=== PATIENT | female | born 1955 | race Caucasian/White ===

== ENCOUNTER 2020-05-03 11:54 | Outpatient (CLI) | payer MEDICARE, SELFPAY ==
[2020-05-03 12:09] LABS: Basophils Absolute Auto 0.03 K/mm3 (0.00-0.10); Basophils Percent Auto 0.3 % (0.0-1.0); Eosinophils Absolute Auto 0.22 K/mm3 (0.02-0.50); Eosinophils Percent Auto 2.4 % (1.0-6.0); Hematocrit 32.9 % (35.0-42.0); Immature Granulocyte Absolute 0.03 K/mm3 (0.00-0.00); Immature Granulocyte Percent A 0.3 % (0.0-0.0); Lymphocytes Absolute Auto 2.52 K/mm3 (1.10-4.50); Lymphocytes Percent Auto 27.8 % (18.0-42.0); Mean Corpuscular HGB Conc 33.4 g/dL (32.0-36.0); Mean Corpuscular Hemoglobin 30.4 pg (27.0-31.0); Mean Corpuscular Volume 90.9 fL (78.0-102.0); Mean Platelet Volume 10.2 fl (9.2-11.8); Monocytes Absolute Auto 0.59 K/mm3 (0.10-0.90); Monocytes Percent Auto 6.5 % (2.0-11.0); Neutrophils Absolute Auto 5.7 K/mm3 (1.7-7.2); Neutrophils Percent Auto 62.7 % (50.0-70.0); Platelet Count Result 152 K/mm3 (150-420); Red Blood Count 3.62 M/mm3 (4.20-5.40); Red Cell Distribution Width 12.9 % (11.6-14.4); White Blood Count 9.1 K/mm3 (4.8-10.8)
[2020-05-03 13:11] LABS: Blood Urea Nitrogen 27 mg/dL (7-18); Calcium 9.2 mg/dL (8.5-10.1); Carbon Dioxide 33 mmol/L (21-32); Chloride 105 mmol/L (98-108); Estimated Glomerular Filt Rate 43; Glucose 145 mg/dL (70-99); Osmolality Calculated 306 mOsm/kg (285-295); Phosphorus 3.5 mg/dL (2.6-4.7); Sodium 144 mmol/L (136-145)
== END 2020-05-03 11:55 | disposition home or self-care (01) ==
PROVIDERS: PCP Family Medicine
DX: N18.2 Chronic kidney disease, stage 2 (mild) (principal)
CPT/HCPCS: 36415; 80069; 85025

== ENCOUNTER 2020-08-13 11:44 | Outpatient (CLI) | payer MEDICARE, SELFPAY ==
[2020-08-13 12:05] LABS: Basophils Absolute Auto 0.04 K/mm3 (0.00-0.10); Basophils Percent Auto 0.5 % (0.0-1.0); Eosinophils Absolute Auto 0.13 K/mm3 (0.02-0.50); Eosinophils Percent Auto 1.7 % (1.0-6.0); Hematocrit 37.4 % (35.0-42.0); Hemoglobin 12.3 g/dL (11.7-13.8); Immature Granulocyte Absolute 0.03 K/mm3 (0.00-0.00); Immature Granulocyte Percent A 0.4 % (0.0-0.0); Lymphocytes Absolute Auto 2.19 K/mm3 (1.10-4.50); Lymphocytes Percent Auto 29.4 % (18.0-42.0); Mean Corpuscular HGB Conc 32.9 g/dL (32.0-36.0); Mean Corpuscular Hemoglobin 28.7 pg (27.0-31.0); Mean Corpuscular Volume 87.4 fL (78.0-102.0); Mean Platelet Volume 11.1 fl (9.2-11.8); Monocytes Absolute Auto 0.38 K/mm3 (0.10-0.90); Monocytes Percent Auto 5.1 % (2.0-11.0); Neutrophils Absolute Auto 4.7 K/mm3 (1.7-7.2); Neutrophils Percent Auto 62.9 % (50.0-70.0); Platelet Count Result 151 K/mm3 (150-420); Red Blood Count 4.28 M/mm3 (4.20-5.40); White Blood Count 7.5 K/mm3 (4.8-10.8)
[2020-08-13 12:06] LABS: Add Urine Microscopic? YES; Appearance Urine Clear (Clear); Bilirubin Urine Negative (Negative); Blood Urine Negative (Negative); Color Urine Yellow (Yellow); Glucose Urine UA 3+ (Negative); Ketones Urine Negative (Negative); Leukocyte Esterase Ur Negative LEU/UL (Negative); Nitrate Urine Negative (Negative); Protein Urine Negative (Negative); Urobilinogen Urine 0.2 mg/dL (0.2-1.0); pH Urine 5.5 (5.0-8.0)
[2020-08-13 12:11] LABS: Bacteria Urine 3+ /hpf; RBC Urine 0-2 /hpf (0-2); Squamous Epithelial Cell Urine Many /hpf (Few); WBC Urine 0-3 /hpf (0-3)
[2020-08-13 12:19] LABS: Creatinine Urine 50.53 mg/dL (40-278)
[2020-08-13 12:27] LABS: Total Protein Urine Random 7.6 mg/dL (0.0-11.9)
[2020-08-13 12:42] LABS: Rheumatoid Factor Screen Negative (Negative)
[2020-08-13 12:45] LABS: Alanine Aminotransferase 28 U/L (14-59); Alkaline Phosphatase 71 U/L (46-116); Anion Gap 10 mmol/L (8-16); Aspartate Amino Transferase 29 U/L (15-37); Bilirubin,Total 0.4 mg/dL (0.00-1.00); Blood Urea Nitrogen 21 mg/dL (7-18); Calcium 9.2 mg/dL (8.5-10.1); Carbon Dioxide 25 mmol/L (21-32); Chloride 103 mmol/L (98-108); Estimated Glomerular Filt Rate 46; Ferritin 118 ng/mL (8-252); Glucose 383 mg/dL (70-99); Iron 76 ug/dL (50-170); Osmolality Calculated 305 mOsm/kg (285-295); Percent Iron Saturation 18 % (12-57); Potassium 4.9 mmol/L (3.5-5.1); Sodium 138 mmol/L (136-145); Total Protein 6.6 g/dL (6.4-8.2); Uric Acid 3.6 mg/dL (2.6-6.0)
[2020-08-17 12:36] LABS: Complement C3 170 mg/dL (83-193)
[2020-08-17 19:53] LABS: Vitamin D 25 Hydroxy 28 ng/mL (30-100)
[2020-08-18 10:31] LABS: ANCA Screen Negative (Negative)
[2020-08-18 15:20] LABS: Parathyroid Intact 15 pg/mL (14-64)
== END 2020-08-13 11:45 | disposition home or self-care (01) ==
LOC: CHSLAB 11:48
PROVIDERS: PCP Family Medicine; Visit Provider Internal Medicine Nephrology
DX: R60.9 Edema, unspecified (principal); I12.9 Hypertensive chronic kidney disease with stage 1 through stage 4 chronic kidney disease, or unspecified chronic kidney disease; D63.1 Anemia in chronic kidney disease; M19.90 Unspecified osteoarthritis, unspecified site; E55.9 Vitamin D deficiency, unspecified; N18.30 Chronic kidney disease, stage 3 unspecified
CPT/HCPCS: 36415; 80053; 81001; 82306; 82570; 82728; 83540; 83550; 83970; 84100; 84156; 84550; 85025; 86021; 86038; 86160; 86430

== ENCOUNTER 2021-07-29 17:22 | Observation (INO) | payer MEDICARE, SELFPAY ==
--- NOTE | ~2021-07-29 | CT_ITS ---
EXAMINATION: CT abdomen pelvis wo con DATE: 07/29/2021 18:03 INDICATION: Left flank and low back pain. Loss of bladder control. TECHNIQUE: Computed tomography (CT) of the abdomen and pelvis was performed without intravenous contr ast. Automated exposure control and iterative reconstruction technique were employed. Exam dose: 141 4.05 mGy-cm total exam DLP. COMPARISON: None. FINDINGS: There is minimal atelectasis and/or infiltrate at the lung bases. Heart size is normal. No pericardial or pleural effusion. Status post sternotomy. There are multiple small filling defects in the dependent aspect of the gallbladder consistent with c holelithiasis. No gallbladder wall thickening or pericholecystic fluid or fat stranding. No bile duct or pancreatic duct dilatation. The liver, spleen, pancreas, adrenal glands and kidneys are unremarkable on this limited noncontrast examination. No urinary tract calculus or hydroureteronephrosis. There is atherosclerotic calcification of the abdominal aorta and at the origins of the celiac and weiss perior mesenteric and renal arteries, especially the left renal artery. No abdominal aortic aneurysm. There is calcification of the iliac and femoral arteries. No intraperitoneal or retroperitoneal or pelvic mass lesion or adenopathy or ascites. The urinary faustina dder is unremarkable. Status post hysterectomy. No bowel obstruction, bowel wall thickening, pneumatosis or intraperitoneal free air is detected. No appendix is noted. Degenerative changes of the thoracic and particularly lumbar spine including severe degenerative disc disease throughout the lumbar and lumbosacral area with associated and mild retrolisthesis at severa l levels. IMPRESSION: No urinary tract calculus or hydroureteronephrosis Cholelithiasis Degenerative changes of the thoracic and lumbar spine Reviewed, dictated and finalized at [facility]. Reviewed, dictated and finalized at location [facility].
--- NOTE | ~2021-07-29 | CT_ITS ---
EXAMINATION: CT lumbar spine wo con DATE: 07/30/2021 10:36 INDICATION: Low back pain TECHNIQUE: Computed tomography (CT) of the lumbar spine was performed without intravenous contrast. T he dose-length product (DLP) was 2043.61 mGy-cm. Iterative reconstruction was used. COMPARISON: None FINDINGS: There are 2 mm of retrolisthesis of L2 on L3 and L3 on L4. The vertebral body heights are m aintained. There is severe loss of intervertebral disc space height throughout the lumbar spine. No f racture is identified. Lumbar levoscoliosis is noted. IMPRESSION: 1. Severe lumbar spondylosis without acute abnormality. Reviewed, dictated and finalized at location [facility].
--- NOTE | 2021-07-29 17:29 | ED.GENADULT ---
HPI - General Adult General Chief complaint: Back Pain/Injury Stated complaint: ambualnce Source: patient Mode of arrival: ambulatory Limitations: no limitations History of Present Illness HPI narrative: Justyna is a 66F with a PMH of DMII, HTN, HLD, neuropathy, anxiety, CAD and aortic valve disease that was brought in by EMS for left low back pain. She also has some dysuria. She has chronic low back pain but it has been much worse today. It is worse with movement and better with rest. She lost her urine 3 times but not stool. She denies any paralysis or paresthesias. She denies trauma. Related Data Home Medications Medication Instructions Recorded Confirmed Lantus U-100 Insulin 54 unit SUBCUT HS 06/08/21 07/29/21 ProAir RespiClick 1 inh INHALATION QID PRN 06/08/21 07/29/21 Repatha Syringe 140 mg SUBCUT [id number] 06/08/21 07/29/21 Trulicity 3 mg SUBCUT WEEKLY 06/08/21 07/29/21 aspirin 81 mg PO DAILY 06/08/21 07/29/21 cholecalciferol (vitamin D3) 50 mcg PO DAILY 06/08/21 07/29/21 [Vitamin D3] fenofibrate micronized 134 mg PO DAILY 06/08/21 07/29/21 furosemide 40 mg PO DAILY 06/08/21 07/29/21 insulin lispro [Humalog U-100 14 unit SUBCUT TID 06/08/21 07/29/21 Insulin] lisinopril 5 mg PO DAILY 06/08/21 07/29/21 metoprolol succinate 25 mg PO DAILY 06/08/21 07/29/21 multivitamin with minerals 1 tablet PO DAILY 06/08/21 07/29/21 nitroglycerin [Nitrostat] 0.4 mg SUBLINGUAL Q5-15M PRN 06/08/21 07/29/21 rosuvastatin [Crestor] 40 mg PO DAILY 06/08/21 07/29/21 sertraline 50 mg PO DAILY 06/08/21 07/29/21 levetiracetam 1,000 mg PO BID 07/29/21 07/29/21 Allergies Allergy/AdvReac Type Severity Reaction Status Date / Time morphine Allergy Intermediate Difficulty Verified 06/08/21 12:05 Breathing Review of Systems Constitutional: Constitutional: Reports no additional constitutional complaints Eyes: Eyes: Reports no additional eye complaints ENT: Reports system reviewed and no additional complaints, except as documented Cardiovascular: Cardiovascular: Reports no additional cardiovascular complaints Respiratory: Respiratory: Reports no additional respiratory complaints Gastrointestinal: Gastrointestinal: Reports no additional gastrointestinal complaints Genitourinary: Genitourinary: Reports as per HPI Musculoskeletal: Musculoskeletal: Reports as per HPI Integumentary/Breasts: Skin/Breast: Reports system reviewed and no additional complaints, except as docu Neurologic: Reports as per HPI Psychiatric: Psychiatric: Reports no additional psychiatric complaints Endocrine: Endocrine: Reports no additional endocrine complaints Hematologic/Lymphatic: Hematologic/Lymphatic: Reports no additional hematologic/lymphatic complaints Allergic/Immunologic: Allergic/Immunologic: Reports no additional allergic/immunologic complaints [facility] Past Medical History Medical History Anxiety Aortic valve disease Carotid artery disease Cataracts, bilateral Coronary artery disease Diabetes Diabetic neuropathy Hyperlipidemia Hypertension Shortness of breath on exertion Surgical History Surgical History H/O carotid endarterectomy Hx of heart artery stent Family History Family History Sibling Acute myocardial infarction Mother Cancer Social History Social History Social History: The patient lives with her sister in [facility] with 5 steps to enter iwth B handrails at front entrance and 6 steps iwth Left handrail at back entrance. patient uses a cane for short distances. Smoking status: Current every day smoker Tobacco type: cigarettes Smoking end date: 06/08/21 Exam Const: General: no acute distress and alert Orientation/consciousness: patient oriented x3 Limitations: No altered mental status HENMT: H
[2021-07-29 17:51] VITALS: BP 160/91; PULSE 78; RESP 16; TEMP 36.9; O2SAT 97
[2021-07-29] MEDS: fentaNYL CITRATE INJ (*CRX) 100 MCG/2 ML VIAL 50 MCG IV PUSH (18:02)
[2021-07-29 18:05] LABS: Basophils Absolute Auto 0.03 K/mm3 (0.00-0.10); Basophils Percent Auto 0.4 % (0.0-1.0); Eosinophils Absolute Auto 0.17 K/mm3 (0.02-0.50); Eosinophils Percent Auto 2.1 % (1.0-6.0); Hematocrit 37.3 % (35.0-42.0); Hemoglobin 12.1 g/dL (11.7-13.8); Immature Granulocyte Absolute 0.02 K/mm3 (0.00-0.00); Immature Granulocyte Percent A 0.3 % (0.0-0.0); Immature Platelet Fraction Pct 2.4 % (1.0-7.0); Lymphocytes Absolute Auto 2.57 K/mm3 (1.10-4.50); Lymphocytes Percent Auto 32.5 % (18.0-42.0); Mean Corpuscular HGB Conc 32.4 g/dL (32.0-36.0); Mean Corpuscular Hemoglobin 29.8 pg (27.0-31.0); Mean Corpuscular Volume 91.9 fL (78.0-102.0); Mean Platelet Volume 10.9 fl (9.2-11.8); Monocytes Absolute Auto 0.58 K/mm3 (0.10-0.90); Monocytes Percent Auto 7.3 % (2.0-11.0); Neutrophils Absolute Auto 4.5 K/mm3 (1.7-7.2); Neutrophils Percent Auto 57.4 % (50.0-70.0); Platelet Count Result 131 K/mm3 (150-420); Red Blood Count 4.06 M/mm3 (4.20-5.40); Red Cell Distribution Width 12.6 % (11.6-14.4); White Blood Count 7.9 K/mm3 (4.8-10.8)
[2021-07-29 18:19] LABS: Alanine Aminotransferase 28 U/L (14-59); Albumin Level 3.8 g/dL (3.4-5.0); Alkaline Phosphatase 52 U/L (46-116); Anion Gap 8 mmol/L (8-16); Aspartate Amino Transferase 28 U/L (15-37); Bilirubin,Total 0.4 mg/dL (0.00-1.00); Blood Urea Nitrogen 23 mg/dL (7-18); Carbon Dioxide 30 mmol/L (21-32); Chloride 109 mmol/L (98-108); Estimated CRCL calculation 37 ml/min; Estimated Glomerular Filt Rate 52; Glucose 122 mg/dL (70-99); Osmolality Calculated 308 mOsm/kg (285-295); Potassium 4.8 mmol/L (3.5-5.1); Sodium 147 mmol/L (136-145); Total Protein 6.8 g/dL (6.4-8.2)
[2021-07-29 18:35] LABS: Add Urine Microscopic? YES; Appearance Urine Clear (Clear); Bilirubin Urine Negative (Negative); Blood Urine Trace-Intact (Negative); Color Urine Light Yellow (Yellow); Glucose Urine UA Negative (Negative); Ketones Urine Negative (Negative); Leukocyte Esterase Ur 1+ (Negative); Nitrate Urine Negative (Negative); Protein Urine Negative (Negative); Specific Grav Ur >= 1.030 (1.010-1.020); Urobilinogen Urine 0.2 mg/dL (0.2-1.0)
[2021-07-29 18:36] LABS: Bacteria Urine Trace /hpf; Squamous Epithelial Cell Urine Moderate /hpf (Few)
[2021-07-29 18:37] LABS: Mucus Urine Moderate /lpf
--- NOTE | 2021-07-29 19:17 | PC.NURSE ---
Attempted to get pt up to commode, pt unable to stand due to pain.
--- NOTE | 2021-07-29 19:19 | PC.NURSE ---
report to precious lee
[2021-07-29 20:30] VITALS: BP 150/59; PULSE 73; RESP 18; TEMP 36.4; O2SAT 95
[2021-07-29 20:38] VITALS: BP 130/70; PULSE 78; RESP 20; TEMP 36.6; O2SAT 98
[2021-07-29 21:14] VITALS: BMI 40.5
[2021-07-29 22:34] LABS: Glucose Point of Care 134 mg/dl (65-105)
[2021-07-29] MEDS: levETIRAcetam 500 MG TABLET 1000 MG PO (22:35)
[2021-07-29] MEDS: INSULIN GLARGINE (*BKC) 100 UNITS/ML 54 UNITS SUB-Q (22:36)
[2021-07-30] VITALS: BP 128/54; PULSE 71; RESP 18; TEMP 35.6; O2SAT 95
[2021-07-30] MEDS: HYDROcodone/acetaminophen (*CRX) 5-325 MG TABLET 1 TAB PO (00:39)
[2021-07-30 04:00] VITALS: BP 129/54; PULSE 97; RESP 20; TEMP 35.7; O2SAT 96
[2021-07-30] MEDS: oxyCODONE HCL (*CRX) 5 MG TAB IR PO (04:29)
[2021-07-30 07:55] VITALS: BP 134/73; PULSE 65; RESP 18; TEMP 36.1; O2SAT 100
[2021-07-30] MEDS: FENOFIBRATE NANOCRYSTALLIZED 145 MG TABLET PO (09:44)
[2021-07-30 09:45] VITALS: PULSE 65
[2021-07-30] MEDS: ROSUVASTATIN 10 MG TABLET 40 MG PO (09:45)
[2021-07-30] MEDS: METOPROLOL SUCCINATE EXT REL 25 MG TABCR PO (09:45)
[2021-07-30] MEDS: ASPIRIN 81 MG CHEWABLE TABLET PO (09:45)
[2021-07-30] MEDS: ENOXAPARIN 40 MG/0.4 ML SYRINGE SUB-Q (09:46)
[2021-07-30] MEDS: SERTRALINE HCL 50 MG TABLET PO (09:46)
[2021-07-30] MEDS: levETIRAcetam 500 MG TABLET 1000 MG PO (09:46)
[2021-07-30] MEDS: lisinopriL 5 MG TABLET PO (09:46)
[2021-07-30] MEDS: FUROSEMIDE 40 MG TABLET PO (09:46)
[2021-07-30] MEDS: THERAPEUTIC MULTIVITAMINS/MINERALS TAB (*BKC) 1 TABLET PO (09:46)
[2021-07-30 09:53] LABS: Glucose Point of Care 131 mg/dl (65-105)
--- NOTE | 2021-07-30 10:00 | PM.SD2 ---
Same Day Admit/Disch: HPI History of Present Illness Chief complaint: ambualnce Narrative: Justyna Wise is a 66 year old female who comes to the hospital for acute on chronic back pain and dysuria. Patient was admitted under Observation. Patient states that her lower left back pain had gotten worse over the last day. Patient says that when her back pain gets bad she has difficulty walking because it makes her left leg hurt as well. She also complains of dysuria. She states that after she has finished urinating is when she has the most pain. This pain is the same she has had in the past with a urinary tract infection. Patient states that when she was at home with this pain having hard time getting around she was also having stress incontinence of urine but no bowel incontinence. Patient states this morning she is able to get around with less difficulty. [facility] Past Medical History Medical History (Updated 07/30/21 @ 11:28 by KERON Aguila) Acute sinusitis, unspecified (12/24/14) Acute upper respiratory infection (12/24/14) Anxiety Aortic valve disease Breast lump (05/27/15) CAD (coronary artery disease) (02/28/12) Carotid artery disease Cataracts, bilateral Coronary artery disease Depression (02/28/12) Diabetes Diabetic neuropathy Hip pain (04/20/15) Hyperlipidemia Hypertension Knee pain (04/11/13) Lower back pain (01/30/13) Psoriasis (02/28/12) Shortness of breath on exertion Skin tag (05/28/14) Unspecified viral infection characterized by skin and mucous membrane lesions (04/20/15) Surgical History Surgical History H/O carotid endarterectomy Hx of heart artery stent Family History Family History Sibling Acute myocardial infarction Mother Cancer Social History Social History Social History: The patient lives with her sister in [facility] with 5 steps to enter [facility] B handrails at front entrance and 6 steps iwth Left handrail at back entrance. patient uses a cane for short distances. Smoking packs per day: 2 Smoking cigarettes per day: 40.0 Years smoked: 7 Smoking pack-years: 14.00 Smoking status: Former smoker Tobacco type: cigarettes Second hand tobacco smoke exposure: Yes Smoking end date: 06/08/21 Alcohol intake: never Substance use: never Substance use type: does not use Spiritual care concerns: No Same Day Admit/Disch: Med Pre-admit Medications Home Medications Medication Instructions Recorded Confirmed Type Lantus U-100 Insulin 54 unit SUBCUT HS 06/08/21 07/29/21 History ProAir RespiClick 1 inh INHALATION QID PRN 06/08/21 07/29/21 History Repatha Syringe 140 mg SUBCUT [id number] 06/08/21 07/29/21 History Trulicity 3 mg SUBCUT WEEKLY 06/08/21 07/29/21 History aspirin 81 mg PO DAILY 06/08/21 07/29/21 History cholecalciferol (vitamin D3) 50 mcg PO DAILY 06/08/21 07/29/21 History [Vitamin D3] fenofibrate micronized 134 mg PO DAILY 06/08/21 07/29/21 History furosemide 40 mg PO DAILY 06/08/21 07/29/21 History insulin lispro [Humalog U-100 14 unit SUBCUT TID 06/08/21 07/29/21 History Insulin] lisinopril 5 mg PO DAILY 06/08/21 07/29/21 History metoprolol succinate 25 mg PO DAILY 06/08/21 07/29/21 History multivitamin with minerals 1 tablet PO DAILY 06/08/21 07/29/21 History nitroglycerin [Nitrostat] 0.4 mg SUBLINGUAL Q5-15M PRN 06/08/21 07/29/21 History rosuvastatin [Crestor] 40 mg PO DAILY 06/08/21 07/29/21 History sertraline 50 mg PO DAILY 06/08/21 07/29/21 History levetiracetam 1,000 mg PO BID 07/29/21 07/29/21 History orphenadrine citrate 100 mg PO Q12H #14 tablet 07/30/21 Rx sulfamethoxazole-trimethoprim 1 tablet PO Q12H #10 tablet 07/30/21 Rx [Bactrim DS] Exam Neck: Neck: other (surgical scare from endo carotidectomy) Resp: Effort & Inspection: normal respiratory effort Auscultation: clear
[2021-07-30] MEDS: ORPHENADRINE CITRATE 30 MG/ML 2 ML VIAL 60 MG IM (10:53)
[2021-07-30 12:00] VITALS: PULSE 64; RESP 18; TEMP 36; O2SAT 100
[2021-07-30 12:22] LABS: Glucose Point of Care 133 mg/dl (65-105)
--- NOTE | 2021-07-30 14:40 | PC.NURSE ---
All discharge instructions and education reviewed with patient. Patient states understanding. IV site removed, tip intact. Dressing applied to site. All belongings gathered together and sent home with patient. Patient changed into clothing her daughter brought in with no assist. This nurse accompanied patient to front door via wheelchair. Patient left via private vehicle with daughter.
--- NOTE | 2021-08-01 12:50 | PC.NURSE ---
Pt states she received and understood her discharge instructions. When asked if she had any comments about her care she stated It was excellent .
== END 2021-07-30 14:40 | disposition home or self-care (01) ==
LOC: CHSED 19:59 → CHS2ND 20:00
PROVIDERS: Admitting Provider Family Medicine; Emergency Provider Family Medicine; PCP Family Medicine; Visit Provider Family Medicine
DX: M54.5 Low back pain (principal); N39.0 Urinary tract infection, site not specified; I10 Essential (primary) hypertension; I25.10 Atherosclerotic heart disease of native coronary artery without angina pectoris; I35.8 Other nonrheumatic aortic valve disorders; E11.40 Type 2 diabetes mellitus with diabetic neuropathy, unspecified; E78.5 Hyperlipidemia, unspecified; K80.20 Calculus of gallbladder without cholecystitis without obstruction; M47.816 Spondylosis without myelopathy or radiculopathy, lumbar region; G89.29 Other chronic pain; H26.9 Unspecified cataract; F32.9 Major depressive disorder, single episode, unspecified; F41.9 Anxiety disorder, unspecified; Z87.891 Personal history of nicotine dependence; Z95.5 Presence of coronary angioplasty implant and graft
CPT/HCPCS: 36415; 72131; 74176; 80053; 81001; 82948; 85025; 85055; 96372; 96374; 99285; A9270; G0378; J1650; J1815; J2360; J3010

== ENCOUNTER 2022-02-08 19:22 | Emergency (ER) | payer MEDICARE, SELFPAY ==
--- NOTE | ~2022-02-08 | CT_ITS ---
EXAMINATION: CT abdomen pelvis wo con DATE: 02/08/2022 22:27 INDICATION: Left flank pain. TECHNIQUE: Computed tomography (CT) of the abdomen and pelvis was performed without intravenous contr ast. Automated exposure control and iterative reconstruction technique were employed. The dose-length product was 669.46 mGy-cm. COMPARISON: CT abdomen and pelvis 07/29/2021 FINDINGS: The visualized portions of the lung bases demonstrate chronic interstitial lung disease. No pleural effusion. The heart size is normal. There are coronary artery calcifications. No pericardial effusion. There are changes of coronary artery bypass grafting. The liver is normal. There are galls tones in the gallbladder, which is normal in size. The spleen, pancreas, adrenal glands, and kidneys are normal. There is no urolithiasis. There are no dilated loops of bowel. The appendix is not visual ized. There are no pathologically enlarged lymph nodes. There is no free intraperitoneal fluid. There is severe lumbar spondylosis. IMPRESSION: 1. No urolithiasis. Reviewed, dictated and finalized at location A. IMPRESSION: 1. No urolithiasis.
[2022-02-08 19:38] VITALS: BP 157/64; PULSE 82; RESP 16; TEMP 36.8; O2SAT 99
--- NOTE | 2022-02-08 19:55 | PC.NURSE ---
Urine sent to lab
[2022-02-08 20:06] LABS: Appearance Urine Clear (Clear); Bilirubin Urine Negative (Negative); Blood Urine Negative (Negative); Color Urine Yellow (Yellow); Glucose Urine UA 2+ mg/dL (Negative); Ketones Urine Negative (Negative); Leukocyte Esterase Ur Negative LEU/UL (Negative); Nitrate Urine Negative (Negative); Protein Urine Negative (Negative); Specific Grav Ur >= 1.030 (1.001-1.035); Urobilinogen Urine 0.2 mg/dL (<2.0)
[2022-02-08 20:17] LABS: Mucus Urine Rare /lpf; RBC Urine 0-2 /hpf (0-2); Squamous Epithelial Cell Urine Many /hpf (Few); WBC Urine 0-3 /hpf
[2022-02-08 20:18] LABS: Add Urine Microscopic? YES
--- NOTE | 2022-02-08 20:34 | ED.FEMALEGU ---
HPI - Female Genitourinary General Chief complaint: Urogenital-Female Stated complaint: flank pain Time Seen by Provider: 02/08/22 20:23 Source: patient Mode of arrival: ambulatory Limitations: no limitations History of Present Illness HPI Narrative: Patient is a 67-year-old female who presents to the ED with report of left lower back/flank pain x2 days. Patient reports she has had pain like this before approximately 7 months ago at which point she had a urinary tract infection. She denies any recent urinary symptoms including dysuria, hematuria, urinary frequency. She notes her pain is worse with movement and sitting upright. She denies any recent falls or injury, unusual activity, strenuous activity. She has tried taking Tylenol at home for the pain without relief. Patient denies any weakness in her BLE, numbness, tingling, incontinence of her bowel or bladder. No chest pain, shortness of breath, abdominal pain, nausea, vomiting, fever, chills, pain with inspiration. Related Data Home Medications Medication Instructions Recorded Confirmed Lantus U-100 Insulin 54 unit SUBCUT HS 06/08/21 07/29/21 ProAir RespiClick 1 inh INHALATION QID PRN 06/08/21 07/29/21 Repatha Syringe 140 mg SUBCUT [id number] 06/08/21 07/29/21 Trulicity 3 mg SUBCUT WEEKLY 06/08/21 07/29/21 aspirin 81 mg PO DAILY 06/08/21 07/29/21 cholecalciferol (vitamin D3) 50 mcg PO DAILY 06/08/21 07/29/21 [Vitamin D3] fenofibrate micronized 134 mg PO DAILY 06/08/21 07/29/21 furosemide 40 mg PO DAILY 06/08/21 07/29/21 insulin lispro [Humalog U-100 14 unit SUBCUT TID 06/08/21 07/29/21 Insulin] lisinopril 5 mg PO DAILY 06/08/21 07/29/21 metoprolol succinate 25 mg PO DAILY 06/08/21 07/29/21 multivitamin with minerals 1 tablet PO DAILY 06/08/21 07/29/21 nitroglycerin [Nitrostat] 0.4 mg SUBLINGUAL Q5-15M PRN 06/08/21 07/29/21 rosuvastatin [Crestor] 40 mg PO DAILY 06/08/21 07/29/21 sertraline 50 mg PO DAILY 06/08/21 07/29/21 levetiracetam 1,000 mg PO BID 07/29/21 07/29/21 Allergies Allergy/AdvReac Type Severity Reaction Status Date / Time morphine Allergy Intermediate Difficulty Verified 02/08/22 19:42 Breathing Review of Systems Review of Systems: CONSTITUTIONAL: Denies fever, chills. CARDIOVASCULAR: Denies chest pain. RESPIRATORY: Denies dyspnea, pain w/ inspiration. GASTROINTESTINAL: Denies abdominal pain, nausea, vomiting, incontinence, or diarrhea. GENITOURINARY: Denies dysuria, urinary frequency, incontinence, or hematuria. SKIN: Denies rash or itching. MUSCULOSKELETAL: Reports L lower back/flank pain. Denies joint pain. NEUROLOGIC: Denies headache, numbness, or weakness. All systems reviewed & are unremarkable except as noted in HPI and below PMFSH Past Medical History Medical History Acute sinusitis, unspecified (12/24/14) Acute upper respiratory infection (12/24/14) Anxiety Aortic valve disease Breast lump (05/27/15) CAD (coronary artery disease) (02/28/12) Carotid artery disease Cataracts, bilateral Coronary artery disease Depression (02/28/12) Diabetes Diabetic neuropathy Hip pain (04/20/15) Hyperlipidemia Hypertension Knee pain (04/11/13) Lower back pain (01/30/13) Psoriasis (02/28/12) Shortness of breath on exertion Skin tag (05/28/14) Unspecified viral infection characterized by skin and mucous membrane lesions (04/20/15) Surgical History Surgical History H/O carotid endarterectomy Hx of heart artery stent Family History Family History Sibling Acute myocardial infarction Mother Cancer Social History Social History Social History: The patient lives with her sister in [facility] with 5 steps to enter [facility] B handrails at front entrance and 6 steps iw Left handrail at back entrance. patient uses a cane for short distances.
[2022-02-08 21:17] VITALS: BP 152/68; PULSE 86; RESP 16; O2SAT 99
[2022-02-08] MEDS: KETOROLAC 30 MG/ML VIAL (*BKC) IV PUSH (21:19)
[2022-02-08 21:27] LABS: Basophils Percent Auto 0.4 % (0.2-1.2); Eosinophils Absolute Auto 0.1 K/mm3 (0-0.3); Eosinophils Percent Auto 1.7 % (0-4.4); Hematocrit 36.2 % (37.0-47.0); Hemoglobin 11.5 g/dL (12.0-15.0); Immature Granulocyte Absolute 0.02 K/mm3 (0.00-0.031); Immature Granulocyte Percent A 0.3 % (0-0.5); Lymphocytes Absolute Auto 2.71 K/mm3 (0.9-3.2); Lymphocytes Percent Auto 34.7 % (18.3-44.2); Mean Corpuscular HGB Conc 31.8 g/dl (32-36); Mean Corpuscular Hemoglobin 29.3 pg (26-34); Mean Corpuscular Volume 92.3 fl (80-100); Monocytes Absolute Auto 0.7 K/mm3 (0.1-0.6); Monocytes Percent Auto 8.4 % (2.6-8.5); Neutrophils Absolute Auto 4.3 K/mm3 (1.3-6.7); Neutrophils Percent Auto 54.5 % (45.5-73.1); Platelet Count Result 125 k/mm3 (150-375); Red Blood Count 3.92 M/mm3 (4.2-5.4); Red Cell Distribution Width 13.4 % (11.5-14.5); White Blood Count 7.8 K/mm3 (4.5-10.0)
[2022-02-08 21:37] LABS: Alanine Aminotransferase 24 U/L (4-35); Albumin Level 4.1 g/dL (3.5-5.1); Alkaline Phosphatase 92 U/L (38-126); Anion Gap 7 mmol/L (8-16); Aspartate Amino Transferase 35 U/L (14-36); Bilirubin,Total 0.3 mg/dL (0.2-1.3); Blood Urea Nitrogen 31 mg/dL (7-17); Calcium 8.9 mg/dL (8.4-10.2); Carbon Dioxide 27 mmol/L (22-30); Chloride 106 mmol/L (98-107); Estimated CRCL calculation 54 ml/min; Estimated Glomerular Filt Rate 55; Glucose 230 mg/dL (65-110); Lipase 63 U/L (23-300); Potassium 4.9 mmol/L (3.4-5.0); Sodium 140 mmol/L (137-145)
[2022-02-08] MEDS: CYCLOBENZAPRINE HCL 5 MG TABLET PO (22:43)
[2022-02-08 23:22] VITALS: BP 154/52; PULSE 75; RESP 18; O2SAT 98
== END 2022-02-08 23:22 | disposition home or self-care (01) ==
PROVIDERS: Physician Assistant; Emergency Provider Emergency Medicine; PCP Family Medicine
DX: S39.012A Strain of muscle, fascia and tendon of lower back, initial encounter (principal); F41.9 Anxiety disorder, unspecified; I25.10 Atherosclerotic heart disease of native coronary artery without angina pectoris; E11.9 Type 2 diabetes mellitus without complications; Z79.4 Long term (current) use of insulin; X58.XXXA Exposure to other specified factors, initial encounter
CPT/HCPCS: 36415; 74176; 80053; 81001; 83690; 85025; 96374; 99284; A9270; J1885

== ENCOUNTER 2022-09-18 11:00 | Outpatient (RCR) | payer MEDICARE, SELFPAY ==
[2022-06-09 11:09] LABS: Glucose Point of Care 363 mg/dl (65-105)
== END 2022-09-18 13:11 | disposition home or self-care (01) ==
PROVIDERS: PCP Family Medicine
DX: Z95.2 Presence of prosthetic heart valve (principal)
CPT/HCPCS: 93798

== ENCOUNTER 2023-01-13 09:44 | Outpatient (CLI) | payer MEDICARE, SELFPAY ==
--- NOTE | ~2023-01-13 | XR_ITS ---
EXAMINATION: XR chest 2V DATE: 01/13/2023 10:07 INDICATION: Abnormal lung sounds, COVID 19 positive TECHNIQUE: PA and lateral views of the chest are obtained. COMPARISON: 09/11/2016 FINDINGS: The lungs are free of acute opacities. No pleural effusion or pneumothorax. The heart size is normal. There are changes of interval coronary artery bypass grafting and endoluminal aortic valve repair. There is mild thoracic spondylosis. Suture anchors are noted in the left humeral head. IMPRESSION: 1. No acute cardiopulmonary abnormality. Reviewed, dictated and finalized at location F. [facility]INGER
[2023-01-13 10:03] LABS: Appearance Urine Clear (Clear); Basophils Absolute Auto 0.05 K/mm3 (0.00-0.10); Basophils Percent Auto 0.6 % (0.0-1.0); Bilirubin Urine Negative (Negative); Blood Urine Negative (Negative); Color Urine Light Yellow (Yellow); Eosinophils Absolute Auto 0.16 K/mm3 (0.02-0.50); Eosinophils Percent Auto 1.8 % (1.0-6.0); Glucose Urine UA Negative (Negative); Hematocrit 40.4 % (35.0-42.0); Hemoglobin 13.2 g/dL (11.7-13.8); Immature Granulocyte Absolute 0.03 K/mm3 (0.00-0.00); Immature Granulocyte Percent A 0.3 % (0.0-0.0); Ketones Urine Negative (Negative); Leukocyte Esterase Ur Trace LEU/UL (Negative); Lymphocytes Percent Auto 35.1 % (18.0-42.0); Mean Corpuscular HGB Conc 32.7 g/dL (32.0-36.0); Mean Corpuscular Hemoglobin 29.6 pg (27.0-31.0); Mean Corpuscular Volume 90.6 fL (78.0-102.0); Mean Platelet Volume 10.3 fl (9.2-11.8); Monocytes Absolute Auto 0.59 K/mm3 (0.10-0.90); Monocytes Percent Auto 6.7 % (2.0-11.0); Neutrophils Absolute Auto 4.9 K/mm3 (1.7-7.2); Neutrophils Percent Auto 55.5 % (50.0-70.0); Nitrate Urine Negative (Negative); Platelet Count Result 157 K/mm3 (150-420); Protein Urine Negative (Negative); Red Blood Count 4.46 M/mm3 (4.20-5.40); Red Cell Distribution Width 13.2 % (11.6-14.4); Urobilinogen Urine 0.2 mg/dL (0.2-1.0); White Blood Count 8.8 K/mm3 (4.8-10.8)
[2023-01-13 10:06] LABS: Add Urine Microscopic? YES; Bacteria Urine Rare /hpf; RBC Urine None seen /hpf (0-2); WBC Urine 0-3 /hpf (0-3)
[2023-01-13 10:07] LABS: Squamous Epithelial Cell Urine Occasional /hpf (Few)
[2023-01-13 10:44] LABS: Creatinine Urine 33.37 mg/dL (40-278); Ur Ttl Prot Creatinine Ratio 0.18 mg/mg (0-0.20)
[2023-01-13 10:54] LABS: Total Protein Urine Random < 6.0 mg/dL (0.0-11.9)
[2023-01-13 11:02] LABS: Albumin Level 3.9 g/dL (3.4-5.0); Anion Gap 9 mmol/L (8-16); Blood Urea Nitrogen 20 mg/dL (7-18); Calcium 9.6 mg/dL (8.5-10.1); Carbon Dioxide 30 mmol/L (21-32); Chloride 105 mmol/L (98-108); Estimated Glomerular Filt Rate 46; Glucose 139 mg/dL (70-99); NT Pro B Type Natriuretic Pept 86 pg/mL (0-125); Osmolality Calculated 302 mOsm/kg (285-295); Phosphorus 4.1 mg/dL (2.6-4.7); Sodium 144 mmol/L (136-145)
== END 2023-01-13 09:45 | disposition home or self-care (01) ==
LOC: CHSIMG 09:49
PROVIDERS: PCP Family Medicine; Visit Provider Internal Medicine Nephrology
DX: R60.9 Edema, unspecified (principal); N18.2 Chronic kidney disease, stage 2 (mild); Z12.2 Encounter for screening for malignant neoplasm of respiratory organs; R05.9 Cough, unspecified; R06.89 Other abnormalities of breathing
CPT/HCPCS: 36415; 71046; 80069; 81001; 82570; 83880; 84156; 85025

== ENCOUNTER 2023-04-21 08:37 | Outpatient (CLI) | payer MEDICARE, SELFPAY ==
[2023-04-21 08:53] LABS: Basophils Absolute Auto 0.05 K/mm3 (0.00-0.10); Basophils Percent Auto 0.5 % (0.0-1.0); Eosinophils Percent Auto 2.1 % (1.0-6.0); Hematocrit 42.7 % (35.0-42.0); Hemoglobin 13.6 g/dL (11.7-13.8); Immature Granulocyte Absolute 0.02 K/mm3 (0.00-0.00); Immature Granulocyte Percent A 0.2 % (0.0-0.0); Lymphocytes Absolute Auto 3.61 K/mm3 (1.10-4.50); Lymphocytes Percent Auto 37.8 % (18.0-42.0); Mean Corpuscular HGB Conc 31.9 g/dL (32.0-36.0); Mean Corpuscular Hemoglobin 29.4 pg (27.0-31.0); Mean Corpuscular Volume 92.4 fL (78.0-102.0); Mean Platelet Volume 10.6 fl (9.2-11.8); Monocytes Absolute Auto 0.62 K/mm3 (0.10-0.90); Monocytes Percent Auto 6.5 % (2.0-11.0); Neutrophils Absolute Auto 5.1 K/mm3 (1.7-7.2); Neutrophils Percent Auto 52.9 % (50.0-70.0); Platelet Count Result 173 K/mm3 (150-420); Red Blood Count 4.62 M/mm3 (4.20-5.40); Red Cell Distribution Width 13.2 % (11.6-14.4); White Blood Count 9.6 K/mm3 (4.8-10.8)
[2023-04-21 08:57] LABS: Total Protein Urine Random 28.2 mg/dL (0.0-11.9)
[2023-04-21 09:04] LABS: Appearance Urine Clear (Clear); Bilirubin Urine Negative (Negative); Blood Urine Negative (Negative); Color Urine Yellow (Yellow); Glucose Urine UA Negative (Negative); Ketones Urine Negative (Negative); Leukocyte Esterase Ur Negative LEU/UL (Negative); Nitrate Urine Negative (Negative); Protein Urine Trace (Negative); Specific Grav Ur >= 1.030 (1.010-1.020); pH Urine 5.5 (5.0-8.0)
[2023-04-21 09:32] LABS: Add Urine Microscopic? YES; Bacteria Urine 2+ /hpf; RBC Urine None seen /hpf (0-2); Squamous Epithelial Cell Urine Moderate /hpf (Few); WBC Urine None seen /hpf (0-3)
[2023-04-21 09:46] LABS: Albumin Level 3.9 g/dL (3.4-5.0); Anion Gap 10 mmol/L (8-16); Blood Urea Nitrogen 19 mg/dL (7-18); Calcium 9.7 mg/dL (8.5-10.1); Carbon Dioxide 30 mmol/L (21-32); Chloride 106 mmol/L (98-108); Estimated Glomerular Filt Rate 51; Glucose 120 mg/dL (70-99); Osmolality Calculated 305 mOsm/kg (285-295); Potassium 4.9 mmol/L (3.5-5.1); Sodium 146 mmol/L (136-145)
[2023-04-25 18:31] LABS: Parathyroid Intact 23 pg/mL (14-64)
[2023-04-26 20:25] LABS: Vitamin D 25 Hydroxy 26 ng/mL (30-100)
== END 2023-04-21 08:38 | disposition home or self-care (01) ==
LOC: CHSLAB 08:40
PROVIDERS: PCP Family Medicine; Visit Provider Internal Medicine Nephrology
DX: N18.30 Chronic kidney disease, stage 3 unspecified (principal); R60.9 Edema, unspecified; I10 Essential (primary) hypertension; E55.9 Vitamin D deficiency, unspecified
CPT/HCPCS: 36415; 80069; 81001; 82306; 82570; 83970; 84156; 85025

== ENCOUNTER 2023-07-14 08:25 | Outpatient (CLI) | payer MEDICARE, SELFPAY ==
[2023-07-14 09:32] LABS: Alanine Aminotransferase 20 U/L (14-59); Albumin Level 3.8 g/dL (3.4-5.0); Alkaline Phosphatase 59 U/L (46-116); Anion Gap 7 mmol/L (8-16); Aspartate Amino Transferase 21 U/L (15-37); Bilirubin,Total 0.4 mg/dL (0.00-1.00); Blood Urea Nitrogen 22 mg/dL (7-18); Calcium 9.1 mg/dL (8.5-10.1); Carbon Dioxide 30 mmol/L (21-32); Chloride 107 mmol/L (98-108); Estimated Glomerular Filt Rate 52; Glucose 122 mg/dL (70-99); NT Pro B Type Natriuretic Pept 92 pg/mL (0-125); Osmolality Calculated 302 mOsm/kg (285-295); Potassium 4.8 mmol/L (3.5-5.1); Sodium 144 mmol/L (136-145); Total Protein 6.5 g/dL (6.4-8.2)
== END 2023-07-14 08:26 | disposition home or self-care (01) ==
LOC: CHSLAB 08:29
PROVIDERS: PCP Family Medicine
DX: I50.22 Chronic systolic (congestive) heart failure (principal)
CPT/HCPCS: 36415; 80053; 83880

== ENCOUNTER 2023-08-10 07:46 | Outpatient (CLI) | payer MEDICARE, SELFPAY ==
[2023-08-10 08:07] LABS: Basophils Absolute Auto 0.04 K/mm3 (0.00-0.10); Basophils Percent Auto 0.4 % (0.0-1.0); Eosinophils Absolute Auto 0.19 K/mm3 (0.02-0.50); Hematocrit 38.4 % (35.0-42.0); Hemoglobin 12.3 g/dL (11.7-13.8); Immature Granulocyte Absolute 0.03 K/mm3 (0.00-0.00); Immature Granulocyte Percent A 0.3 % (0.0-0.0); Immature Platelet Fraction Pct 3.3 % (1.0-7.0); Lymphocytes Absolute Auto 2.92 K/mm3 (1.10-4.50); Lymphocytes Percent Auto 30.8 % (18.0-42.0); Mean Corpuscular Hemoglobin 29.9 pg (27.0-31.0); Mean Corpuscular Volume 93.4 fL (78.0-102.0); Mean Platelet Volume 11.1 fl (9.2-11.8); Monocytes Absolute Auto 0.67 K/mm3 (0.10-0.90); Monocytes Percent Auto 7.1 % (2.0-11.0); Neutrophils Absolute Auto 5.6 K/mm3 (1.7-7.2); Neutrophils Percent Auto 59.4 % (50.0-70.0); Platelet Count Result 136 K/mm3 (150-420); Red Blood Count 4.11 M/mm3 (4.20-5.40); Red Cell Distribution Width 13.1 % (11.6-14.4); White Blood Count 9.5 K/mm3 (4.8-10.8)
[2023-08-10 08:16] LABS: Appearance Urine Clear (Clear); Bilirubin Urine Negative (Negative); Blood Urine Negative (Negative); Color Urine Yellow (Yellow); Glucose Urine UA Negative (Negative); Ketones Urine Negative (Negative); Leukocyte Esterase Ur Negative LEU/UL (Negative); Nitrate Urine Negative (Negative); Protein Urine Negative (Negative); Specific Grav Ur 1.025 (1.010-1.020); Urobilinogen Urine 0.2 mg/dL (0.2-1.0)
[2023-08-10 08:18] LABS: Creatinine Urine 192.78 mg/dL (40-278); Total Protein Urine Random 17.2 mg/dL (0.0-11.9); Ur Ttl Prot Creatinine Ratio 0.09 mg/mg (0-0.20)
[2023-08-10 08:21] LABS: Add Urine Microscopic? NO; Albumin Level 3.6 g/dL (3.4-5.0); Anion Gap 9 mmol/L (8-16); Blood Urea Nitrogen 22 mg/dL (7-18); Calcium 9.5 mg/dL (8.5-10.1); Carbon Dioxide 28 mmol/L (21-32); Chloride 108 mmol/L (98-108); Estimated Glomerular Filt Rate 54; Glucose 117 mg/dL (70-99); Osmolality Calculated 304 mOsm/kg (285-295); Phosphorus 3.2 mg/dL (2.6-4.7); Potassium 4.4 mmol/L (3.5-5.1); Sodium 145 mmol/L (136-145)
[2023-08-14 03:48] LABS: Parathyroid Intact 19 pg/mL (14-64)
[2023-08-14 12:52] LABS: Vitamin D 25 Hydroxy 25 ng/mL (30-100)
== END 2023-08-10 07:47 | disposition home or self-care (01) ==
LOC: CHSLAB 07:48
PROVIDERS: PCP Family Medicine; Visit Provider Internal Medicine Nephrology
DX: R60.9 Edema, unspecified (principal); N18.30 Chronic kidney disease, stage 3 unspecified; I10 Essential (primary) hypertension; E55.9 Vitamin D deficiency, unspecified
CPT/HCPCS: 36415; 80069; 81003; 82306; 82570; 83970; 84156; 85025; 85055

== ENCOUNTER 2023-12-18 17:05 | Outpatient (CLI) | payer MEDICARE, SELFPAY ==
[2023-12-18 17:35] LABS: Basophils Absolute Auto 0.06 K/mm3 (0.00-0.10); Basophils Percent Auto 0.7 % (0.0-1.0); Eosinophils Absolute Auto 0.27 K/mm3 (0.02-0.50); Hematocrit 38.7 % (35.0-42.0); Hemoglobin 12.3 g/dL (11.7-13.8); Immature Granulocyte Absolute 0.02 K/mm3 (0.00-0.00); Immature Granulocyte Percent A 0.2 % (0.0-0.0); Lymphocytes Absolute Auto 2.85 K/mm3 (1.10-4.50); Lymphocytes Percent Auto 31.8 % (18.0-42.0); Mean Corpuscular HGB Conc 31.8 g/dL (32.0-36.0); Mean Corpuscular Hemoglobin 28.7 pg (27.0-31.0); Mean Corpuscular Volume 90.4 fL (78.0-102.0); Mean Platelet Volume 10.9 fl (9.2-11.8); Monocytes Absolute Auto 0.67 K/mm3 (0.10-0.90); Monocytes Percent Auto 7.5 % (2.0-11.0); Neutrophils Absolute Auto 5.1 K/mm3 (1.7-7.2); Neutrophils Percent Auto 56.8 % (50.0-70.0); Platelet Count Result 170 K/mm3 (150-420); Red Blood Count 4.28 M/mm3 (4.20-5.40); Red Cell Distribution Width 13.7 % (11.6-14.4)
[2023-12-18 17:36] LABS: Appearance Urine Clear (Clear); Bilirubin Urine Negative (Negative); Blood Urine Negative (Negative); Color Urine Light Yellow (Yellow); Glucose Urine UA 2+ (Negative); Ketones Urine Negative (Negative); Leukocyte Esterase Ur Negative LEU/UL (Negative); Nitrate Urine Negative (Negative); Protein Urine Negative (Negative); Specific Grav Ur 1.025 (1.010-1.020); Urobilinogen Urine 0.2 mg/dL (0.2-1.0); pH Urine 5.5 (5.0-8.0)
[2023-12-18 17:38] LABS: Add Urine Microscopic? YES; Bacteria Urine Trace /hpf; RBC Urine None seen /hpf (0-2); Squamous Epithelial Cell Urine Few /hpf (Few); WBC Urine None seen /hpf (0-3)
[2023-12-18 17:40] LABS: Creatinine Urine 111.36 mg/dL (40-278); Total Protein Urine Random 8.2 mg/dL (0.0-11.9); Ur Ttl Prot Creatinine Ratio 0.07 mg/mg (0-0.20)
[2023-12-18 17:51] LABS: Albumin Level 3.5 g/dL (3.4-5.0); Anion Gap 10 mmol/L (8-16); Blood Urea Nitrogen 28 mg/dL (7-18); Calcium 8.9 mg/dL (8.5-10.1); Carbon Dioxide 28 mmol/L (21-32); Chloride 104 mmol/L (98-108); Estimated Glomerular Filt Rate 39; Glucose 275 mg/dL (70-99); Osmolality Calculated 309 mOsm/kg (285-295); Phosphorus 4.2 mg/dL (2.6-4.7); Potassium 4.5 mmol/L (3.5-5.1); Sodium 142 mmol/L (136-145)
[2023-12-21 12:22] LABS: Vitamin D 25 Hydroxy 23 ng/mL (30-100)
== END 2023-12-18 17:06 | disposition home or self-care (01) ==
LOC: CHSLAB 17:08
PROVIDERS: PCP Family Medicine; Visit Provider Internal Medicine Nephrology
DX: I12.9 Hypertensive chronic kidney disease with stage 1 through stage 4 chronic kidney disease, or unspecified chronic kidney disease (principal); N18.30 Chronic kidney disease, stage 3 unspecified; E55.9 Vitamin D deficiency, unspecified
CPT/HCPCS: 36415; 80069; 81001; 82306; 82570; 84156; 85025

== ENCOUNTER 2023-12-21 08:31 | Outpatient (CLI) | payer MEDICARE, SELFPAY ==
--- NOTE | ~2023-12-21 | XR_ITS ---
Clinical Indication: Edema PA and lateral views of the chest: Comparison: 01/13/2023 Findings: The lungs are clear, without evidence of focal consolidation or pleural effusion. Cardiome diastinal silhouette is stable, status post aortic valve replacement. Bones and soft tissues are unre markable. Impression: Clear lungs. Reviewed, dictated and finalized at location . [employer] Impression: Clear lungs.
== END 2023-12-21 08:32 | disposition home or self-care (01) ==
PROVIDERS: PCP Family Medicine; Visit Provider Internal Medicine Nephrology
DX: R60.9 Edema, unspecified (principal); R06.02 Shortness of breath
CPT/HCPCS: 71046

== ENCOUNTER 2024-01-20 12:33 | Emergency (ER) | payer MEDICARE, SELFPAY ==
--- NOTE | 2024-01-20 12:41 | ED.EAR ---
HPI - Ear Problem General Chief complaint: Ear Stated complaint: erika ear inf Source: patient Mode of arrival: ambulatory Limitations: no limitations History of Present Illness HPI Narrative: 68 y/o female presented for c/o bilateral ear pain and decreased hearing x1 week. Reports more pain on the left ear. States she was seen by her pcp at onset who prescribed Bactrim, but reports no improvement in the pain. States pain was 10/10 last night, and reports nasal congestion and subjective fever. Denies headache, tinnitus, dizziness, n/v/d. MD Complaint: ear pain Related Data Home Medications Medication Instructions Recorded Confirmed albuterol sulfate 90 mcg/actuation 1 inh inhalation QID PRN Shortness 06/08/21 01/20/24 breath activated powder inhaler Of Breath Or Wheezing (ProAir RespiClick) aspirin 81 mg tablet 81 mg PO DAILY 06/08/21 01/20/24 cholecalciferol (vitamin D3) 50 50 mcg PO DAILY 06/08/21 01/20/24 mcg (2,000 unit) tablet (Vitamin D3) evolocumab 140 mg/mL subcutaneous 140 mg subcut [id number] 06/08/21 01/20/24 syringe (Repatha Syringe) fenofibrate micronized 134 mg 134 mg PO DAILY 06/08/21 01/20/24 capsule furosemide 40 mg tablet 40 mg PO DAILY 06/08/21 01/20/24 insulin glargine 100 unit/mL 54 unit subcut HS 06/08/21 01/20/24 subcutaneous solution (Lantus U-100 Insulin) insulin lispro 100 unit/mL 14 unit subcut TID 06/08/21 01/20/24 subcutaneous solution (Humalog U-100 Insulin) lisinopril 2.5 mg tablet 5 mg PO DAILY 06/08/21 01/20/24 metoprolol succinate 25 mg 50 mg PO DAILY 06/08/21 01/20/24 tablet,extended release 24 hr multivitamin with minerals 1 tablet PO DAILY 06/08/21 01/20/24 nitroglycerin 0.4 mg sublingual 0.4 mg sublingual Q5-15M PRN Chest 06/08/21 01/20/24 tablet (Nitrostat) Pain rosuvastatin 40 mg tablet (Crestor) 40 mg PO DAILY 06/08/21 01/20/24 sertraline 50 mg tablet 50 mg PO DAILY 06/08/21 01/20/24 levetiracetam 1,000 mg tablet 1,000 mg PO BID 07/29/21 01/20/24 dulaglutide 4.5 mg/0.5 mL 4.5 mg subcut WEEKLY 01/20/24 01/20/24 subcutaneous pen injector (Trulicity) Allergies Allergy/AdvReac Type Severity Reaction Status Date / Time morphine Allergy Intermediate Difficulty Verified 01/20/24 12:43 Breathing Review of Systems Review of Systems: CONSTITUTIONAL: Denies malaise, chills, or fever. EYES: Denies visual changes, redness, or discharge. ENT: Reports ear pain, rhinorrhea CARDIOVASCULAR: Denies chest pain, palpitations, or edema. RESPIRATORY: Denies cough or dyspnea. GASTROINTESTINAL: Denies abdominal pain, nausea, vomiting, diarrhea SKIN: Denies rash or itching. MUSCULOSKELETAL: Denies myalgia. NEUROLOGIC: Denies headache. All systems reviewed & are unremarkable except as noted in HPI and below PMFSH Past Medical History Medical History Acute sinusitis, unspecified (12/24/14) Acute upper respiratory infection (12/24/14) Anxiety Aortic valve disease Breast lump (05/27/15) CAD (coronary artery disease) (02/28/12) Carotid artery disease Cataracts, bilateral Coronary artery disease Depression (02/28/12) Diabetes Diabetic neuropathy Hip pain (04/20/15) Hyperlipidemia Hypertension Knee pain (04/11/13) Lower back pain (01/30/13) Psoriasis (02/28/12) Shortness of breath on exertion Skin tag (05/28/14) Unspecified viral infection characterized by skin and mucous membrane lesions (04/20/15) Surgical History Surgical History H/O carotid endarterectomy Hx of heart artery stent Family History Family History Sibling Acute myocardial infarction Mother Cancer Social History Social History Social History: The patient lives with her sister in [place] with 5 steps to enter i[facility] B handrails at front entrance and 6 steps iwth Left h
[2024-01-20 12:46] VITALS: BP 114/74; PULSE 86; RESP 16; TEMP 36.1; O2SAT 96
[2024-01-20 12:49] VITALS: BP 114/74; PULSE 86; RESP 16; TEMP 36.1; O2SAT 96
== END 2024-01-20 13:30 | disposition home or self-care (01) ==
PROVIDERS: Emergency Provider Nurse Practitioner Family; PCP Family Medicine
DX: H61.23 Impacted cerumen, bilateral (principal); Z87.891 Personal history of nicotine dependence; I25.10 Atherosclerotic heart disease of native coronary artery without angina pectoris; E11.42 Type 2 diabetes mellitus with diabetic polyneuropathy; Z79.4 Long term (current) use of insulin; E78.5 Hyperlipidemia, unspecified; I10 Essential (primary) hypertension; Z95.5 Presence of coronary angioplasty implant and graft; F41.9 Anxiety disorder, unspecified; F32.A Depression, unspecified; Z79.82 Long term (current) use of aspirin
CPT/HCPCS: 69210; 99213; A9270; G0463

== ENCOUNTER 2024-04-16 20:39 | Emergency (ER) | payer MEDICARE, SELFPAY ==
[2024-04-16] VITALS (22 sets, daily range): BP systolic 99–150; BP diastolic 43–113; PULSE 79–88; RESP 20–26; TEMP 37; O2SAT 92–97
--- NOTE | ~2024-04-16 | XR_ITS ---
XR chest 1V portable Ordering provider: Antione Elise MD History: 69 years Female with . AMS,COUGH,SOB,URI . Comparison: May 20, 2024 FINDINGS: MEDIASTINUM: The cardiac silhouette is not enlarged. Postoperative changes in the sternum. Congestive elle. LUNGS: No infiltrates, effusions or pneumothorax. Interstitial changes seen bilaterally with prominen t markings. OTHER: No free air under the diaphragm. IMPRESSION: Interstitial changes seen bilaterally which may indicate pneumonitis. Follow-up advised. Reviewed, dictated and finalized at location A.
--- NOTE | 2024-04-16 20:56 | PC.NURSE ---
food given to eat. ham sandwich with juice and ice cream
--- NOTE | 2024-04-16 21:08 | ECG_ITS ---
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 Measurements Intervals [place] Rate: 79 P: -1 DC: 183 QRS: 2 QRSD: 95 T: 79 QT: 362 QTc: 416 Interpretive Statements SINUS RHYTHM WITH SINUS ARRHYTHMIA ANTEROSEPTAL MYOCARDIAL INFARCTION , PROBABLY OLD [40+ ms Q WAVE IN V1-V4] No previous ECG available for comparison Electronically Signed On 04-17-2024 13:32:49 CDT by Ced Doe M.D.
--- NOTE | 2024-04-16 21:09 | ED.GENADULT ---
HPI - General Adult General Chief complaint: Unspecified Stated complaint: insulin od low bp Time Seen by Provider: 04/16/24 20:49 History of Present Illness HPI narrative: this is a 69-year-old female presenting for insulin overdose. Was taking her medication instead of taking the 54 units of her long-acting insulin she took 54 units of her short-acting insulin. she then had something to eat and called EMS. When EMS found her her blood sugar was 200 but then dropped to 140 on recheck. This time the patient has no complaints. She does say that she was treated for a viral syndrome last week that symptoms included nausea vomiting diarrhea. Related Data Home Medications Medication Instructions Recorded Confirmed albuterol sulfate 90 mcg/actuation 1 inh inhalation QID PRN Shortness 06/08/21 04/16/24 breath activated powder inhaler Of Breath Or Wheezing (ProAir RespiClick) aspirin 81 mg tablet 81 mg PO DAILY 06/08/21 04/16/24 cholecalciferol (vitamin D3) 50 50 mcg PO DAILY 06/08/21 04/16/24 mcg (2,000 unit) tablet (Vitamin D3) evolocumab 140 mg/mL subcutaneous 140 mg subcut [id number] 06/08/21 04/16/24 syringe (Repatha Syringe) fenofibrate micronized 134 mg 134 mg PO DAILY 06/08/21 04/16/24 capsule furosemide 40 mg tablet (Lasix) 80 mg PO DAILY 06/08/21 04/16/24 insulin glargine 100 unit/mL 54 unit subcut HS 06/08/21 04/16/24 subcutaneous solution (Lantus U-100 Insulin) insulin lispro 100 unit/mL 16 unit subcut TID 06/08/21 04/16/24 subcutaneous solution (Humalog U-100 Insulin) lisinopril 2.5 mg tablet (Zestril) 2.5 mg PO DAILY 06/08/21 04/16/24 metoprolol succinate 25 mg 50 mg PO DAILY 06/08/21 04/16/24 tablet,extended release 24 hr (Toprol XL) multivitamin with minerals (DAILY 1 tablet PO DAILY 06/08/21 04/16/24 VITAMIN FORMULA-MINERALS tablet) nitroglycerin 0.4 mg sublingual 0.4 mg sublingual Q5-15M PRN Chest 06/08/21 04/16/24 tablet (Nitrostat) Pain rosuvastatin 40 mg tablet (Crestor) 40 mg PO DAILY 06/08/21 04/16/24 dulaglutide 4.5 mg/0.5 mL 4.5 mg subcut WEEKLY 01/20/24 04/16/24 subcutaneous pen injector (Trulicity) clopidogrel 75 mg tablet (Plavix) 75 mg PO DAILY 04/16/24 04/16/24 docusate sodium 100 mg PO PRN PRN Constipation 04/16/24 04/16/24 gabapentin 300 mg capsule 300 mg PO TID 04/16/24 04/16/24 (Neurontin) Allergies Allergy/AdvReac Type Severity Reaction Status Date / Time morphine Allergy Intermediate Difficulty Verified 01/20/24 12:43 Breathing PMFSH Past Medical History Medical History Acute sinusitis, unspecified (12/24/14) Acute upper respiratory infection (12/24/14) Anxiety Aortic valve disease Breast lump (05/27/15) CAD (coronary artery disease) (02/28/12) Carotid artery disease Cataracts, bilateral Coronary artery disease Depression (02/28/12) Diabetes Diabetic neuropathy Hip pain (04/20/15) Hyperlipidemia Hypertension Knee pain (04/11/13) Lower back pain (01/30/13) Psoriasis (02/28/12) Shortness of breath on exertion Skin tag (05/28/14) Unspecified viral infection characterized by skin and mucous membrane lesions (04/20/15) Surgical History Surgical History H/O carotid endarterectomy Hx of heart artery stent Family History Family History Sibling Acute myocardial infarction Mother Cancer Social History Social History Social History: The patient [place] her sister [place] [facility] [place] 5 steps to enter iw B handrails at front entrance and 6 steps iwth Left handrail at back entrance. patient uses a cane for short distances. Smoking packs per day: 2 Smoking cigarettes per day: 40.0 Years smoked: 7 Smoking pack-years: 14.00 Smoking status: Former smoker Tobacco type: cigarettes Second hand tobacco smoke exposure: Yes
[2024-04-16 21:16] LABS: Basophils Absolute Auto 0.03 K/mm3 (0.00-0.10); Basophils Percent Auto 0.3 % (0.0-1.0); Eosinophils Absolute Auto 0.32 K/mm3 (0.02-0.50); Eosinophils Percent Auto 3.3 % (1.0-6.0); Hematocrit 37.1 % (35.0-42.0); Hemoglobin 11.9 g/dL (11.7-13.8); Immature Granulocyte Absolute 0.08 K/mm3 (0.00-0.00); Immature Granulocyte Percent A 0.8 % (0.0-0.0); Lymphocytes Percent Auto 33.3 % (18.0-42.0); Mean Corpuscular HGB Conc 32.1 g/dL (32-36); Mean Corpuscular Hemoglobin 28.8 pg (27.0-31.0); Mean Corpuscular Volume 89.8 fL (78.0-102.0); Mean Platelet Volume 10.5 fl (9.2-11.8); Monocytes Absolute Auto 0.47 K/mm3 (0.10-0.90); Monocytes Percent Auto 4.9 % (2.0-11.0); Neutrophils Absolute Auto 5.52 K/mm3 (1.70-7.20); Neutrophils Percent Auto 57.4 % (50.0-70.0); Platelet Count Result 214 K/mm3 (150-420); Red Blood Count 4.13 M/mm3 (4.20-5.40); Red Cell Distribution Width 13.4 % (11.6-14.4); White Blood Count 9.6 K/mm3 (4.8-10.8)
--- NOTE | 2024-04-16 21:18 | PC.NURSE ---
patient up to bedside commode to give urine sample
[2024-04-16] MEDS: SODIUM CHLORIDE 0.9% IV 1,000 ML 999 ML IV CONT (21:23)
[2024-04-16 21:25] LABS: Alanine Aminotransferase 36 U/L (14-59); Albumin Level 2.9 g/dL (3.4-5.0); Alkaline Phosphatase 105 U/L (46-116); Anion Gap 10 mmol/L (4-12); Aspartate Amino Transferase 32 U/L (15-37); Bilirubin,Total 0.4 mg/dL (0.00-1.00); Blood Urea Nitrogen 19 mg/dL (7-18); Calcium 9.3 mg/dL (8.5-10.1); Carbon Dioxide 30 mmol/L (21-32); Chloride 100 mmol/L (98-108); Estimated CRCL calculation 36 ml/min; Estimated Glomerular Filt Rate 35; Glucose 148 mg/dL (70-99); Osmolality Calculated 295 mOsm/kg (285-295); Sodium 140 mmol/L (136-145); Total Protein 7.5 g/dL (6.4-8.2)
[2024-04-16 21:50] LABS: Glucose Point of Care 156 mg/dl (65-105)
--- NOTE | 2024-04-16 21:52 | PC.NURSE ---
resting on stretcher. daughter has gone home. patient ate all of the ham sandwich. Drank the juice. Ate some chocolate her daughter brought her. Patient is aware that a urine sample is needed. Does not have to void at this time. call light in reach.
[2024-04-16 22:03] LABS: SARS-CoV-2 RNA PCR Negative (Negative)
[2024-04-16 22:05] LABS: Influenza A QL RT-PCR Negative (Negative); Influenza B QL RT-PCR Negative (Negative); RSV RNA, RT-PCR Negative (Negative)
[2024-04-16 22:42] LABS: Glucose Point of Care 140 mg/dl (65-105)
[2024-04-16 22:57] LABS: Appearance Urine Clear (Clear); Bilirubin Urine Negative (Negative); Blood Urine Negative (Negative); Color Urine Yellow (Yellow); Glucose Urine UA Negative (Negative); Ketones Urine Trace (Negative); Leukocyte Esterase Ur Negative LEU/UL (Negative); Nitrate Urine Negative (Negative); Protein Urine Negative (Negative); Specific Grav Ur 1.025 (1.010-1.020); pH Urine 5.5 (5.0-8.0)
[2024-04-16 23:01] LABS: Add Urine Microscopic? YES; Bacteria Urine 1+ /hpf; Mucus Urine Few /lpf; RBC Urine 0-2 /hpf (0-2); Squamous Epithelial Cell Urine Few /hpf (Few); WBC Urine 0-3 /hpf (0-3)
[2024-04-16 23:47] LABS: Glucose Point of Care 185 mg/dl (65-105)
[2024-04-17] VITALS (15 sets, daily range): BP systolic 57–135; BP diastolic 32–71; PULSE 75–90; RESP 8–26; O2SAT 94–99
--- NOTE | 2024-04-17 00:11 | PC.NURSE ---
EKG completed by Anushka mckeon
[2024-04-17 00:43] LABS: Glucose Point of Care 241 mg/dl (65-105)
[2024-04-17 01:41] LABS: Glucose Point of Care 213 mg/dl (65-105)
--- NOTE | 2024-04-17 01:53 | PC.NURSE ---
resting on stretcher. appears to be sleeping. resp even and unlabored. call light in reach
[2024-04-17 02:42] LABS: Glucose Point of Care 178 mg/dl (65-105)
--- NOTE | 2024-04-17 03:00 | PC.NURSE ---
patient is resting on stretcher with eyes closed. resp even and unlabored. patient was made aware at last blood glucose test that she would be staying until the AM per MD request for continued glucose monitoring. patient was ok with this plan. call light in reach
[2024-04-17 03:43] LABS: Glucose Point of Care 161 mg/dl (65-105)
--- NOTE | 2024-04-17 04:00 | PC.NURSE ---
resting quietly on stretcher. appears to be sleeping. resp even and unlabored. call light in reach
[2024-04-17 04:45] LABS: Glucose Point of Care 218 mg/dl (65-105)
[2024-04-17 05:45] LABS: Glucose Point of Care 236 mg/dl (65-105)
--- NOTE | 2024-04-17 05:50 | PC.NURSE ---
patient sitting up on the side of the bed. removed from alarm security or surveillance monitor. IV line removed. patient calling daughter to come and pick her up
== END 2024-04-17 06:00 | disposition home or self-care (01) ==
PROVIDERS: Emergency Provider Emergency Medicine; PCP Family Medicine
DX: E11.9 Type 2 diabetes mellitus without complications (principal); I25.10 Atherosclerotic heart disease of native coronary artery without angina pectoris; E78.5 Hyperlipidemia, unspecified; I10 Essential (primary) hypertension; Z87.891 Personal history of nicotine dependence; Z79.82 Long term (current) use of aspirin; Z79.4 Long term (current) use of insulin; Z79.899 Other long term (current) drug therapy; Z20.822 Contact with and (suspected) exposure to COVID-19
CPT/HCPCS: 36415; 71045; 80053; 81001; 82948; 85025; 87637; 93005; 96360; 96361; 99283; J7030

== ENCOUNTER 2024-08-20 18:02 | Outpatient (CLI) | payer MEDICARE, SELFPAY ==
[2024-08-20 18:29] LABS: Basophils Absolute Auto 0.05 K/mm3 (0.00-0.10); Basophils Percent Auto 0.5 % (0.0-1.0); Eosinophils Absolute Auto 0.26 K/mm3 (0.02-0.50); Eosinophils Percent Auto 2.6 % (1.0-6.0); Hematocrit 38.3 % (35.0-42.0); Hemoglobin 12.5 g/dL (11.7-13.8); Immature Granulocyte Absolute 0.02 K/mm3 (0.00-0.00); Immature Granulocyte Percent A 0.2 % (0.0-0.0); Lymphocytes Absolute Auto 3.71 K/mm3 (1.10-4.50); Lymphocytes Percent Auto 37.3 % (18.0-42.0); Mean Corpuscular HGB Conc 32.6 g/dL (32-36); Mean Corpuscular Hemoglobin 29.9 pg (27.0-31.0); Mean Corpuscular Volume 91.6 fL (78.0-102.0); Mean Platelet Volume 10.8 fl (9.2-11.8); Monocytes Absolute Auto 0.74 K/mm3 (0.10-0.90); Monocytes Percent Auto 7.4 % (2.0-11.0); Neutrophils Absolute Auto 5.17 K/mm3 (1.70-7.20); Platelet Count Result 165 K/mm3 (150-420); Red Blood Count 4.18 M/mm3 (4.20-5.40); Red Cell Distribution Width 13.2 % (11.6-14.4)
[2024-08-20 18:35] LABS: Add Urine Microscopic? YES; Appearance Urine Clear (Clear); Bilirubin Urine Negative (Negative); Blood Urine Negative (Negative); Color Urine Light Yellow (Yellow); Glucose Urine UA Negative (Negative); Ketones Urine Negative (Negative); Leukocyte Esterase Ur 1+ LEU/UL (Negative); Nitrate Urine Negative (Negative); Protein Urine Negative (Negative); Urobilinogen Urine 0.2 mg/dL (0.2-1.0)
[2024-08-20 18:36] LABS: Total Protein Urine Random 11.5 mg/dL (0.0-11.9); Ur Ttl Prot Creatinine Ratio 0.13 mg/mg (0-0.20)
[2024-08-20 18:41] LABS: Albumin Level 3.7 g/dL (3.4-5.0); Anion Gap 4 mmol/L (4-12); Blood Urea Nitrogen 25 mg/dL (7-18); Calcium 9.4 mg/dL (8.5-10.1); Carbon Dioxide 34 mmol/L (21-32); Chloride 103 mmol/L (98-108); Estimated Glomerular Filt Rate 41; Glucose 150 mg/dL (70-99); Magnesium 2.4 mg/dL (1.8-2.4); Osmolality Calculated 299 mOsm/kg (285-295); Phosphorus 4.5 mg/dL (2.6-4.7); Potassium 4.8 mmol/L (3.5-5.1); Sodium 141 mmol/L (136-145)
[2024-08-20 18:44] LABS: Bacteria Urine 1+ /hpf; Squamous Epithelial Cell Urine Few /hpf (Few)
[2024-08-22 13:23] LABS: Parathyroid Intact 29 pg/mL (16-77)
== END 2024-08-20 18:03 | disposition home or self-care (01) ==
PROVIDERS: PCP Family Medicine; Visit Provider Internal Medicine Nephrology
DX: R50.9 Fever, unspecified (principal); I12.9 Hypertensive chronic kidney disease with stage 1 through stage 4 chronic kidney disease, or unspecified chronic kidney disease; N18.30 Chronic kidney disease, stage 3 unspecified; R06.09 Other forms of dyspnea
CPT/HCPCS: 36415; 80069; 81001; 82570; 83735; 83970; 84156; 85025; 87086; 87088

== ENCOUNTER 2024-12-18 12:39 | Outpatient (CLI) | payer MEDICARE, SELFPAY ==
--- OUTSIDE RECORDS SUMMARY | 2024-12-18 12:45 | XMS_ITS | Encounter Summary ---
Author Organization [facility] Healthcare Address [address] [place] [address] Care Team Providers Care Blood Bank Credit Clerk Name Role Phone Jermaine Ingram MD Primary Care Provider [phone] Ajay Mccabe MD Unavailable Lola Mendoza MD Unavailable Ajay Sears MD Unavailable Sang Morin MD Unavailable [phone] Encounter Details Date Type Department Care Team (Late Contact Info) Description 08/12/2024 Telephone [facility] [address] [facility] [address] [place] [address] Bar Amor MD [address] [facility] [address] [place] [address] Social History Tobacco Use Types Packs/Day Years Used Date Smoking Tobacco: Former Cigarettes 2 10 - 2000 Passive Smoke Exposure: Past Smokeless Tobacco: Never Alcohol Use Standard Drinks/Week Comments No 0 (1 standard drink = 0.6 oz pur e alcohol) AUDIT-C Answer Date Recorded Q1: How often do you have a drink containing alcohol? Never 02/26/2024 Q2: How many drinks containi ng alcohol do you have on a typical day when you are drinking? Patient does not drink Q3: How often do you have si x or more drinks on one occasion? Never 02/26/2024 PHQ-2 Answer Date Recorded PHQ-2 Total Score (If total score is 3 or more points, staff should administer the PHQ-9) 0 04/30/2023 Personal Safety Answer Date Recorded Have you ever been in or are you currently in a harmful physical or emotional relationship or is someone making you feel afraid or unsafe? Denies 02/27/2024 Comments No Sex and Gender Information Value Date Recorded Sex Assigned at Not on file Legal Sex Female 12:41 AM PROCEDURES NURSE Gender Identity Not on file Sexual Orientation Not on file documented as of this encounter Plan of Treatment Not on file documented as of this encounter Visit Diagnoses Not on filedocumented in this encounter Care Teams Blood Bank Credit Clerk Relationship Specialty Start Date End Date Jermaine Ingram MD [address] [place] [address] PCP - General Family Practice 04/23/18 [facility] [place] [address] Consulting Physician Cardiology 05/06/18 [place] [address] Consulting Physician Nephrology 10/18/20 [place] [address] Surgeon Neurosurgery 04/18/21 [place] [address] Surgeon Vascular Surgery 11/17/21 documented as of this encounter
--- OUTSIDE RECORDS SUMMARY | 2024-12-18 12:45 | XMS_ITS | Encounter Summary ---
Author Organization [facility] Address [address] [facility] [place] [address] Phone Care Team Providers Care Jelly Maker Name Role Phone Jermaine Ingram MD Primary Care Provider Reason for Visit * Reason Comments Medication Refill Encounter Details Date Type Department Care Team (Late st Contact Info) Description 07/31/2021 [facility]ill [facility] [facility] [phone] Ino Brown MD [address] [place] [phone] Medication Refill Social History Tobacco Use Types Packs/Day Years Used Date Smoking Tobacco: Former Cigarettes Q uit: 11/12/2000 Smokeless Tobacco: Never Alcohol Use Standard Drinks/Week Comments Not Currently 0 (1 standard drink = 0.6 oz pur e alcohol) Comments Unknown Sex and Gender Information Value Date Recorded Sex Assigned at Not on file Legal Sex Female 10:39 AM REFINERY OPERATOR COKING Gender Identity Not on file Sexual Orientation Not on file documented as of this encounter Plan of Treatment Not on file documented as of this encounter Visit Diagnoses Not on filedocumented in this encounter Care Teams Jelly Maker Relationship Specialty Start Date End Date Jermaine Ingram MD [address] [address] PCP - General Family Medicine 09/30/18 documented as of this encounter
--- OUTSIDE RECORDS SUMMARY | 2024-12-18 12:45 | XMS_ITS | Encounter Summary ---
Author Organization [facility] Address [address] [place] [address] Care Team Providers Care Weblogic Administrator Name Role Phone Jermaine Ingram MD Primary Care Provider Encounter Details Date Type Department Care Team (Late st Contact Info) Description 04/19/2019 Abstract [facility] [address] [place] [address] , Generic Conversion, Social History Tobacco Use Types Packs/Day Years Used Date Smoking Tobacco: Never Assessed Comments Unknown Sex and Gender Information Value Date Recorded Sex Assigned at Female 12/09/2024 3:10 PM LINOLEUM PRINTER Legal Sex Female 3:43 PM LINOLEUM PRINTER Gender Identity Not on file Sexual Orientation Not on file documented as of this encounter Plan of Treatment Not on file documented as of this encounter Visit Diagnoses Not on filedocumented in this encounter Additional Health Concerns Infection Onset Date Last Indicated Resolved Time COVID-19 Rule Out 03/13/2022 03/13/2022 03/13/2022 3:50 PM CDT COVID-19 Rule Out 12/22/2022 12/22/2022 12/22/2022 10:47 AM LINOLEUM PRINTER COVID-19 Confirmed 12/22/2022 12/22/2022 12:32 AM LINOLEUM PRINTER COVID-19 Rule Out 04/11/2024 04/11/2024 04/11/2024 4:44 PM CDT COVID-19 Rule Out 10/15/2024 10/15/2024 10/15/2024 5:14 PM LINOLEUM PRINTER COVID-19 Rule Out 12/09/2024 12/09/2024 12/09/2024 4:14 PM LINOLEUM PRINTER documented as of this encounter Care Teams Weblogic Administrator Relationship Specialty Start Date End Date Jermaine Ingram MD [address] [place] [address] PCP - General FAMILY PRACTICE 05/31/19 documented as of this encounter
--- OUTSIDE RECORDS SUMMARY | 2024-12-18 12:45 | XMS_ITS | Clinical Summary ---
Author Organization [facility] Address [address] [place] [address] Care Team Providers Care Reference And Instruction Librarian Name Role Phone Jermaine Ingram MD Primary Care Provider Allergies Active Allergy Reactions Criticality Noted Date Comments Morphine Anaphylaxis,Unknown High 11/16/2017 Medications aspirin EC 81 MG tablet Take 81 mg by mouth daily. Active Cholecalciferol (D3-1000) 1000 units capsule Take 1,000 Units by mouth daily. Active Choline Fenofibrate (FENOFIBRIC ACID) 135 MG CAPSULE DELAYED RELEASE Take 135 mg by mouth daily. Active clopidogrel 75 MG tablet Take 75 mg by mouth daily. Active gabapentin 600 MG tablet Take 600 mg by mouth 2 (two) times daily. Active hydrochlorothiaz fidencio 25 MG tablet Take 25 mg by mouth daily. Active insulin glargine (LANTUS) 100 UNIT/ML injection (VIAL) Inject 60 Units into the skin nightly at bedtime. Active insulin lispro (HUMALOG) 100 UNIT/ML injection (VIAL) Inject 8 Units into the skin 3 (three) times daily. Active isosorbide mononitrate ER 30 MG 24 hr tablet Take 30 mg by mouth daily. Active lisinopril 5 MG tablet Take 5 mg by mouth daily. Active metoprolol succinate ER 25 MG 24 hr tablet Take 25 mg by mouth daily. Active Multiple Vitamin (MULTIVITAMIN) capsule Take 1 capsule by mouth daily. Active sertraline 50 MG tablet Take 50 mg by mouth daily. Active simvastatin 80 MG tablet Take 80 mg by mouth daily. Active NITROGLYCERIN BU Act amrita Active Problems Problem Noted Date Diagnosed Date Hypertension associated with diabetes (CMS/HCC H HS/HCC) 05/06/2018 Overview (02/17/2022): Last Assessment & Plan: Stable on lisinopril and metoprolol. Continue low-salt diet Hyperlipidemia associated wi th type 2 diabetes mellitus ([facility]) 05/06/2018 Overview (02/17/2022): Last Assessment & Plan: Lab Results Component Value Date LDLCALC 51 07/15/2018 At goal. Continue rosuvastatin. Low cholesterol/low-fat diet Type 2 diabetes mellitus wit h stage 3 chronic kidney disease ([facility]) 05/06/2018 Overview (02/17/2022): Last Assessment & Plan: 66 years old female seen in follow-up for uncontrolled type 2 diabetes mellitus. Hemoglobin A1c was 9.4% in September 2020. She reports blood sugars in the 180s-200s. Plan. 1. Increase Trulicity to 3 mg weekly in 2 weeks. 2. Increase Lantus to 54 units at bedtime. 3. Increase Humalog to 14 units 3 times a day before meals. 4. Continue Humalog sliding scale 3 times a day before meals as follows: Blood sugar 150-200 = 1 unit Blood sugar 201-250 = 2 units Blood sugar 251-300 = 3 units Blood sugar 301-350 = 4 units Blood sugar 351-400 = 5 units. 5. Check blood sugars 4 times a day. Call if frequently below 80. 6. Consistent carbs diet. 7. ORACLE MANUFACTURING CONSULTANT follow-up in 3 months. Follow-up with me in 6 months. -annual dilated eye exam Potential side effects of Trulicity include nausea, vomiting and acute pancreatitis. Advised to stop Trulicity and call if having persistent nausea and vomiting. Encounters Date Type Department Care Team Description 12/09/2024 3:13 PM ARCHITECT NAVAL - 12/09/2024 11:59 PM ARCHITECT NAVAL Hospital Encounter [facility] [address] [place] [address] Tre Pitts PA Discharge Disposition: Home or Self Care (Routine Discharge) 12/09/2024 3:11 PM ARCHITECT NAVAL - 12/09/2024 3:12 PM ARCHITECT NAVAL Hospital Encounter [facility] [address] [place] [address] Tre Pitts PA Discharge Disposition: Home or Self Care (Routine Discharge) 12/09/2024 Orders Only [facility] [address] [place] [address] Tre Pitts PA 12/09/2024 Travel 10/15/2024 4:25 PM ARCHITECT NAVAL - 10/15/2024 11:59 PM ARCHITECT NAVAL Hospital Encounter [facility] [address] [place] [address] Tre Pitts PA Discharge Disposition: Home or Self Care (Routine Discharge) 10/15/2024 Orders Only [facility] [address] [place] [address] Tre Pitts PA 10/15/2024 Travel from Last 3 Months Immunizations Name Administration Dates Next Due Arexvy Respiratory Syncytial Virus (RSV, adjuvanted) 0.5 mL, PF 09/29/2023 Fluzone High Dose - >Age 65 (Prefilled Syringe) 09/29/2023,08/18/2022,07/27/2020 Influenza (Generic) 07/10/2015 Influenza Adult (Generic) 08/17/2021,,10/21/2018,2016,07/27/2016 Pneumococcal (Pneumovax 23) 07/27/2020, 8 Pneumococcal (Prevnar 13) 10/09/2017 Shingrix 05/28/2023,11/22/2022 Social History Tobacco Use Types Packs/Day Years Used Date Smoking Tobacco: Former Smokeless Tobacco: Never Alcohol Use Standard Drinks/Week Comments No 0 (1 standard drink = 0.6 oz pur e alcohol) AUDIT-C Answer Date Recorded Frequency of Alcohol Consumption Never 05/31/2019 Average Number of Drinks Not on file 019 Frequency of Binge Drinking Not on file 05/13 Comments No Sex and Gender Information Value Date Recorded Sex Assigned at Female 12/09/2024 3:10 PM ARCHITECT NAVAL Legal Sex Female 3:43 PM ARCHITECT NAVAL Gender Identity Not on file Sexual Orientation Not on file Last Filed Vital Signs Vital Sign Reading Time Taken Comments Blood Pressure 146/69 05/31/2019 1:29 PM CDT Pulse 75 05/31/2019 1:29 PM CDT Temperature 35.8 C (96.5 F) 05/31/2019 1:29 PM CDT Respiratory Rate 18 05/31/2019 1:29 PM CDT Oxygen Saturation 97% 05/31/2019 1:29 PM CDT Inhaled Oxygen Concentration - - Weight 102.1 kg (225 lb) 05/31/2019 1:29 PM CDT Height 157.5 cm (5' 2 ) 05/31/2019 1:29 PM CDT Body Mass Index 41.15 05/31/2019 1:29 PM CDT Plan of Treatment Health Maintenance Due Date Last Done Comments ASCVD LDL 1953 ASCVD Statin 1953 Colorectal Cancer Screening Colonoscopy (10 Years) 1953 Kidney Health Evaluation 1953 Diabetes: Retinopathy Eye Exam 1971 Hepatitis C 1971 DTaP, Tdap and Td Vaccines (1 - Tdap) 02/05/1972 Mammogram Screening 1993 Annual Medicare Wellness Visit 2018 Dexa Scan (General) 2018 Hemoglobin A1C 07/13/2023 01/10/2023, 04/12, 03/15/2021, Additional history exists COVID-19 Vaccine ( season) 2024 09/25/2022, 09/01/2021, 02/08/2021, Additional history exists Influenza Adult (#1) 2024 09/29/2023, 08/18/2022, 08/17/2021, Additional history exists Lipid Panel 03/13/2025 03/13/2024, 01/10/2023 Pneumococcal Vaccine: 65+ Years Completed 07/27/2020, 10/21/2018, 10/09/2017 Zoster Vaccines Completed 05/28/2023, 11/22/2022 RSV Immunization or 60+ Years Completed 09/29/2023 Meningococcal B Vaccine Aged Out No l onger eligible based on patient's age to complete this topic Meningococcal Vaccine Aged Out No betty grover eligible based on patient's age to complete this topic RSV Immunizations Under 20 Months Aged Out No longer eligible based on patient's age to complete this topic Procedures Procedure Name Priority Date/Time Associated Diagnosis Comments XR CHEST PA+LAT STAT 12/09/2024 3:43 PM ARCHITECT NAVAL Cough CORONAVIRUS (COVID-19) ANTIGEN STAT 12/09/2024 3:21 PM ARCHITECT NAVAL Cough RESP SYNCYTIAL VIRUS STAT 12/09/2024 3:21 PM ARCHITECT NAVAL Cough INFLUENZA A & B STAT 12/09/2024 3:21 PM ARCHITECT NAVAL Cough RESP SYNCYTIAL VIRUS Routine 10/15/2024 4:30 PM ARCHITECT NAVAL Cough INFLUENZA A & B Routine 10/15/2024 4:30 PM ARCHITECT NAVAL Cough CORONAVIRUS (COVID-19) ANTIGEN Routine 10/15/2024 4:30 PM ARCHITECT NAVAL Cough from Last 3 Months Results * XR CHEST PA+LAT (12/09/2024 3:43 PM ARCHITECT NAVAL) Anatomical Region Laterality Modality Chest Radiographic Darcy ging 12/09/2024 3:39 PM ARCHITECT NAVAL Impressions 12/09/2024 3:42 PM ARCHITECT NAVAL IMPRESSION: 1. No acute cardiopulmonary process identified. 2. Stable borderline cardiac size. Ordered By: TRE PITTS Interpreted By: Malik Balderrama MD, 12/09/2024 3:39 PM Narrative 12/09/2024 3:42 PM ARCHITECT NAVAL [address] [place] [address] Examination: Two-view chest Exam time: 1516 hours. Clinical history: Cough. Comparison: 02/21/2024. Technique: PA and lateral views Findings: The cardiomediastinal silhouette is stable. The heart remains in the upper range of normal for size. Pulmonary vascularity is within normal limits. Changes from median sternotomy and bypass grafting again evident. TAVR prosthesis remains in place with stable orientation. Prominence of the interstitial markings, suggesting chronic interstitial disease, is similar to previous. No acute infiltrates or effusions are identified. The bony thorax is stable. Orthopedic anchors in the left humeral head again evident. Procedure Note Malik Balderrama MD - 12/09/2024 [facility] [address] [place] [address] Examination: Two-view chest Exam time: 1516 hours. Clinical history: Cough. Comparison: 02/21/2024. Technique: PA and lateral views Findings: The cardiomediastinal silhouette is stable. The heart remains inthe upper range of normal for size. Pulmonary vascularity is within normallimits. Changes from median sternotomy and bypass grafting again evident.TAVR prosthesis remains in place with stable orientation. Prominence ofthe interstitial markings, suggesting chronic interstitial disease, issimilar to previous. No acute infiltrates or effusions are identified. Thebony thorax is stable. Orthopedic anchors in the left humeral head againevident. IMPRESSION: 1. No acute cardiopulmonary process identified. 2. Stable borderline cardiac size. Ordered By: TRE PITTS Interpreted By: Malik Balderrama MD, 12/09/2024 3:39 PM Tre Pitts PA GENERAL IMAGING Final Resu lt * CORONAVIRUS (COVID-19) ANTIGEN (12/09/2024 3:21 PM ARCHITECT NAVAL) Only the most recent of2 resultswithin the time period is included. CORONAVIRUS ANTIGEN IA NEGATIVE NEGATIVE 12/09/2024 4:14 PM ARCHITECT NAVAL [facility] Comment: NEGATIVE RESULTS DO NOT RULE OUT SARS-COV-2 INFECTION AND SHOULD NOT BE USED THE SOLE BASIS FOR TREATMENT OR PATIENT MANAGEMENT DECISIONS, INCLUDING INFECTION CONTROL DECISIONS. NEGATIVE RESULTS SHOULD BE CONSIDERED IN THE CONTEXT OF A PATIENT'S RECENT EXPOSURES, HISTORY AND THE PRESENCE OF CLINICAL SIGNS AND SYMPTOMS CONSISTENT WITH COVID 19. THIS TEST HAS BEEN AUTHORIZED BY THE FDA UNDER AN EMERGENCY USE AUTHORIZATION (EUA) FOR USE BY AUTHORIZED LABORATORIES. SPECIMEN TYPE NASAL 12/09/2024 3:29 PM ARCHITECT NAVAL [facility] NASAL NASAL STRUCTURE / Unknown 12/09/2024 3:21 PM ARCHITECT NAVAL us Tre MILIAN MICROBIOLOGY - GENERAL ORD ERABLES Final Result Performing Organization Address [facility]/ZIP Co de Phone Number [facility] [address] [place] [address], * INFLUENZA A & B (12/09/2024 3:21 PM ARCHITECT NAVAL) Only the most recent of2 resultswithin the time period is included. SPECIMEN TYPE (INFLUENZA) NASOPHARYNGEAL SWAB 12/09/2024 3:29 PM ARCHITECT NAVAL [facility] INFLUENZA A NEGATIVE NEGATIVE 12/09/2024 4:15 PM ARCHITECT NAVAL [facility] INFLUENZA B NEGATIVE NEGATIVE 12/09/2024 4:15 PM ARCHITECT NAVAL [facility] Comment: A NEGATIVE RESULT DOES NOT EXCLUDE INFLUENZA VIRUS INFECTION. IF INFLUENZA IS CIRCULATING IN YOUR COMMUNITY, A DIAGNOSIS OF INFLUENZA SHOULD BE CONSIDERED BASED ON A PATIENT'S CLINICAL PRESENTATION AND EMPIRIC ANTIVIRAL TREATMENT SHOULD BE CONSIDERED IF INDICATED. NASOPHARYNGEAL SWAB / Unknown 12/09/2024 3:21 PM ARCHITECT NAVAL us Tre MILIAN MICROBIOLOGY - GENERAL ORD ERABLES Final Result Performing Organization Address [facility] Co de Phone Number [facility] [address] [place] [id number], * RESP SYNCYTIAL VIRUS (12/09/2024 3:21 PM ARCHITECT NAVAL) Only the most recent of2 resultswithin the time period is included. SPECIMEN TYPE NASOPHARYNGEAL SWAB 12/09/2024 3:29 PM ARCHITECT NAVAL [facility] RSV NEGATIVE NEGATIVE 12/09/2024 4:14 PM ARCHITECT NAVAL [facility] NASOPHARYNGEAL SWAB / Unknown 12/09/2024 3:21 PM ARCHITECT NAVAL Tre MILIAN MICROBIOLOGY - GENERAL ORD ERABLES Final Result [facility] [address] [place] [address], from Last 3 Months Insurance [facility] MEDICARE [facility] Care Teams Reference And Instruction Librarian Relationship Specialty Start Date End Date Jermaine Ingram MD [address] [place] [address] [place] [address] PCP - General FAMILY PRACTICE 05/31/19
--- OUTSIDE RECORDS SUMMARY | 2024-12-18 12:45 | XMS_ITS | Clinical Summary ---
Author Organization [facility] [email or web address] Address [address] [place] [address] Care Team Providers Care Warehouseman Name Role Phone Zelalem Monahan MD Unavailable [phone] Source Comments [email or web address],non-owned Affiliates and Associated Physician Practices is amultiple site organization consisting of ambulatory clinics and hospital sitesin [place], [place], [place] and [place]. This disclosure is being madepursuant to the Care Everywhere program and may not contain all information available regarding this patient. Last updated 18.[email or web address] Allergies No known active allergies Medications * Be aware that medications may not be up to date on this document. Alwaysverify current medications with the patient. Medication Sig Dispensed Refills Start Date End Date Status NITROGLYCERIN BU Active simvastatin (ZOCOR) 80 MG tablet Active clopidogrel (PLAVIX) 75 MG tablet Active metoprolol succinate XL 24hr (TOPROL XL) 25 MG tablet Active aspirin 81 MG tablet Acti ve sertraline (ZOLOFT) 50 MG tablet Active lisinopril (PRINIVIL;ZESTRIL) 5 MG tablet Active Insulin Lispro, Human, (HUMALOG SC) Active Insulin Glargine (LANTUS SC) Active choline fenofibrate (TRILIPIX) 135 MG capsule Active isosorbide mononitrate CR 24hr (IMDUR) 30 MG tablet Acti ve Active Problems No known active problems Family History Medical History Relation Name Comments Heart Disease Brother 2 Heart Disease Father Cancer Mother uterine and jim g Heart Disease Paternal Grandmother Heart Disease Sister 2 Relation Name Status Comments Brother 1 Alive Brother 2 Father Maternal Grandfather Maternal Grandmother Mother Paternal Grandfather Paternal Grandmother Sister 1 Alive Sister 2 Social History Tobacco Use Types Packs/Day Years Used Date Smoking Tobacco: Former Cigarettes 2 10 0 11/12/1990 - 11/12/2000 Smokeless Tobacco: Never Alcohol Use Standard Drinks/Week Comments No 0 (1 standard drink = 0.6 oz pur e alcohol) Sex and Gender Information Value Date Recorded Sex Assigned at Not on file Gender Identity Not on file Sexual Orientation Not on file Last Filed Vital Signs Vital Sign Reading Time Taken Comments Blood Pressure - - Pulse - - Temperature - - Respiratory Rate - - Oxygen Saturation - - Inhaled Oxygen Concentration - - Weight 113.4 kg (250 lb) 03/02/2015 12:44 PM CDT Height 160 cm (5' 3 ) 03/02/2015 12:44 PM CDT Body Mass Index 44.29 03/02/2015 12:44 PM CDT Plan of Treatment Health Maintenance Due Date Last Done Comments BONE DENSITY TESTING 1955 COLOGUARD (AGES 45-75) - COL ON CA SCREENING 1955 COLON MONITORING 1955 COLONOSCOPY - COLON CA SCREENING 1955 CT COLONOGRAPHY - COLON CA SCREENING 1955 Colorectal Cancer Screening 1955 FIT - COLON CA SCREENING 1955 FLEX SIG - COLON CA SCREENING 1955 MAMMOGRAM 1955 MEDICARE AWV 12 MONTHS 1955 HEPATITIS C SCREENING 01/31/1971 DTAP/TDAP/TD VACCINES (1 - Tdap) 02/05/1972 PNEUMOCOCCAL VACCINE 50+ (1 of 1 - PCV) 2003 ZOSTER VACCINE (1 of 2) 2003 Respiratory Syncytial Virus (RSV) Vaccine Pt: or over 60 yrs (1 - Risk 60-74 years 1-dose series) 2013 COVID-19 VACCINE ( - 2023-2 5 season) 2024 INFLUENZA VACCINE (#1) 2024 DEPRESSION SCREENING 11/12/2024 HEPATITIS B VACCINE Aged Out No longe r eligible based on patient's age to complete this topic HIB VACCINE Aged Out No longer eligi ble based on patient's age to complete this topic HPV VACCINE Aged Out No longer eligi ble based on patient's age to complete this topic MENINGOCOCCAL (Group B) VACCINE Aged Out No longer eligible based on patient's age to complete this topic MENINGOCOCCAL VACCINE Aged Out No betty grover eligible based on patient's age to complete this topic Care Teams Warehouseman Relationship Specialty [place] [address] [facility] [address] [place] [address] Vascular Surgery 01/12/14
--- OUTSIDE RECORDS SUMMARY | 2024-12-18 12:45 | XMS_ITS | Encounter Summary ---
Author Organization [facility] Address [address] [facility] [place] [address] Phone Care Team Providers Care Halfway House Counselor Name Role Phone Jermaine Ingram MD Primary Care Provider [phone] Reason for Visit * Reason Comments Medication Refill Encounter Details Date Type Department Care Team (Late st Contact Info) Description 06/02/2020 [facility]ill [facility] [address] [place] [phone] Ino Brown MD [address] [place] [phone] Medication Refill Social History Tobacco Use Types Packs/Day Years Used Date Smoking Tobacco: Former Cigarettes Q uit: 11/12/2000 Smokeless Tobacco: Never Alcohol Use Standard Drinks/Week Comments Not Currently 0 (1 standard drink = 0.6 oz pur e alcohol) Comments Unknown Sex and Gender Information Value Date Recorded Sex Assigned at Not on file Legal Sex Female 10:39 AM OVEREDGE SEWER Gender Identity Not on file Sexual Orientation Not on file documented as of this encounter Plan of Treatment Not on file documented as of this encounter Visit Diagnoses Not on filedocumented in this encounter Care Teams Halfway House Counselor Relationship Specialty Start Date End Date Jermaine Ingram MD [address] [place] [address] PCP - General Family Medicine 09/30/18 documented as of this encounter
--- OUTSIDE RECORDS SUMMARY | 2024-12-18 12:45 | XMS_ITS | Encounter Summary ---
Author Organization [facility] Address [address] [place] [address] Care Team Providers Care Grain Picker Name Role Phone Zelalem Monahan MD Unavailable [phone] Encounter Details Date Type Department Care Team (Late st Contact Info) Description 03/02/2015 [facility] [address] [facility] [address] [place] [address] Social History Tobacco Use Types Packs/Day Years [...] on filedocumented in this encounter Care Teams Grain Picker Relationship Specialty [place] [address] [facility] [address] [place] [address] Vascular Surgery 01/12/14 documented as of this encounter
--- OUTSIDE RECORDS SUMMARY | 2024-12-18 12:45 | XMS_ITS | Encounter Summary ---
Author Organization [facility] Address [address] [place] [address] Phone Care Team Providers Care Sewage Plant Operator Name Role Phone Jermaine Ingram MD Primary Care Provider Reason for Visit * Reason Comments Medication Refill Encounter Details Date Type Department Care Team (Late st Contact Info) Description 08/23/2021 Refill [facility] [address] [phone] Ino Brown MD [address]2 [place] [phone] Medication Refill Social History Tobacco Use Types Packs/Day Years Used Date Smoking Tobacco: Former Cigarettes Q uit: 11/12/2000 Smokeless Tobacco: Never Alcohol Use Standard Drinks/Week Comments Not Currently 0 (1 standard drink = 0.6 oz pur e alcohol) Comments Unknown Sex and Gender Information Value Date Recorded Sex Assigned at Not on file Legal Sex Female 10:39 AM MIDDLE SCHOOL COUNSELOR Gender Identity Not on file Sexual Orientation Not on file documented as of this encounter Miscellaneous Notes * Telephone Encounter - Lizzie Tamayo RN - 08/24/2021 2:06 PM CDT Attempted to call patient, no response documented in this encounter Plan of Treatment Not on file documented as of this encounter Visit Diagnoses Not on filedocumented in this encounter Care Teams Sewage Plant Operator Relationship Specialty Start Date End Date Jermaine Ingram MD [address] [facility] [facility] [place] [address] PCP - General Family Medicine 09/30/18 documented as of this encounter
--- OUTSIDE RECORDS SUMMARY | 2024-12-18 12:45 | XMS_ITS | Clinical Summary ---
Author Organization [facility] Address [address] [facility] [place] [address] Phone Care Team Providers Care Station Air Traffic Control Specialist Name Role Phone Jermaine Ingram MD Primary Care Provider Allergies Active Allergy Reactions Criticality Noted Date Comments Morphine Anaphylaxis,Unknown High 11/16/2017 Medications aspirin EC 81 MG Tablet Delayed Response Take 81 mg by mouth daily. Active CHOLECALCIFEROL PO Take by mouth. Activ e Choline Fenofibrate 135 MG CAPSULE DELAYED RELEASE Take by mouth. Active furosemide (LASIX) 20 MG Tablet Take 20 mg by mouth 2 times daily. Active insulin glargine (LANTUS) 100 UNIT/ML Solution by Subcutaneous route every evening. Active insulin lispro (HUMALOG) 100 UNIT/ML Solution by Subcutaneous route 3 times daily (after meals). Use as directed Active lisinopril (PRINIVIL, ZESTRIL) 10 MG Tablet Take 10 mg by mouth daily. Active metoprolol Succinate (TOPROL-XL) 50 MG TABLET SR 24 HR Take 50 mg by mouth daily. Active Multiple Vitamins-Minera ls (MULTIVITAMIN PO) Take by mouth. Activ e rosuvastatin (CRESTOR) 40 MG Tablet Take 40 mg by mouth daily. Active sertraline (ZOLOFT) 50 MG Tablet Take 50 mg by mouth daily. Active gabapentin (NEURONTIN) 600 MG Tablet Take 0.5 Tabs by mouth nightly. 7 Tab 9 Active Additional Information Patient not taking.Reported on 01/02/2020 liraglutide (VICTOZA) 18 MG/3ML Solution Pen-injector by Subcutaneous route daily. Active LevETIRAcetam (KEPPRA) 1000 MG Tablet TAKE 1 TABLET BY MOUTH TWICE A DAY. NEED TO MAKE APPOINTMENT 60 Tablet 2 Active Active Problems Problem Noted Date Diagnosed Date Diabetic polyneuropathy asso ciated with type 2 diabetes mellitus 01/02/2020 Family History Medical History Relation Name Comments Diabetes Brother Heart Attack Brother Heart Attack Father Rheumatoid Arthritis Sister Relation Name Status Comments Brother Father Mother Sister Alive Social History Tobacco Use Types Packs/Day Years Used Date Smoking Tobacco: Former Cigarettes Q uit: 11/12/2000 Smokeless Tobacco: Never Alcohol Use Standard Drinks/Week Comments Not Currently 0 (1 standard drink = 0.6 oz pur e alcohol) Comments Unknown Sex and Gender Information Value Date Recorded Sex Assigned at Not on file Legal Sex Female 10:39 AM BILLIARD TABLE ASSEMBLER Gender Identity Not on file Sexual Orientation Not on file Last Filed Vital Signs Vital Sign Reading Time Taken Comments Blood Pressure 138/82 01/02/2020 10:01 AM BILLIARD TABLE ASSEMBLER Pulse 79 01/02/2020 10:01 AM BILLIARD TABLE ASSEMBLER Temperature 36.1 C (97 F) 01/02/2020 10:01 AM BILLIARD TABLE ASSEMBLER Respiratory Rate 17 01/02/2020 10:01 AM BILLIARD TABLE ASSEMBLER Oxygen Saturation 97% 01/02/2020 10:01 AM BILLIARD TABLE ASSEMBLER Inhaled Oxygen Concentration - - Weight 99.5 kg (219 lb 6.4 oz) 01/02/2020 10:01 AM BILLIARD TABLE ASSEMBLER Height 160 cm (5' 3 ) 01/02/2020 10:01 AM BILLIARD TABLE ASSEMBLER Body Mass Index 38.86 01/02/2020 10:01 AM BILLIARD TABLE ASSEMBLER Plan of Treatment Health Maintenance Due Date Last Done Comments DEXA Bone Density 1955 Diabetes: Eye Exam 1955 Diabetes: Foot Exam 1955 Hepatitis C Virus (HCV) Screening 1955 TdaP Immunization 1955 Colonoscopy 1998 Colorectal Cancer Screening 1998 Cologuard 2003 Immunochemical Fecal Occult Blood 2003 Mammogram 2003 Zoster Immunization (1 of 2) 2003 Respiratory Syncytial Virus (RSV) Immunization (Adult) (1 - Risk 60-74 years 1-dose series) 2013 Diabetes: Hemoglobin A1c 05/14/2020 11/14/2019 Diabetes: Nephropathy Screening 10/24/2020 10/24/2019 Influenza Immunization (#1) 2024 10/0 04/2021, 07/27/2020, 12/09/2019, Additional history exists SARS-COV-2 Immunization ( season) 2024 09/01/2021, 02/08/2021, 01/18/2021 Pneumococcal Immunization (50+ years) Completed 07/27/2020, 10/21/2018, 10/09/2017 Pneumococcal Immunization Combined Discontinued 07/27/2020, 10/21/2018, 10/09/2017 Hepatitis B Immunization Aged Out No longer eligible based on patient's age to complete this topic Meningococcal Immunization (ACWY) Aged Out No longer eligible based on patient's age to complete this topic Rotavirus Immunization Aged Out No lo nger eligible based on patient's age to complete this topic Procedures Procedure Name Priority Date/Time Associated Diagnosis Comments CMP (COMPREHENSIVE METABOLIC PANEL) Routine 10/24/2019 12:43 PM BILLIARD TABLE ASSEMBLER Tremor from Last 3 Months or Most Recently Relevant to Health Maintenance Results * (ABNORMAL) CMP (COMPREHENSIVE METABOLIC PANEL) (10/24/2019 12:43 PM BILLIARD TABLE ASSEMBLER) SODIUM 139 136 - 144 mmol/L 10/24/2019 2:47 PM [facility] POTASSIUM 4.4 3.5 - 5.1 mmol/L 10/24/2019 2:47 PM [facility] CHLORIDE 98(L) 100 - 110 mmol/L 10/24/2019 2:47 PM [facility] CO2, VENOUS 27 22 - 32 mmol/L 10/24/2019 2:47 PM [facility] ANION GAP 18.4 8.0 - 20.0 mmol/L 10/24/2019 2:47 PM [facility] GLUCOSE 244(H) 70 - 99 mg/dL 10/24/2019 2:47 PM [facility] BUN 27(H) 8 - 23 mg/dL 10/24/2019 2:47 PM [facility] CREATININE, BLOOD 1.26(H) 0.60 - 1.10 mg/dL 10/24/2019 2:47 PM [facility] BUN/CREATININE RATIO 21(H) 12 - 20 ratio 10/24/2019 2:47 PM [facility] TOTAL PROTEIN 6.6 6.0 - 8.3 g/dL 10/24/2019 2:47 PM [facility] ALBUMIN 4.3 3.5 - 5.2 g/dL 10/24/2019 2:47 PM [facility] Comment: The colormetric methods used for the determination of Albumin may lead to falsely elevated test results in patients suffering from renal failure or insufficiency due to interference with other proteins. A/G RATIO 1.9 1.0 - 2.0 10/24/2019 2:47 PM [facility] CALCIUM 9.9 8.9 - 10.3 mg/dL 10/24/2019 2:47 PM [facility] T BILI 0.4 <=1.2 mg/dL 10/24/2019 2:47 PM [facility] SGOT (AST) 21 <=32 U/L 10/24/2019 2:47 PM [facility] SGPT (ALT) 18 <=33 U/L 10/24/2019 2:47 PM [facility] ALKALINE PHOSPHATASE 72 35 - 105 U/L 10/24/2019 2:47 PM [facility] GFR, EST. NONAFRICAN 42(L) >=60 10/24/2019 2:47 PM [facility] GFR, EST. 51(L) >=60 019 2:47 PM [facility] Comment: Creatinine Clearance is the preferred criteria for selecting drug dose adjustments in renally impaired patients. The GFR is provided as additional pertinent clinical information. GFR is reported in mL/min/1.73 sq m. Blood specimen (specimen) Venipuncture / Unknown 10/24/2019 12:43 PM BILLIARD TABLE ASSEMBLER 10/24/2019 1:46 PM BILLIARD TABLE ASSEMBLER Ino Brown MD CHEMISTRY ORDERABLES Final R esult [facility] [address] [place] [address] from Last 3 Months or Most Recently Relevant to Health Maintenance Insurance MEDICARE [facility] Care Teams Station Air Traffic Control Specialist Relationship Specialty Start Date End Date Jermaine Ingram MD [address] [place] [address] PCP - General Family Medicine 09/30/18
--- OUTSIDE RECORDS SUMMARY | 2024-12-18 12:45 | XMS_ITS | Encounter Summary ---
Author Organization [facility] Address [address] [facility] [place] [address] Phone Care Team Providers Care Quarry Extraction Worker Name Role Phone Jermaine Ingram MD Primary Care Provider Reason for Visit * Reason Comments Medication Refill Encounter Details Date Type Department Care Team (Late st Contact Info) Description 01/29/2022 Refill [facility] [facility] [phone] Ino Brown MD [address]2 [place] [phone] Medication Refill Social History Tobacco Use Types Packs/Day Years Used Date Smoking Tobacco: Former Cigarettes Q uit: 11/12/2000 Smokeless Tobacco: Never Alcohol Use Standard Drinks/Week Comments Not Currently 0 (1 standard drink = 0.6 oz pur e alcohol) Comments Unknown Sex and Gender Information Value Date Recorded Sex Assigned at Not on file Legal Sex Female 10:39 AM VIDEO JOURNALIST Gender Identity Not on file Sexual Orientation Not on file documented as of this encounter Plan of Treatment Not on file documented as of this encounter Visit Diagnoses Not on filedocumented in this encounter Care Teams Quarry Extraction Worker Relationship Specialty Start Date End Date Jermaine Ingram MD [address] [facility] [place] [address] PCP - General Family Medicine 09/30/18 documented as of this encounter
--- OUTSIDE RECORDS SUMMARY | 2024-12-18 12:45 | XMS_ITS | Encounter Summary ---
Author Organization [facility] Health Address [address] [place] [address] Care Team Providers Care Soaping Machine Back Tender Name Role Phone Zellaem Monahan MD Unavailable Encounter Details Date Type Department Care Team (Late st Contact Info) Description 12/30/2013 [facility] [address] [facility] [address] [place] [address] Social History Tobacco Use Types Packs/Day Years Used Date Smoking Tobacco: Former Cigarettes Q uit: 11/12/2000 Smokeless Tobacco: Never Alcohol Use Standard Drinks/Week Comments Not Asked 0 (1 standard drink = 0.6 oz pur e alcohol) Sex and Gender Information Value Date Recorded Sex Assigned at Not on file Gender Identity Not on file Sexual Orientation Not on file documented as of this encounter Plan of Treatment Not on file documented as of this encounter Visit Diagnoses Not on filedocumented in this encounter Care Teams Soaping Machine Back Tender Relationship Specialty [place] [address] [facility] [address] [place] [address] Vascular Surgery 01/12/14 documented as of this encounter
--- OUTSIDE RECORDS SUMMARY | 2024-12-18 12:45 | XMS_ITS | Encounter Summary ---
Author Organization [facility] Address [address] [facility] [place] [address] Phone Care Team Providers Care Varnish Mixer Name Role Phone Jermaine Ingram MD Primary Care Provider Reason for Visit * Reason Comments Medication Refill Encounter Details Date Type Department Care Team (Late st Contact Info) Description 04/04/2022 Refill [facility] [facility] [phone] Ino Brown MD [address] [place] [phone] Medication Refill Social History Tobacco Use Types Packs/Day Years Used Date Smoking Tobacco: Former Cigarettes Q uit: 11/12/2000 Smokeless Tobacco: Never Alcohol Use Standard Drinks/Week Comments Not Currently 0 (1 standard drink = 0.6 oz pur e alcohol) Comments Unknown Sex and Gender Information Value Date Recorded Sex Assigned at Not on file Legal Sex Female 10:39 AM RETAIL ASSOCIATE MANAGER BILINGUAL Gender Identity Not on file Sexual Orientation Not on file documented as of this encounter Plan of Treatment Not on file documented as of this encounter Visit Diagnoses Not on filedocumented in this encounter Care Teams Varnish Mixer Relationship Specialty Start Date End Date Jermaine Ingram MD [address] [place] [address] PCP - General Family Medicine 09/30/18 documented as of this encounter
--- OUTSIDE RECORDS SUMMARY | 2024-12-18 12:45 | XMS_ITS | Patient Health Summary ---
Author Organization [facility] Address [address] [place] [address] Care Team Providers Care Photo Lab Technician Name Role Phone Zelalem Monahan MD Unavailable Note from [facility],non-owned Affiliates and Associated Physician Practices is amultiple site organization consisting of ambulatory clinics and hospital sitesin [place], [place], [place] and [place]. This disclosure is being madepursuant to the Care Everywhere program and may not contain all information available regarding this patient. Last updated 18.[facility] Allergies No known active allergies Medications * Be aware that medications may not be up to date on this document. Alwaysverify current medications with the patient. * NITROGLYCERIN BU * simvastatin (ZOCOR) 80 MG tablet * clopidogrel (PLAVIX) 75 MG tablet * metoprolol succinate XL 24hr (TOPROL XL) 25 MG tablet * aspirin 81 MG tablet * sertraline (ZOLOFT) 50 MG tablet * lisinopril (PRINIVIL;ZESTRIL) 5 MG tablet * Insulin Lispro, Human, (HUMALOG SC) * Insulin Glargine (LANTUS SC) * choline fenofibrate (TRILIPIX) 135 MG capsule * isosorbide mononitrate CR 24hr (IMDUR) 30 MG tablet Active Problems No known active problems Social History Tobacco Use Types Packs/Day Years [...] Mass Index 44.29 03/02/2015 12:44 PM CDT Procedures * VAS CAROTID DUPLEX BILATERAL(Performed 03/02/2015) Performed for Occlusion and stenosis of carotid artery without mention of cerebral infarction, unspecified laterality * VAS CAROTID DUPLEX BILATERAL(Performed 12/30/2013) Performed for Occlusion And Stenosis Of Carotid Artery Without Mention Of Cerebral Infarction * GROSS EXAM PATHOLOGY(Performed 10/25/2005) Results * VAS CAROTID DUPLEX BILATERAL (03/02/2015 1:09 PM CDT) Only the most recent of2 resultswithin the time period is included. Anatomical Region Laterality Modality Ultrasound 03/02/2015 11:4 5 AM CDT Narrative Procedure Note Zelalem Monahan MD - 03/02/2015 [facility] [address], [address] [place] [address] Carotid Duplex Report Pat.Name: MAICOL WISE Pat.ID: [id number] .Date: 03/02/2015 Exam Time: 11:45:00 AM Study Type:Carotid Age: 3 1955,60Y Sex: FEMALE Sonogrphr: Damien Soni RVT Pat. Stat.:Outpatient ICD - 9: 433.10 Carotid Artery Occlusion/Stenosis CPT - 4: 18754 Procedures:Carotid Duplex - Bilateral Race: 2 Visit ID: [id number] SUMMARY: 1. Less than 50% stenosis of the right internal carotid artery. 2 There is an occlusion of the left internal carotid artery. 3. Antegrade flow in the vertebral arteries bilaterally. FINDINGS: Procedure: The extracranial carotid systems were examined bilaterally with duplex and color flow imaging as well as spectral Doppler analysis. Study Quality: This study is of adequate technical quality. Rt CCA: Intimal thickening is present Rt ICA: There is smooth, heterogenous plaque in the proximal ICA. Rt Vert: Antegrade flow within the right vertebral Artery. Lt CCA: Intimal thickening is present Lt ICA: Left internal carotid artery appears to be occluded. Lt Vert: Antegrade flow within the left vertebral Artery. Signed 03/02/2015 03:15 PM Zelalem Monahan MD Zelalem Monahan MD VASCULAR LAB ORDERAB LES * GROSS EXAM PATHOLOGY (10/25/2005 12:00 AM RACING MANAGER) Result CASE NUMBER [id number] Comment: ORDERING PHYSICIAN ZELALEM MONAHAN SPECIMEN TYPE Plaque-right carotid Surgeon DR. ZELALEM MONAHAN Gross Exam DR. KAREL MAREIE M.D. Report Text COPY TO INDICATION FOR PROCEDURE CAROTID STENOSIS OPERATION RIGHT CAROTID ENDARTERECTOMY GROSS THE SPECIMEN IS RECEIVED IN ONE FORMALIN FILLED CONTAINER LABELED WITH THE PATIENT'S NAME AND RIGHT CAROTID PLAQUE AND CONSISTS OF ELONGATED WHITISH YELLOWISH TUBULAR STRUCTURE WHICH MEASURES 2.3 CM. IN LENGTH AND 0.3 CM. IN DIAMETER. NO SECTIONS WERE OBTAINED. JW/CS DIAGNOSIS DIAGNOSIS [1] RIGHT CAROTID PLAQUE -- FOR GROSS EXAMINATION ONLY JW/CS Released By KAREL MARIEE CPT Code 14332 MISCELLANEOUS SAMPLE S / Unknown 10/25/2005 10/26/2005 7:15 AM RACING MANAGER Historical Provider LAB - PATHOLOGY/C YTOLOGY ORDERABLES Care Teams Photo Lab Technician Relationship Specialty [place] [address] [facility] [address] [place] [address] Vascular Surgery 01/12/14
--- OUTSIDE RECORDS SUMMARY | 2024-12-18 12:45 | XMS_ITS | Encounter Summary ---
Author Organization [facility] Address [address] [facility] [place] [address] Phone Care Team Providers Care Scientific Programmer Analyst Name Role Phone Jermaine Ingram MD Primary Care Provider Reason for Visit * Reason Comments Medication Refill Encounter Details Date Type Department Care Team (Late st Contact Info) Description 01/04/2022 Refill [facility] [phone] Ino Brown MD [address] [place] [phone] Medication Refill Social History Tobacco Use Types Packs/Day Years Used Date Smoking Tobacco: Former Cigarettes Q uit: 11/12/2000 Smokeless Tobacco: Never Alcohol Use Standard Drinks/Week Comments Not Currently 0 (1 standard drink = 0.6 oz pur e alcohol) Comments Unknown Sex and Gender Information Value Date Recorded Sex Assigned at Not on file Legal Sex Female 10:39 AM DERRICK BOAT CAPTAIN Gender Identity Not on file Sexual Orientation Not on file documented as of this encounter Plan of Treatment Not on file documented as of this encounter Visit Diagnoses Not on filedocumented in this encounter Care Teams Scientific Programmer Analyst Relationship Specialty Start Date End Date Jermaine Ingram MD [address] [place] [place] [address] PCP - General Family Medicine 09/30/18 documented as of this encounter
--- OUTSIDE RECORDS SUMMARY | 2024-12-18 12:45 | XMS_ITS | Encounter Summary ---
Author Organization [facility] Healthcare Address [address] [place] [address] Care Team Providers Care Furniture Servicer Name Role Phone Jermaine Ingram MD Primary Care Provider [phone] Ajay Mccabe MD Unavailable Lola Mendoza MD Unavailable [phone] Ajay Sears MD Unavailable Sang Morin MD Unavailable [phone] Encounter Details Date Type Department Care Team (Late st Contact Info) Description 08/06/2024 Telephone [facility] [address] [facility] [address] [place] [address] Bar Amor MD [address] [facility] [address] [place] [address] Social History Tobacco Use Types [...] on file 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 Gender Identity Not on file Sexual Orientation Not on file documented as of this encounter Plan of Treatment Not on file documented as of this encounter Visit Diagnoses Not on filedocumented in this encounter Care Teams Furniture Servicer Relationship Specialty Start Date End Date Jermaine Ingram MD [address] [place] [address] PCP - General Family Practice 04/23/18 [facility] [place] [address] Consulting Physician Cardiology 05/06/18 [place] [address] Consulting Physician Nephrology 10/18/20 [place] [address] Surgeon Neurosurgery 04/18/21 [place] [address] Surgeon Vascular Surgery 11/17/21 documented as of this encounter
--- OUTSIDE RECORDS SUMMARY | 2024-12-18 12:45 | XMS_ITS | Encounter Summary ---
Author Organization [facility] Address [address] [facility] [place] [address] Phone Care Team Providers Care Project Drilling Engineer Name Role Phone Jermaine Ingram MD Primary Care Provider [phone] Reason for Visit * Reason Comments Medication Refill Encounter Details Date Type Department Care Team (Late st Contact Info) Description 10/04/2021 Refill [facility] [phone] Ino Brown MD [address] [place] [phone] Medication Refill Social History Tobacco Use Types Packs/Day Years Used Date Smoking Tobacco: Former Cigarettes Q uit: 11/12/2000 Smokeless Tobacco: Never Alcohol Use Standard Drinks/Week Comments Not Currently 0 (1 standard drink = 0.6 oz pur e alcohol) Comments Unknown Sex and Gender Information Value Date Recorded Sex Assigned at Not on file 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
--- OUTSIDE RECORDS SUMMARY | 2024-12-18 12:45 | XMS_ITS | Encounter Summary ---
Author Organization [facility] Healthcare Address [address] [place] [address] Care Team Providers Care Pharmacy Clinical Specialist Name Role Phone Jermaine Ingram MD Primary Care Provider [phone]- [phone] Ajay Mccabe MD Unavailable [phone] Lola Mendoza MD Unavailable [phone] Ajay Sears MD Unavailable [phone] Sang Morin MD Unavailable [phone] Encounter Details Date Type Department Care Team (Late st Contact Info) Description 06/10/2020 Telephone [facility] - Imaging [address] [place] [address] Transcribed Order, Provider Social History Tobacco Use Types Packs/Day Years Used Date Smoking Tobacco: Former Cigarettes 2 10 Smokeless Tobacco: Never Alcohol Use Standard Drinks/Week Comments No 0 (1 standard drink = 0.6 oz pur e alcohol) PHQ-2 Answer Date Recorded PHQ-2 Score 0 12/10/2019 Comments No Sex and Gender Information Value Date Recorded Sex Assigned at Not on file 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 Gender Identity Not on file Sexual Orientation Not on file documented as of this encounter Plan of Treatment Not on file documented as of this encounter Visit Diagnoses Not on filedocumented in this encounter Care Teams Pharmacy Clinical Specialist Relationship Specialty [place] [address] [place] [address] [place] [address] PCP - General Family Practice 04/23/18 Ajay Mccabe MD [address] [place] [address] Consulting Physician Cardiology 05/06/18 Lola Mendoza MD [address] [place] [facility] Consulting Physician Nephrology 10/18/20 Ajay Sears MD [address] [place] [address] Surgeon Neurosurgery 04/18/21 Sang Morin MD [address] [place] [address] Surgeon Vascular Surgery 11/17/21 documented as of this encounter
--- OUTSIDE RECORDS SUMMARY | 2024-12-18 12:45 | XMS_ITS | Encounter Summary ---
Author Organization [facility] Address [address] [facility] [place] [address] Phone Care Team Providers Care Contact Lens Fitter Name Role Phone Jermaine Ingram MD Primary Care Provider [phone] Reason for Visit * Reason Comments Medication Refill Encounter Details Date Type Department Care Team (Late st Contact Info) Description 05/08/2021 Refill [facility] [place] [address] [place] [address] Ino Brown MD [address] [place] [phone] Medication Refill Social History Tobacco Use Types Packs/Day Years Used Date Smoking Tobacco: Former Cigarettes Q uit: 11/12/2000 Smokeless Tobacco: Never Alcohol Use Standard Drinks/Week Comments Not Currently 0 (1 standard drink = 0.6 oz pur e alcohol) Comments Unknown Sex and Gender Information Value Date Recorded Sex Assigned at Not on file 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
--- OUTSIDE RECORDS SUMMARY | 2024-12-18 12:45 | XMS_ITS | Referral Summary ---
Author Organization [facility] Address [address] [place] [address] Care Team Providers Care Commodity Industry Analyst Name Role Phone Zelalem Monahan MD Unavailable [phone] Source Comments [facility],non-owned Affiliates and Associated Physician Practices is amultiple site organization consisting of ambulatory clinics and hospital sitesin [place], [place], [place] and [place]. This disclosure is being madepursuant to the Care Everywhere program and may not contain all information available regarding this patient. Last updated 18.[facility] Allergies No known active allergies Medications * [...] ve Active Problems No known active problems Social [...] 03/02/2015 12:44 PM CDT Plan of Treatment Not on file Care Teams Commodity Industry Analyst Relationship Specialty [place] [address] [address] Vascular Surgery 01/12/14
--- OUTSIDE RECORDS SUMMARY | 2024-12-18 12:45 | XMS_ITS | Encounter Summary ---
Author Organization [facility] Address [address] [facility] [place] [address] Phone Care Team Providers Care Assisted Living Coordinator Name Role Phone Jermaine Ingram MD Primary Care Provider Reason for Visit * Reason Comments Medication Refill Encounter Details Date Type Department Care Team (Late st Contact Info) Description 11/26/2021 Refill [facility] [phone] Ino Brwon MD [address] [place] [phone] Medication Refill Social History Tobacco Use Types Packs/Day Years Used Date Smoking Tobacco: Former Cigarettes Q uit: 11/12/2000 Smokeless Tobacco: Never Alcohol Use Standard Drinks/Week Comments Not Currently 0 (1 standard drink = 0.6 oz pur e alcohol) Comments Unknown Sex and Gender Information Value Date Recorded Sex Assigned at Not on file 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
--- OUTSIDE RECORDS SUMMARY | 2024-12-18 12:45 | XMS_ITS | Encounter Summary ---
Author Organization [facility] Address [address] [facility] [place] [address] Phone Care Team Providers Care Manager Pricing Name Role Phone Jermaine Ingram MD Primary Care Provider Reason for Visit * Reason Comments Medication Refill Encounter Details Date Type Department Care Team (Late st Contact Info) Description 02/24/2022 Refill [facility] [address] Ino Brown MD [address] [place] [phone] Medication Refill Social History Tobacco Use Types Packs/Day Years Used Date Smoking Tobacco: Former Cigarettes Q uit: 11/12/2000 Smokeless Tobacco: Never Alcohol Use Standard Drinks/Week Comments Not Currently 0 (1 standard drink = 0.6 oz pur e alcohol) Comments Unknown Sex and Gender Information Value Date Recorded Sex Assigned at Not on file 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
--- OUTSIDE RECORDS SUMMARY | 2024-12-18 12:45 | XMS_ITS | Encounter Summary ---
Author Organization [facility] Healthcare Address [address] [place] [address] Care Team Providers Care Mixer Tender Name Role Phone Jermaine Ingram MD Primary Care Provider +- [phone] Ajay Mccabe MD Unavailable [phone] Lola Mendoza MD Unavailable [phone] Ajay Sears MD Unavailable [phone] Sang Morin MD Unavailable [phone] Encounter Details Date Type Department Care Team (Late st Contact Info) Description 05/12/2021 Telephone [facility] - Imaging [address] [place] [address] Transcribed Order, Provider Social History Tobacco Use Types Packs/Day Years Used Date Smoking Tobacco: Former Cigarettes 2 10 Smokeless Tobacco: Never Alcohol Use Standard Drinks/Week Comments No 0 (1 standard drink = 0.6 oz pur e alcohol) PHQ-2 Answer Date Recorded PHQ-2 Total Score (If total score is 3 or more points, staff should administer the PHQ-9) 0 03/15/2021 Comments No Sex and Gender Information Value Date Recorded Sex Assigned at Not on file Legal Sex Female 12:41 AM PATIENT CASE COORDINATOR Gender Identity Not on file Sexual Orientation Not on file documented as of this encounter Plan of Treatment Not on file documented as of this encounter Visit Diagnoses Not on filedocumented in this encounter Care Teams Mixer Tender Relationship Specialty Start Date End Date Jermaine Ingram MD [address] [place] [address] PCP - General Family Practice 04/23/18 Ajay Mccabe MD [address] [place] [address] Consulting Physician Cardiology 05/06/18 Lola Mendoza MD [facility] [place] [address] Consulting Physician Nephrology 10/18/20 Ajay Sears MD [facility] [place] [address] Surgeon Neurosurgery 04/18/21 Sang Morin MD [facility] [place] [address] Surgeon Vascular Surgery 11/17/21 documented as of this encounter
--- OUTSIDE RECORDS SUMMARY | 2024-12-18 12:45 | XMS_ITS | Encounter Summary ---
Author Organization [facility] Address [address] [facility] [place] [address] Phone Care Team Providers Care Secretary Bookkeeper Name Role Phone Jermaine Ingram MD Primary Care Provider Reason for Visit * Reason Comments Medication Refill Encounter Details Date Type Department Care Team (Late st Contact Info) Description 09/17/2021 Refill [facility] [phone] Ino Brown MD [address] [place] [phone] Medication Refill Social History Tobacco Use Types Packs/Day Years Used Date Smoking Tobacco: Former Cigarettes Q uit: 11/12/2000 Smokeless Tobacco: Never Alcohol Use Standard Drinks/Week Comments Not Currently 0 (1 standard drink = 0.6 oz pur e alcohol) Comments Unknown Sex and Gender Information Value Date Recorded Sex Assigned at Not on file 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
--- OUTSIDE RECORDS SUMMARY | 2024-12-18 12:45 | XMS_ITS | Encounter Summary ---
Author Organization [facility] Address [address] [facility] [place] [address] Phone Care Team Providers Care Regulatory Assistant Name Role Phone Jermaine Ingram MD Primary Care Provider [phone] Reason for Visit * Reason Comments Medication Refill Encounter Details Date Type Department Care Team (Late st Contact Info) Description 11/02/2021 Refill [facility] [facility] [phone] Ino Brown MD [address] [place] [phone] Medication Refill Social History Tobacco Use Types Packs/Day Years Used Date Smoking Tobacco: Former Cigarettes Q uit: 11/12/2000 Smokeless Tobacco: Never Alcohol Use Standard Drinks/Week Comments Not Currently 0 (1 standard drink = 0.6 oz pur e alcohol) Comments Unknown Sex and Gender Information Value Date Recorded Sex Assigned at Not on file 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 [place] [address] PCP - General Family Medicine 09/30/18 documented as of this encounter
--- OUTSIDE RECORDS SUMMARY | 2024-12-18 12:46 | XMS_ITS | Clinical Summary ---
Author Organization [facility] D Address [address] [place] [address] Care Team Providers Care Chef Manager Name Role Phone Jermaine Ingram MD Primary Care Provider [phone] Ajay Mccabe MD Unavailable Lola Mendoza MD Unavailable [phone] Ajay Sears MD Unavailable Sang Morin MD Unavailable [phone] Allergies Active Allergy Reactions Criticality Noted Date Comments Morphine Anaphylaxis High 05/06/2018 Medications sertraline (ZOLOFT) 50 mg tablet Take 1 tablet (50 mg total) by mouth daily Active aspirin 81 mg tablet Take 1 tablet (81 mg total) by mouth daily Active cholecalciferol (VITAMIN D-3) 1,000 unit Take 1 tablet/capsule (1,000 Units total) by mouth daily Active multivitamin capsule Take 1 capsule by mouth daily Active blood-glucose meter (True Metrix Air Glucose Meter) [facility] [place] True Metrix Glucose meter with lancing device. ICD 10-E11.22 1 each 01/07/20 20 Active lancets mis True metrix lancets 4 times daily. ICD 10-E11.22 400 each 11 01/07/20 20 Active blood glucose diagnostic (True Metrix Glucose Test Strip) stripIndication s:Type 2 diabetes mellitus with stage 3a chronic kidney disease, with long-term current use of insulin (HCC) True metrix glucose strip 4 times daily. ICD 10-E11.22 400 each 11 09/16/20 21 Active isosorbide mononitrate ER (IMDUR) 30 mg 24 hr tablet Take 1 tablet (30 mg total) by mouth daily 90 tablet 3 04/03/20 22 099 Active albuterol 2.5 mg /3 mL (0.083 %) nebulizer solution INHALE 1 VIAL VIA NEBULIZER 4 TIMES A DAY NEEDED 12/25/19 23 Active amoxicillin (AMOXIL) 500 mg tablet/capsule Take 4 caps (2000 mg) 1 hour prior to dental procedures. 4 tablet/caps ule 50 02/23/20 23 036 Active Additional Information Patient not taking.Reported on 03/13/2024 rosuvastatin (CRESTOR) 40 mg tablet Take 1 tablet (40 mg total) by mouth daily 90 tablet 3 02/23/20 23 Active fenofibrate micronized (LOFIBRA) 134 mg capsule Take 1 capsule (134 mg total) by mouth daily 05/28/20 23 Active traMADoL (ULTRAM) 50 mg tablet Take 1 tablet (50 mg total) by mouth 3 (three) times a day as needed 05/28/20 23 Active traZODone (DESYREL) 50 mg tablet 1 TAB BY MOUTH EVERY DAY AT BEDTIME NEEDED FOR SLEEP 05/19/20 23 Active metoprolol XL (TOPROL-XL) 50 mg extended release tablet Take 1 tablet (50 mg total) by mouth daily 05/28/20 23 Active empagliflozin (JARDIANCE) 10 mg tabletIndicatio ns:type 2 diabetes mellitus Take 1 tablet (10 mg total) by mouth daily 90 tablet 3 07/31/20 23 Active dulaglutide (Trulicity) 4.5 mg/0.5 mL pen injector Inject 0.5 mL (4.5 mg total) under the skin once a week Active lisinopriL (PRINIVIL,ZESTR IL) 2.5 mg tablet TAKE 1 TABLET BY MOUTH EVERY DAY 90 tablet 3 03/14/20 24 Active clopidogreL (PLAVIX) 75 mg tablet TAKE 1 TABLET BY MOUTH EVERY DAY 90 tablet 3 03/17/20 24 Active insulin lispro (HumaLOG) 100 unit/mL pen for injection TAKE 18 UNITS PLUS SLIDING SCALE INSULIN 3 TIMES DAILY WITH MEAL. TDD=80 UNITS. 75 mL 4 06/06/20 24 Active pen needle, diabetic 32 gauge x 5/32 needle Take with insulin 4 times daily 400 each 3 06/06/20 24 Active glucagon (Baqsimi) 3 mg/actuation spray,non-aeros olIndications:p atient with diabetes mellitus at risk of hypoglycemia Administer 1 spray into one nostril as needed (hypoglycemia) 1 each 06/06/20 Active budesonide-glyc opyr-formoterol (Breztri Aerosphere) 160-9-4.8 mcg/actuation inhaler Inhale 2 puffs 2 (two) times a day 1 g 3 07/29/20 24 Active blood-glucose meter,continuou s (FreeStyle Kinjal 3 [place]) misc Kinjal 3 reader to monitor BG levels. ICD 10 E11.65 1 each 09/30/20 24 Active gabapentin (NEURONTIN) 300 mg capsule TAKE 1 CAPSULE BY MOUTH THREE TIMES A DAY 90 capsule 3 10/01/20 24 Active furosemide (LASIX) 80 mg tablet TAKE 1 TABLET BY MOUTH EVERY DAY 90 tablet 09/30/20 24 Active insulin degludec (TRESIBA) 100 unit/mL (3 mL) pen for injection Inject 52 units SQ at night 45 mL 1 11/24/19 25 Active insulin glargine (LANTUS) 100 unit/mL (3 mL) pen for injection Inject 52 Units under the skin daily 45 mL 3 06/06/20 24 025 Discontinued insulin glargine (LANTUS) 100 unit/mL (3 mL) pen for injection Inject 52 Units under the skin daily 45 mL 1 11/24/19 25 025 Discontinued Active Problems Problem Noted Date Diagnosed Date ILD (interstitial lung disease) (CMS/HCC) 2023 Atherosclerosis of [place]asmin of left lower extremity with rest pain 02/20/2024 Assessment & Plan (02/20/2024 12:51 PM CDT): Worsening left foot pain with non-compressible vessels at the level of the ankle and a left toe pressure of 29. Plan AIF angiogram with possible left leg intervention. Recent serum creatinine slightly elevated. Will plan oseas-procedural IV hydration. Asymptomatic stenosis of right carotid artery Assessment & Plan (02/20/2024 12:52 PM CDT): Asymptomatic minimal right ICA stenosis Body mass index 40.0-44.9, adult (CMS/HCC) 06/21 Morbid (severe) obesity due to excess calories 1 Assessment & Plan (08/20/2022 9:29 PM CDT): Will start Trulicity. S/P vascular surgery 06/14/2022 Aortic stenosis, severe 04/26/2022 Encounter for examination fo r normal comparison and control in clinical research program 04/24/2022 Overview (04/24/2022): Added automatically from request for surgery [id number] Right knee pain 03/08/2022 Assessment & Plan (03/08/2022 10:16 AM CDT): Contact PCP to get orthopedic referral Leg edema, right 03/08/2022 Assessment & Plan (03/08/2022 10:18 AM CDT): At least in-part post-revascularization swelling that should continue to improve with time. Gave prescription for 15-20 mmHg and 20-30 mmHg support hose knee high support hose. After her knee is evaluated, if she'd like to try lymphedema therapy (manual lymphatic drainage) we can write her an order for PT/OT to be done closer to home. Atherosclerosis of [place] of right lower extremity with intermittent claudication 11/16/2021 Atheroscler of [place] artery of right leg with intermit claudication 10/28/2021 Overview (10/28/2021): Added automatically from request for surgery [id number] Assessment & Plan (08/07/2022 9:06 AM CDT): Her right leg arterial perfusion is much improved after recent intervention. We recommend repeat lower extremity arterial doppler in three months. Certainly if there are interval problems, we would be happy to see her sooner. Assessment & Plan (03/08/2022 11:07 AM CDT): Distal right popliteal stenosis is mildly worse. The popliteal stent is not fully visualized. Repeat arterial Doppler in three months. If right calf claudication progresses after knee has been evaluated/treated we'll need to arrange AIF angiogram with possible intervention. She understands further revascularization would likely cause an increase in her edema. Claudication of lower extremity 04/18/2021 Assessment & Plan (10/24/2021 11:53 AM DIE PRESSER): Progressive right leg claudication with decline in toe pressures. Plan AIF angiogram with possible right leg intervention. We'll arrange updated labs to determine a recent creatinine level. Assessment & Plan (04/18/2021 12:27 PM CDT): Non-debilitating right calf claudication with excellent arterial perfusion at rest. We wouldn't recommend right leg vascular intervention unless she's stable from an aortic valve standpoint and has completed spine evaluation. She'll return in six months for repeat ABIs with post exercise pressures. Diabetic peripheral neuropathy ([facility]) 021 Assessment & Plan (03/15/2021 11:11 AM CDT): Off gabapentin due to worsening tremors. She will discuss treatment options with Neurology Vitamin D deficiency 09/23/2020 Diabetic polyneuropathy asso ciated with type 2 diabetes mellitus ([facility]) 01/02/2020 Sepsis 07/16/2018 Chest pain 07/15/2018 Morbid obesity with BMI of 40.0-44.9, adult 05/13 Assessment & Plan (12/01/2021 9:47 PM DIE PRESSER): Instructed to follow consistent carb diet specifically 35-40 g with each meal and snack 15 g each. Emphasized the importance of increasing physical activity or participating in an exercise regimen as tolerated. Assessment & Plan (09/16/2021 10:38 AM CDT): BMI Follow-up includes: nutrition counseling. Continue Trulicity Assessment & Plan (03/15/2021 11:09 AM CDT): BMI Follow-up includes: nutrition counseling. Will titrate Trulicity as tolerated PVD (peripheral vascular disease) 05/06/2018 Type 2 diabetes mellitus wit h stage 3 chronic kidney disease 05/06/2018 Assessment & Plan (09/22/2024 12:21 PM DIE PRESSER): 69 years old female seen in follow-up for management of inadequately controlled type 2 diabetes mellitus. Hemoglobin A1c is 7.7% goal less than 7.0%. She reports variable blood sugars ranging from the 70s-140s. Plan. 1. Decrease Lantus to 52 units at night 2. Decrease Humalog to 14 units q.a.c. t.i.d. 3. Humalog sliding scale 3 times a day before meals as follows : Blood sugar 150-200 = 1 unit Blood sugar 201-250 = 2 units Blood sugar 251-300 = 3 units Blood sugar 301-350 = 4 units Blood sugar 351-400 = 5 units. 4. Continue Trulicity 4.5 mg weekly 5. Continue Jardiance 10 mg daily 6. Check blood sugars before meals and bedtime. Call if frequently below 80 or above 300 . Restart CGM. Will send application for [employer] Kinajl 3+. 7. Consistent carb diet 8. Follow-up in 3 months Assessment & Plan (06/09/2024 7:51 AM CDT): This is a 69-year-old female with history of CAD status post PCI and CABG seen for management of chronic and uncontrolled type 2 diabetes mellitus. Unable to download Kinjal data. Per patient BG levels 100-180 range. Occasionally over 200. Plan 1. Continue Lantus to 52 units at bedtime 2. Increase Humalog to 16 units with breakfast and lunch and 18 units with dinner. 3. Humalog sliding scale 3 times a day before meals as follows: Blood sugar 150-200 = 1 unit Blood sugar 201-250 = 2 units Blood sugar 251-300 = 3 units Blood sugar 301-350 = 4 units Blood sugar 351-400 = 5 units. 4. Continue Jardiance 10 mg daily. Keep well hydrated 5. Continue Trulicity 4.5 mg weekly. 6. Check blood sugars 4 times a day. Call if frequently below 80 or above 200. 7. Consistent carb diet 8. Follow-up in 3 months. Assessment & Plan (08/06/2023 8:00 AM CDT): This is a 68-year-old female seen for type 2 diabetes follow-up visit. Three POC hemoglobin A1c is 6.6%. CGM data showed target- 62%. High- 30%. Very high- 8%. Low- 0%. Fasting and postprandial hyperglycemia. Plan 1. Continue Lantus to 52 units at bedtime 2. Increase Humalog to 16 units 3 times a day before meals 3. Humalog sliding scale 3 times a day before meals as follows: Blood sugar 150-200 = 1 unit Blood sugar 201-250 = 2 units Blood sugar 251-300 = 3 units Blood sugar 301-350 = 4 units Blood sugar 351-400 = 5 units. 4. Continue Jardiance 10 mg daily. Keep well hydrated 5. Increase Trulicity 4.5 mg weekly. 6. Check blood sugars 4 times a day. Call if frequently below 80 or above 200. 7. Consistent carb diet 8. Follow-up in 3 months. Assessment & Plan (04/30/2023 2:26 PM CDT): 68 years old female with CAD status post CABG and CKD 3 seen for management of uncontrolled type 2 diabetes mellitus. Hemoglobin A1c has improved from 7.6% to 7.1%, goal less than 7.0%. Reviewed CGM data: Variable with postprandial hyperglycemia and nocturnal hypoglycemic episodes.. Plan. 1. Decrease Lantus to 48 units HS 2. Increase Humalog to 16 units q.a.c. t.i.d. 3. Humalog sliding scale 3 times a day before meals as follows: Blood sugar 150-200 = 1 unit Blood sugar 201-250 = 2 units Blood sugar 251-300 = 3 units Blood sugar 301-350 = 4 units Blood sugar 351-400 = 5 units. 4. Continue Jardiance 10 mg daily. Keep well hydrated 5. Continue Trulicity 1.5 mg weekly. Will increase to 3 mg weekly in 3 months. Prescription sent to PAP. 6. Check blood sugars 4 times a day. Call if frequently below 80 or above 200. 7. Consistent carb diet 8. Follow-up in 3 months. Assessment & Plan (01/10/2023 12:59 PM DIE PRESSER): This is a 67-year-old female seen for chronic type 2 diabetes mellitus. CGM data reviewed showed target-85%, high-14% and very high-1%. Occasional hypoglycemia due to taking prandial dose despite of skipping meal. Plan 1. Decrease Lantus to 52 units at bedtime. Decrease by another 2 units if morning blood sugar below 100. 2. Continue Humalog to 14 units 3 times a day before meals. 3. Humalog sliding scale 3 times a day before meals as follows. Blood sugar 150-200 = 1 unit Blood sugar 201-250 = 2 units Blood sugar 251-300 = 3 units Blood sugar 301-350 = 4 units Blood sugar 351-400 = 5 units. Hold Humalog when skipping a meal. 4. Will increase Trulicity to 1.5 mg once weekly. Will contact PAP program with dose update and medication shipment. Potential side effects of Trulicity including but not limited to nausea, vomiting and acute pancreatitis discussed. Advised to Stop Trulicity and call if having persistent nausea or vomiting. 5. Check blood sugars 4 times a day. Call if frequently below 80. 6. Limit carbs to 30-40 g per meal and 15 g per snacks, 2 snacks per day. 7. Follow-up in 3 months Assessment & Plan (09/12/2022 5:29 PM CDT): This is a 67-year-old female seen for chronic and improving type 2 diabetes mellitus. Sensor data reviewed. Blood glucose levels are gradually improving. Occasional hypoglycemia secondary to skipping meal times. Plan 1. Decrease Lantus to 54 units at bedtime. 2. Continue Humalog to 14 units 3 times a day before meals. 3. Humalog sliding scale 3 times a day before meals as follows. Blood sugar 150-200 = 1 unit Blood sugar 201-250 = 2 units Blood sugar 251-300 = 3 units Blood sugar 301-350 = 4 units Blood sugar 351-400 = 5 units. 4. Will increase Trulicity to 1.5 mg once weekly Will start patient assistance program application for Trulicity. 5. continue Jardiance 10 mg daily. 6. Check blood sugars 4 times a day. Call if frequently below 80. 7. Limit carbs to 30-40 g per meal and 15 g per snacks, 2 snacks per day. Follow-up in 6 weeks. Assessment & Plan (08/20/2022 9:26 PM CDT): This is 67 year old female seen for chronic and uncontrolled type 2 diabetes mellitus. Today A1c is elevated at 8.3%. Patient is experiencing hyperglycemia. Plan 1. Increase Lantus to 56 units at bedtime. 2. Increase Humalog to 16 units 3 times a day before meals. 3. Humalog sliding scale 3 times a day before meals as follows. Blood sugar 150-200 = 1 unit Blood sugar 201-250 = 2 units Blood sugar 251-300 = 3 units Blood sugar 301-350 = 4 units Blood sugar 351-400 = 5 units. 4. Restart Trulicity to 0.75 mg weekly. (Samples given and patient assistance program discussed with patient). Will increase to 1.5 mg once weekly Potential side effects of Trulicity including but not limited to nausea, vomiting and acute pancreatitis discussed. Advised to Stop Trulicity and call if having persistent nausea or vomiting. 5. Check blood sugars 4 times a day. Call if frequently below 80. 6. Limit carbs to 30-40 g per meal and 15 g per snacks, 2 snacks per day. 7. Follow-up in 4 weeks. Assessment & Plan (12/01/2021 9:46 PM DIE PRESSER): This is a 66-year-old female seen for type 2 diabetes follow-up visit. Recent hemoglobin A1c is 6.4%. Sensor data reviewed. Glycemic control is stable. Will decrease insulin dose due to avoid hypoglycemia. 1. Decrease Lantus to 50 units at bedtime. 2. Decrease Humalog to 12 units 3 times a day before meals. 3. Humalog sliding scale 3 times a day before meals as follows. 4. Increase Trulicity to 4.5 mg weekly. 5. Check blood sugars 4 times a day. Call if frequently below 80. 6. Limit carbs to 30-40 g per meal and 15 g per snacks, 2 snacks per day. 7. Follow-up in 2 months Assessment & Plan (09/16/2021 10:38 AM CDT): Chronic, improved control. Hemoglobin A1c has decreased from 7.1% to 6.4%. Plan. 1. Decrease Lantus to 52 units HS 2. Decrease Humalog to 12 units q.a.c. t.i.d.. 3. Humalog sliding scale 3 times a day before meals with 1 unit for every 50 mg above 150. 4. Continue Trulicity 3 mg weekly. 5. Check blood sugars 4 times a day. Call if frequently below 80. She would benefit from a continuous glucose monitor. Will send application for [employer] Kinjal 2. Sample provided. 6. Limit carbs to 30-40 g per meal and 15 g per snacks, 2 snacks per day. 7. Follow-up in 2 months Assessment & Plan (03/15/2021 11:10 AM CDT): 66 years old female seen in follow-up [...] below 80. 6. Consistent carbs diet. 7. RIDING COACH follow-up in 3 months. Follow-up with me in 6 months. -annual dilated eye exam Potential side effects of Trulicity include nausea, vomiting and acute pancreatitis. Advised to stop Trulicity and call if having persistent nausea and vomiting. Assessment & Plan (02/12/2020 11:39 AM CDT): Improving glycemic control, blood sugars 90s-150s. -decrease Lantus to 52 units hs. Advised to decrease to 50 units if fasting blood sugars are below 90. -continue Humalog 12 units q.a.c. t.i.d.. Decrease to 10 units q.a.c. t.i.d. if daytime blood sugars are below 100. -continue Victoza 1.8 mg daily. -consistent carb diet and exercise as tolerated. -check blood sugars 4 times a day. Call if having lows. -will check status of Freestyle Kinjal. -follow-up in 3 months Assessment & Plan (11/15/2019 10:58 AM DIE PRESSER): 62 years old female with history of CAD, PAD and CKD seen for management of uncontrolled type 2 diabetes mellitus. She does not monitor blood sugars. Reports hemoglobin A1c of 11% 3 months ago. Risks/complications of uncontrolled diabetes discussed. Stressed importance of SMBG to quide insulin titration. Advised to check blood sugar 4 times a day and send data in 1 week. Will decrease Lantus to 54 units hs. Increase Humalog to 10 units q.a.c. t.i.d.. Diet reviewed: Limit carbs to 30-40 g per meal and 15 g per snacks (2 snacks per day). Will add Victoza at subsequent visits for cardiovascular protection. Continue statins/Neil inhibitors. She would benefit from a continuous glucose monitor. Plan for freestyle every CGM next visit. [facility] follow-up in 4 weeks. Follow-up with me in 3 months. Occlusion of left carotid artery 05/06/2018 Assessment & Plan (02/20/2024 12:52 PM CDT): Chronic left ICA occlusion Assessment & Plan (10/24/2021 11:54 AM DIE PRESSER): Minimal right ICA stenosis with chronically occluded left ICA. Repeat carotid Doppler one year. Assessment & Plan (04/18/2021 12:28 PM CDT): Due for annual carotid Doppler in six months. We'll arrange it. Coronary artery disease of n ative artery of [place] heart with stable angina pectoris 05/06/2018 Hypertension associated with diabetes 05/06/2018 Assessment & Plan (09/22/2024 12:18 PM DIE PRESSER): Chronic, stable Continue lisinopril and metoprolol Low-salt diet Assessment & Plan (06/09/2024 7:51 AM CDT): Continue metoprolol and lisinopril. Assessment & Plan (08/06/2023 8:01 AM CDT): Continue metoprolol and lisinopril. Assessment & Plan (04/30/2023 2:25 PM CDT): Chronic, stable Continue metoprolol low-salt diet Assessment & Plan (01/10/2023 1:01 PM DIE PRESSER): Continue lisinopril and metoprolol. Follow low-sodium diet. Assessment & Plan (09/12/2022 5:30 PM CDT): Continue lisinopril, metoprolol and Imdur. Follow low-sodium diet. Assessment & Plan (08/20/2022 9:28 PM CDT): Continue Lisinopril, Metoprolol and Imdur. Follow low sodium diet. Assessment & Plan (12/01/2021 9:46 PM DIE PRESSER): Continue furosemide, lisinopril and metoprolol. Assessment & Plan (09/16/2021 10:36 AM CDT): Stable on lisinopril metoprolol. Low-salt diet. Assessment & Plan (03/15/2021 11:08 AM CDT): Stable on lisinopril and metoprolol. Continue low-salt diet Assessment & Plan (02/12/2020 11:38 AM CDT): Continue lisinopril and metoprolol. Assessment & Plan (11/15/2019 10:49 AM DIE PRESSER): Stable on current regimen. Hyperlipidemia associated with type 2 diabetes ivan maciel 05/06/2018 Assessment & Plan (09/22/2024 12:18 PM DIE PRESSER): Lab Results Component Value Date LDLCALC 59 06/06/2024 LDL at goal Continue rosuvastatin and Repatha Low cholesterol diet Assessment & Plan (06/09/2024 7:52 AM CDT): Continue rosuvastatin and fenofibrate. Assessment & Plan (08/06/2023 8:01 AM CDT): Continue rosuvastatin and Repatha. Assessment & Plan (04/30/2023 2:25 PM CDT): Lab Results Component Value Date LDLCALC 97 01/10/2023 Lipids stable Continue rosuvastatin and Repatha Assessment & Plan (01/10/2023 1:01 PM DIE PRESSER): Continue rosuvastatin. Follow low-fat diet Assessment & Plan (09/12/2022 5:29 PM CDT): Continue rosuvastatin and Repatha. Follow low-fat low-cholesterol diet. Assessment & Plan (08/20/2022 9:27 PM CDT): Continue Rosuvastatin and Repatha. Follow low fat and low cholesterol diet. Assessment & Plan (12/01/2021 9:47 PM DIE PRESSER): Continue rosuvastatin and Repatha. Assessment & Plan (09/16/2021 10:36 AM CDT): Lab Results Component Value Date LDLCALC 133 (H) 03/15/2021 Rosuvastatin and Repatha. Low cholesterol/low-fat diet. Assessment & Plan (03/15/2021 11:08 AM CDT): Lab Results Component Value Date LDLCALC 51 07/15/2018 At goal. Continue rosuvastatin. Low cholesterol/low-fat diet Assessment & Plan (02/12/2020 11:37 AM CDT): Continue high intensity rosuvastatin Assessment & Plan (11/15/2019 10:49 AM DIE PRESSER): Continue atorvastatin. Will request previous labs from primary MD. Chronic systolic heart failure (CMS/HCC) 018 Nonrheumatic aortic valve stenosis 05/06/2018 Resolved Problems Problem Noted Date Diagnosed Date Resolved Date BMI 38.0-38.9,adult 11/15/2019 11/08/20 21 Assessment & Plan (11/15/2019 10:36 AM DIE PRESSER): BMI Follow-up includes: nutrition counseling and education provided. Encounters Date Type Department Care Team Description 10/20/2024 Orders Only [facility] [address] [place] [phone] Sang Morin MD Encounter for surgical aftercare following surgery on the circulatory system (Primary Dx) 10/14/2024 Documentation [facility] [address] [place] [phone] Debbie Garcia PA Test Results 09/24/2024 2:30 PM DIE PRESSER Ancillary Procedure [facility] [address] [place] [phone] Presence of other vascular implants and grafts 09/24/2024 Telephone [facility] at [address] [phone] Henry Duffy, RIDING COACH 09/22/2024 11:30 AM DIE PRESSER Office Visit [facility] at [address] [phone] Quinn Auguste MD Type 2 diabetes mellitus with stage 3a chronic kidney disease, with long-term current use of insulin (HCC) (Primary Dx); Hyperlipidemia associated with type 2 diabetes mellitus (HCC); Hypertension associated with diabetes (HCC); Skin ulcer, limited to breakdown of skin (CMS/HCC) (HCC) from Last 3 Months Immunizations Name Administration Dates Next Due Influenza, Quadrivalent, Hig h Dose, Preservative Free, Intrr 08/18/2022 Surgical History Surgery Date Site/Laterality Comments CORONARY ARTERY BYPASS GRAFT HYSTERECTOMY CARDIAC STENT PLACEMENT SHOULDER SURGERY CAROTID ENDARTERECTOMY 11/12/2004 - 11/11/[address] Monahan CARDIAC CATHETERIZATION Medical History Medical History Date Comments Coronary artery disease hx cabg PVD (peripheral vascular disease) (HCC) Diabetes mellitus (HCC) Hypertension Bulging of lumbar intervertebral disc Psoriasis Cancer (CMS/HCC) (HCC) uterine c ancer Syncope pt fell and shat tered shoulder in 2018 Carotid artery disease (HCC) L c arotid is closed,R carotid is open Sleep apnea Type 2 diabetes mellitus (HCC) Pulmonary hypertension (HCC) Family History Medical History Relation Name Comments Diabetes Brother Heart attack Brother Heart attack Father Cervical cancer Mother Relation Name Status Comments Brother Alive Father Mother Social History Tobacco Use Types Packs/Day Years Used Date Smoking Tobacco: Former Cigarettes 2 2000 Passive Smoke Exposure: Past Smokeless Tobacco: Never Tobacco Cessation:Counseling Given: Not Answered Alcohol Use Standard Drinks/Week Comments No 0 [...] points, staff should administer the PHQ-9) 0 09/22/2024 Personal Safety Answer Date Recorded Have you ever been in or are you currently in a harmful physical or emotional relationship or is someone making you feel afraid or unsafe? Denies 02/27/2024 Comments No Sex and Gender Information Value Date Recorded Sex Assigned at Not on file Legal Sex Female 12:41 AM DIE PRESSER Gender Identity Not on file Sexual Orientation Not on file Obstetrics History Last Filed Vital Signs Vital Sign Reading Time Taken Comments Blood Pressure 120/60 09/22/2024 11:23 AM DIE PRESSER Pulse 72 09/22/2024 11:23 AM DIE PRESSER Temperature 35.8 C (96.4 F) 09/22/2024 11:23 AM DIE PRESSER Respiratory Rate 14 09/22/2024 11:23 AM DIE PRESSER Oxygen Saturation 97% 07/29/2024 11:02 AM CDT 2 LPM Inhaled Oxygen Concentration - - Weight 103.9 kg (229 lb) 09/22/2024 11:23 AM DIE PRESSER Height 160 cm (5' 2.99 ) 09/22/2024 11:23 AM DIE PRESSER Body Mass Index 40.58 09/22/2024 11:23 AM DIE PRESSER Plan of Treatment Health Maintenance Due Date Last Done Comments Breast Cancer Screening-Mammogram 1955 Colon Cancer Screening-Colonoscopy 1955 Osteoporosis Screening-Bone Density Scan 1955 DTaP/Tdap/Td Vaccine (1 - Tdap) 02/05/1964 Hepatitis B Screening 1971 Well Visit 65+ 2018 Influenza Vaccine (#1) 2024 , 08/17/2021, 07/27/2020, Additional history exists Dilated Eye Exam 01/08/2025 01/08/2024, , 08/24/2021 Fall Risk Assessment 02/27/2025 02/28/2024 Hemoglobin A1C 03/22/2025 09/22/2024, 05/13, 07/31/2023, Additional history exists Albumin Creatinine Ratio, Urine 06/06/2025 06/06/2024, 01/10/2023, 03/15/2021, Additional history exists Foot Exam 06/06/2025 06/06/2024, 04/12, 01/10/2023, Additional history exists Lipid Panel 06/06/2025 06/06/2024, 05/0 12/2023, 01/10/2023, Additional history exists eGFR 06/06/2025 06/06/2024, 03/0 11/2022, 06/15/2022, Additional history exists Depression Screening 09/22/2025 09/22/2024, 04/30/2023, 09/16/2021, Additional history exists Hepatitis C Screening Completed 06/16/2019 Pneumococcal vaccine 65+ Completed 020, 10/21/2018, 10/09/2017 Zoster Vaccine Completed 05/28/2023, 11/22/2022 Medical Devices Implanted Type Area Health Advisor Device Identifier Shelf Expiration Date Model / Serial / Lot [employer] Inc [id number] Vascade 6/7fr Bioabsorbable Vascular System Compression Collagen - Sn/A - [id number] Implanted:Qty: 1 on 11/16/2021 by Sang Morin MD at [facility] Other - see comments Left: Other - see comments [employer] 700-580 I-05U / N/A / [id number] Description:Left Groin: Vasc colten vascular closure system [employer] Device Clsr Perclose Prostyle Sut-Mediatd Closure-Repair Sys 24160-68 - S0 - [id number] Implanted:Qty: 1 on 04/26/2022 by Aakash Williamson MD at [facility] Other - see comments Left: Femoral [employer] 03/11/2024 89032-3 Choe V[employer] Device Clsr Perclose Prostyle Sut-Mediatd Closure-Repair Sys 89198-06 - S0 - [id number] Implanted:Qty: 1 on 04/26/2022 by Aakash Williamson MD at [facility] Other - see comments Left: Femoral [employer] 03/11/2024 25536-3 0 [employer] Vascade 6/7fr Bioabsorbable Vascular System Compression Collagen [id number] - S0 - [id number] Implanted:Qty: 1 on 04/26/2022 by Aakash Williamson MD at [facility] Other - see comments Right: Femoral Vein [employer] 02/16/2024 700-580 I-05U / 0 / [id number] [employer] Valve Heart 23mm Nile 3 Transcatheter [id number] - [id number] - [id number] Implanted:Qty: 1 on 04/26/2022 by Aakash Williamson MD at [facility] Prosthetic Valve N/A: Aortic Valve [employer] 10/20/2024 [id number] / [id number] / Medtronic Inc Everflex Entrust 6mm 60mm 120cm Self Expand Triaxial Low Profile - Sn/A - [id number] Implanted:Qty: 1 on 11/16/2021 by Sang Morin MD at [facility] Stent Right: Leg Medtronic Inc 09/18/2024 [id number] 6-060-1 20 / N/A / [id number] Description:Right popliteal artery Medtronic Inc Protege Everflex 5mm .079in 20mm 120cm Otw Radiopaque Delivery - Snone - [id number] Implanted:Qty: 1 on 06/14/2022 by Sang Morin MD at [facility] Stent Right: Femoral Med[employer] Inc 12/31/2022 [id number] 5-020-1 20 / NONE / [id number] [employer] Angio-Seal Vip 6fr Closere Device [id number] - Snone - [id number] Implanted:Qty: 1 on 06/14/2022 by Sang Morin MD at [facility] Vascular Closure Device Left: Femoral [employer] Jaime 04/11/2023 [id number] / NONE / [id number] [employer]iva [employer] Inc Vascade 6/7fr Bioabsorbable Vascular System Compression Collagen [id number] - S0 - [id number] Implanted:Qty: 1 on 04/14/2022 by Italo Galindo MD at [facility] [employer] 02/23/2024 700-580 I-05U / 0 / [id number] Bard Peripheral Vascular Lifestent Proseries Crosser Lutonix 5mm 5fr 100mm 135cm Low [id number] - [id number] Implanted:Qty: 1 on 02/27/2024 by Sang Morin MD at [facility] Left: Groin [employer] Per[employer] [id number] 08/03/2026 [id number] / / [id number] [employer] Angio-Seal Vip 6fr Closere Device [id number] - Sna - [id number] Implanted:Qty: 1 on 02/27/2024 by Sang Morin MD at [facility] [employer] 10/15/2024 [id number] / NA / [id number] Procedures Procedure Name Priority Date/Time Associated Diagnosis Comments VL US ARTERIAL DUPLEX LOWER EXTREMITY BILATERAL Schedule Routine, Read Routine (OP Routine) 09/24/2024 3:37 PM DIE PRESSER Presence of other vascular implants and grafts US SARBJIT Schedule Routine, Read Routine (OP Routine) 09/24/2024 3:37 PM DIE PRESSER Presence of other vascular implants and grafts POCT HEMOGLOBIN A1C Routine 09/22/2024 11:53 AM DIE PRESSER Type 2 diabetes mellitus with stage 3a chronic kidney disease, with long-term current use of insulin (HCC) EGFR Routine 06/06/2024 11:26 AM CDT Type 2 diabetes mellitus with stage 3a chronic kidney disease, with long-term current use of insulin (HCC) LIPID PANEL Routine 06/06/2024 11:26 AM CDT Hyperlipidemia associated with type 2 diabetes mellitus (HCC) ALBUMIN CREATININE RATIO, URINE Routine 06/06/2024 11:26 AM CDT Type 2 diabetes mellitus with stage 3a chronic kidney disease, with long-term current use of insulin (HCC) DIABETIC EYE EXAM Routine 01/08/2024 HEPATITIS PANEL, ACUTE Routine 06/16/2019 8:10 AM CDT from Last 3 Months or Most Recently Relevant to Health Maintenance Results * US Arterial Duplex Lower Extremity Bilateral (09/24/2024 3:37 PM DIE PRESSER) Anatomical Region Laterality Modality Vascular Bilateral Ultrasound 09/24/2024 2:09 PM DIE PRESSER Narrative 09/25/2024 10:12 AM DIE PRESSER [facility] - Department of Vascular Surgery, Vascular Laboratory [address] [place] [address] [place] Lower Extremity Arterial Duplex Report Patient Name: MAICOL WISE : 1955 Study Date: 09/24/2024 2:09:13 PM Gender: F Tech: Location: [facility] Provider: NADYA MONGE Quality: Adequate Order Provider: NADYA MONGE PROCEDURES: Arterial Report: Bilateral Lower Extremity Arterial Duplex Exam. INDICATIONS: Presence of Vascular Implants and Grafts Dx: Presence of other vascular implants and grafts [Z95.828 (ICD-10-CM)]. Measurements: Right Lower Left Lower Measurement Value Units Measurement Value Units Rt WOOL HAT FORMING MACHINE TENDER Dst PSV 139 cm/s Lt WOOL HAT FORMING MACHINE TENDER Dst PSV 154 cm/s Rt Profunda Prx PSV 71 cm/s Lt Profunda Prx PSV 142 cm/s Rt Superficial Femoral Prx PSV 163 cm/s Lt Superficial Femoral Prx PSV 97 cm/s Rt Superficial Femoral Mid PSV 80 cm/s Lt Superficial Femoral Mid PSV 69 cm/s Rt Superficial Femoral Dst PSV 89 cm/s Lt Superficial Femoral Dst PSV 77 cm/s Rt Pop Dst PSV 89 cm/s Lt Pop Dst PSV 175 cm/s Rt Popliteal Artery Above Stenosis 80 cm/s Lt Popliteal Artery 143 cm/s Rt Popliteal Artery At Stenosis 176 cm/s Lt Tibio-Peroneal Trunk 47 cm/s Rt Tibio-Peroneal Trunk 33 cm/s Lt Post Tibial Prx PSV 34 cm/s Rt Post Tibial Prx PSV 28 cm/s Lt Post Tibial Mid PSV 32 cm/s Rt Post Tibial Mid PSV 26 cm/s Lt Post Tibial Dst PSV 55 cm/s Rt Post Tibial Dst PSV 39 cm/s Lt Ant Tibial Prx PSV 23 cm/s Rt Ant Tibial Prx PSV 44 cm/s Lt Ant Tibial Mid PSV 33 cm/s Rt Ant Tibial Mid PSV 42 cm/s Lt Ant Tibial Dst PSV 38 cm/s Rt Ant Tibial Dst PSV 33 cm/s Lt Dorsalis Pedis Artery 29 cm/s Rt Dorsalis Pedis Artery 25 cm/s Measurement Value Units Measurement Value Units Right Lower Left Lower - FINDINGS: Performing Postulant: Nori Orozco RVT, RDMS. Right Common Femoral: The right common femoral waveform is multiphasic. Right Profunda: The right profunda waveform is multiphasic. Right Mid Superficial Femoral Artery: The right mid femoral artery waveform is hyperemic. Right Distal Superficial Femoral Artery: The right distal femoral artery waveform is hyperemic. Right Popliteal: The right popliteal waveform is monophasic. Systolic velocity ratio in the right popliteal artery is 2.2, which is consistent with a 50-75% stenosis. Right Posterior Tibial: The right posterior tibial waveform is monophasic. Right Anterior Tibial: The right anterior tibial waveform is monophasic. Right Peroneal: The right peroneal artery waveform cannot be detected. This may be due to shadowing from arterial calcifications, but occlusion cannot be ruled out. Right Dorsalis Pedis: The right dorsalis pedis artery waveform is monophasic. Left Common Femoral: The left common femoral waveform is multiphasic. Left Profunda: The left profunda waveform is multiphasic. Left Proximal Superficial Femoral Artery: The left proximal femoral artery waveform is multiphasic. Patent stent. Left Mid Superficial Femoral Artery: The left mid femoral artery waveform is hyperemic. Patent stent. Left Distal Superficial Femoral Artery: The left distal femoral artery waveform is monophasic. Left Popliteal: The left popliteal waveform is monophasic. Elevated velocity- VR 1.85. Left Posterior Tibial: The left posterior tibial waveform is monophasic. Left Anterior Tibial: The left anterior tibial waveform is monophasic. Left Peroneal: The left peroneal artery waveform cannot be detected. This may be due to shadowing from arterial calcifications, but occlusion cannot be ruled out. Left Dorsalis Pedis: The left dorsalis pedis artery waveform is monophasic. Comments: Poor visualization of bilateral stents due to shadowing from EXTENSIVE atherosclerotic calcifications. However, vessels are patent. CONCLUSIONS: 1. A 50-75% stenosis is noted on the right: popliteal artery. 2. Poor visualization of bilateral stents due to shadowing from EXTENSIVE atherosclerotic calcifications. However, vessels are patent. 3. Bilateral peroneal artery waveforms cannot be detected. This may be due to shadowing from arterial calcifications, but occlusion cannot be ruled out. 4. Elevated velocity in LT popliteal artery- VR 1.85. 5. Technically difficult exam due to extensive atherosclerotic calcifications. 6. See Ankle/ Brachial Index report. HISTORY: PVD, CAD, HTN, HLD, DM2, obesity 11-16-21 angioplasty and atherectomy of RT proximal SFA, angioplasty and stent RT popliteal artery 06-14-22 angioplasty and stent RT popliteal artery, in-stent angioplasty RT SFA 4-17-24 angioplasty LT distal SFA, stent LT distal SFA and popliteal artery. PREVIOUS STUDIES: Previous study on 06-16-24 US revealed patent RT SFA stent, RT mid popliteal artery VR 1.69, RT distal peroneal artery not visualized- cannot rule-out short-segment occlusion. Patent LT SFA stent, LT proximal popliteal artery VR 1.89, 50-75% stenosis LT TPT. Bilateral ABIs NC. RT DPA- 116 ms RT plantar artery- 128 ms LT DPA- 108 ms LT plantar artery- 144 ms. DISCLAIMER: The study images and the final report will be retained in the patient chart by the Vascular Laboratory for the legally required time period. This chart constitutes the legal record of any testing performed. ATTESTATION: I have reviewed and interpreted the pertinent images and measurements of this study. I attest to the conclusions in the final report that is provided above. Electronically Signed By: Sang Morin MD [facility] 2024-09-25 10:11:59 DIE PRESSER Procedure Note Sang Morin MD - 09/25/2024 [facility] - Department of Vascular Surgery,Vascular Laboratory [address] [place] [address] [place] Lower Extremity Arterial Duplex Report Patient Name: MAICOL WISE : 1955 Study Date: 09/24/2024 2:09:13 PM Gender: F Tech: Location: [facility] Provider: NADYA MONGE Quality: Adequate Order Provider: NADYA MONGE PROCEDURES: Arterial Report: Bilateral Lower Extremity Arterial Duplex Exam. INDICATIONS: Presence of Vascular Implants and Grafts Dx: Presence of other vascular implants and grafts [Z95.828(ICD-10-CM)]. Measurements: Right LowerLeft Lower Measurement Value Units MeasurementValue Units Rt WOOL HAT FORMING MACHINE TENDER Dst PSV 139 cm/s Lt WOOL HAT FORMING MACHINE TENDER Dst LPG285 cm/s Rt Profunda Prx PSV 71 cm/s Lt Profunda PrxPSV 142 cm/s Rt Superficial Femoral Prx PSV 163 cm/s Lt SuperficialFemoral Prx PSV 97 cm/s Rt Superficial Femoral Mid PSV 80 cm/s Lt SuperficialFemoral Mid PSV 69 cm/s Rt Superficial Femoral Dst PSV 89 cm/s Lt SuperficialFemoral Dst PSV 77 cm/s Rt Pop Dst PSV 89 cm/s Lt Pop Dst PIR246 cm/s Rt Popliteal Artery Above Stenosis 80 cm/s Lt PoplitealArtery 143 cm/s Rt Popliteal Artery At Stenosis 176 cm/s Lt Tibio-PeronealTrunk 47 cm/s Rt Tibio-Peroneal Trunk 33 cm/s Lt Post Tibial PrxPSV 34 cm/s Rt Post Tibial Prx PSV 28 cm/s Lt Post Tibial MidPSV 32 cm/s Rt Post Tibial Mid PSV 26 cm/s Lt Post Tibial DstPSV 55 cm/s Rt Post Tibial Dst PSV 39 cm/s Lt Ant Tibial PrxPSV 23 cm/s Rt Ant Tibial Prx PSV 44 cm/s Lt Ant Tibial MidPSV 33 cm/s Rt Ant Tibial Mid PSV 42 cm/s Lt Ant Tibial DstPSV 38 cm/s Rt Ant Tibial Dst PSV 33 cm/s Lt Dorsalis PedisArtery 29 cm/s Rt Dorsalis Pedis Artery 25 cm/s Measurement Value Units MeasurementValue Units Right LowerLeft Lower - FINDINGS: Performing Postulant: Nori Orozco RVT, RDMS. Right Common Femoral: The right common femoral waveform is multiphasic. Right Profunda: The right profunda waveform is multiphasic. Right Mid Superficial Femoral Artery: The right mid femoral artery waveform is hyperemic. Right Distal Superficial Femoral Artery: The right distal femoral artery waveform is hyperemic. Right Popliteal: The right popliteal waveform is monophasic. Systolic velocity ratio in theright popliteal artery is 2.2, which is consistent with a 50-75% stenosis. Right Posterior Tibial: The right posterior tibial waveform is monophasic. Right Anterior Tibial: The right anterior tibial waveform is monophasic. Right Peroneal: The right peroneal artery waveform cannot be detected. This may be due toshadowing from arterial calcifications, but occlusion cannot be ruled out. Right Dorsalis Pedis: The right dorsalis pedis artery waveform is monophasic. Left Common Femoral: The left common femoral waveform is multiphasic. Left Profunda: The left profunda waveform is multiphasic. Left Proximal Superficial Femoral Artery: The left proximal femoral artery waveform is multiphasic. Patent stent. Left Mid Superficial Femoral Artery: The left mid femoral artery waveform is hyperemic. Patent stent. Left Distal Superficial Femoral Artery: The left distal femoral artery waveform is monophasic. Left Popliteal: The left popliteal waveform is monophasic. Elevated velocity- VR 1.85. Left Posterior Tibial: The left posterior tibial waveform is monophasic. Left Anterior Tibial: The left anterior tibial waveform is monophasic. Left Peroneal: The left peroneal artery waveform cannot be detected. This may be due toshadowing from arterial calcifications, but occlusion cannot be ruled out. Left Dorsalis Pedis: The left dorsalis pedis artery waveform is monophasic. Comments: Poor visualization of bilateral stents due to shadowing from EXTENSIVEatherosclerotic calcifications. However, vessels are patent. CONCLUSIONS: 1. A 50-75% stenosis is noted on the right: popliteal artery. 2. Poor visualization of bilateral stents due to shadowing from EXTENSIVEatherosclerotic calcifications. However, vessels are patent. 3. Bilateral peroneal artery waveforms cannot be detected. This may be dueto shadowing from arterial calcifications, but occlusion cannot be ruled out. 4. Elevated velocity in LT popliteal artery- VR 1.85. 5. Technically difficult exam due to extensive atheroscleroticcalcifications. 6. See Ankle/ Brachial Index report. HISTORY: PVD, CAD, HTN, HLD, DM2, obesity 11-16-21 angioplasty and atherectomy of RT proximal SFA, angioplasty andstent RT popliteal artery 06-14-22 angioplasty and stent RT popliteal artery, in-stent angioplasty RTSFA 02-27-24 angioplasty LT distal SFA, stent LT distal SFA and poplitealartery. PREVIOUS STUDIES: Previous study on 06-16-24 US revealed patent RT SFA stent, RT mid poplitealartery VR 1.69, RT distal peroneal artery not visualized- cannot ywcs-nivvdnpr-ydyzkao occlusion. Patent LT SFA stent, LT proximal popliteal artery VR 1.89, 50-75% stenosisLT TPT. Bilateral ABIs NC. RT DPA- 116 ms RT plantar artery- 128 ms LT DPA- 108 ms LT plantar artery- 144 ms. DISCLAIMER: The study images and the final report will be retained in the patientchart by the Vascular Laboratory for the legally required time period. This chartconstitutes the legal record of any testing performed. ATTESTATION: I have reviewed and interpreted the pertinent images and measurements ofthis study. I attest to the conclusions in the final report that is provided above. Electronically Signed By: Sang Morin MD [facility] 2024-09-25 10:11:59 DIE PRESSER us Nadya MILIAN IMG US PROCEDURES Final Result * US SARBJIT (09/24/2024 3:37 PM DIE PRESSER) Anatomical Region Laterality Modality Vascular N/A Ultrasound 09/24/2024 2:46 PM DIE PRESSER Narrative 09/25/2024 10:12 AM DIE PRESSER [facility] - Department of Vascular Surgery, Vascular Laboratory [address] [place] [address] Lower Extremity Arterial Doppler Report Patient Name: MAICOL WISE : 1955 Study Date: 09/24/2024 2:46:00 PM Gender: F Tech: Nori Orozco Rdms, rvt Location: [facility] Provider: NADYA MONGE Quality: Adequate Order Provider: NADYA MONGE PROCEDURES: Arterial Report: Ankle - Brachial Index Doppler exam. INDICATIONS: Presence of Vascular Implants and Grafts Dx: Presence of other vascular implants and grafts [Z95.828 (ICD-10-CM)]. Measurements: Right - Left - Measurement Value Units Measurement Value Units Rt Brachial Pressure 142 mmHg Lt Brachial Pressure 150 mmHg Rt SENIOR BOILER OPERATOR Pressure >255 mmHg Lt SENIOR BOILER OPERATOR Pressure >255 mmHg Rt DPA Pressure >255 mmHg Lt DPA Pressure >255 mmHg Rt 1st Digit Pressure 58 mmHg Lt 1st Digit Pressure 54 mmHg Rt PT SARBJIT Resting NC Lt PT SARBJIT Resting NC Rt AT SARBJIT Resting NC Lt AT SARBJIT Resting NC Rt Digit/Arm Index 0.39 Lt Digit/Arm Index 0.36 Measurement Value Units Measurement Value Units Right - Left - - FINDINGS: Performing Postulant: Nori Orozco RVT, RDMS. Right Posterior Tibial Artery Analysis: The posterior tibial waveform is monophasic. Right Anterior Tibial Artery Analysis: The anterior tibial waveform is monophasic. Right Digits: The right digit waveform is dampened. Left Posterior Tibial Artery Analysis: The posterior tibial waveform is monophasic. Left Anterior Tibial Artery Analysis: The anterior tibial waveform is monophasic. Left Digits: The left digit waveform is dampened. Comments: Due to NC ankle pressures, PATs performed: RT DPA- 164 ms RT plantar artery- 196 ms LT DPA- 164 ms LT plantar artery- 168 ms. CONCLUSIONS: 1. The ankle arteries are non-compressible bilaterally which is consistent with arterial calcification thus the Ankle/Brachial Indices are not obtainable. 2. Bilateral Digit/Arm Indices are abnormal (for reference, abnormal KACEY is <0.6). HISTORY: PVD, CAD, HTN, HLD, DM2, obesity 11-16-21 angioplasty and atherectomy of RT proximal SFA, angioplasty and stent RT popliteal artery 06-14-22 angioplasty and stent RT popliteal artery, in-stent angioplasty RT SFA 02-27-24 angioplasty LT distal SFA, stent LT distal SFA and popliteal artery. PREVIOUS STUDIES: Previous study on 06-16-24 US revealed patent RT SFA stent, RT mid popliteal artery VR 1.69, RT distal peroneal artery not visualized- cannot rule-out short-segment occlusion. Patent LT SFA stent, LT proximal popliteal artery VR 1.89, 50-75% stenosis LT TPT. Bilateral ABIs NC. RT DPA- 116 ms RT plantar artery- 128 ms LT DPA- 108 ms LT plantar artery- 144 ms. DISCLAIMER: The study images and the final report will be retained in the patient chart by the Vascular Laboratory for the legally required time period. This chart constitutes the legal record of any testing performed. ATTESTATION: I have reviewed and interpreted the pertinent images and measurements of this study. I attest to the conclusions in the final report that is provided above. Electronically Signed By: Sang Morin MD [facility] 2024-09-25 10:11:27 DIE PRESSER Procedure Note Sang Morin MD - 09/25/2024 [facility] - Department of Vascular Surgery,Vascular Laboratory [address] [place] [address] Lower Extremity Arterial Doppler Report Patient Name: MAICOL WISE : 1955 Study Date: 09/24/2024 2:46:00 PM Gender: F Tech: Nori Orozco Rdmn, rvt Location: [facility] Ref Provider: NADYA MONGE Quality: Adequate Order Provider: NADYA MONGE PROCEDURES: Arterial Report: Ankle - Brachial Index Doppler exam. INDICATIONS: Presence of Vascular Implants and Grafts Dx: Presence of other vascular implants and grafts [Z95.828(ICD-10-CM)]. Measurements: Right - Left- Measurement Value Units Measurement ValueUnits Rt Brachial Pressure 142 mmHg Lt Brachial Pressure 150mmHg Rt SENIOR BOILER OPERATOR Pressure >255 mmHg Lt SENIOR BOILER OPERATOR Pressure >255mmHg Rt DPA Pressure >255 mmHg Lt DPA Pressure >255mmHg Rt 1st Digit Pressure 58 mmHg Lt 1st Digit Pressure 54mmHg Rt PT SARBJIT Resting NC Lt PT SARBJIT Resting NC Rt AT SARBJIT Resting NC Lt AT SARBJIT Resting NC Rt Digit/Arm Index 0.39 Lt Digit/Arm Index 0.36 Measurement Value Units Measurement ValueUnits Right - Left- - FINDINGS: Performing Postulant: Nori Orozco RVT, RDMS. Right Posterior Tibial Artery Analysis: The posterior tibial waveform is monophasic. Right Anterior Tibial Artery Analysis: The anterior tibial waveform is monophasic. Right Digits: The right digit waveform is dampened. Left Posterior Tibial Artery Analysis: The posterior tibial waveform is monophasic. Left Anterior Tibial Artery Analysis: The anterior tibial waveform is monophasic. Left Digits: The left digit waveform is dampened. Comments: Due to NC ankle pressures, PATs performed: RT DPA- 164 ms RT plantar artery- 196 ms LT DPA- 164 ms LT plantar artery- 168 ms. CONCLUSIONS: 1. The ankle arteries are non-compressible bilaterally which is consistentwith arterial calcification thus the Ankle/Brachial Indices are not obtainable. 2. Bilateral Digit/Arm Indices are abnormal (for reference, abnormal DAIis <0.6). HISTORY: PVD, CAD, HTN, HLD, DM2, obesity 11-16-21 angioplasty and atherectomy of RT proximal SFA, angioplasty andstent RT popliteal artery 06-14-22 angioplasty and stent RT popliteal artery, in-stent angioplasty RTSFA 02-27-24 angioplasty LT distal SFA, stent LT distal SFA and poplitealartery. PREVIOUS STUDIES: Previous study on 06-16-24 US revealed patent RT SFA stent, RT mid poplitealartery VR 1.69, RT distal peroneal artery not visualized- cannot hjvg-eyqlolxg-yxnlvud occlusion. Patent LT SFA stent, LT proximal popliteal artery VR 1.89, 50-75% stenosisLT TPT. Bilateral ABIs NC. RT DPA- 116 ms RT plantar artery- 128 ms LT DPA- 108 ms LT plantar artery- 144 ms. DISCLAIMER: The study images and the final report will be retained in the patientchart by the Vascular Laboratory for the legally required time period. This chartconstitutes the legal record of any testing performed. ATTESTATION: I have reviewed and interpreted the pertinent images and measurements ofthis study. I attest to the conclusions in the final report that is provided above. Electronically Signed By: Sang Morin MD [facility] 2024-09-25 10:11:27 DIE PRESSER us Nadya MILIAN IMG US PROCEDURES Final Result * POCT hemoglobin A1c (09/22/2024 11:53 AM DIE PRESSER) Hemoglobin A1C, POC 7.7 4.0 - 5.6 % Blood 09/22/2024 11:5 3 AM DIE PRESSER Quinn Auguste MD POINT OF CARE TEST ORD ERABLES Final Result * (ABNORMAL) eGFR (06/06/2024 11:26 AM CDT) eGFR 53(L) >=60 mL/min/1. 73 m2 Comment: Interpretive Data Reference Interval Normal >/= 90 mL/min/1.73m2 Mildly decreased* 60 - 89 mL/min/1.73m2 Mildly to moderately decreased 45 - 59 mL/min/1.73m2 Moderately to severely decreased 30 - 44 mL/min/1.73m2 Severely decreased 15 - 29 mL/min/1.73m2 Kidney Failure < 15 mL/min/1.73m2 *Relative to young adult level Estimated glomerular filtration rate is determined by the 2020 CKD-EPI equation recommended by the National Kidney Foundation (A Unifying Approach to GFR Estimation: Recommendations of the NKF-ASK Task Force on Reassessing the Inclusion of Race in Diagnosing Kidney Disease, JASN 2020). The CKD-EPI equation should not be used for patients with unstable renal function and has not been validated in children and those over 70. Current interpretive data was last reviewed 2021. Blood 06/06/2024 11:2 6 AM CDT 06/06/2024 4:20 PM CDT Henry Duffy NP LAB BLOOD ORDERABLES Final Result Performing Organization Address [facility] Co de Phone Number [facility] [address] [place] [address] * Albumin Creatinine Ratio, Urine (06/06/2024 11:26 AM CDT) Albumin Ur <12.0 mg/L Comment: Interpretive Data No reference range established. Current interpretive data was last revised 2019. Creatinine Ur 54.9 mg/dL [facility] Comment: Interpretive Data No reference range established. Current interpretive data was last revised 2019. Albumin Creatinine Ratio, Ur <22 1 - 29 mg/g [facility] Urine 06/06/2024 11:2 6 AM CDT 06/06/2024 11:26 AM CDT Henry Duffy NP LAB URINE ORDERABLES Final Result Performing Organization Address [facility] Co de Phone Number [facility] [address] [facility] [place] [address] * Lipid panel (06/06/2024 11:26 AM CDT) Cholesterol 149 30 - 199 mg/dL Comment: Interpretive Data Ages < or = 19 years Acceptable: <170 mg/dL Borderline high: 170-199 mg/dL High: >or= 200 mg/dL Ages > or = 20 years Desirable: <200 mg/dL Borderline high: 200-239 mg/dL High: >or= 240 mg/dL Literature References: 1. Expert Panel on Integrated Guidelines for Cardiovascular Health and Risk Reduction in Children and Adolescents. Pediatrics 2011;128:S213 2. NCEP Expert Panel. Circulation 2004;110:227 Current Interpretive Data was last revised on 2018. Triglycerides 129 <=149 mg/dL [facility] Comment: Interpretive Data Ages < or = 9 years Acceptable: <75 mg/dL Borderline high: 75-99 mg/dL High: >or= 100 mg/dL Ages 10 to 20 years Acceptable: <90 mg/dL Borderline high: 90-129 mg/dL High: >or= 130 mg/dL Ages > or = 20 years Desirable: <150 mg/dL Borderline high: 150-199 mg/dL High: 200-499 mg/dL Very high: >or= 499 mg/dL Literature References: 1. Expert Panel on Integrated Guidelines for Cardiovascular Health and Risk Reduction in Children and Adolescents. Pediatrics 2011;128:S213 2. NCEP Expert Panel. Circulation 2004;110:227 Current Interpretive Data was last revised on 2018. HDL 64 >=40 mg/dL [facility] Comment: Interpretive Data Ages < or = 19 years Acceptable: >45 mg/dL Borderline low: 40-45 mg/dL Low: <40 mg/dL Ages > or = 20 years Desirable: >or= 60 mg/dL Low: <40 mg/dL Literature References: 1. Expert Panel on Integrated Guidelines for Cardiovascular Health and Risk Reduction in Children and Adolescents. Pediatrics 2011;128:S213 2. NCEP Expert Panel. Circulation 2004;110:227 Current Interpretive Data was last revised on 2018. LDL, calculated 59 <=129 mg/dL [facility] Comment: Interpretive Data Ages < or = 19 years Acceptable: <110 mg/dL Borderline high: 110-129 mg/dL High: >or= 130 mg/dL Ages > or = 20 years Optimal: <100 mg/dL Near optimal: 100-129 mg/dL Borderline high: 130-159 mg/dL High: >160 mg/dL Literature References: 1. Expert Panel on Integrated Guidelines for Cardiovascular Health and Risk Reduction in Children and Adolescents. Pediatrics 2011;128:S213 2. NCEP Expert Panel. Circulation 2004;110:227 Current Interpretive Data was last revised on 2018. Non-HDL Cholesterol 85 mg/dL [facility] Comment: Interpretive Data Ages < or = 19 years Acceptable: <120 mg/dL Borderline high: 120-144 mg/dL High: >145 mg/dL Ages > or = 20 years When triglycerides are >200 mg/dL, Non-HDL cholesterol is a secondary target of therapy with treatment goals that are 30 mg/dL greater than the LDL cholesterol target. Literature References: 1. Expert Panel on Integrated Guidelines for Cardiovascular Health and Risk Reduction in Children and Adolescents. Pediatrics 2011;128:S213 2. NCEP Expert Panel. Circulation 2004;110:227 Current Interpretive Data was last revised on 2018. Chol/HDL ratio 2 [facility] Blood 06/06/2024 11:2 6 AM CDT 06/06/2024 4:20 PM CDT us Henry Duffy NP LAB BLOOD ORDERABLES Final Result Performing Organization Address [facility] Co de Phone Number [facility] [address] [place] [address] * (ABNORMAL) Diabetic Eye Exam (01/08/2024) us Historical Provider HEALTH MAINTENANCE Final Result * Hepatitis panel, acute (06/16/2019 8:10 AM CDT) Hep A IgM Non-Reactive Non-Reactive [facility] Hep B core IgM Non-Reactive Non-Reactive [facility] Hep C Ab Non-Reactive Non-Reactive [facility] HepBsAg Nonreactive Nonreactive [facility] Blood specimen (specimen) 06/16/2019 8:10 AM CDT 06/16/2019 9:01 AM CDT us Lola Mendoza MD LAB MICROBIOLOGY - GENE RAL ORDERABLES Final Result Performing Organization Address [facility] Co de Phone Number [facility] [address] Department [place] [employer] [place] [address] from Last 3 Months or Most Recently Relevant to Health Maintenance Insurance MEDICARE [employer] [facility] MEDICARE 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 06/14/2022 12:56 PM * Full Code (Latest Code Status on File) Date Activated Date Inactivated Comments 02/27/2024 4:55 PM 02/28/2024 5:12 PM * Full Code Date Activated Date Inactivated Comments 06/14/2022 7:38 PM 06/15/2022 6:08 PM * Full Code Date Activated Date Inactivated Comments 04/26/2022 10:26 AM 04/27/2022 10:04 PM * Full Code Date Activated Date Inactivated Comments 04/14/2022 4:00 PM 04/14/2022 11:19 PM * Full Code Date Activated Date Inactivated Comments 11/16/2021 5:26 PM 11/17/2021 3:57 PM Care Teams Chef Manager Relationship Specialty Start Date End Date Jermaine Ingram MD [address] [place] [address] PCP - General Family Practice 04/23/18 [place] [address] [address] Consulting Physician Cardiology 05/06/18 Lola Mendoza MD [address] [place] [address] Consulting Physician Nephrology 10/18/20 Ajay Sears MD [address] [place] [address] Surgeon Neurosurgery 04/18/21 Sang Morin MD [address] [place] [address] Surgeon Vascular Surgery 11/17/21
--- OUTSIDE RECORDS SUMMARY | 2024-12-18 12:46 | XMS_ITS | Referral Summary ---
Author Organization [facility] D Address [address] [place] [address] Care Team Providers Care Search Marketing Specialist Name Role Phone Jermaine Ingram MD Primary Care Provider [phone] Ajay Mccabe MD Unavailable Lola Mendoza MD Unavailable Aajy Sears MD Unavailable Sang Morin MD Unavailable [phone] Encounters Date Type Department Care Team Description 10/20/[address] [facility] Surgery [address] [place] [phone] Sang Morin MD Encounter for surgical aftercare following surgery on the circulatory system (Primary Dx) 10/14/[address] [facility] Surgery [address] [place] [phone] Debbie Garcia PA Test Results 09/24/[address] [facility] Endocrinology at [facility] [address] [facility] [address], [place] [address] Henry Duffy NP 09/24/2024 2:30 PM CRANE ASSEMBLER Ancillary Procedure [facility] Surgery [address] [place] [phone] Presence of other vascular implants and grafts 09/22/2024 11:30 AM CRANE ASSEMBLER Office Visit [facility] Endocrinology at [facility] [address] [facility] [address] [place] [phone] Quinn Auguste MD Type 2 diabetes mellitus with stage 3a chronic kidney disease, with long-term current use of insulin (HCC) (Primary Dx); Hyperlipidemia associated with type 2 diabetes mellitus (HCC); Hypertension associated with diabetes (HCC); Skin ulcer, limited to breakdown of skin (CMS/HCC) (HCC) from Last 3 Months Allergies Active Allergy Reactions Criticality Noted Date [...] blood-glucose meter (True Metrix Air Glucose Meter) [facility] True Metrix Glucose meter with lancing device. ICD 10-E11.22 1 each 01/07/20 Active lancets [facility] True metrix lancets 4 times daily. ICD 10-E11.22 400 each 01/07/20 Active blood glucose diagnostic (True Metrix Glucose Test Strip) stripIndication s:Type 2 diabetes mellitus with stage 3a chronic kidney disease, with long-term current use of insulin ([facility]) True metrix glucose strip 4 times daily. ICD 10-E11.22 400 each 09/16/20 21 Active isosorbide mononitrate ER (IMDUR) [...] by mouth daily 90 tablet 3 02/23/20 Active fenofibrate micronized (LOFIBRA) 134 mg capsule Take 1 capsule (134 mg total) by mouth daily 05/28/20 23 Active traMADoL (ULTRAM) 50 mg tablet Take 1 tablet (50 mg total) by mouth 3 (three) times a day as needed 05/28/20 23 Active traZODone (DESYREL) 50 mg tablet 1 TAB BY MOUTH EVERY DAY AT BEDTIME NEEDED FOR SLEEP 05/19/20 Active metoprolol XL (TOPROL-XL) 50 mg extended [...] nostril as needed (hypoglycemia) 1 each 06/06/20 24 Active budesonide-glyc opyr-formoterol (Breztri Aerosphere) 160-9-4.8 mcg/actuation inhaler Inhale 2 puffs 2 (two) times a day 1 g 3 07/29/20 24 Active blood-glucose meter,continuou s (FreeStyle Kinjal 3 Lookeba) misc Kinjal 3 reader to monitor BG [...] Date Diagnosed Date ILD (interstitial lung disease) ([facility]) 2023 Atherosclerosis of lumbee ar jasmin of left lower extremity with [...] ICA stenosis Body mass index 40.0-44.9, adult ([facility]) 06/21 Morbid (severe) obesity due to excess calories 1 Assessment & Plan (08/20/2022 9:29 PM CDT): Will start Trulicity. S/P vascular surgery 06/14/2022 Aortic stenosis, severe 04/26/2022 Encounter for examination fo r normal comparison and control in clinical research program 04/24/2022 Overview (04/24/2022): Added automatically from request for surgery [id number] Right knee pain 03/08/2022 Assessment & Plan [...] be done closer to home. 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 Diabetic peripheral neuropathy ([facility]) 021 Assessment & Plan (03/15/2021 11:11 AM CDT): Off gabapentin due to worsening tremors. She will discuss treatment options with Neurology Vitamin D deficiency 09/23/2020 Diabetic polyneuropathy asso ciated with type 2 diabetes mellitus ([facility]) 01/02/2020 Sepsis 07/16/2018 Chest pain 07/15/2018 Morbid obesity with BMI of 40.0-44.9, adult 05/13 Assessment & Plan (12/01/2021 9:47 PM CRANE ASSEMBLER): Instructed to follow consistent carb diet specifically [...] 05/06/2018 Assessment & Plan (09/22/2024 12:21 PM CRANE ASSEMBLER): 69 years old female seen in follow-up [...] . Restart CGM. Will send application for NextUser Kinjal 3+. 7. Consistent carb diet 8. Follow-up [...] months. Assessment & Plan (01/10/2023 12:59 PM CRANE ASSEMBLER): This is a 67-year-old female seen for [...] weeks. Assessment & Plan (12/01/2021 9:46 PM CRANE ASSEMBLER): This is a 66-year-old female seen for [...] continuous glucose monitor. Will send application for Echolocationstyle Kinjal 2. Sample provided. 6. Limit carbs [...] below 80. 6. Consistent carbs diet. 7. CLUB LICENSEE follow-up in 3 months. Follow-up with me [...] months Assessment & Plan (11/15/2019 10:58 AM CRANE ASSEMBLER): 62 years old female with history of [...] Plan for freestyle every CGM next visit. High Worker follow-up in 4 weeks. Follow-up with me in 3 months. Occlusion of left carotid artery 05/06/2018 Assessment & Plan (02/20/2024 12:52 PM CDT): Chronic left ICA occlusion Assessment & Plan (10/24/2021 11:54 AM CRANE ASSEMBLER): Minimal right ICA stenosis with chronically occluded left ICA. Repeat carotid Doppler one year. Assessment & Plan (04/18/2021 12:28 PM CDT): Due for annual carotid Doppler in six months. We'll arrange it. 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 Assessment & Plan (08/06/2023 8:01 AM CDT): Continue metoprolol and lisinopril. Assessment & Plan (04/30/2023 2:25 PM CDT): Chronic, stable Continue metoprolol low-salt diet Assessment & Plan (01/10/2023 1:01 PM CRANE ASSEMBLER): Continue lisinopril and metoprolol. Follow low-sodium diet. Assessment & Plan (09/12/2022 5:30 PM CDT): Continue lisinopril, metoprolol and Imdur. Follow low-sodium diet. Assessment & Plan (08/20/2022 9:28 PM CDT): Continue Lisinopril, Metoprolol and Imdur. Follow low sodium diet. Assessment & Plan (12/01/2021 9:46 PM CRANE ASSEMBLER): Continue furosemide, lisinopril and metoprolol. Assessment & Plan (09/16/2021 10:36 AM CDT): Stable on lisinopril metoprolol. Low-salt diet. Assessment & Plan (03/15/2021 11:08 AM CDT): Stable on lisinopril and metoprolol. Continue low-salt diet Assessment & Plan (02/12/2020 11:38 AM CDT): Continue lisinopril and metoprolol. Assessment & Plan (11/15/2019 10:49 AM CRANE ASSEMBLER): Stable on current regimen. Hyperlipidemia associated with type 2 diabetes ivan maciel 05/06/2018 Assessment & Plan (09/22/2024 12:18 PM CRANE ASSEMBLER): Lab Results Component Value Date LDLCALC 59 [...] Repatha Assessment & Plan (01/10/2023 1:01 PM CRANE ASSEMBLER): Continue rosuvastatin. Follow low-fat diet Assessment & Plan (09/12/2022 5:29 PM CDT): Continue rosuvastatin and Repatha. Follow low-fat low-cholesterol diet. Assessment & Plan (08/20/2022 9:27 PM CDT): Continue Rosuvastatin and Repatha. Follow low fat and low cholesterol diet. Assessment & Plan (12/01/2021 9:47 PM CRANE ASSEMBLER): Continue rosuvastatin and Repatha. Assessment & Plan [...] rosuvastatin Assessment & Plan (11/15/2019 10:49 AM CRANE ASSEMBLER): Continue atorvastatin. Will request previous labs from primary MD. Chronic systolic heart failure (CMS/HCC) 018 Nonrheumatic aortic valve stenosis 05/06/2018 Resolved Problems Problem Noted Date Diagnosed Date Resolved Date BMI 38.0-38.9,adult 11/15/2019 11/08/20 21 Assessment & Plan (11/15/2019 10:36 AM CRANE ASSEMBLER): BMI Follow-up includes: nutrition counseling and education provided. Immunizations Name Administration Dates Next Due Influenza, Quadrivalent, Hig h Dose, Preservative Free, Intrr 08/18/2022 Social History Tobacco Use Types Packs/Day Years Used Date Smoking Tobacco: Former Cigarettes 2 10 1 991 - 2000 Passive Smoke Exposure: Past Smokeless [...] on file Legal Sex Female 12:41 AM CRANE ASSEMBLER Gender Identity Not on file Sexual Orientation Not on file Last Filed Vital Signs Vital Sign Reading Time Taken Comments Blood Pressure 120/60 09/22/2024 11:23 AM CRANE ASSEMBLER Pulse 72 09/22/2024 11:23 AM CRANE ASSEMBLER Temperature 35.8 C (96.4 F) 09/22/2024 11:23 AM CRANE ASSEMBLER Respiratory Rate 14 09/22/2024 11:23 AM CRANE ASSEMBLER Oxygen Saturation 97% 07/29/2024 11:02 AM CDT 2 LPM Inhaled Oxygen Concentration - - Weight 103.9 kg (229 lb) 09/22/2024 11:23 AM CRANE ASSEMBLER Height 160 cm (5' 2.99 ) 09/22/2024 11:23 AM CRANE ASSEMBLER Body Mass Index 40.58 09/22/2024 11:23 AM CRANE ASSEMBLER Plan of Treatment Not on file Medical Devices Implanted Type Area Rubber Moulding Machine Operator Device Identifier Shelf Expiration Date Model / Serial / Lot [employer] [id number] Vascade 6/7fr Bioabsorbable Vascular System Compression Collagen - Sn/A - [id number] Implanted:Qty: 1 on 11/16/2021 by Sang Morin MD at [facility] Other - see comments Left: Other - see comments [employer] 700-580 I-05U / N/A / [id number] Description:Left Groin: Vasc colten vascular closure system Choe V[employer] Device Clsr Perclose Prostyle Sut-Mediatd Closure-Repair Sys 59255-52 - S0 - [id number] Implanted:Qty: 1 on 04/26/2022 by Aakash Williamson MD at [facility] Other - see comments Left: Femoral [employer] 03/11/2024 05113-1 41 Choe Vascular Device Clsr Perclose Prostyle Sut-Mediatd Closure-Repair Sys 39010-86 - S0 - [id number] Implanted:Qty: 1 on 04/26/2022 by Aakash Williamson MD at [facility] Other - see comments Left: Femoral [employer] 03/11/2024 94269-6 [employer] Vascade 6/7fr Bioabsorbable Vascular System Compression Collagen [id number] - S0 - [id number] Implanted:Qty: 1 on 04/26/2022 by Aakash Williamson MD at [facility] Other - see comments Right: Femoral Vein [employer] 02/16/2024 700-580 I-05U / 0 / [id number] [employer] Valve Heart 23mm Nile 3 Transcatheter [id number] - [id number] - [id number] Implanted:Qty: 1 on 04/26/2022 by Aakash Williamson MD at [facility] Prosthetic Valve N/A: Aortic Valve [employer] 10/20/2024 [id number] / [id number] Medtronic Inc Everflex Entrust 6mm 60mm 120cm Self Expand Triaxial Low Profile - Sn/A - [id number] Implanted:Qty: 1 on 11/16/2021 by Sang Morin MD at [facility] Stent Right: Leg Medtronic Inc 09/18/2024 [id number] 6-060-1 20 / N/A / [id number] Description:Right popliteal artery [employer] Inc Protege Everflex 5mm .079in 20mm 120cm Otw Radiopaque Delivery - Snone - [id number] Implanted:Qty: 1 on 06/14/2022 by Sang Morin MD at [facility] Stent Right: Femoral Med[employer]onic Inc 12/31/2022 PRB35-0 5-020-1 20 / NONE / [id number] [employer] Angio-Seal Vip 6fr Closere Device [id number] - Snone - [id number] Implanted:Qty: 1 on 06/14/2022 by Sang Morin MD at [facility] Vascular Closure Device Left: Femoral [employer] Jaime 04/11/2023 [id number] / NONE / [id number] [employer] Vascade 6/7fr Bioabsorbable Vascular System Compression Collagen [id number] - S0 - [id number] Implanted:Qty: 1 on 04/14/2022 by Italo Galindo MD at [facility] [employer] 02/23/2024 700-580 I-05U / 0 / [id number] Bard Peripheral Vascular Lifestent Proseries Crosser Lutonix 5mm 5fr 100mm 135cm Low [id number] - [id number] Implanted:Qty: 1 on 02/27/2024 by Sang Morin MD at [facility] Left: Groin Bard Peripheral Vascular [id number] 08/03/2026 [id number] / / [id number] [employer] Angio-Seal Vip 6fr Closere Device [id number] - Sna - [id number] Implanted:Qty: 1 on 02/27/2024 by Sang Morin MD at [facility] [employer] 10/15/2024 [id number] / NA / [id number] Procedures Procedure Name Priority Date/Time Associated Diagnosis Comments VL US ARTERIAL DUPLEX LOWER EXTREMITY BILATERAL Schedule Routine, Read Routine (OP Routine) 09/24/2024 3:37 PM CRANE ASSEMBLER Presence of other vascular implants and grafts US SARBJIT Schedule Routine, Read Routine (OP Routine) 09/24/2024 3:37 PM CRANE ASSEMBLER Presence of other vascular implants and grafts POCT HEMOGLOBIN A1C Routine 09/22/2024 11:53 AM CRANE ASSEMBLER Type 2 diabetes mellitus with stage 3a [...] Duplex Lower Extremity Bilateral (09/24/2024 3:37 PM CRANE ASSEMBLER) Anatomical Region Laterality Modality Vascular Bilateral Ultrasound 09/24/2024 2:09 PM CRANE ASSEMBLER Narrative 09/25/2024 10:[address] [facility] - Department of Vascular Surgery, Vascular Laboratory [address] [place] [address] [place] Lower Extremity Arterial Duplex Report Patient Name: MAICOL WISE : 1955 Study Date: 09/24/2024 2:09:13 PM Gender: F Tech: RICHARD Location: [facility] Provider: NADYA MONGE Quality: Adequate Order Provider: NADYA MONGE PROCEDURES: Arterial Report: Bilateral Lower Extremity Arterial Duplex Exam. INDICATIONS: Presence of Vascular Implants and Grafts Dx: Presence of other vascular implants and grafts [Z95.828 (ICD-10-CM)]. Measurements: Right Lower Left Lower Measurement Value Units Measurement Value Units Rt FITNESS ASSISTANT Dst PSV 139 cm/s Lt FITNESS ASSISTANT Dst PSV 154 cm/s Rt Profunda Prx [...] Right Lower Left Lower - FINDINGS: Performing Burlap Worker: Nori Orozco RVPatrick, RDMS. Right Common Femoral: The right common [...] above. Electronically Signed By: Sang Morin MD [facility] 2024-09-25 10:11:59 CRANE ASSEMBLER Procedure Note Sang Morin MD - 09/25/2024 [facility] - Department of Vascular Surgery,Vascular Laboratory [address] [place] [address] [place] Lower Extremity Arterial Duplex Report Patient Name: MAICOL WISE : 1955 Study Date: 09/24/2024 2:09:13 PM Gender: F Tech: Location: [facility] Provider: NADYA MONGE Quality: Adequate Order Provider: NADYA MONGE PROCEDURES: Arterial Report: Bilateral Lower Extremity Arterial Duplex Exam. INDICATIONS: Presence of Vascular Implants and Grafts Dx: Presence of other vascular implants and grafts [Z95.828(ICD-10-CM)]. Measurements: Right LowerLeft Lower Measurement Value Units MeasurementValue Units Rt FITNESS ASSISTANT Dst PSV 139 cm/s Lt FITNESS ASSISTANT Dst AMR614 cm/s Rt Profunda Prx PSV 71 cm/s Lt Profunda PrxPSV 142 cm/s Rt Superficial Femoral Prx PSV 163 cm/s Lt SuperficialFemoral Prx PSV 97 cm/s Rt Superficial Femoral Mid PSV 80 cm/s Lt SuperficialFemoral Mid PSV 69 cm/s Rt Superficial Femoral Dst PSV 89 cm/s Lt SuperficialFemoral Dst PSV 77 cm/s Rt Pop Dst PSV 89 cm/s Lt Pop Dst RVR912 cm/s Rt Popliteal Artery Above Stenosis 80 [...] Units Right LowerLeft Lower - FINDINGS: Performing Burlap Worker: Nori Orozco RVT, RDMS. Right Common Femoral: [...] RT distal peroneal artery not visualized- cannot tlcz-vrsqiwqw-tvbwvqu occlusion. Patent LT SFA stent, LT proximal [...] above. Electronically Signed By: Sang Morin MD [facility] 2024-09-25 10:11:59 CRANE ASSEMBLER Nadya MILIAN IMG US PROCEDURES Final Result * US SARBJIT (09/24/2024 3:37 PM CRANE ASSEMBLER) Anatomical Region Laterality Modality Vascular N/A Ultrasound 09/24/2024 2:46 PM CRANE ASSEMBLER Narrative 09/25/2024 10:12 AM CRANE ASSEMBLER [facility] - Department of Vascular Surgery, Vascular Laboratory [address] [place], [place] [id number] Lower Extremity Arterial Doppler Report Patient Name: MAICOL WISE : 1955 Study Date: 09/24/2024 2:46:00 PM Gender: F Tech: Nori Orozco Rdms, rvt Location: [facility] Provider: NADYA MONGE Quality: Adequate Order Provider: NADYA MONGE PROCEDURES: Arterial Report: Ankle - Brachial Index Doppler exam. INDICATIONS: Presence of Vascular Implants and Grafts Dx: Presence of other vascular implants and grafts [Z95.828 (ICD-10-CM)]. Measurements: Right - Left - Measurement Value Units Measurement Value Units Rt Brachial Pressure 142 mmHg Lt Brachial Pressure 150 mmHg Rt KNIFE FINISHER Pressure >255 mmHg Lt KNIFE FINISHER Pressure >255 mmHg Rt DPA Pressure >255 [...] Right - Left - - FINDINGS: Performing Burlap Worker: Nori Orozco RVT, RDMS. Right Posterior Tibial [...] above. Electronically Signed By: Sang Morin MD [facility] 2024-09-25 10:11:27 CRANE ASSEMBLER Procedure Note Sang Morin MD - 09/25/2024 [facility] - Department of Vascular Surgery,Vascular Laboratory [address] [place] [address] Lower Extremity Arterial Doppler Report Patient Name: MAICOL WISE : 1955 Study Date: 09/24/2024 2:46:00 PM Gender: F Tech: Nori Orozco [facility] Location: [facility] Provider: NADYA MONGE Quality: Adequate Order Provider: NADYA MONGE PROCEDURES: Arterial Report: Ankle - Brachial Index Doppler exam. INDICATIONS: Presence of Vascular Implants and Grafts Dx: Presence of other vascular implants and grafts [Z95.828(ICD-10-CM)]. Measurements: Right - Left- Measurement Value Units Measurement ValueUnits Rt Brachial Pressure 142 mmHg Lt Brachial Pressure 150mmHg Rt KNIFE FINISHER Pressure >255 mmHg Lt KNIFE FINISHER Pressure >255mmHg Rt DPA Pressure >255 mmHg Lt DPA Pressure >255mmHg Rt 1st Digit Pressure 58 mmHg Lt 1st Digit Pressure 54mmHg Rt PT SARBJIT Resting NC Lt PT SARBJIT Resting NC Rt AT SARBJIT Resting NC Lt AT SARBJIT Resting NC Rt Digit/Arm Index 0.39 Lt Digit/Arm Index 0.36 Measurement Value Units Measurement ValueUnits Right - Left- - FINDINGS: Performing Burlap Worker: Nori Orozco RVT, RDMS. Right Posterior Tibial [...] RT distal peroneal artery not visualized- cannot fchk-skkocvic-qapuncz occlusion. Patent LT SFA stent, LT proximal [...] above. Electronically Signed By: Sang Morin MD [facility] 2024-09-25 10:11:27 CRANE ASSEMBLER us Nadya MILIAN IMG US PROCEDURES Final Result * POCT hemoglobin A1c (09/22/2024 11:53 AM CRANE ASSEMBLER) Hemoglobin A1C, POC 7.7 4.0 - 5.6 % Blood 09/22/2024 11:5 3 AM CRANE ASSEMBLER us Quinn Auguste MD POINT OF CARE TEST [...] Duffy NP LAB BLOOD ORDERABLES Final Result [facility] [address] Department [place] [address] * Albumin Creatinine Ratio, Urine (06/06/2024 11:26 AM CDT) Albumin Ur <12.0 mg/L Comment: Interpretive Data No reference range established. Current interpretive data was last revised 2019. Creatinine Ur 54.9 mg/dL [facility] Comment: Interpretive Data No reference range established. Current interpretive data was last revised 2019. Albumin Creatinine Ratio, Ur <22 1 - 29 mg/g [facility] Urine 06/06/2024 11:2 6 AM CDT 06/06/2024 11:26 AM CDT us Henry Duffy NP LAB URINE ORDERABLES Final Result Performing Organization Address [facility]/State/ZIP Co de Phone Number [facility] [address] Department [place] [address] * Lipid panel (06/06/2024 11:26 AM CDT) [...] revised on 2018. Triglycerides 129 <=149 mg/dL [facility] Comment: Interpretive Data Ages < or = [...] revised on 2018. HDL 64 >=40 mg/dL [facility] Comment: Interpretive Data Ages < or = [...] on 2018. LDL, calculated 59 <=129 mg/dL [facility] Comment: Interpretive Data Ages < or = [...] revised on 2018. Non-HDL Cholesterol 85 mg/dL [facility] Comment: Interpretive Data Ages < or = [...] last revised on 2018. Chol/HDL ratio 2 [facility] Blood 06/06/2024 11:2 6 AM CDT 06/06/2024 4:20 PM CDT us Henry Duffy CLUB LICENSEE LAB BLOOD ORDERABLES Final Result Performing Organization Address [facility] Co de Phone Number [facility] [address] Department [place] [address] * (ABNORMAL) Diabetic Eye Exam (01/08/2024) us Historical Provider MD HEALTH MAINTENANCE Final Result * Hepatitis panel, acute (06/16/2019 8:10 AM CDT) Hep A IgM Non-Reactive Non-Reactive [facility] Hep B core IgM Non-Reactive Non-Reactive [facility] Hep C Ab Non-Reactive Non-Reactive [facility] HepBsAg Nonreactive Nonreactive [facility] Blood specimen (specimen) 06/16/2019 8:10 AM CDT 06/16/2019 9:01 AM CDT us Lola Mendoza MD LAB MICROBIOLOGY - GENE RAL ORDERABLES Final Result Performing Organization Address [facility] Co de Phone Number [facility] [address] Department [place] [address] from Last 3 Months or Most Recently Relevant to Health Maintenance Insurance MEDICARE Member Subscriber Plan / Payer (Ef fective 2018-Present) Name:Maicol Wise Member ID:[id number] Relation to Subscriber:Self Name:Maicol Wise Subscriber ID:[id number] Payer ID:[id number] Group ID:Not on file Type:MEDICARE TRADITIONAL Address: [place] [id number] AARP AARP MEDICARE AAR MEDICARE Advance Directives For more information, please contact: [phone] Documents on File Type Date Recorded Patient Turning Machine Set Up Operator Expl anation Power of Mixing Technician 06/14/2022 12:56 PM * Full Code (Latest [...] 5:26 PM 11/17/2021 3:57 PM Care Teams Search Marketing Specialist Relationship Specialty Start Date End Date Jermaine Ingram MD [address] [place] [address] PCP - General Family Practice 04/23/18 [place] [address] Consulting Physician Cardiology 05/06/18 [place] [address] Consulting Physician Nephrology 10/18/20 Ajay Sears MD [address] [place] [address] Surgeon Neurosurgery 04/18/21 Sang Morin MD [address] [place] [address] Surgeon Vascular Surgery 11/17/21
[2024-12-18 13:10] LABS: Basophils Absolute Auto 0.05 K/mm3 (0.00-0.10); Basophils Percent Auto 0.5 % (0.0-1.0); Eosinophils Absolute Auto 0.17 K/mm3 (0.02-0.50); Eosinophils Percent Auto 1.8 % (1.0-6.0); Hematocrit 38.9 % (35.0-42.0); Hemoglobin 12.2 g/dL (11.7-13.8); Immature Granulocyte Absolute 0.04 K/mm3 (0.00-0.00); Immature Granulocyte Percent A 0.4 % (0.0-0.0); Lymphocytes Absolute Auto 3.21 K/mm3 (1.10-4.50); Lymphocytes Percent Auto 33.2 % (18.0-42.0); Mean Corpuscular HGB Conc 31.4 g/dL (32-36); Mean Corpuscular Hemoglobin 28.8 pg (27.0-31.0); Mean Platelet Volume 10.9 fl (9.2-11.8); Monocytes Absolute Auto 0.67 K/mm3 (0.10-0.90); Monocytes Percent Auto 6.9 % (2.0-11.0); Neutrophils Absolute Auto 5.52 K/mm3 (1.70-7.20); Neutrophils Percent Auto 57.2 % (50.0-70.0); Platelet Count Result 160 K/mm3 (150-420); Red Blood Count 4.23 M/mm3 (4.20-5.40); Red Cell Distribution Width 13.4 % (11.6-14.4); White Blood Count 9.7 K/mm3 (4.8-10.8)
[2024-12-18 13:30] LABS: Add Urine Microscopic? NO; Appearance Urine Clear (Clear); Bilirubin Urine Negative (Negative); Blood Urine Negative (Negative); Color Urine Light Yellow (Yellow); Glucose Urine UA 3+ (Negative); Ketones Urine Negative (Negative); Leukocyte Esterase Ur Negative LEU/UL (Negative); Nitrate Urine Negative (Negative); Protein Urine Negative (Negative); Urobilinogen Urine 0.2 mg/dL (0.2-1.0)
[2024-12-18 13:31] LABS: Creatinine Urine 30.09 mg/dL (40-278)
[2024-12-18 13:32] LABS: Albumin Level 3.8 g/dL (3.4-5.0); Anion Gap 10 mmol/L (4-12); Blood Urea Nitrogen 24 mg/dL (7-18); Carbon Dioxide 30 mmol/L (21-32); Chloride 100 mmol/L (98-108); Estimated Glomerular Filt Rate 33; Glucose 395 mg/dL (70-99); Magnesium 1.9 mg/dL (1.8-2.4); Osmolality Calculated 310 mOsm/kg (285-295); Phosphorus 5.1 mg/dL (2.6-4.7); Potassium 4.5 mmol/L (3.5-5.1); Sodium 140 mmol/L (136-145)
[2024-12-18 13:42] LABS: Calcium 8.7 mg/dL (8.5-10.1)
[2024-12-18 13:43] LABS: Total Protein Urine Random < 6.0 mg/dL (0.0-11.9)
[2024-12-19 15:13] LABS: Parathyroid Intact 61 pg/mL (16-77)
[2024-12-20 02:33] LABS: Vitamin D 25 Hydroxy 28 ng/mL (30-100)
== END 2024-12-18 12:40 | disposition home or self-care (01) ==
LOC: CHSLAB 12:41
PROVIDERS: PCP Family Medicine; Visit Provider Internal Medicine Nephrology
DX: R60.9 Edema, unspecified (principal); N18.30 Chronic kidney disease, stage 3 unspecified; I10 Essential (primary) hypertension
CPT/HCPCS: 36415; 80069; 81003; 82306; 82570; 83735; 83970; 84156; 85025

== ENCOUNTER 2025-03-02 09:32 | Emergency (ER) | payer MEDICARE, SELFPAY ==
[2025-03-02] VITALS (17 sets, daily range): BP systolic 120–185; BP diastolic 61–85; PULSE 64–79; RESP 0–20; TEMP 36.6–36.8; O2SAT 99–100
--- NOTE | ~2025-03-02 | XR_ITS ---
XR chest 1V portable Ordering provider: Aakash Kapoor MD History: 70 years Female with . dizziness, SOB, started new medication 2 weeks ago . Comparison: April 16, 2024 FINDINGS: MEDIASTINUM: The cardiac silhouette is slightly enlarged. Congestive elle. Postoperative changes in t he mediastinum. LUNGS: No effusions or pneumothorax. Bilateral interstitial thickening which may indicate pulmonary e magen versus pneumonitis. OTHER: No free air under the diaphragm. IMPRESSION: Bilateral interstitial changes which may indicate pulmonary edema versus pneumonitis. Underlying fibr otic changes are also possible. Reviewed, dictated and finalized at location A. IMPRESSION: Bilateral interstitial changes which may indicate pulmonary edema versus pneumo nitis. Underlying fibrotic changes are also possible.
--- NOTE | 2025-03-02 09:41 | ECG_ITS ---
Test Date: 2025-03-02 10:21:09 Measurements Intervals [place] Rate: 69 P: 46 NE: 192 QRS: 16 QRSD: 93 T: 75 QT: 380 QTc: 407 Interpretive Statements SINUS RHYTHM WITH MARKED SINUS ARRHYTHMIA CANNOT R/O SEPTAL INFARCT, AGE INDETERMINATE BORDERLINE ST-T WAVE ABNORMALITY- HIGH LATERAL LEADS BORDERLINE ECG Compared to ECG 04/16/2024 21:13:33 No significant changes Electronically Signed On 03-02-2025 11:14:34 CDT by Maikel Johns D.O.
[2025-03-02 10:01] LABS: Basophils Absolute Auto 0.03 K/mm3 (0.00-0.10); Basophils Percent Auto 0.4 % (0.0-1.0); Eosinophils Absolute Auto 0.18 K/mm3 (0.02-0.50); Eosinophils Percent Auto 2.1 % (1.0-6.0); Hematocrit 42.5 % (35.0-42.0); Immature Granulocyte Absolute 0.02 K/mm3 (0.00-0.00); Immature Granulocyte Percent A 0.2 % (0.0-0.0); Lymphocytes Absolute Auto 2.51 K/mm3 (1.10-4.50); Lymphocytes Percent Auto 29.4 % (18.0-42.0); Mean Corpuscular HGB Conc 30.6 g/dL (32-36); Mean Corpuscular Hemoglobin 28.6 pg (27.0-31.0); Mean Corpuscular Volume 93.4 fL (78.0-102.0); Mean Platelet Volume 10.5 fl (9.2-11.8); Monocytes Absolute Auto 0.45 K/mm3 (0.10-0.90); Monocytes Percent Auto 5.3 % (2.0-11.0); Neutrophils Absolute Auto 5.36 K/mm3 (1.70-7.20); Neutrophils Percent Auto 62.6 % (50.0-70.0); Platelet Count Result 149 K/mm3 (150-420); Red Blood Count 4.55 M/mm3 (4.20-5.40); Red Cell Distribution Width 14.2 % (11.6-14.4); White Blood Count 8.6 K/mm3 (4.8-10.8)
[2025-03-02 10:02] LABS: Add Urine Microscopic? YES; Appearance Urine Clear (Clear); Bilirubin Urine Negative (Negative); Blood Urine Trace-intact (Negative); Glucose Urine UA 3+ (Negative); Ketones Urine Negative (Negative); Leukocyte Esterase Ur 1+ LEU/UL (Negative); Nitrate Urine Negative (Negative); Protein Urine Trace (Negative); Specific Grav Ur 1.025 (1.010-1.020); Urobilinogen Urine 0.2 mg/dL (0.2-1.0)
--- NOTE | 2025-03-02 10:02 | PC.NURSE ---
Per ERP wait on fluids until labs result.
[2025-03-02 10:08] LABS: Color Urine Yellow (Yellow); RBC Urine 0-2 /hpf (0-2); WBC Urine 16-20 /hpf (0-3)
[2025-03-02 10:09] LABS: Bacteria Urine 2+ /hpf; Squamous Epithelial Cell Urine Moderate /hpf (Few)
[2025-03-02 10:18] LABS: Alanine Aminotransferase 28 U/L (14-59); Albumin Level 3.7 g/dL (3.4-5.0); Alkaline Phosphatase 83 U/L (46-116); Anion Gap 9 mmol/L (4-12); Aspartate Amino Transferase 35 U/L (15-37); Bilirubin,Total 0.5 mg/dL (0.00-1.00); Blood Urea Nitrogen 21 mg/dL (7-18); Calcium 9.7 mg/dL (8.5-10.1); Carbon Dioxide 28 mmol/L (21-32); Chloride 110 mmol/L (98-108); Estimated CRCL calculation 41 ml/min; Estimated Glomerular Filt Rate 41; Glucose 154 mg/dL (70-99); Osmolality Calculated 310 mOsm/kg (285-295); Potassium 4.9 mmol/L (3.5-5.1); Sodium 147 mmol/L (136-145); Total Protein 7.5 g/dL (6.4-8.2)
[2025-03-02 10:23] LABS: Lactic Acid Reflex 2.4 mmol/L (0.4-2.0)
--- OUTSIDE RECORDS SUMMARY | 2025-03-02 10:35 | XMS_ITS | Encounter Summary ---
Author Organization [facility] Healthcare Address [address] [place] [address] Care Team Providers Care Workers Compensation Specialist Name Role Phone Jermaine Ignram MD Primary Care Provider [phone] Ajay Mccabe MD Unavailable [phone] Lola Mendoza MD Unavailable [phone] Ajay Sears MD Unavailable [phone] Sang Morin MD Unavailable [phone] Encounter Details Date Type Department Care Team (Late st Contact Info) Description 06/10/2020 Telephone [facility] - Imaging [address] [place] [address] Transcribed Order, Provider Social History [...] on file Legal Sex Female 12:41 AM PHOTOGRAPH INSPECTOR Gender Identity Not on file Sexual Orientation Not on file documented as of this encounter Plan of Treatment Not on file documented as of this encounter Visit Diagnoses Not on filedocumented in this encounter Care Teams Workers Compensation Specialist Relationship Specialty Start [place] [address] [place] [address] [place] [address] PCP - General Family Practice 04/23/18 Ajay Mccabe MD [address] [place] [address] Consulting Physician Cardiology 05/06/18 Lola Mendoza MD [address] [place] [facility] Consulting Physician Nephrology 10/18/20 Ajay Sears MD [address] [place] [address] Surgeon Neurosurgery 04/18/21 Sang Morin MD [address] [place] [address] Surgeon Vascular Surgery 11/17/21 documented as of this encounter
--- OUTSIDE RECORDS SUMMARY | 2025-03-02 10:35 | XMS_ITS | Clinical Summary ---
Author Organization [facility] Address [address] [place] [address] Care Team Providers Care Assistant Professor Of Life Sciences Name Role Phone Jermaine Ingram MD Primary [...] associated wi th type 2 diabetes mellitus ([facility]) 05/06/2018 Overview (02/17/2022): Last Assessment & Plan: Lab Results Component Value Date LDLCALC 51 07/15/2018 At goal. Continue rosuvastatin. Low cholesterol/low-fat diet Type 2 diabetes mellitus wit h stage 3 chronic kidney disease ([facility]) 05/06/2018 Overview (02/17/2022): Last Assessment & Plan: [...] below 80. 6. Consistent carbs diet. 7. [employer] OFFICER follow-up in 3 months. Follow-up with me in 6 months. -annual dilated eye exam Potential side effects of Trulicity include nausea, vomiting and acute pancreatitis. Advised to stop Trulicity and call if having persistent nausea and vomiting. Encounters Date Type Department Care Team Description 12/09/2024 3:13 PM TOBACCO GROWER - 12/09/2024 11:59 PM TOBACCO GROWER Hospital Encounter [facility] [address] [place] [address] Tre Pitts PA Discharge Disposition: Home or Self Care (Routine Discharge) 12/09/2024 3:11 PM TOBACCO GROWER - 12/09/2024 3:12 PM TOBACCO GROWER Hospital Encounter [facility] [address] [place] [address] Tre Pitts PA Discharge Disposition: Home or Self Care (Routine Discharge) 12/09/2024 Orders Only [facility] [address] [place] [address] Tre Pitts PA 12/09/2024 Travel from Last 3 Months Immunizations Immunization Administration Dates Next Due Arexvy Respiratory Syncytial [...] Sex Assigned at Female 12/09/2024 3:10 PM TOBACCO GROWER Legal Sex Female 3:43 PM TOBACCO GROWER Gender Identity Not on file Sexual Orientation [...] 2024 09/25/2022, 09/01/2021, 02/08/2021, Additional history exists Lipid Panel 03/13/2025 03/13/2024, 01/10/2023 Pneumococcal Vaccine: 50+ Years Completed 07/27/2020, 10/21/2018, 10/09/2017 Zoster Vaccines [...] XR CHEST PA+LAT STAT 12/09/2024 3:43 PM TOBACCO GROWER Cough CORONAVIRUS (COVID-19) ANTIGEN STAT 12/09/2024 3:21 PM TOBACCO GROWER Cough RESP SYNCYTIAL VIRUS STAT 12/09/2024 3:21 PM TOBACCO GROWER Cough INFLUENZA A & B STAT 12/09/2024 3:21 PM TOBACCO GROWER Cough from Last 3 Months Results * XR CHEST PA+LAT (12/09/2024 3:43 PM TOBACCO GROWER) Anatomical Region Laterality Modality Chest Radiographic Darcy ging 12/09/2024 3:39 PM TOBACCO GROWER Impressions 12/09/2024 3:42 PM TOBACCO GROWER IMPRESSION: 1. No acute cardiopulmonary process identified. 2. Stable borderline cardiac size. Ordered By: TRE PITTS Interpreted By: Malik Balderrama MD, 12/09/2024 3:39 PM Narrative 12/09/2024 3:42 PM TOBACCO GROWER [address] [place] [address] Examination: Two-view chest Exam time: 1516 hours. [...] Procedure Note Malik Balderrama MD - 12/09/[address] [place] [address] Examination: Two-view chest Exam time: 1516 hours. [...] Malik Balderrama MD, 12/09/2024 3:39 PM [facility] Final Resu lt * CORONAVIRUS (COVID-19) ANTIGEN (12/09/2024 3:21 PM TOBACCO GROWER) CORONAVIRUS ANTIGEN IA NEGATIVE NEGATIVE 12/09/2024 4:14 PM TOBACCO GROWER [facility] Comment: NEGATIVE RESULTS DO NOT RULE [...] LABORATORIES. SPECIMEN TYPE NASAL 12/09/2024 3:29 PM TOBACCO GROWER [facility] NASAL NASAL STRUCTURE / Unknown 12/09/2024 3:21 PM TOBACCO GROWER [facility] - GENERAL ORD ERABLES Final Result [facility] [place] [address], * INFLUENZA A & B (12/09/2024 3:21 PM TOBACCO GROWER) SPECIMEN TYPE (INFLUENZA) NASOPHARYNGEAL SWAB 12/09/2024 3:29 PM TOBACCO GROWER [facility] INFLUENZA A NEGATIVE NEGATIVE 12/09/2024 4:15 PM TOBACCO GROWER [facility] INFLUENZA B NEGATIVE NEGATIVE 12/09/2024 4:15 PM TOBACCO GROWER [facility] Comment: A NEGATIVE RESULT DOES NOT EXCLUDE INFLUENZA VIRUS INFECTION. IF INFLUENZA IS CIRCULATING IN YOUR COMMUNITY, A DIAGNOSIS OF INFLUENZA SHOULD BE CONSIDERED BASED ON A PATIENT'S CLINICAL PRESENTATION AND EMPIRIC ANTIVIRAL TREATMENT SHOULD BE CONSIDERED IF INDICATED. NASOPHARYNGEAL SWAB / Unknown 12/09/2024 3:21 PM TOBACCO GROWER us [facility] - GENERAL ORD ERABLES Final Result Performing Organization Address City/[facility]/ZIP Co de Phone Number [facility] [address] [place] [address], [place] [phone] * RESP SYNCYTIAL VIRUS (12/09/2024 3:21 PM TOBACCO GROWER) SPECIMEN TYPE NASOPHARYNGEAL SWAB 12/09/2024 3:29 PM TOBACCO GROWER [facility] RSV NEGATIVE NEGATIVE 12/09/2024 4:14 PM TOBACCO GROWER [facility] NASOPHARYNGEAL SWAB / Unknown 12/09/2024 3:21 PM TOBACCO GROWER Tre [facility] - GENERAL ORD ERABLES Final Result Performing Organization Address [facility] de Phone Number [facility] [place] [address], [place] [phone] from Last 3 Months Insurance [employer] MEDIC[employer] [facility] Care Teams Assistant Professor Of Life Sciences Relationship Specialty Start Date End Date Jermaine Ingram MD [address] [place] [address] PCP - General FAMILY PRACTICE 05/31/19
--- OUTSIDE RECORDS SUMMARY | 2025-03-02 10:35 | XMS_ITS | Encounter Summary ---
Author Organization [facility] Address [address] [place] [address] Phone Care Team Providers Care Telephoto Engineer Name Role Phone Jermaine Ingram MD Primary Care Provider Reason for Visit * Reason Comments Medication Refill Encounter Details Date Type Department Care Team (Late st Contact Info) Description 01/04/2022 [facility]ill [facility] [phone] Ino Brown MD [address] [place] [phone] Medication Refill Social History Tobacco Use Types Packs/Day Years Used Date Smoking Tobacco: Former Cigarettes Q uit: 11/12/2000 Smokeless Tobacco: Never Alcohol Use Standard Drinks/Week Comments Not Currently 0 (1 standard drink = 0.6 oz pur e alcohol) Comments Unknown Sex and Gender Information Value Date Recorded Sex Assigned at Not on file Legal Sex Female 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
--- OUTSIDE RECORDS SUMMARY | 2025-03-02 10:35 | XMS_ITS | Encounter Summary ---
Author Organization [facility] Address [address] [facility] [facility] [address] [address] Phone Care Team Providers Care Town Administrator Name Role Phone Jermaine Ingram MD Primary Care Provider [phone] Reason for Visit * Reason Comments Medication Refill Encounter Details Date Type Department Care Team (Late st Contact Info) Description 06/02/2020 Refill [facility] - [facility] [address] [place] [phone] Ino Brown MD [address] [place] [phone] Medication Refill Social History Tobacco Use Types Packs/Day Years Used Date Smoking Tobacco: Former Cigarettes Q uit: 11/12/2000 Smokeless Tobacco: Never Alcohol Use Standard Drinks/Week Comments Not Currently 0 (1 standard drink = 0.6 oz pur e alcohol) Comments Unknown Sex and Gender Information Value Date Recorded Sex Assigned at Not on file Legal Sex Female 10:39 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
--- OUTSIDE RECORDS SUMMARY | 2025-03-02 10:35 | XMS_ITS | Clinical Summary ---
Author Organization [facility] Address [address] [place] [address] Care Team Providers Care Pin Or Clip Fastener Name Role Phone Zelalem Monahan MD Unavailable [phone] Source Comments [facility],non-owned Affiliates and Associated Physician Practices is amultiple site organization consisting of ambulatory clinics and hospital sitesin [place], [place], [place] and [place]. This disclosure is being madepursuant to the Care Everywhere program and may not contain all information available regarding this patient. Last updated 18.[employer] [facility] Allergies No known active allergies Medications * Be aware that medications may not be up to date on this document. Alwaysverify current medications with the patient. NITROGLYCERIN BU Act amrita simvastatin (ZOCOR) 80 MG tablet Active clopidogrel (PLAVIX) 75 MG tablet Active metoprolol succinate XL 24hr (TOPROL XL) 25 MG tablet Active aspirin 81 MG tablet Active sertraline (ZOLOFT) 50 MG tablet Active lisinopril (PRINIVIL;ZESTRIL) 5 MG tablet Active Insulin Lispro, Human, (HUMALOG SC) Active Insulin Glargine (LANTUS SC) Active choline fenofibrate (TRILIPIX) 135 MG capsule Active isosorbide mononitrate CR 24hr (IMDUR) 30 MG tablet Active Active Problems No known active problems Family [...] = 0.6 oz pur e alcohol) Comments No Sex and Gender Information Value Date Recorded Sex Assigned at Not on file Legal Sex Female 6:06 AM QUALITY IMPROVEMENT SPECIALIST Gender Identity Not on file Sexual [...] 60-74 years 1-dose series) 2013 COVID-19 VACCINE (1 - 2023-2 5 season) 2024 DEPRESSION SCREENING 11/12/2024 INFLUENZA VACCINE (Season Ended) 2025 HEPATITIS B VACCINE Aged Out No longe r eligible based on patient's age to complete this topic HIB VACCINE Aged Out No longer eligi ble based on patient's age to complete this topic HPV VACCINE Aged Out No longer eligi ble based on patient's age to complete this topic MENINGOCOCCAL (Group B) VACC INE SHARED DECISION-MAKING Aged Out No longer eligibl e based on patient's age to complete this topic MENINGOCOCCAL GROUPS A/C/Y/W VACCINE Aged Out No longer eligible b ased on patient's age to complete this topic [place] [address] [facility] Care Teams Pin Or Clip Fastener Relationship Specialty [place] [address] [address] Vascular Surgery 01/12/14
--- OUTSIDE RECORDS SUMMARY | 2025-03-02 10:35 | XMS_ITS | Encounter Summary ---
Author Organization [facility] Address [address] [place] [address] Phone Care Team Providers Care Delineator Name Role Phone Jermaine Ingram MD Primary Care Provider Reason for Visit * Reason Comments Medication Refill Encounter Details Date Type Department Care Team (Late st Contact Info) Description 08/23/2021 Refill [facility] [facility] [phone] Ino Brown MD [address] [place] [phone] Medication Refill Social History Tobacco Use Types Packs/Day Years Used Date Smoking Tobacco: Former Cigarettes Q uit: 11/12/2000 Smokeless Tobacco: Never Alcohol Use Standard Drinks/Week Comments Not Currently 0 (1 standard drink = 0.6 oz pur e alcohol) Comments Unknown Sex and Gender Information Value Date Recorded Sex Assigned at Not on file Legal Sex Female 10:39 AM LABORER 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
--- OUTSIDE RECORDS SUMMARY | 2025-03-02 10:35 | XMS_ITS | Encounter Summary ---
Author Organization [facility] Address [address] [facility] [address] Phone Care Team Providers Care Molded Goods Operator Name Role Phone Jermaine Ingram MD Primary Care Provider Reason for Visit * Reason Comments Medication Refill Encounter Details Date Type Department Care Team (Late st Contact Info) Description 09/17/2021 Refill [facility] [phone] Ino Brown MD [address] [place] [phone] Medication Refill Social History Tobacco Use Types Packs/Day Years Used Date Smoking Tobacco: Former Cigarettes Q uit: 11/12/2000 Smokeless Tobacco: Never Alcohol Use Standard Drinks/Week Comments Not Currently 0 (1 standard drink = 0.6 oz pur e alcohol) Comments Unknown Sex and Gender Information Value Date Recorded Sex Assigned at Not on file Legal Sex Female 10:39 AM MATERIAL REQUIREMENTS WORKER Gender Identity Not on file Sexual Orientation Not on file documented as of this encounter Plan of Treatment Not on file documented as of this encounter Visit Diagnoses Not on filedocumented in this encounter Care Teams Molded Goods Operator Relationship Specialty Start Date End Date Jermaine Ingram MD [address] [place] [address] PCP - General Family Medicine 09/30/18 documented as of this encounter
--- OUTSIDE RECORDS SUMMARY | 2025-03-02 10:35 | XMS_ITS | Encounter Summary ---
Author Organization [facility] Address [address] [facility] [place] [address] Phone Care Team Providers Care Material Chaser Name Role Phone Jermaine Ingram MD Primary Care Provider Reason for Visit * Reason Comments Medication Refill Encounter Details Date Type Department Care Team (Late st Contact Info) Description 11/02/2021 Refill [facility] [facility] [phone] Ino Brown MD [address] [place] [phone] Medication Refill Social History Tobacco Use Types Packs/Day Years Used Date Smoking Tobacco: Former Cigarettes Q uit: 11/12/2000 Smokeless Tobacco: Never Alcohol Use Standard Drinks/Week Comments Not Currently 0 (1 standard drink = 0.6 oz pur e alcohol) Comments Unknown Sex and Gender Information Value Date Recorded Sex Assigned at Not on file Legal Sex Female 10:39 AM COMMERCIAL LOAN REVIEWER Gender Identity Not on file Sexual Orientation Not on file documented as of this encounter Plan of Treatment Not on file documented as of this encounter Visit Diagnoses Not on filedocumented in this encounter Care Teams Material Chaser Relationship Specialty Start Date End Date Jermaine Ingram MD [address] [address] PCP - General Family Medicine 09/30/18 documented as of this encounter
--- OUTSIDE RECORDS SUMMARY | 2025-03-02 10:35 | XMS_ITS | Encounter Summary ---
Author Organization [facility] Address [address] [facility] [facility] [address] [place] [address] Phone Care Team Providers Care Concrete Layer Name Role Phone Jermaine Ingram MD Primary Care Provider Reason for Visit * Reason Comments Medication Refill Encounter Details Date Type Department Care Team (Late st Contact Info) Description 10/04/2021 Refill [facility] [phone] Ion Brown MD [address] [place] [phone] Medication Refill Social History Tobacco Use Types Packs/Day Years Used Date Smoking Tobacco: Former Cigarettes Q uit: 11/12/2000 Smokeless Tobacco: Never Alcohol Use Standard Drinks/Week Comments Not Currently 0 (1 standard drink = 0.6 oz pur e alcohol) Comments Unknown Sex and Gender Information Value Date Recorded Sex Assigned at Not on file Legal Sex Female 10:39 AM GROUP LEADER SEMICONDUCTOR TESTING Gender Identity Not on file Sexual Orientation Not on file documented as of this encounter Plan of Treatment Not on file documented as of this encounter Visit Diagnoses Not on filedocumented in this encounter Care Teams Concrete Layer Relationship Specialty Start Date End Date Jermaine Ingram MD [address] [address] PCP - General Family Medicine 09/30/18 documented as of this encounter
--- OUTSIDE RECORDS SUMMARY | 2025-03-02 10:35 | XMS_ITS | Encounter Summary ---
Author Organization [facility] Healthcare Address [address] [place] [address] Care Team Providers Care Core Shaper Name Role Phone Jermaine Ingram MD Primary Care Provider [phone]- [phone] Ajay Mccabe MD Unavailable [phone] Lola Mendoza MD Unavailable [phone] Ajay [place] MD Unavailable [phone] Sang Morin MD Unavailable Encounter Details Date Type Department Care Team (Late st Contact Info) Description 05/12/2021 Telephone [facility] - Imaging [address] [place] [address] Transcribed Order, Provider Social History [...] on file Legal Sex Female 12:41 AM BOTTLE HOUSE PUMPER Gender Identity Not on file Sexual Orientation Not on file documented as of this encounter Plan of Treatment Not on file documented as of this encounter Visit Diagnoses Not on filedocumented in this encounter Care Teams Core Shaper Relationship Specialty Start Date End Date Jermaine Ingram MD [address] [place] [address] PCP - General Family Practice 04/23/18 Ajay Mccabe MD [address] [place] [address] Consulting Physician Cardiology 05/06/18 Lola Mendoza MD [facility] [place] [address] Consulting Physician Nephrology 10/18/20 Ajay [place] MD [facility] [place] [address] Surgeon Neurosurgery 04/18/21 Sang Morin MD [facility] [place] [address] Surgeon Vascular Surgery 11/17/21 documented as of this encounter
--- OUTSIDE RECORDS SUMMARY | 2025-03-02 10:35 | XMS_ITS | Encounter Summary ---
Author Organization [facility] Healthcare Address [address] [place] [address] Care Team Providers Care Hoop Maker Machine Name Role Phone Jermaine Ingram MD Primary Care Provider [phone] Ajay Mccabe MD Unavailable Lola Mendoza MD Unavailable [phone] Ajay [place] MD Unavailable Sang Morin MD Unavailable [phone] Encounter Details Date Type Department Care Team (Late Contact Info) Description 02/18/2025 Results Follow-Up [facility] [address] [place] [address] Bar Amor MD [address] [address] [place] [address] Social History Tobacco Use Types Packs/Day Years Used Date Smoking Tobacco: Former Cigarettes 2 10 1 - 2000 Passive Smoke Exposure: Past Smokeless [...] on file Legal Sex Female 12:41 AM 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 Gender Identity Not on file Sexual Orientation Not on file documented as of this encounter Plan of Treatment Not on file documented as of this encounter Visit Diagnoses Not on filedocumented in this encounter Care Teams Hoop Maker Machine Relationship Specialty Start Date End Date Jermaine Ingram MD [facility] [place] [id number] PCP - General Family Practice 04/23/18 Ajay [place]cc[facility] [place] [address] Consulting Physician Cardiology 05/06/18 Lola Mendoza MD [facility] [place] [phone] Consulting Physician Nephrology 10/18/20 Ajay [place] MD [facility] [place] [address] Surgeon Neurosurgery 04/18/21 Sang [place] MD [facility] [place] [address] Surgeon Vascular Surgery 11/17/21 documented as of this encounter
--- OUTSIDE RECORDS SUMMARY | 2025-03-02 10:35 | XMS_ITS | Encounter Summary ---
Author Organization [facility] Address [address] [facility] [place] [address] Phone Care Team Providers Care Wrapper Rewinder Name Role Phone Jermaine Ingram MD Primary Care Provider Reason for Visit * Reason Comments Medication Refill Encounter Details Date Type Department Care Team (Late st Contact Info) Description 04/04/2022 Refill [facility] [facility] [phone] Ino Brown MD [address] [place] [phone] Medication Refill Social History Tobacco Use Types Packs/Day Years Used Date Smoking Tobacco: Former Cigarettes Q uit: 11/12/2000 Smokeless Tobacco: Never Alcohol Use Standard Drinks/Week Comments Not Currently 0 (1 standard drink = 0.6 oz pur e alcohol) Comments Unknown Sex and Gender Information Value Date Recorded Sex Assigned at Not on file Legal Sex Female 10:39 AM ANGIO TECHNOLOGIST Gender Identity Not on file Sexual Orientation Not on file documented as of this encounter Plan of Treatment Not on file documented as of this encounter Visit Diagnoses Not on filedocumented in this encounter Care Teams Wrapper Rewinder Relationship Specialty Start Date End Date Jermaine Ingram MD [address] [place] [address] PCP - General Family Medicine 09/30/18 documented as of this encounter
--- OUTSIDE RECORDS SUMMARY | 2025-03-02 10:35 | XMS_ITS | Encounter Summary ---
Author Organization [facility] Address [address] [facility] [place] [address] Phone Care Team Providers Care Padder Cushion Name Role Phone Jermaine Ingram MD Primary Care Provider Reason for Visit * Reason Comments Medication Refill Encounter Details Date Type Department Care Team (Late st Contact Info) Description 11/26/2021 Refill [facility] [facility] [phone] Ino Brown MD [address] [place] [id number] Medication Refill Social History Tobacco Use Types Packs/Day Years Used Date Smoking Tobacco: Former Cigarettes Q uit: 11/12/2000 Smokeless Tobacco: Never Alcohol Use Standard Drinks/Week Comments Not Currently 0 (1 standard drink = 0.6 oz pur e alcohol) Comments Unknown Sex and Gender Information Value Date Recorded Sex Assigned at Not on file Legal Sex Female 10:39 AM [employer] Gender Identity Not on file Sexual Orientation Not on file documented as of this encounter Plan of Treatment Not on file documented as of this encounter Visit Diagnoses Not on filedocumented in this encounter Care Teams Padder Cushion Relationship Specialty Start Date End Date Jermaine Ingram MD [address] [place] [address] PCP - General Family Medicine 09/30/18 documented as of this encounter
--- OUTSIDE RECORDS SUMMARY | 2025-03-02 10:35 | XMS_ITS | Referral Summary ---
Author Organization [facility] D Address [address] [place] [address] Care Team Providers Care Contact Acid Plant Operator Helper Name Role Phone Jermaine Ingram MD Primary Care Provider [phone] Ajay Mccabe MD Unavailable Lola Mendoza MD Unavailable [phone] Ajay Sears MD Unavailable Sang Morin MD Unavailable [phone] Encounters Date Type Department Care Team Description 02/18/2025 Results [facility] [address] [place] [address] Bar Marquez MD 02/17/2025 9:00 AM CDT - 02/17/2025 11:59 PM CDT Hospital Encounter [facility] Cardiac Testing [address] [place] [address] Chronic hypoxemic respiratory failure (HCC); Lower extremity edema Discharge Disposition: Discharge to home or self care 2025 Results [facility] [address] [place] [address] Bar Marquez MD 2025 11:35 AM CDT Lab [place] [address] [address] Chronic hypoxemic respiratory failure (HCC); Lower extremity edema 2025 10:30 AM CDT [facility] Visit [facility] [address] [place] [phone] Bar Marquez MD ILD (interstitial lung disease) (HCC) (Primary Dx); Former smoker; Chronic hypoxemic respiratory failure (HCC); Lower extremity edema; Nonrheumatic aortic valve stenosis 01/26/2025 10:00 AM CDT - 01/26/2025 11:59 PM CDT Hospital Encounter [facility] [address] [place] [phone] ILD (interstitial lung disease) (HCC) Discharge Disposition: Discharge to home or self care 01/21/2025 Telephone [facility] Endocrinology at [address] [phone] Peggy Mercedes LPN 01/20/2025 12:30 PM CDT Office Visit [facility] Endocrinology at [address] [phone] Henry Duffy, ERIBERTO Type 2 diabetes mellitus with stage 3a chronic kidney disease, with long-term current use of insulin (HCC) (Primary Dx); Hyperlipidemia associated with type 2 diabetes mellitus (HCC); Hypertension associated with diabetes (HCC) 12/24/2024 Telephone [facility] Endocrinology at [address] [phone] Chely Mcduffie MA Test Results 12/23/2024 12:28 PM VETERINARY ATTENDANT - 12/23/2024 11:59 PM VETERINARY ATTENDANT Hospital Encounter [address] [phone] Discharge Disposition: Discharge to home or self care 12/23/2024 11:30 AM VETERINARY ATTENDANT Office Visit [facility] at [facility] [address] [address] Henry Duffy, THERAPY ASSISTANT Type 2 diabetes mellitus with stage 3a chronic kidney disease, with long-term current use of insulin (HCC) (Primary Dx); Hyperlipidemia associated with type 2 diabetes mellitus (HCC); Hypertension associated with diabetes (HCC) from Last 3 Months Allergies Active [...] blood-glucose meter (True Metrix Air Glucose Meter) [facility] True Metrix Glucose meter with lancing device. ICD 10-E11.22 1 each 01/07/20 20 Active lancets [facility] True metrix lancets 4 times daily. ICD 10-E11.22 400 each 11 01/07/20 20 Active blood glucose diagnostic (True Metrix Glucose Test Strip) stripIndications :Type 2 diabetes mellitus with stage 3a chronic kidney disease, with long-term current use of insulin (HCC) True metrix glucose strip 4 times daily. ICD 10-E11.22 400 each 11 09/16/20 21 Active isosorbide mononitrate ER (IMDUR) 30 mg 24 hr tablet Take 1 tablet (30 mg total) by mouth daily 90 tablet 3 04/03/20 22 099 Active amoxicillin (AMOXIL) 500 mg tablet/capsule Take 4 caps (2000 mg) 1 hour prior to dental procedures. 4 tablet/capsu le 50 02/23/20 23 036 Active Additional Information Patient not taking.Reported on 03/13/2024 rosuvastatin (CRESTOR) 40 mg tablet Take 1 tablet (40 mg total) by mouth daily 90 tablet 3 02/23/20 23 Active fenofibrate micronized (LOFIBRA) 134 mg capsule Take 1 capsule (134 mg total) by mouth daily 05/28/20 23 Active traZODone (DESYREL) 50 mg tablet 1 TAB BY MOUTH EVERY DAY AT BEDTIME NEEDED FOR SLEEP 05/19/20 23 Active metoprolol XL (TOPROL-XL) 50 mg extended release tablet Take 1 tablet (50 mg total) by mouth daily 05/28/20 23 Active empagliflozin (JARDIANCE) 10 mg tabletIndication s:type 2 diabetes mellitus Take 1 tablet (10 mg total) by mouth daily 90 tablet 3 07/31/20 23 Active lisinopriL (PRINIVIL,ZESTRI L) 2.5 mg tablet TAKE 1 TABLET BY MOUTH EVERY DAY 90 tablet 3 03/14/20 24 Active clopidogreL (PLAVIX) 75 mg tablet TAKE 1 TABLET BY MOUTH EVERY DAY 90 tablet 3 03/17/20 24 Active pen needle, diabetic 32 gauge x 5/32 needle Take with insulin 4 times daily 400 each 3 06/06/20 24 Active glucagon (Baqsimi) 3 mg/actuation spray,non-aeroso lIndications:pat ient with diabetes mellitus at risk of hypoglycemia Administer 1 spray into one nostril as needed (hypoglycemia) 1 each 06/06/20 24 Active gabapentin (NEURONTIN) 300 mg capsule TAKE 1 CAPSULE BY MOUTH THREE TIMES A DAY 90 capsule 3 10/01/20 24 Active furosemide (LASIX) 80 mg tablet TAKE 1 TABLET BY MOUTH EVERY DAY 90 tablet 09/30/20 24 Active insulin degludec (TRESIBA) 100 unit/mL (3 mL) pen for injection Inject 52 units SQ at night 45 mL 1 11/24/19 25 Active blood-glucose meter,continuous (FreeStyle Kinjal 3 [place]) misc KINJAL 3 READER TO MONITOR BLOOD GLUCOSE 1 each 1 12/31/19 25 Active semaglutide (Ozempic) 0.25 mg or 0.5 mg(2 mg/1.5 mL) pen injector injection Inject 0.5 mg under the skin Active insulin lispro (HumaLOG) 100 unit/mL pen for injection TAKE 18 UNITS PLUS SLIDING SCALE INSULIN 3 TIMES DAILY WITH MEAL. TDD=80 UNITS. 75 mL 4 01/21/20 25 Active fluticasone-umec lidin-vilanter (Trelegy Ellipta) 100-62.5-25 mcg inhaler Inhale 1 puff daily 30 each 3 02/05/20 25 Active albuterol 2.5 mg /3 mL (0.083 %) nebulizer solution Take 3 mL (2.5 mg total) by nebulization every 6 (six) hours as needed for wheezing 360 mL 3 02/05/20 25 Active albuterol 2.5 mg /3 mL (0.083 %) nebulizer solution INHALE 1 VIAL VIA NEBULIZER 4 TIMES A DAY NEEDED 12/25/19 23 025 Discontin ued(Reord er) budesonide-glyco pyr-formoterol (Breztri Aerosphere) 160-9-4.8 mcg/actuation inhaler Inhale 2 puffs 2 (two) times a day 1 g 3 07/29/20 24 025 Discontin ued(Dupli sylvia order) Active Problems Problem Noted Date Diagnosed Date Severe obesity 12/23/2024 ILD (interstitial lung disease) 07/29/2024 Atherosclerosis of [place] ar jasmin of left lower extremity with [...] (04/24/2022): Added automatically from request for surgery [id number] Right knee pain 03/08/2022 Assessment & Plan [...] be done closer to home. Atherosclerosis of [place] ar jasmin of right lower extremity with intermittent claudication 11/16/2021 Atheroscler of [place] artery of right leg with intermit claudication 10/28/2021 Overview (10/28/2021): Added automatically from request for surgery [id number] Assessment & Plan (08/07/2022 9:06 AM CDT): [...] 04/18/2021 Assessment & Plan (10/24/2021 11:53 AM VETERINARY ATTENDANT): Progressive right leg claudication with decline in [...] with post exercise pressures. Diabetic peripheral neuropathy 03/15/2021 Assessment & Plan (03/15/2021 11:11 AM CDT): Off gabapentin due to worsening tremors. She will discuss treatment options with Neurology Vitamin D deficiency 09/23/2020 Diabetic polyneuropathy asso ciated with type 2 diabetes mellitus 01/02/2020 Sepsis 07/16/2018 Chest pain 07/15/2018 Morbid obesity with BMI of 40.0-44.9, adult 05/13 Assessment & Plan (12/01/2021 9:47 PM VETERINARY ATTENDANT): Instructed to follow consistent carb diet specifically [...] chronic kidney disease 05/06/2018 Assessment & Plan (01/20/2025 2:18 PM CDT): This is a 69-year-old female seen for management of inadequately controlled type 2 diabetes mellitus. Recent A1c is 8.6%. Patient forgot CGM reader. Unable to download data. Plan Lantus 52 units at bedtime. Humalog 16 units with plus correction scale Blood sugar 150-200 = 1 unit Blood sugar 201-250 = 2 units Blood sugar 251-300 = 3 units Blood sugar 301-350 = 4 units Blood sugar 351-400 = 5 units. Jardiance 10 mg daily. Increase Ozempic 0.5 mg weekly. Check blood glucose before meals and bedtime. Call with blood glucose less than 80 or above 200 consistently. Follow consistent carb diet of 30-40 g carb per meal and limit snacks to 15 g each. No more than 2 snacks daily. Participate in exercise regimen as tolerated. Obtain annual dilated eye exam. Educated on ways to avoid and treat hypoglycemia. Rotate injection and sensor sites each time. Follow-up in 3 months. Assessment & Plan (12/23/2024 2:22 PM VETERINARY ATTENDANT): This is a 69-year-old female seen for management of inadequately controlled type 2 diabetes mellitus. CGM data showed target- 39%. High- 31%. Very high- 30%. Low- 0%, pattern of daytime highs. Reports she has not taken Trulicity for over a month. We will switch to Ozempic. Plan Decrease Lantus 50 units at bedtime. Decrease Humalog 16 units with plus correction scale Blood sugar 150-200 = 1 unit Blood sugar 201-250 = 2 units Blood sugar 251-300 = 3 units Blood sugar 301-350 = 4 units Blood sugar 351-400 = 5 units. Continue Jardiance 10 mg daily. Will start Ozepmic injection pen once weekly. Take 0.25 mg subcutaneously once weekly for 4 weeks. Then increase to 0.5 mg subcutaneously once weekly. Potential side effects of Ozempic including but not limited to nausea, vomiting,abnodminal pain and acute pancreatitis. Stop the medication if experiencing any of the above symptoms and call the office. Check blood glucose before meals and bedtime. Call with blood glucose less than 80 or above 200 consistently. Follow consistent carb diet of 30-40 g carb per meal and limit snacks to 15 g each. No more than 2 snacks daily. Participate in exercise regimen as tolerated. Obtain annual dilated eye exam. Educated on ways to avoid and treat hypoglycemia. Rotate injection and sensor sites each time. Follow-up in 4 weeks. Assessment & Plan (09/22/2024 12:21 PM VETERINARY ATTENDANT): 69 years old female seen in follow-up [...] . Restart CGM. Will send application for [employer] Kinjal 3+. 7. Consistent carb diet 8. [...] months. Assessment & Plan (01/10/2023 12:59 PM VETERINARY ATTENDANT): This is a 67-year-old female seen for [...] weeks. Assessment & Plan (12/01/2021 9:46 PM VETERINARY ATTENDANT): This is a 66-year-old female seen for [...] continuous glucose monitor. Will send application for [employer] Kinjal 2. Sample provided. 6. Limit carbs [...] below 80. 6. Consistent carbs diet. 7. THERAPY ASSISTANT follow-up in 3 months. Follow-up with me [...] months Assessment & Plan (11/15/2019 10:58 AM VETERINARY ATTENDANT): 62 years old female with history of [...] Plan for freestyle every CGM next visit. Senior Speech Pathologist follow-up in 4 weeks. Follow-up with me in 3 months. Occlusion of left carotid artery 05/06/2018 Assessment & Plan (02/20/2024 12:52 PM CDT): Chronic left ICA occlusion Assessment & Plan (10/24/2021 11:54 AM VETERINARY ATTENDANT): Minimal right ICA stenosis with chronically occluded left ICA. Repeat carotid Doppler one year. Assessment & Plan (04/18/2021 12:28 PM CDT): Due for annual carotid Doppler in six months. We'll arrange it. Coronary artery disease of n ative artery of [place] heart with stable angina pectoris 05/06/2018 Hypertension associated with diabetes 05/06/2018 Assessment & Plan (01/20/2025 2:16 PM CDT): Continue lisinopril and metoprolol. Assessment & Plan (12/23/2024 2:23 PM VETERINARY ATTENDANT): Continue metoprolol and lisinopril. Assessment & Plan (09/22/2024 12:18 PM VETERINARY ATTENDANT): Chronic, stable Continue lisinopril and metoprolol Low-salt diet Assessment & Plan (06/09/2024 7:51 AM CDT): Continue metoprolol and lisinopril. Assessment & Plan (08/06/2023 8:01 AM CDT): Continue metoprolol and lisinopril. Assessment & Plan (04/30/2023 2:25 PM CDT): Chronic, stable Continue metoprolol low-salt diet Assessment & Plan (01/10/2023 1:01 PM VETERINARY ATTENDANT): Continue lisinopril and metoprolol. Follow low-sodium diet. Assessment & Plan (09/12/2022 5:30 PM CDT): Continue lisinopril, metoprolol and Imdur. Follow low-sodium diet. Assessment & Plan (08/20/2022 9:28 PM CDT): Continue Lisinopril, Metoprolol and Imdur. Follow low sodium diet. Assessment & Plan (12/01/2021 9:46 PM VETERINARY ATTENDANT): Continue furosemide, lisinopril and metoprolol. Assessment & Plan (09/16/2021 10:36 AM CDT): Stable on lisinopril metoprolol. Low-salt diet. Assessment & Plan (03/15/2021 11:08 AM CDT): Stable on lisinopril and metoprolol. Continue low-salt diet Assessment & Plan (02/12/2020 11:38 AM CDT): Continue lisinopril and metoprolol. Assessment & Plan (11/15/2019 10:49 AM VETERINARY ATTENDANT): Stable on current regimen. Hyperlipidemia associated with type 2 diabetes ivan maciel 05/06/2018 Assessment & Plan (01/20/2025 2:16 PM CDT): Continue rosuvastatin and fenofibrate. Follow low-fat diet. Assessment & Plan (12/23/2024 2:23 PM VETERINARY ATTENDANT): Continue rosuvastatin and fenofibrate. Follow low-fat diet. Assessment & Plan (09/22/2024 12:18 PM VETERINARY ATTENDANT): Lab Results Component Value Date LDLCALC 59 [...] Repatha Assessment & Plan (01/10/2023 1:01 PM VETERINARY ATTENDANT): Continue rosuvastatin. Follow low-fat diet Assessment & Plan (09/12/2022 5:29 PM CDT): Continue rosuvastatin and Repatha. Follow low-fat low-cholesterol diet. Assessment & Plan (08/20/2022 9:27 PM CDT): Continue Rosuvastatin and Repatha. Follow low fat and low cholesterol diet. Assessment & Plan (12/01/2021 9:47 PM VETERINARY ATTENDANT): Continue rosuvastatin and Repatha. Assessment & Plan [...] rosuvastatin Assessment & Plan (11/15/2019 10:49 AM VETERINARY ATTENDANT): Continue atorvastatin. Will request previous labs from primary MD. Chronic systolic heart failure 05/06/2018 Nonrheumatic aortic valve stenosis 05/06/2018 Resolved Problems Problem Noted Date Diagnosed Date Resolved Date BMI 38.0-38.9,adult 11/15/2019 11/08/20 21 Assessment & Plan (11/15/2019 10:36 AM VETERINARY ATTENDANT): BMI Follow-up includes: nutrition counseling and education provided. Immunizations Immunization Administration Dates Next Due Influenza, Quadrivalent, Hig [...] on file Legal Sex Female 12:41 AM VETERINARY ATTENDANT Gender Identity Not on file Sexual Orientation Not on file Last Filed Vital Signs Vital Sign Reading Time Taken Comments Blood Pressure 125/80 2025 10:41 AM CDT Pulse 75 2025 10:41 AM CDT Temperature 36.4 C (97.6 F) 2025 10:41 AM CDT Respiratory Rate 16 01/20/2025 12:42 PM CDT Oxygen Saturation 94% 2025 10:41 AM CDT Inhaled Oxygen Concentration - - Weight 106.1 kg (234 lb) 2025 10:41 AM CDT Height 160 cm (5' 3 ) 2025 10:41 AM CDT Body Mass Index 41.45 2025 10:41 AM CDT Plan of Treatment Not on file Medical Devices Implanted Type Area Sat Instructor Device Identifier Shelf Expiration Date Model / Serial / Lot [employer] [id number] Vascade 6/7fr Bioabsorbable Vascular System Compression Collagen - Sn/A - [id number] Implanted:Qty: 1 on 11/16/2021 by Sang Morin MD at [facility] Other - see comments Left: Other - see comments [employer] 700-580 I-05U / N/A / [id number] Description:Left Groin: Vasc colten vascular closure system Choe [employer] Device Clsr Perclose Prostyle Sut-Mediatd Closure-Repair Sys 54368-39 - S0 - [id number] Implanted:Qty: 1 on 04/26/2022 by Aakash Williamson MD at [facility] Other - see comments Left: Femoral [employer] 03/11/2024 78942-4 Choe Vascular Device Clsr Perclose Prostyle Sut-Mediatd Closure-Repair Sys 04758-56 - S0 - [id number] Implanted:Qty: 1 on 04/26/2022 by Aakash Williamson MD at [facility] Other - see comments Left: Femoral [employer] 03/11/2024 12871-7 Card[employer] Inc Vascade 6/7fr Bioabsorbable Vascular System Compression Collagen [id number] - S0 - [id number] Implanted:Qty: 1 on 04/26/2022 by Aakash Williamson MD at [facility] Other - see comments Right: Femoral Vein [employer] Inc 02/16/2024 700-580 I-05U / 0 / [id number] [employer] Valve Heart 23mm Nile 3 Transcatheter [id number] - [id number] - [id number] Implanted:Qty: 1 on 04/26/2022 by Aakash Williamson MD at [facility] Prosthetic Valve N/A: Aortic Valve [employer] 10/20/2024 [id number] / [id number] / Medtronic Inc Everflex Entrust 6mm 60mm 120cm Self Expand Triaxial Low Profile - Sn/A - [id number] Implanted:Qty: 1 on 11/16/2021 by Sang Morin MD at [facility] Stent Right: Leg Med[employer]onic Inc 09/18/2024 [id number] 6-060-1 20 / N/A / [id number] Description:Right popliteal artery Med[employer] Inc Protege Everflex 5mm .079in 20mm 120cm Otw Radiopaque Delivery - Snone - [id number] Implanted:Qty: 1 on 06/14/2022 by Sang Morin MD at [facility] Stent Right: Femoral Med[employer]onic Inc 12/31/2022 [id number] 5-020-1 20 / NONE / [id number] Ter[employer] Jaime Angio-Seal Vip 6fr Closere Device [id number] - Snone - [id number] Implanted:Qty: 1 on 06/14/2022 by Sang Morin MD at [facility] Vascular Closure Device Left: Femoral [employer] Jaime 04/11/2023 [id number] / NONE / [id number] Cardiva Medical Inc Vascade 6/7fr Bioabsorbable Vascular System Compression Collagen [id number] - S0 - [id number] Implanted:Qty: 1 on 04/14/2022 by Italo Galindo MD at [facility] Card[employer] Medical Inc 02/23/2024 700-580 I-05U / 0 / [id number] Peripheral Vascular Lifestent Proseries Crosser Lutonix 5mm 5fr 100mm 135cm Low [id number] - [id number] Implanted:Qty: 1 on 02/27/2024 by Sang Morin MD at [facility] Left: Groin Bard Peripheral Vascular [id number] 08/03/2026 [id number] / / [id number] Munax Angio-Seal Vip 6fr Closere Device [id number] - Sna - [id number] Implanted:Qty: 1 on 02/27/2024 by Sang Morin MD at [facility] Munax 10/15/2024 [id number] / NA / [id number] Procedures Procedure Name Priority Date/Time Associated Diagnosis Comments TRANSTHORACIC ECHO (TTE) COMPLETE W DOPPLER/CF W CONTRAST Routine 02/17/2025 10:39 AM CDT Chronic hypoxemic respiratory failure (HCC) Lower extremity edema PRO B-TYPE NATRIURETIC PEPTIDE Routine 2025 11:35 AM CDT Chronic hypoxemic respiratory failure (HCC) Lower extremity edema PULMONARY FUNCTION TEST (PFT) Routine 01/26/2025 12:06 PM CDT ILD (interstitial lung disease) ([facility]) HEMOGLOBIN A1C Routine 12/23/2024 12:12 PM VETERINARY ATTENDANT Type 2 diabetes mellitus with stage 3a chronic kidney disease, with long-term current use of insulin ([facility]) EGFR Routine 12/23/2024 12:11 PM VETERINARY ATTENDANT Type 2 diabetes mellitus with stage 3a chronic kidney disease, with long-term current use of insulin ([facility]) ALBUMIN CREATININE RATIO, URINE Routine 12/23/2024 12:11 PM VETERINARY ATTENDANT Type 2 diabetes mellitus with stage 3a chronic kidney disease, with long-term current use of insulin ([facility]) BASIC METABOLIC PANEL Routine 12/23/2024 12:11 PM VETERINARY ATTENDANT Type 2 diabetes mellitus with stage 3a chronic kidney disease, with long-term current use of insulin ([facility]) THYROID FUNCTION CASCADE Routine 12/23/2024 12:11 PM VETERINARY ATTENDANT Type 2 diabetes mellitus with stage 3a chronic kidney disease, with long-term current use of insulin (HCC) LIPID PANEL Routine 12/23/2024 12:11 PM VETERINARY ATTENDANT Type 2 diabetes mellitus with stage 3a chronic kidney disease, with long-term current use of insulin (HCC) DIABETIC EYE EXAM Routine 01/08/2024 HEPATITIS PANEL, ACUTE Routine 9 8:10 AM CDT from Last 3 Months or Most Recently Relevant to Health Maintenance Results * TRANSTHORACIC ECHO (TTE) COMPLETE W DOPPLER/CF W CONTRAST (02/17/2025 10:39 AM CDT) LV EF 55 % CONS SCIMAGE Anatomical Region Laterality Modality Ultrasound 02/17/2025 9:01 AM CDT Narrative 02/17/2025 6:55 PM CDT [facility] [place] [place] [address] ECHOCARDIOGRAM Patient Name: MAICOL WISE : 1955 (70y ) Gender: F Study Date: 02/17/2025 09:01:57 AM Ht(Inch): 63 Wt(Lb): 233.91 BSA: 2.17 Mothers Helper: ENRIKE Location: opt Order Provider: BAR MARQUEZ BMI: 41.43 BP: 125/80 Ref Provider: BAR MARQUEZ - PROCEDURES: Echocardiographic Report: Transthoracic Echocardiogram with 2D, M-Mode, Spectral and Color Flow Doppler examination and administration of intravenous contrast. INDICATIONS: J96.11 Chronic respiratory failure with hypoxia and R60.0 Localized edema. MEASUREMENTS: 2D/MM Value Range Doppler Value Range IVSd 2D 1.02 cm [ 0.60 - 0.90 ] AV Peak Mark 1.69 m/s [ 1.00 - 1.70 ] LVIDd 2D 4.54 cm [ 3.80 - 5.20 ] AV Peak PG 11.4 mmHg LVIDs 2D 2.69 cm [ 2.20 - 3.50 ] AV Mean PG 6.9 mmHg LVPWd 2D 1.15 cm [ 0.60 - 0.90 ] AV VTI 32.6 cm Estimated EF 55 % FAITH V max 1.8 cm2 LA Dimension 2D 4.00 cm [ 2.70 - 3.80 ] FAITH VTI 1.6 cm2 AoR Diam 2D 2.90 cm [ 2.70 - 3.70 ] LVOT Peak Mark 0.92 m/s [ 0.70 - 1.10 ] AoR Diam 2D Index 1.34 LVOT Diam 2.1 cm RA Volume 33.00 ml LVOT Peak PG 3.4 mmHg TAPSE 1.10 cm [ 1.71 - 5.00 ] LVOT VTI 15.3 cm MV Peak PG 3.0 mmHg MV Mean PG 1.1 mmHg MV E Peak Mark 0.6 m/s [ 0.6 - 1.3 ] MV A Peak Mark 0.9 m/s [ 1.0 - 1.2 ] MV PHT 65.6 ms [ 20.0 - 100.0 ] MV Decel Time 220.2 ms [ 104.0 - 258.0 ] MVA PHT 3.4 ms MV E/A Ratio 0.7 PV Peak PG 3.8 mmHg Lat E` Mark 0.07 m/s [ 0.10 - 0.15 ] Sept E' Mark 0.05 m/s [ 0.08 - 0.15 ] E/E` 8.57 RV S' 0.08 m/s 2D/MM Value Range Doppler Value Range - FINDINGS: BP: Blood pressure: 125/80 mmHg. Left Ventricle: Low normal global left ventricular systolic function. The study quality is inadequate for detailed regional wall motion assessment. Ejection Fraction is estimated at 55 %. Diastolic indices overall most consistent with Grade I diastolic dysfunction (impaired myocardial relaxation without elevated filling pressures). Normal left ventricular cavity size. Mild concentric left ventricular hypertrophy. Right Ventricle: The right ventricle is not well visualized. Left Atrium: The left atrium is normal in size. Right Atrium: RA not well visualized. Atrial Septum: Normal appearing atrial septum. Cannot exclude PFO by atrial septal color Doppler interrogation. Mitral Valve: Mitral valve is not well visualized. Mitral stenosis is absent. There is no mitral regurgitation. Aortic Valve: Aortic valve not well visualized. There is no aortic stenosis demonstrated. There is no aortic regurgitation. Tricuspid Valve: Tricuspid valve not well visualized. There is no tricuspid regurgitation. Pulmonic Valve: Pulmonic valve not well visualized. There is no pulmonic stenosis. Trace pulmonic regurgitation. Pericardium: No significant pericardial effusion. Aortic Root and Aorta: Not well visualized. Aortic Arch: The aortic arch is poorly visualized. IVC: The IVC is not well visualized. CONCLUSIONS: 1. Low normal global left ventricular systolic function. The study quality is inadequate for detailed regional wall motion assessment. Ejection Fraction is estimated at 55 %. Diastolic indices overall most consistent with Grade I diastolic dysfunction (impaired myocardial relaxation without elevated filling pressures). Normal left ventricular cavity size. Mild concentric left ventricular hypertrophy. 2. The right ventricle is not well visualized. Electronically Signed By: Ajay guzman 02/17/2025 6:55:22 PM CDT Procedure Note Ajay Mccabe MD - 02/17/2025 [address] [place] [address] ECHOCARDIOGRAM Patient Name: MAICOL WISE : 1955 (70y ) Gender: F Study Date: 02/17/2025 09:01:57 AM Ht(Inch): 63 Wt(Lb): 233.91 BSA: 2.17 Mothers Helper: ENRIKE Location: opt Order Provider: BAR MARQUEZ BMI: 41.43 BP: 125/80 Ref Provider: BAR MARQUEZ - PROCEDURES: Echocardiographic Report: Transthoracic Echocardiogram with 2D, M-Mode,Spectral and Color Flow Doppler examination and administration of intravenouscontrast. INDICATIONS: J96.11 Chronic respiratory failure with hypoxia and R60.0 Localizededema. MEASUREMENTS: 2D/MM Value Range Doppler ValueRange IVSd 2D 1.02 cm [ 0.60 - 0.90 ] AV Peak Mark 1.69m/s [ 1.00 - 1.70 ] LVIDd 2D 4.54 cm [ 3.80 - 5.20 ] AV Peak PG 11.4mmHg LVIDs 2D 2.69 cm [ 2.20 - 3.50 ] AV Mean PG 6.9mmHg LVPWd 2D 1.15 cm [ 0.60 - 0.90 ] AV VTI 32.6cm Estimated EF 55 % FAITH V max 1.8cm2 LA Dimension 2D 4.00 cm [ 2.70 - 3.80 ] FAITH VTI 1.6cm2 AoR Diam 2D 2.90 cm [ 2.70 - 3.70 ] LVOT Peak Mark 0.92m/s [ 0.70 - 1.10 ] AoR Diam 2D Index 1.34 LVOT Diam 2.1cm RA Volume 33.00 ml LVOT Peak PG 3.4mmHg TAPSE 1.10 cm [ 1.71 - 5.00 ] LVOT VTI 15.3cm MV Peak PG 3.0 mmHg MV Mean PG 1.1 mmHg MV E Peak Mark 0.6 m/s [ 0.6 - 1.3 ] MV A Peak Mark 0.9 m/s [ 1.0 - 1.2 ] MV PHT 65.6 ms [ 20.0 - 100.0 ] MV Decel Time 220.2 ms [ 104.0 - 258.0 ] MVA PHT 3.4 ms MV E/A Ratio 0.7 PV Peak PG 3.8 mmHg Lat E` Mark 0.07 m/s [ 0.10 - 0.15 ] Sept E' Mark 0.05 m/s [ 0.08 - 0.15 ] E/E` 8.57 RV S' 0.08 m/s 2D/MM Value Range Doppler ValueRange - FINDINGS: BP: Blood pressure: 125/80 mmHg. Left Ventricle: Low normal global left ventricular systolic function. Thestudy quality is inadequate for detailed regional wall motion assessment. EjectionFraction is estimated at 55 %. Diastolic indices overall most consistent with Grade Idiastolic dysfunction (impaired myocardial relaxation without elevated fillingpressures). Normal left ventricular cavity size. Mild concentric left ventricularhypertrophy. Right Ventricle: The right ventricle is not well visualized. Left Atrium: The left atrium is normal in size. Right Atrium: RA not well visualized. Atrial Septum: Normal appearing atrial septum. Cannot exclude PFO byatrial septal color Doppler interrogation. Mitral Valve: Mitral valve is not well visualized. Mitral stenosis isabsent. There is no mitral regurgitation. Aortic Valve: Aortic valve not well visualized. There is no aorticstenosis demonstrated. There is no aortic regurgitation. Tricuspid Valve: Tricuspid valve not well visualized. There is notricuspid regurgitation. Pulmonic Valve: Pulmonic valve not well visualized. There is no pulmonicstenosis. Trace pulmonic regurgitation. Pericardium: No significant pericardial effusion. Aortic Root and Aorta: Not well visualized. Aortic Arch: The aortic arch is poorly visualized. IVC: The IVC is not well visualized. CONCLUSIONS: 1. Low normal global left ventricular systolic function. The study qualityis inadequate for detailed regional wall motion assessment. Ejection Fraction isestimated at 55 %. Diastolic indices overall most consistent with Grade I diastolicdysfunction (impaired myocardial relaxation without elevated filling pressures). Normal leftventricular cavity size. Mild concentric left ventricular hypertrophy. 2. The right ventricle is not well visualized. Electronically Signed By: Ajay guzman 02/17/2025 6:55:22 PM CDT Bar Marquez MD CV ECHO PROCEDURES Fin al Result * Pro B-type natriuretic peptide (2025 11:35 AM CDT) NT-proBNP 123 <=300 pg/mL Comment: Interpretive Comments: A. Dyspnea in Acute Care Setting All Ages: < 300 pg/ml, acute heart failure unlikely. < 50 yrs: 300 - 450 pg/ml, further investigation warranted. > 450 pg/ml, acute heart failure likely. 50 - 74 yrs: 300 - 900 pg/ml, further investigation warranted. > 900 pg/ml, acute heart failure likely . > or = 75 yrs: 450 - 1800 pg/ml, further investigation warranted. > 1800 pg/ml, acute heart failure likely. B. Non-acute Setting < 75 yrs < 125 pg/ml, rules out heart failure. > or = 125 pg/ml, further investigation warranted. > or = 75 yrs < 450 pg/ml, rules out heart failure. > or = 450 pg/ml, further investigation warranted. - Knowledge of each individual patient's NT-proBNP range may be more useful than using similar cut-points for every patient. Please note that marked elevations in NT-proBNP levels may be observed in state other than Left Ventricular Congestive Failure, including: acute coronary syndromes, right heart strain/failure (including pulmonary embolism and cor pulmonale), critical illness, renal failure, as well as advanced age. - References: 1. Naty MARIE et.al. Eur Heart J. 2006:27:330-337. 2. Steven RW, Justino CROW. J. AM Anmol Cardiol: Cardiovasc Imag. 2009;2: 216- 225. Interpretive Data Last Revised Date: 2018. Blood 2025 11:3 5 AM CDT 2025 2:47 PM CDT Bar Marquez MD LAB BLOOD ORDERABLES F inal Result Performing Organization Address [facility]/State/[facility] Co de Phone Number [facility] [address] [facility] Department of Laboratories [place] [phone] * Pulmonary Function Test - (01/26/2025 12:06 PM CDT) Anatomical Region Laterality Modality PFT 01/26/2025 11:3 4 AM CDT Narrative 02/17/2025 8:26 PM CDT Table formatting from the original result was not included. [facility] CERTIFIED IN PULMONARY, CRITICAL CARE, AND SLEEP MEDICINE MD Addi Rivera MD [address] [place] [address] Gregorio Wayne MD Office [phone] Zelalem Rueda MD PULMONARY FUNCTION TESTING Spirometry / Flow Volume Loop The forced expiratory volume 1 sec (FEV1) is 1.57 L which corresponds to a Z-score of -1.14 and 80% predicted. The forced vital capacity (FVC) is 1.65 L which corresponds to a Z-score of -2.10 and 66% predicted. The FEV1 / FVC ratio is 95. Bronchodilator Response FEV1 changed by 0 % in reference to the predicted value. FVC changed by 1 % in reference to the predicted value. Lung Volumes The total lung capacity (TLC) is 2.75 L which corresponds to a Z-score of -4.01 and 56% predicted. The residual volume (RV) is 0.92 L which corresponds to a Z-score of -3.30 and 42% predicted. The RV/TLC ratio is 34 which corresponds to a Z-score of -1.98 and 75% predicted Diffusion Capacity The diffusion capacity (DLCO) is 9.93 mm/mmHg/minute which corresponds to a Z-score of -3.39 and 54% predicted. The diffusing capacity has not been adjusted for lung volumes. It is not corrected for anemia or carboxy-hemoglobinemia, both of which may alter DLCO when present. INTERPRETATION Spirometry suggests restriction. No bronchodilator response. Lung volumes confirm moderate restriction. DLCO moderately reduced. Bar Marquez MD Pulmonary and Critical Care Medicine [phone] Bar Marquez MD PFT ORDERABLES Final Result * (ABNORMAL) Hemoglobin A1c (12/23/2024 12:12 PM VETERINARY ATTENDANT) [facility] Hgb A1C 8.6(H) 4.0 - 5.6 % Estimated Average Glucose 200 mg/dL [facility] Comment: The ADA recommends reporting an estimated Average Glucose (eAG) with all Hemoglobin A1c results using the equation derived from a study of 507 normal and diabetic adults. Minority populations were underrepresented and children were not included. (Diabetes Care 31:2465-6539, 2008). The eAG is not equivalent to a fasting glucose. Blood 12/23/2024 12:1 2 PM VETERINARY ATTENDANT 12/23/2024 4:26 PM VETERINARY ATTENDANT Henry Duffy THERAPY ASSISTANT LAB BLOOD ORDERABLES Final Result Performing Organization Address City/[facility] Co de Phone Number [facility] [address] Department [place], [place] [phone] * (ABNORMAL) eGFR (12/23/2024 12:11 PM VETERINARY ATTENDANT) eGFR 49(L) >=60 mL/min/1. 73 m2 Comment: Interpretive Data [...] interpretive data was last reviewed 2021. Blood 12/23/2024 12:1 1 PM VETERINARY ATTENDANT 12/23/2024 4:25 PM VETERINARY ATTENDANT Henry Duffy THERAPY ASSISTANT LAB BLOOD ORDERABLES Final Result Performing Organization Address City/[facility]/ZIP Co de Phone Number [facility] [address] [place] [address] * Thyroid Function [place] (12/23/2024 12:11 PM VETERINARY ATTENDANT) Pathologist [facility] TSH 1.27 0.30 - 4.20 mcIUnit/mL Blood 12/23/2024 12:1 1 PM VETERINARY ATTENDANT 12/23/2024 4:25 PM VETERINARY ATTENDANT Henry Duffy NP LAB BLOOD ORDERABLES Final Result Performing Organization Address [facility] Co de Phone Number [facility] [address] [facility] [place] [address] * Albumin Creatinine Ratio, Urine (12/23/2024 12:11 PM VETERINARY ATTENDANT) Albumin Ur <12.0 mg/L Comment: Interpretive Data No reference range established. Current interpretive data was last revised 2019. Creatinine Ur 46.5 mg/dL [facility] Comment: Interpretive Data No reference range established. Current interpretive data was last revised 2019. Albumin Creatinine Ratio, Ur <26 1 - 29 mg/g [facility] Urine 12/23/2024 12:1 1 PM VETERINARY ATTENDANT 12/23/2024 12:14 PM VETERINARY ATTENDANT Henry Duffy NP LAB URINE ORDERABLES Final Result Performing Organization Address [facility] Co de Phone Number [facility] [address] [place] [address] * (ABNORMAL) Lipid panel (12/23/2024 12:11 PM VETERINARY ATTENDANT) Cholesterol 154 30 - 199 mg/dL Comment: Interpretive Data [...] Data was last revised on 2018. Triglycerides 161(H) <=149 mg/dL [facility] Comment: Interpretive Data Ages < or = [...] Data was last revised on 2018. HDL 67 >=40 mg/dL [facility] Comment: Interpretive Data Ages < or = [...] was last revised on 2018. LDL, calculated 60 <=129 mg/dL [facility] Comment: Interpretive Data Ages < or = 19 years Acceptable: <110 mg/dL Borderline high: 110-129 mg/dL High: >or= 130 mg/dL Ages > or = 20 years Optimal: <100 mg/dL Near optimal: 100-129 mg/dL Borderline high: 130-159 mg/dL High: >160 mg/dL Calculated using the Andrew LDL-C estimating equation. This equation was implemented on 2024. Prior to this date LDL-C was estimated using the Friedewald equation. Literature References: 1. Expert Panel on Integrated Guidelines for Cardiovascular Health and Risk Reduction in Children and Adolescents. Pediatrics 2011;128:S213 2. NCEP Expert Panel. Circulation 2004;110:227 3. Andrew Fofana al. NOAH Cardiol. 2020 March 12;5(5):540-548. doi: 10.1001/jamacardio.2020.0013 Current Interpretive Data was last revised on 2024. Non-HDL Cholesterol 87 mg/dL [facility] Comment: Interpretive Data Ages < or = [...] revised on 2018. Chol/HDL ratio 2 [facility] Blood 12/23/2024 12:1 1 PM VETERINARY ATTENDANT 12/23/2024 4:25 PM VETERINARY ATTENDANT us Henry Duffy NP LAB BLOOD ORDERABLES Final Result [facility] [address] [place] [address] * (ABNORMAL) Basic metabolic panel (12/23/2024 12:11 PM VETERINARY ATTENDANT) Sodium 144 135 - 145 mmol/L Potassium, pl 4.6 3.3 - 4.9 mmol/L [facility] Chloride 100 97 - 110 mmol/L [facility] CO2 28 22 - 32 mmol/L [facility] Anion gap 16(H) 2 - 15 mmol/L [facility] BUN 23 6 - 25 mg/dL [facility] Creatinine 1.18(H) 0.60 - 1.10 mg/dL [facility] Glucose 159 70 - 199 mg/dL [facility] Comment: Interpretive Data Fasting glucose >/= 126 mg/dl is diagnostic for diabetes. Fasting is defined as no caloric intake for at least 8 hours. Fasting glucose between 100 mg/dl to 125 mg/dl is diagnostic of prediabetes. In a patient with classic symptoms of hyperglycemia or hyperglycemic crisis, a random glucose >/= 200 mg/dl is diagnostic for diabetes. In the absence of unequivocal hyperglycemia, results should be confirmed by repeat testing. The classification and Diagnosis of Diabetes Diabetes Care 2021; 46: S19-S40. Current interpretive data was last revised 2022. Calcium 10.2 8.5 - 10.3 mg/dL [facility] Blood 12/23/2024 12:1 1 PM VETERINARY ATTENDANT 12/23/2024 4:25 PM VETERINARY ATTENDANT us Henry Duffy THERAPY ASSISTANT LAB BLOOD ORDERABLES Final Result Performing Organization Address [facility] Co de Phone Number [facility] [address] [place] [address] * (ABNORMAL) Diabetic Eye Exam (01/08/2024) us Historical Provider MD HEALTH MAINTENANCE Final Result * Hepatitis panel, acute (06/16/2019 8:10 AM CDT) Hep A IgM Non-Reactive Non-Reactive [facility] Hep B core IgM Non-Reactive Non-Reactive [facility] Hep C Ab Non-Reactive Non-Reactive [facility] HepBsAg Nonreactive Nonreactive [facility] Blood specimen (specimen) 06/16/2019 8:10 AM CDT 06/16/2019 9:01 AM CDT us Lola Mendoza MD LAB MICROBIOLOGY - GENE RAL ORDERABLES Final Result Performing Organization Address [facility] de Phone Number [facility] [address] [place] [address] from Last 3 Months or Most Recently Relevant to Health Maintenance Insurance MEDICARE Member Subscriber Plan / Payer (Ef fective 2018-Present) Name:Maicol Wise Member ID:[id number] Relation to Subscriber:Self Name:Maicol Wise Subscriber ID:[id number] Payer ID:[id number] Group ID:Not on file Type:MEDICARE TRADITIONAL Address: [place] [phone] AARP AARP MEDICARE AAR MEDICARE Advance Directives For more information, please contact: [phone] Documents on File Type Date Recorded Patient Digital Watch Assembler Expl anation Power of Terminal Block Assembler 06/14/2022 12:56 PM * Full Code (Latest [...] 5:26 PM 11/17/2021 3:57 PM Care Teams Contact Acid Plant Operator Helper Relationship Specialty Start Date End [place] [address] PCP - General Family Practice 04/23/18 [place] [address] Consulting Physician Cardiology 05/06/18 [place] [address] Consulting Physician Nephrology 10/18/20 Ajay Sears MD [address] [place] [address] Surgeon Neurosurgery 04/18/21 Sang Morin MD [address] [place] [address] Surgeon Vascular Surgery 11/17/21
--- OUTSIDE RECORDS SUMMARY | 2025-03-02 10:35 | XMS_ITS | Encounter Summary ---
Author Organization [facility] Address [address] [place] [address] Care Team Providers Care Square Cutter Name Role Phone Jermaine Ingram MD Primary Care Provider Encounter Details Date Type Department Care Team (Late st Contact Info) Description 04/19/2019 Abstract [facility] CONVERSION [address] [place] [address] , Generic Conversion, Social History Tobacco Use Types Packs/Day Years Used Date Smoking Tobacco: Never Assessed Comments Unknown Sex and Gender Information Value Date Recorded Sex Assigned at Female 12/09/2024 3:10 PM HEARING EXAMINER Legal Sex Female 3:43 PM HEARING EXAMINER Gender Identity Not on file Sexual Orientation Not on file documented as of this encounter Plan of Treatment Not on file documented as of this encounter Visit Diagnoses Not on filedocumented in this encounter Additional Health Concerns Infection Onset Date Last Indicated Resolved Time COVID-19 Rule Out 03/13/2022 03/13/2022 03/13/2022 3:50 PM CDT COVID-19 Rule Out 12/22/2022 12/22/2022 12/22/2022 10:47 AM HEARING EXAMINER COVID-19 Confirmed 12/22/2022 12/22/2022 12:32 AM HEARING EXAMINER COVID-19 Rule Out 04/11/2024 04/11/2024 04/11/2024 4:44 PM CDT COVID-19 Rule Out 10/15/2024 10/15/2024 10/15/2024 5:14 PM HEARING EXAMINER COVID-19 Rule Out 12/09/2024 12/09/2024 12/09/2024 4:14 PM HEARING EXAMINER documented as of this encounter Care Teams Square Cutter Relationship Specialty Start Date End Date Jermaine Ingram MD [address] [place] [address] PCP - General FAMILY PRACTICE 05/31/19 documented as of this encounter
--- OUTSIDE RECORDS SUMMARY | 2025-03-02 10:35 | XMS_ITS | Clinical Summary ---
Author Organization [facility] Address [address] [facility], [place] [address] Phone Care Team Providers Care Jigman Name Role Phone Jermaine Ingram MD Primary [...] on file Legal Sex Female 10:39 AM WAFER SLICER Gender Identity Not on file Sexual Orientation Not on file Last Filed Vital Signs Vital Sign Reading Time Taken Comments Blood Pressure 138/82 01/02/2020 10:01 AM WAFER SLICER Pulse 79 01/02/2020 10:01 AM WAFER SLICER Temperature 36.1 C (97 F) 01/02/2020 10:01 AM WAFER SLICER Respiratory Rate 17 01/02/2020 10:01 AM WAFER SLICER Oxygen Saturation 97% 01/02/2020 10:01 AM WAFER SLICER Inhaled Oxygen Concentration - - Weight 99.5 kg (219 lb 6.4 oz) 01/02/2020 10:01 AM WAFER SLICER Height 160 cm (5' 3 ) 01/02/2020 10:01 AM WAFER SLICER Body Mass Index 38.86 01/02/2020 10:01 AM WAFER SLICER Plan of Treatment Health Maintenance Due Date Last Done Comments Diabetes: Eye Exam 1955 Diabetes: Foot Exam 1955 Hepatitis C Virus (HCV) Screening 1955 TdaP Immunization 1955 Colonoscopy 1998 Colorectal Cancer Screening 1998 Cologuard 2003 Immunochemical Fecal Occult Blood 2003 Zoster Immunization (1 of 2) 2003 [...] (COMPREHENSIVE METABOLIC PANEL) Routine 10/24/2019 12:43 PM WAFER SLICER Tremor from Last 3 Months or Most Recently Relevant to Health Maintenance Results * (ABNORMAL) CMP (COMPREHENSIVE METABOLIC PANEL) (10/24/2019 12:43 PM WAFER SLICER) SODIUM 139 136 - 144 mmol/L 10/24/2019 2:47 PM WAFER SLICER [facility] POTASSIUM 4.4 3.5 - 5.1 mmol/L 10/24/2019 2:47 PM WAFER SLICER [facility] CHLORIDE 98(L) 100 - 110 mmol/L 10/24/2019 2:47 PM WAFER SLICER [facility] CO2, VENOUS 27 22 - 32 mmol/L 10/24/2019 2:47 PM WAFER SLICER [facility] ANION GAP 18.4 8.0 - 20.0 mmol/L 10/24/2019 2:47 PM WAFER SLICER [facility] GLUCOSE 244(H) 70 - 99 mg/dL 10/24/2019 2:47 PM WAFER SLICER [facility] BUN 27(H) 8 - 23 mg/dL 10/24/2019 2:47 PM [facility] CREATININE, BLOOD 1.26(H) 0.60 - 1.10 mg/dL 10/24/2019 2:47 PM WAFER SLICER [facility] BUN/CREATININE RATIO 21(H) 12 - 20 ratio 10/24/2019 2:47 PM [facility] TOTAL PROTEIN 6.6 6.0 - 8.3 g/dL 10/24/2019 2:47 PM [facility] ALBUMIN 4.3 3.5 - 5.2 g/dL 10/24/2019 2:47 PM [facility] Comment: The colormetric methods used for the determination of Albumin may lead to falsely elevated test results in patients suffering from renal failure or insufficiency due to interference with other proteins. A/G RATIO 1.9 1.0 - 2.0 10/24/2019 2:47 PM [facility] CALCIUM 9.9 8.9 - 10.3 mg/dL 10/24/2019 2:47 PM [facility] T BILI 0.4 <=1.2 mg/dL 10/24/2019 2:47 PM [facility] SGOT (AST) 21 <=32 U/L 10/24/2019 2:47 PM [facility] SGPT (ALT) 18 <=33 U/L 10/24/2019 2:47 PM [facility] ALKALINE PHOSPHATASE 72 35 - 105 U/L 10/24/2019 2:47 PM [facility] GFR, EST. NONAFRICAN 42(L) >=60 10/24/2019 2:47 PM [facility] GFR, EST. 51(L) >=60 019 2:47 PM [facility] Comment: Creatinine Clearance is the preferred criteria for selecting drug dose adjustments in renally impaired patients. The GFR is provided as additional pertinent clinical information. GFR is reported in mL/min/1.73 sq m. Blood specimen (specimen) Venipuncture / Unknown 10/24/2019 12:43 PM WAFER SLICER 10/24/2019 1:46 PM WAFER SLICER us Ino Brown MD CHEMISTRY ORDERABLES Final R esult [facility] [address] [place] [address] from Last 3 Months or Most Recently Relevant to Health Maintenance Insurance [facility]ICARE [facility] Care Teams Jigman Relationship Specialty Start Date End Date Jermaine Ingram MD [address] [place] [address] PCP - General Family Medicine 09/30/18
--- OUTSIDE RECORDS SUMMARY | 2025-03-02 10:35 | XMS_ITS | Encounter Summary ---
Author Organization [facility] Address [address] [place] [address] Care Team Providers Care Arbor End Mainspring Former Name Role Phone Zelalem Monahan MD Unavailable [phone] Encounter Details Date Type Department Care Team (Late st Contact Info) Description 03/02/2015 [facility] [address] [facility] [address] [place] [id number] Social History Tobacco Use Types Packs/Day Years Used Date Smoking Tobacco: Former Cigarettes 2 10 0 11/12/1990 - 11/12/2000 Smokeless Tobacco: Never Alcohol Use Standard Drinks/Week Comments No 0 (1 standard drink = 0.6 oz pur e alcohol) Comments No Sex and Gender Information Value Date Recorded Sex Assigned at Not on file Legal Sex Female 6:06 AM VAMP STITCHER Gender Identity Not on file Sexual Orientation Not on file documented as of this encounter Plan of Treatment Not on file documented as of this encounter Visit Diagnoses Not on filedocumented in this encounter Care Teams Arbor End Mainspring Former Relationship Specialty [place] [address] [facility] [address] [place] [address] Vascular Surgery 01/12/14 documented as of this encounter
--- OUTSIDE RECORDS SUMMARY | 2025-03-02 10:35 | XMS_ITS | Encounter Summary ---
Author Organization [facility] Address [address] [place] [address] Care Team Providers Care Chemical Engineering Technologist Name Role Phone Jermaine Ingram MD Primary Care Provider [phone] Ajay Mccabe MD Unavailable Lola Mendoza MD Unavailable Ajay Sears MD Unavailable Sang Morin MD Unavailable [phone] Encounter Details Date Type Department Care Team (Late st Contact Info) Description 08/06/2024 Telephone [facility] [address] [facility] [address] [place] [address] Bar Amor MD [address] [facility] [address] [place] [address] Social History Tobacco Use Types [...] on file Legal Sex Female 12:41 AM MEDICARE NURSE Gender Identity Not on file Sexual Orientation Not on file documented as of this encounter Plan of Treatment Not on file documented as of this encounter Visit Diagnoses Not on filedocumented in this encounter Care Teams Chemical Engineering Technologist Relationship Specialty Start Date End Date Jermaine Ingram MD [address] [place] [address] PCP - General Family Practice 04/23/18 [facility] [place] [facility] [address] Consulting Physician Cardiology 05/06/18 [place] [address] Consulting Physician Nephrology 10/18/20 [place] [address] Surgeon Neurosurgery 04/18/21 [place] [address] Surgeon Vascular Surgery 11/17/21 documented as of this encounter
--- OUTSIDE RECORDS SUMMARY | 2025-03-02 10:35 | XMS_ITS | Clinical Summary ---
Author Organization [facility] D Address [address] [place] [address] Care Team Providers Care Hand Bender Name Role Phone Jermaine Ingram MD Primary Care Provider [phone] Ajay Mccabe MD Unavailable [phone] Lola Mendoza MD Unavailable [phone] Ajay Sears MD Unavailable Sang Morin MD Unavailable [phone] Allergies Active Allergy Reactions Criticality Noted [...] blood-glucose meter (True Metrix Air Glucose Meter) [facility] True Metrix Glucose meter with lancing device. [...] 25 Active blood-glucose meter,continuous (FreeStyle Kinjal 3 [place]) misPrezto KINJAL 3 READER TO MONITOR BLOOD GLUCOSE [...] ILD (interstitial lung disease) 07/29/2024 Atherosclerosis of lower sioux ar jasmin of left lower extremity with [...] (04/24/2022): Added automatically from request for surgery [id number] Right knee pain 03/08/2022 Assessment & Plan [...] be done closer to home. 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 Assessment & Plan (12/23/2024 2:22 PM DIRECTOR OF SPEECH PATHOLOGY): This is a 69-year-old female seen for [...] weeks. Assessment & Plan (09/22/2024 12:21 PM DIRECTOR OF SPEECH PATHOLOGY): 69 years old female seen in follow-up [...] . Restart CGM. Will send application for InstyBook[employer] Kinjal 3+. 7. Consistent carb diet 8. [...] months. Assessment & Plan (01/10/2023 12:59 PM DIRECTOR OF SPEECH PATHOLOGY): This is a 67-year-old female seen for [...] weeks. Assessment & Plan (12/01/2021 9:46 PM DIRECTOR OF SPEECH PATHOLOGY): This is a 66-year-old female seen for [...] continuous glucose monitor. Will send application for [employer] Kinjal 2. Sample provided. 6. Limit carbs [...] below 80. 6. Consistent carbs diet. 7. CASEWORK SUPERVISOR follow-up in 3 months. Follow-up with me [...] months Assessment & Plan (11/15/2019 10:58 AM DIRECTOR OF SPEECH PATHOLOGY): 62 years old female with history of [...] Plan for freestyle every CGM next visit. Nurse Transitional follow-up in 4 weeks. Follow-up with me in 3 months. Occlusion of left carotid artery 05/06/2018 Assessment & Plan (02/20/2024 12:52 PM CDT): Chronic left ICA occlusion Assessment & Plan (10/24/2021 11:54 AM DIRECTOR OF SPEECH PATHOLOGY): Minimal right ICA stenosis with chronically occluded left ICA. Repeat carotid Doppler one year. Assessment & Plan (04/18/2021 12:28 PM CDT): Due for annual carotid Doppler in six months. We'll arrange it. 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 Assessment & Plan (12/23/2024 2:23 PM DIRECTOR OF SPEECH PATHOLOGY): Continue metoprolol and lisinopril. Assessment & Plan (09/22/2024 12:18 PM DIRECTOR OF SPEECH PATHOLOGY): Chronic, stable Continue lisinopril and metoprolol Low-salt diet Assessment & Plan (06/09/2024 7:51 AM CDT): Continue metoprolol and lisinopril. Assessment & Plan (08/06/2023 8:01 AM CDT): Continue metoprolol and lisinopril. Assessment & Plan (04/30/2023 2:25 PM CDT): Chronic, stable Continue metoprolol low-salt diet Assessment & Plan (01/10/2023 1:01 PM DIRECTOR OF SPEECH PATHOLOGY): Continue lisinopril and metoprolol. Follow low-sodium diet. Assessment & Plan (09/12/2022 5:30 PM CDT): Continue lisinopril, metoprolol and Imdur. Follow low-sodium diet. Assessment & Plan (08/20/2022 9:28 PM CDT): Continue Lisinopril, Metoprolol and Imdur. Follow low sodium diet. Assessment & Plan (12/01/2021 9:46 PM DIRECTOR OF SPEECH PATHOLOGY): Continue furosemide, lisinopril and metoprolol. Assessment & Plan (09/16/2021 10:36 AM CDT): Stable on lisinopril metoprolol. Low-salt diet. Assessment & Plan (03/15/2021 11:08 AM CDT): Stable on lisinopril and metoprolol. Continue low-salt diet Assessment & Plan (02/12/2020 11:38 AM CDT): Continue lisinopril and metoprolol. Assessment & Plan (11/15/2019 10:49 AM DIRECTOR OF SPEECH PATHOLOGY): Stable on current regimen. Hyperlipidemia associated with type 2 diabetes ivan maciel 05/06/2018 Assessment & Plan (01/20/2025 2:16 PM CDT): Continue rosuvastatin and fenofibrate. Follow low-fat diet. Assessment & Plan (12/23/2024 2:23 PM DIRECTOR OF SPEECH PATHOLOGY): Continue rosuvastatin and fenofibrate. Follow low-fat diet. Assessment & Plan (09/22/2024 12:18 PM DIRECTOR OF SPEECH PATHOLOGY): Lab Results Component Value Date LDLCALC 59 [...] Repatha Assessment & Plan (01/10/2023 1:01 PM DIRECTOR OF SPEECH PATHOLOGY): Continue rosuvastatin. Follow low-fat diet Assessment & Plan (09/12/2022 5:29 PM CDT): Continue rosuvastatin and Repatha. Follow low-fat low-cholesterol diet. Assessment & Plan (08/20/2022 9:27 PM CDT): Continue Rosuvastatin and Repatha. Follow low fat and low cholesterol diet. Assessment & Plan (12/01/2021 9:47 PM DIRECTOR OF SPEECH PATHOLOGY): Continue rosuvastatin and Repatha. Assessment & Plan [...] rosuvastatin Assessment & Plan (11/15/2019 10:49 AM DIRECTOR OF SPEECH PATHOLOGY): Continue atorvastatin. Will request previous labs from primary MD. Chronic systolic heart failure 05/06/2018 Nonrheumatic aortic valve stenosis 05/06/2018 Resolved Problems Problem Noted Date Diagnosed Date Resolved Date BMI 38.0-38.9,adult 11/15/2019 11/08/20 21 Assessment & Plan (11/15/2019 10:36 AM DIRECTOR OF SPEECH PATHOLOGY): BMI Follow-up includes: nutrition counseling and education provided. Encounters Date Type Department Care Team Description 02/18/2025 [facility] [address] [place] [address] Bar Marquez MD 02/17/2025 9:00 AM CDT - 02/17/2025 11:59 PM CDT Hospital Encounter [facility] Cardiac Testing [address] [place] [address] Chronic hypoxemic respiratory failure (HCC); Lower extremity edema Discharge Disposition: Discharge to home or self care 2025 11:35 AM CDT Lab [place] [address] [place] [address] Chronic hypoxemic respiratory failure (HCC); Lower extremity edema 2025 10:30 AM CDT Office [facility] [address] [place] [phone] Bar Marquez MD ILD (interstitial lung disease) (HCC) (Primary Dx); Former smoker; Chronic hypoxemic respiratory failure (HCC); Lower extremity edema; Nonrheumatic aortic valve stenosis 2025 Results Follow-Up [facility] [address] [place] [phone] Bar Marquez MD 01/26/2025 10:00 AM CDT - 01/26/2025 11:59 PM CDT Hospital Encounter [facility] [address] [place] [phone] ILD (interstitial lung disease) (HCC) Discharge Disposition: Discharge to home or self care 01/21/2025 Telephone [facility] Endocrinology at [address] [phone] Peggy Mercedes LPN 01/20/2025 12:30 PM CDT Office Visit [facility] Endocr[facility]ology at [address] [phone] Henry Duffy, ERIBERTO Type 2 diabetes mellitus with stage 3a chronic kidney disease, with long-term current use of insulin (HCC) (Primary Dx); Hyperlipidemia associated with type 2 diabetes mellitus (HCC); Hypertension associated with diabetes (HCC) 12/24/2024 Telephone [facility] End[facility] at [address] [address] Chely Mcduffie MA Test Results 12/23/2024 12:28 PM DIRECTOR OF SPEECH PATHOLOGY - 12/23/2024 11:59 PM DIRECTOR OF SPEECH PATHOLOGY Hospital Encounter [facility] [address] [place] [address] Discharge Disposition: Discharge to home or self care 12/23/2024 11:30 AM DIRECTOR OF SPEECH PATHOLOGY Office Visit [facility] at [facility] [address] [place] [address] Henry Duffy, CASEWORK SUPERVISOR Type 2 diabetes mellitus with stage 3a chronic kidney disease, with long-term current use of insulin (HCC) (Primary Dx); Hyperlipidemia associated with type 2 diabetes mellitus (HCC); Hypertension associated with diabetes (HCC) from Last 3 Months Immunizations Immunization Administration Dates Next Due Influenza, Quadrivalent, Hig h Dose, Preservative Free, Intrr 08/18/2022 Surgical History Surgery Date Site/Laterality Comments CORONARY ARTERY BYPASS GRAFT HYSTERECTOMY CARDIAC STENT PLACEMENT SHOULDER SURGERY CAROTID ENDARTERECTOMY 11/12/2004 - 11/11/[address] Monahan CARDIAC CATHETERIZATION Medical History Medical History Date Comments Coronary artery disease hx cabg PVD (peripheral vascular disease) Diabetes mellitus (HCC) Hypertension Bulging of lumbar intervertebral disc Psoriasis Cancer (HCC) uterine cancer Syncope pt fell and shat tered shoulder in 2018 Carotid artery disease L carotid is closed,R carotid is open Sleep apnea [...] on file Legal Sex Female 12:41 AM DIRECTOR OF SPEECH PATHOLOGY Gender Identity Not on file Sexual Orientation [...] 2025 10:41 AM CDT Plan of Treatment Health Maintenance Due Date Last Done Comments Breast Cancer Screening-Mammogram 1955 Colon Cancer Screening-Colonoscopy 1955 Osteoporosis Screening-Bone Density Scan 1955 DTaP/Tdap/Td Vaccine (1 - Tdap) 02/05/1964 Hepatitis B Screening 1971 Well Visit 65+ 2018 Dilated Eye Exam 01/08/2025 01/08/2024, , 08/24/2021 Fall Risk Assessment 02/27/2025 02/28/2024 Hemoglobin A1C 06/22/2025 12/23/2024, 09/12, 06/06/2024, Additional history exists Influenza Vaccine (Season Ended) 2025 08/18/2022, 08/17/2021, 07/27/2020, Additional history exists Depression Screening 09/22/2025 09/22/2024, 04/30/2023, 09/16/2021, Additional history exists Albumin Creatinine Ratio, Urine 12/23/2025 12/23/2024, 06/06/2024, 01/10/2023, Additional history exists Foot Exam 12/23/2025 12/23/2024, 05/13, 04/30/2023, Additional history exists Lipid Panel 12/23/2025 12/23/2024, 05/13, 03/13/2024, Additional history exists eGFR 12/23/2025 12/23/2024, 05/13, 01/10/2023, Additional history exists Hepatitis C Screening Completed 06/16/2019 Pneumococcal vaccine 65+ Completed 020, 10/21/2018, 10/09/2017 Zoster Vaccine Completed 05/28/2023, 11/22/2022 Medical Devices Implanted Type Area Surgical Garment Assembler Device Identifier Shelf Expiration Date Model / Serial / Lot [employer]iva [employer] Inc [id number] Vascade 6/7fr Bioabsorbable Vascular System Compression Collagen - Sn/A - [id number] Implanted:Qty: 1 on 11/16/2021 by Sang Morin MD at [facility] Other - see comments Left: Other - see comments [employer] 700-580 I-05U / N/A / [id number] Description:Left Groin: Vasc colten vascular closure system Choe V[employer] Device Clsr Perclose Prostyle Sut-Mediatd Closure-Repair Sys 17004-74 - S0 - [id number] Implanted:Qty: 1 on 04/26/2022 by Aakash Williamson MD at [facility] Other - see comments Left: Femoral [employer] 03/11/2024 68692-5 Choe V[employer] Device Clsr Perclose Prostyle Sut-Mediatd Closure-Repair Sys 73320-15 - S0 - [id number] Implanted:Qty: 1 on 04/26/2022 by Aakash Williamson MD at [facility] Other - see comments Left: Femoral [employer] 03/11/2024 85055-6 [employer] Inc Vascade 6/7fr Bioabsorbable Vascular System Compression Collagen [id number] - S0 - [id number] Implanted:Qty: 1 on 04/26/2022 by Aakash Williamson MD at [facility] Other - see comments Right: Femoral Vein [employer] Inc 02/16/2024 700-580 I-05U / 0 / [id number] [employer] Valve Heart 23mm Nile 3 Transcatheter [id number] - [id number] - [id number] Implanted:Qty: 1 on 04/26/2022 by Aakash Williamson MD at [facility] Prosthetic Valve N/A: Aortic Valve [employer] 10/20/2024 [id number] / [id number] / Medtronic Inc Everflex Entrust 6mm 60mm 120cm Self Expand Triaxial Low Profile - Sn/A - [id number] Implanted:Qty: 1 on 11/16/2021 by Sang Morin MD at [facility] Stent Right: Leg Med[employer]onic Inc 09/18/2024 [id number] 6-060-1 20 / N/A / [id number] Description:Right popliteal artery Med[employer]onic Inc Protege Everflex 5mm .079in 20mm 120cm Otw Radiopaque Delivery - Snone - [id number] Implanted:Qty: 1 on 06/14/2022 by Sang Morin MD at [facility] Stent Right: Femoral [employer] Inc 12/31/2022 PRB35-0 5-020-1 20 / NONE / [id number] Terumo [employer] Jaime Angio-Seal Vip 6fr Closere Device [id number] - Snone - [id number] Implanted:Qty: 1 on 06/14/2022 by Sang Morin MD at [facility] Vascular Closure Device Left: Femoral [employer] Jaime 04/11/2023 [id number] / NONE / [id number] [employer]iva [employer] Inc Vascade 6/7fr Bioabsorbable Vascular System Compression Collagen [id number] - S0 - [id number] Implanted:Qty: 1 on 04/14/2022 by Italo Galindo MD at [facility] [employer] 02/23/2024 700-580 I-05U / 0 / [id number] Bard Peripheral Vascular Lifestent Proseries Crosser Lutonix 5mm 5fr 100mm 135cm Low [id number] - [id number] Implanted:Qty: 1 on 02/27/2024 by Sang Morin MD at [facility] Left: Groin Bard Peripheral Vascular [id number] 08/03/2026 [id number] / / [id number] Archy Angio-Seal Vip 6fr Closere Device [id number] - Sna - [id number] Implanted:Qty: 1 on 02/27/2024 by Sang Morin MD at [facility] Archy 10/15/2024 [id number] / NA / [id number] Procedures Procedure Name Priority Date/Time Associated Diagnosis Comments TRANSTHORACIC ECHO (TTE) COMPLETE W DOPPLER/CF W CONTRAST Routine 02/17/2025 10:39 AM CDT Chronic hypoxemic respiratory failure (HCC) Lower extremity edema PRO B-TYPE NATRIURETIC PEPTIDE Routine 2025 11:35 AM CDT Chronic hypoxemic respiratory failure (HCC) Lower extremity edema PULMONARY FUNCTION TEST (PFT) Routine 01/26/2025 12:06 PM CDT ILD (interstitial lung disease) ([facility]) HEMOGLOBIN A1C Routine 12/23/2024 12:12 PM DIRECTOR OF SPEECH PATHOLOGY Type 2 diabetes mellitus with stage 3a chronic kidney disease, with long-term current use of insulin ([facility]) EGFR Routine 12/23/2024 12:11 PM DIRECTOR OF SPEECH PATHOLOGY Type 2 diabetes mellitus with stage 3a chronic kidney disease, with long-term current use of insulin ([facility]) ALBUMIN CREATININE RATIO, URINE Routine 12/23/2024 12:11 PM DIRECTOR OF SPEECH PATHOLOGY Type 2 diabetes mellitus with stage 3a chronic kidney disease, with long-term current use of insulin ([facility]) BASIC METABOLIC PANEL Routine 12/23/2024 12:11 PM DIRECTOR OF SPEECH PATHOLOGY Type 2 diabetes mellitus with stage 3a chronic kidney disease, with long-term current use of insulin (HCC) THYROID FUNCTION CASCADE Routine 12/23/2024 12:11 PM DIRECTOR OF SPEECH PATHOLOGY Type 2 diabetes mellitus with stage 3a chronic kidney disease, with long-term current use of insulin (HCC) LIPID PANEL Routine 12/23/2024 12:11 PM DIRECTOR OF SPEECH PATHOLOGY Type 2 diabetes mellitus with stage 3a [...] AM CDT Narrative 02/17/2025 6:55 PM CDT [place] [address] [place] [address] ECHOCARDIOGRAM Patient Name: MAICOL WISE : 1955 (70y ) Gender: F Study Date: 02/17/2025 09:01:57 AM Ht(Inch): 63 Wt(Lb): 233.91 BSA: 2.17 Counter Top Assembler: ENRIKE Location: opt Order Provider: BAR MARQUEZ [...] Procedure Note Ajay Mccabe MD - 02/17/2025 [address] [address] [place] [address] ECHOCARDIOGRAM Patient Name: MAICOL WISE : 1955 (70y ) Gender: F Study Date: 02/17/2025 09:01:57 AM Ht(Inch): 63 Wt(Lb): 233.91 BSA: 2.17 Counter Top Assembler: ENRIKE Location: opt Order Provider: BAR MARQUEZ [...] not well visualized. Electronically Signed By: Ajay Mccabe MD mobap 02/17/2025 6:55:22 PM CDT us Bar Marquez MD CV ECHO PROCEDURES Fin [...] 5 AM CDT 2025 2:47 PM CDT us Bar Marquez MD LAB BLOOD ORDERABLES F inal Result [facility] [address] Department [place] [address] * Pulmonary Function Test - (01/26/2025 12:06 PM CDT) Anatomical Region Laterality Modality PFT 01/26/2025 11:3 4 AM CDT Narrative 02/17/2025 8:26 PM CDT Table formatting from the original result was not included. [facility] BOARD CERTIFIED IN PULMONARY, CRITICAL CARE, AND SLEEP MEDICINE MD Addi Rivera MD [facility] [facility] [address] [place] [address] Gregorio Wayne MD Office [phone] Zelalem Rueda MD PULMONARY FUNCTION TESTING Spirometry [...] Marquez MD Pulmonary and Critical Care Medicine [phone] Bra Marquez MD PFT ORDERABLES Final Result * (ABNORMAL) Hemoglobin A1c (12/23/2024 12:12 PM DIRECTOR OF SPEECH PATHOLOGY) [facility] Hgb A1C 8.6(H) 4.0 - 5.6 % Estimated Average Glucose 200 mg/dL [facility] Comment: The ADA recommends reporting an estimated Average Glucose (eAG) with all Hemoglobin A1c results using the equation derived from a study of 507 normal and diabetic adults. Minority populations were underrepresented and children were not included. (Diabetes Care 31:6200-0026, 2008). The eAG is not equivalent to a fasting glucose. Blood 12/23/2024 12:1 2 PM DIRECTOR OF SPEECH PATHOLOGY 12/23/2024 4:26 PM DIRECTOR OF SPEECH PATHOLOGY Henry Duffy NP LAB BLOOD ORDERABLES Final Result Performing Organization Address [facility] Co de Phone Number [facility] [address] [employer] [place], [place] [id number] * (ABNORMAL) eGFR (12/23/2024 12:11 PM DIRECTOR OF SPEECH PATHOLOGY) eGFR 49(L) >=60 mL/min/1. 73 m2 Comment: [...] reviewed 2021. Blood 12/23/2024 12:1 1 PM DIRECTOR OF SPEECH PATHOLOGY 12/23/2024 4:25 PM DIRECTOR OF SPEECH PATHOLOGY Henry Duffy NP LAB BLOOD ORDERABLES Final Result Performing Organization Address [facility]/ZIP Co de Phone Number [facility] [address] Department [employer] [place], [place] [id number] * Thyroid Function Howard (12/23/2024 12:11 PM DIRECTOR OF SPEECH PATHOLOGY) TSH 1.27 0.30 - 4.20 mcIUnit/mL Blood 12/23/2024 12:1 1 PM DIRECTOR OF SPEECH PATHOLOGY 12/23/2024 4:25 PM DIRECTOR OF SPEECH PATHOLOGY Henry Duffy CASEWORK SUPERVISOR LAB BLOOD ORDERABLES Final Result Performing Organization Address [facility] Co de Phone Number [facility] [address] [place] [address] * Albumin Creatinine Ratio, Urine (12/23/2024 12:11 PM DIRECTOR OF SPEECH PATHOLOGY) Albumin Ur <12.0 mg/L Comment: Interpretive Data No reference range established. Current interpretive data was last revised 2019. Creatinine Ur 46.5 mg/dL [facility] Comment: Interpretive Data No reference range established. Current interpretive data was last revised 2019. Albumin Creatinine Ratio, Ur <26 1 - 29 mg/g [facility] Urine 12/23/2024 12:1 1 PM DIRECTOR OF SPEECH PATHOLOGY 12/23/2024 12:14 PM DIRECTOR OF SPEECH PATHOLOGY Henry Duffy NP LAB URINE ORDERABLES Final Result Performing Organization Address [facility] Co de Phone Number [facility] [address] [facility] [place] [address] * (ABNORMAL) Lipid panel (12/23/2024 12:11 PM DIRECTOR OF SPEECH PATHOLOGY) Cholesterol 154 30 - 199 mg/dL Comment: [...] revised on 2018. Triglycerides 161(H) <=149 mg/dL [facility] Comment: Interpretive Data Ages < or = [...] revised on 2018. HDL 67 >=40 mg/dL [facility] Comment: Interpretive Data Ages < or = [...] on 2018. LDL, calculated 60 <=129 mg/dL [facility] Comment: Interpretive Data Ages < or = [...] revised on 2024. Non-HDL Cholesterol 87 mg/dL [facility] Comment: Interpretive Data Ages < or = [...] last revised on 2018. Chol/HDL ratio 2 [facility] Blood 12/23/2024 12:1 1 PM DIRECTOR OF SPEECH PATHOLOGY 12/23/2024 4:25 PM DIRECTOR OF SPEECH PATHOLOGY us Henry Duffy NP LAB BLOOD ORDERABLES Final Result [facility] [address] Department [place] [address] * (ABNORMAL) Basic metabolic panel (12/23/2024 12:11 PM DIRECTOR OF SPEECH PATHOLOGY) Sodium 144 135 - 145 mmol/L Potassium, pl 4.6 3.3 - 4.9 mmol/L [facility] Chloride 100 97 - 110 mmol/L [facility] CO2 28 22 - 32 mmol/L [facility] Anion gap 16(H) 2 - 15 mmol/L [facility] BUN 23 6 - 25 mg/dL [facility] Creatinine 1.18(H) 0.60 - 1.10 mg/dL [facility] Glucose 159 70 - 199 mg/dL [facility] Comment: Interpretive Data Fasting glucose >/= 126 [...] 2022. Calcium 10.2 8.5 - 10.3 mg/dL [facility] Blood 12/23/2024 12:1 1 PM DIRECTOR OF SPEECH PATHOLOGY 12/23/2024 4:25 PM DIRECTOR OF SPEECH PATHOLOGY Henry Duffy NP LAB BLOOD ORDERABLES Final Result Performing Organization Address [facility] de Phone Number [facility] [address] Department [place] [address] * (ABNORMAL) Diabetic Eye Exam (01/08/2024) us Historical Provider HEALTH MAINTENANCE Final Result * Hepatitis panel, acute (06/16/2019 8:10 AM CDT) Hep A IgM Non-Reactive Non-Reactive [facility] Hep B core IgM Non-Reactive Non-Reactive [facility] Hep C Ab Non-Reactive Non-Reactive [facility] HepBsAg Nonreactive Nonreactive [facility] Blood specimen (specimen) 06/16/2019 8:10 AM CDT 06/16/2019 9:01 AM CDT Lola Mendoza MD LAB MICROBIOLOGY - GENE RAL ORDERABLES Final Result Performing Organization Address [facility] de Phone Number [facility] [address] Department [place] [place] [address] from Last 3 Months or Most Recently Relevant to Health Maintenance Insurance MEDICARE [employer] [facility] MEDICARE [facility] MEDICARE Advance Directives For more information, please contact: [phone] Documents on File Type Date Recorded Patient Unit Aide Expl anation Power of Recording Studio Internship 06/14/2022 12:56 PM * Full Code (Latest [...] 5:26 PM 11/17/2021 3:57 PM Care Teams Hand Bender Relationship Specialty Start Date End [place] [address] PCP - General Family Practice 04/23/18 [place] [address] Consulting Physician Cardiology 05/06/18 Lola Mendoza MD [address] [place] [address] Consulting Physician Nephrology 10/18/20 Ajay Sears MD [facility] [place] [address] Surgeon Neurosurgery 04/18/21 Sang Morin MD [facility] [place] [address] Surgeon Vascular Surgery 11/17/21
--- OUTSIDE RECORDS SUMMARY | 2025-03-02 10:35 | XMS_ITS | Encounter Summary ---
Author Organization [facility] Healthcare Address [address] [place] [address] Care Team Providers Care Lending Manager Name Role Phone Jermaine Ingram MD Primary Care Provider [phone]- [phone] Ajay Mccabe MD Unavailable Lola Mendoza MD Unavailable Ajay Sears MD Unavailable Sang Morin MD Unavailable [phone] Encounter Details Date Type Department Care Team (Late Contact Info) Description 08/12/2024 Telephone [facility] [address] [facility] [address] [place] [address] Bar Amor MD [address] [facility] [address] [place] [address] Social History Tobacco Use Types [...] on file Legal Sex Female 12:41 AM RECYCLING CREW SUPERVISOR Gender Identity Not on file Sexual Orientation Not on file documented as of this encounter Plan of Treatment Not on file documented as of this encounter Visit Diagnoses Not on filedocumented in this encounter Care Teams Lending Manager Relationship Specialty Start Date End Date Jermaine Ingram MD [address] [place] [address] PCP - General Family Practice 04/23/18 [facility] [place] [address] Consulting Physician Cardiology 05/06/18 [place] [address] Consulting Physician Nephrology 10/18/20 [place] [address] Surgeon Neurosurgery 04/18/21 [place] [address] Surgeon Vascular Surgery 11/17/21 documented as of this encounter
--- OUTSIDE RECORDS SUMMARY | 2025-03-02 10:35 | XMS_ITS | Encounter Summary ---
Author Organization [facility] Address [address] [facility] [place] [address] Phone Care Team Providers Care Hotel Casino Floorperson Name Role Phone Jermaine Ingram MD Primary Care Provider [phone] Reason for Visit * Reason Comments Medication Refill Encounter Details Date Type Department Care Team (Late st Contact Info) Description 07/31/2021 [facility]ill [facility] [phone] Ino Brown MD [address]2 [place] [address] Medication Refill Social History Tobacco Use Types Packs/Day Years Used Date Smoking Tobacco: Former Cigarettes Q uit: 11/12/2000 Smokeless Tobacco: Never Alcohol Use Standard Drinks/Week Comments Not Currently 0 (1 standard drink = 0.6 oz pur e alcohol) Comments Unknown Sex and Gender Information Value Date Recorded Sex Assigned at Not on file Legal Sex Female 10:39 AM LABORER FILTER PLANT Gender Identity Not on file Sexual Orientation Not on file documented as of this encounter Plan of Treatment Not on file documented as of this encounter Visit Diagnoses Not on filedocumented in this encounter Care Teams Hotel Casino Floorperson Relationship Specialty Start Date End Date Jermaine Ingram MD [address] [address] PCP - General Family Medicine 09/30/18 documented as of this encounter
--- OUTSIDE RECORDS SUMMARY | 2025-03-02 10:35 | XMS_ITS | Encounter Summary ---
Author Organization [facility] Address [address] [facility] [place] [address] Phone Care Team Providers Care Senior Clinical Data Analyst Name Role Phone Jermaine Ingram MD Primary Care Provider Reason for Visit * Reason Comments Medication Refill Encounter Details Date Type Department Care Team (Late st Contact Info) Description 02/24/2022 Refill [facility] [address] Ino Brown MD [address]2 [place] [phone] Medication Refill Social History Tobacco Use Types Packs/Day Years Used Date Smoking Tobacco: Former Cigarettes Q uit: 11/12/2000 Smokeless Tobacco: Never Alcohol Use Standard Drinks/Week Comments Not Currently 0 (1 standard drink = 0.6 oz pur e alcohol) Comments Unknown Sex and Gender Information Value Date Recorded Sex Assigned at Not on file Legal Sex Female 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
--- OUTSIDE RECORDS SUMMARY | 2025-03-02 10:35 | XMS_ITS | Encounter Summary ---
Author Organization [facility] Address [address] [facility] [place] [address] Phone Care Team Providers Care Aquatic Life Laborer Name Role Phone Jermaine Ingram MD Primary Care Provider [phone]- [phone] Reason for Visit * Reason Comments Medication Refill Encounter Details Date Type Department Care Team (Late st Contact Info) Description 05/08/2021 [facility]ill [facility] [place] [address] [place] [address] Ino Brown MD [address] [place] [phone] Medication Refill Social History Tobacco Use Types Packs/Day Years Used Date Smoking Tobacco: Former Cigarettes Q uit: 11/12/2000 Smokeless Tobacco: Never Alcohol Use Standard Drinks/Week Comments Not Currently 0 (1 standard drink = 0.6 oz pur e alcohol) Comments Unknown Sex and Gender Information Value Date Recorded Sex Assigned at Not on file Legal Sex Female 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
--- OUTSIDE RECORDS SUMMARY | 2025-03-02 10:35 | XMS_ITS | Encounter Summary ---
Author Organization [facility] Address [address] [facility] [place] [address] Phone Care Team Providers Care Instrument Tester Name Role Phone Jermaine Ingram MD Primary Care Provider Reason for Visit * Reason Comments Medication Refill Encounter Details Date Type Department Care Team (Late st Contact Info) Description 01/29/2022 Refill [facility] [address] Ino Brown MD [address] [place] [phone] Medication Refill Social History Tobacco Use Types Packs/Day Years Used Date Smoking Tobacco: Former Cigarettes Q uit: 11/12/2000 Smokeless Tobacco: Never Alcohol Use Standard Drinks/Week Comments Not Currently 0 (1 standard drink = 0.6 oz pur e alcohol) Comments Unknown Sex and Gender Information Value Date Recorded Sex Assigned at Not on file Legal Sex Female 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 [place] [address] PCP - General Family Medicine 09/30/18 documented as of this encounter
--- OUTSIDE RECORDS SUMMARY | 2025-03-02 10:35 | XMS_ITS | Encounter Summary ---
Author Organization [facility] Healthcare Address [address] [place] [address] Care Team Providers Care Horticultural Worker Name Role Phone Jermaine Ingram MD Primary Care Provider [phone]- [phone] Ajay Mccabe MD Unavailable Lola Mendoza MD Unavailable Ajay Sears MD Unavailable Sang Morin MD Unavailable [phone] Encounter Details Date Type Department Care Team (Late Contact Info) Description 2025 Results Follow-Up [facility] [address] 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 SPECIALIST Gender Identity Not on file Sexual Orientation Not on file documented as of this encounter Plan of Treatment Not on file documented as of this encounter Visit Diagnoses Not on filedocumented in this encounter Care Teams Horticultural Worker Relationship Specialty Start Date End Date Jermaine Ingram MD [facility] [place] [id number] PCP - General Family Practice 04/23/18 Ajay Mccabe [facility] [place] [address] Consulting Physician Cardiology 05/06/18 Lola Mendoza MD [facility] [place] [id number] Consulting Physician Nephrology 10/18/20 Ajay Sears [facility] [place] [address] Surgeon Neurosurgery 04/18/21 Sang Morin [facility] [place] [address] Surgeon Vascular Surgery 11/17/21 documented as of this encounter
--- OUTSIDE RECORDS SUMMARY | 2025-03-02 10:35 | XMS_ITS | Encounter Summary ---
Author Organization [facility] Health Address [address] [place] [address] Care Team Providers Care Intake Clinician Name Role Phone Zelalem Monahan MD Unavailable Encounter Details Date Type Department Care Team (Late st Contact Info) Description 12/30/2013 [facility] [address] [facility] [employer] [address] [place] [address] Social History Tobacco Use Types Packs/Day Years Used Date Smoking Tobacco: Former Cigarettes Q uit: 11/12/2000 Smokeless Tobacco: Never Alcohol Use Standard Drinks/Week Comments Not Asked 0 (1 standard drink = 0.6 oz pur e alcohol) Comments No Sex and Gender Information Value Date Recorded Sex Assigned at Not on file Legal Sex Female 6:06 AM RESIDENTIAL 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
[2025-03-02 10:55] LABS: NT Pro B Type Natriuretic Pept 143 pg/mL (0-125)
--- OUTSIDE RECORDS SUMMARY | 2025-03-02 11:07 | XMS_ITS | Encounter Summary ---
Author Organization [facility] Healthcare Address [address] [place] [address] Care Team Providers Care Ladies Attendant Name Role Phone Jermaine Ingram MD Primary Care Provider +- [phone] Ajay Mccabe MD Unavailable [phone] Lola Mendoza MD Unavailable [phone] Ajay Sears MD Unavailable [phone] Sang Morin MD Unavailable [phone] Encounter Details Date Type Department Care Team (Late st Contact Info) Description 05/12/2021 Telephone [facility] [address] [place] [address] Transcribed Order, Provider Social History [...] on file Legal Sex Female 12:41 AM COMMAND AND 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 SPECIALIST Gender Identity Not on file Sexual Orientation Not on file documented as of this encounter Plan of Treatment Not on file documented as of this encounter Visit Diagnoses Not on filedocumented in this encounter Care Teams Ladies Attendant Relationship Specialty Start Date End Date Jermaine Ingram MD [address] [place] [address] PCP - General Family Practice 04/23/18 Ajay Mccabe MD [address] [place] [address] Consulting Physician Cardiology 05/06/18 Lola Mendoza MD [facility] [place] [address] Consulting Physician Nephrology 10/18/20 Ajay Sears MD [facility] [place] [address] Surgeon Neurosurgery 04/18/21 Sang Morin MD [facility] [place] [address] Surgeon Vascular Surgery 11/17/21 documented as of this encounter
--- OUTSIDE RECORDS SUMMARY | 2025-03-02 11:07 | XMS_ITS | Encounter Summary ---
Author Organization [facility] Address [address] [facility] [place] [address] Phone Care Team Providers Care Refractory Grinder Operator Name Role Phone Jermaine Ingram MD Primary Care Provider Reason for Visit * Reason Comments Medication Refill Encounter Details Date Type Department Care Team (Late st Contact Info) Description 07/31/2021 Refill [facility] [phone] Ino Brown MD #2 [place] [address] Medication Refill Social History Tobacco Use Types Packs/Day Years Used Date Smoking Tobacco: Former Cigarettes Q uit: 11/12/2000 Smokeless Tobacco: Never Alcohol Use Standard Drinks/Week Comments Not Currently 0 (1 standard drink = 0.6 oz pur e alcohol) Comments Unknown Sex and Gender Information Value Date Recorded Sex Assigned at Not on file Legal Sex Female 10:39 AM RN EMERGENCY Gender Identity Not on file Sexual Orientation Not on file documented as of this encounter Plan of Treatment Not on file documented as of this encounter Visit Diagnoses Not on filedocumented in this encounter Care Teams Refractory Grinder Operator Relationship Specialty Start Date End Date Jermaine Ingram MD [address] [place] [address] PCP - General Family Medicine 09/30/18 documented as of this encounter
--- OUTSIDE RECORDS SUMMARY | 2025-03-02 11:07 | XMS_ITS | Encounter Summary ---
Author Organization [facility] Address [address] [facility] [place] [address] Phone Care Team Providers Care Handle Maker Name Role Phone Jermaine Ingram MD Primary Care Provider Reason for Visit * Reason Comments Medication Refill Encounter Details Date Type Department Care Team (Late st Contact Info) Description 04/04/2022 Refill [facility] [phone] Ino Brown MD [address]2 [place] [phone] Medication Refill Social History Tobacco Use Types Packs/Day Years Used Date Smoking Tobacco: Former Cigarettes Q uit: 11/12/2000 Smokeless Tobacco: Never Alcohol Use Standard Drinks/Week Comments Not Currently 0 (1 standard drink = 0.6 oz pur e alcohol) Comments Unknown Sex and Gender Information Value Date Recorded Sex Assigned at Not on file Legal Sex Female 10:39 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
--- OUTSIDE RECORDS SUMMARY | 2025-03-02 11:07 | XMS_ITS | Encounter Summary ---
Author Organization [facility] Address [address] [facility] [place] [address] Phone Care Team Providers Care Import Clerk Name Role Phone Jermaine Ingram MD Primary Care Provider [phone] Reason for Visit * Reason Comments Medication Refill Encounter Details Date Type Department Care Team (Late st Contact Info) Description 06/02/2020 Refill [facility] [address]1 [place] [phone] Ino Brown MD #[address] [place] [address] Medication Refill Social History Tobacco Use Types Packs/Day Years Used Date Smoking Tobacco: Former Cigarettes Q uit: 11/12/2000 Smokeless Tobacco: Never Alcohol Use Standard Drinks/Week Comments Not Currently 0 (1 standard drink = 0.6 oz pur e alcohol) Comments Unknown Sex and Gender Information Value Date Recorded Sex Assigned at Not on file Legal Sex Female 10: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
--- OUTSIDE RECORDS SUMMARY | 2025-03-02 11:07 | XMS_ITS | Encounter Summary ---
Author Organization [facility] Healthcare Address [address] [place] [address] Care Team Providers Care Fish Fryer Name Role Phone Jermaine Ingram MD Primary Care Provider [phone] Ajay Mccabe MD Unavailable Lola Mendoza MD Unavailable Ajay Sears MD Unavailable Sang Morin MD Unavailable [phone] Encounter Details Date Type Department Care Team (Late Contact Info) Description 02/18/2025 Results Follow-Up [facility] [address] [facility] [address] [place] [address] Bar Amor MD [address] [facility] [address] [place] [address] Social History Tobacco Use Types [...] on file Legal Sex Female 12:41 AM SERGEANT OF CORRECTIONS Gender Identity Not on file Sexual Orientation Not on file documented as of this encounter Plan of Treatment Not on file documented as of this encounter Visit Diagnoses Not on filedocumented in this encounter Care Teams Fish Fryer Relationship Specialty Start Date End Date Jermaine Ingram MD [facility] [place] [id number] PCP - General Family Practice 04/23/18 Ajay Mccabe MD [facility] [place] [address] Consulting Physician Cardiology 05/06/18 Lola Mendoza MD [facility] [place] [id number] Consulting Physician Nephrology 10/18/20 Ajay Sears MD [facility] [place] [address] Surgeon Neurosurgery 04/18/21 Sang Morin MD [facility] [place] [address] Surgeon Vascular Surgery 11/17/21 documented as of this encounter
--- OUTSIDE RECORDS SUMMARY | 2025-03-02 11:07 | XMS_ITS | Encounter Summary ---
Author Organization [facility] Health Address [address] [place] [address] Care Team Providers Care Order Entry Administrator Name Role Phone Zelalem Monahan MD Unavailable [phone] Encounter Details Date Type Department Care Team (Late st Contact Info) Description 12/30/2013 [facility] [address] [facility] [address] [address] [place] [address] Social History Tobacco Use Types Packs/Day Years Used Date Smoking Tobacco: Former Cigarettes Q uit: 11/12/2000 Smokeless Tobacco: Never Alcohol Use Standard Drinks/Week Comments Not Asked 0 (1 standard drink = 0.6 oz pur e alcohol) Comments No Sex and Gender Information Value Date Recorded Sex Assigned at Not on file Legal Sex Female 6:06 AM MAC OPERATOR Gender Identity Not on file Sexual Orientation Not on file documented as of this encounter Plan of Treatment Not on file documented as of this encounter Visit Diagnoses Not on filedocumented in this encounter Care Teams Order Entry Administrator Relationship Specialty [place] [address] [facility] [address] [place] [address] Vascular Surgery 01/12/14 documented as of this encounter
--- OUTSIDE RECORDS SUMMARY | 2025-03-02 11:07 | XMS_ITS | Encounter Summary ---
Author Organization [facility] Health Address [address] [place] [address] Care Team Providers Care Insurance Investigator Name Role Phone Zelalem Monahan MD Unavailable [phone] Encounter Details Date Type Department Care Team (Late st Contact Info) Description 03/02/2015 [facility] [place] [address] [facility] [employer] [address] [place] [address] Social History Tobacco Use Types Packs/Day Years Used Date Smoking Tobacco: Former Cigarettes 2 10 0 11/12/1990 - 11/12/2000 Smokeless Tobacco: Never Alcohol Use Standard Drinks/Week Comments No 0 (1 standard drink = 0.6 oz pur e alcohol) Comments No Sex and Gender Information Value Date Recorded Sex Assigned at Not on file Legal Sex Female 6:06 AM STATOR TESTER Gender Identity Not on file Sexual Orientation Not on file documented as of this encounter Plan of Treatment Not on file documented as of this encounter Visit Diagnoses Not on filedocumented in this encounter Care Teams Insurance Investigator Relationship Specialty [place] [address] [facility] [employer] [address] [place] [address] Vascular Surgery 01/12/14 documented as of this encounter
--- OUTSIDE RECORDS SUMMARY | 2025-03-02 11:07 | XMS_ITS | Encounter Summary ---
Author Organization [facility] Healthcare Address [address] [place] [address] Care Team Providers Care Finish Carpenter Name Role Phone Jermaine Ingram MD Primary Care Provider [phone] Ajay Mccabe MD Unavailable Lola Mendoza MD Unavailable Ajay Sears MD Unavailable Sang Morin MD Unavailable [phone] Encounter Details Date Type Department Care Team (Late Contact Info) Description 2025 Results Follow-Up [facility] [address] [facility] [address] [place] [address] Bar Amor MD [address] 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 Gender Identity Not on file Sexual Orientation Not on file documented as of this encounter Plan of Treatment Not on file documented as of this encounter Visit Diagnoses Not on filedocumented in this encounter Care Teams Finish Carpenter Relationship Specialty Start Date End Date Jermaine Ingram MD [facility] [place] [place] [id number] PCP - General Family Practice 04/23/18 Ajay Mccabe MD [facility] [place] [address] Consulting Physician Cardiology 05/06/18 Lola Mendoza MD [facility] [place] [id number] Consulting Physician Nephrology 10/18/20 Ajay Sears MD [facility] [place] [address] Surgeon Neurosurgery 04/18/21 Sang Morin MD [facility] [place] [address] Surgeon Vascular Surgery 11/17/21 documented as of this encounter
--- OUTSIDE RECORDS SUMMARY | 2025-03-02 11:07 | XMS_ITS | Encounter Summary ---
Author Organization [facility] Address [address] [facility] [place] [address] Phone Care Team Providers Care Continuous Process Tanner Rotary Drum Name Role Phone Jermaine Ingram MD Primary Care Provider [phone] Reason for Visit * Reason Comments Medication Refill Encounter Details Date Type Department Care Team (Late st Contact Info) Description 05/08/2021 Refill [facility] - [place] #1 [place] [address] Ino Brown MD #2 [place] [address] Medication Refill Social History Tobacco Use Types Packs/Day Years Used Date Smoking Tobacco: Former Cigarettes Q uit: 11/12/2000 Smokeless Tobacco: Never Alcohol Use Standard Drinks/Week Comments Not Currently 0 (1 standard drink = 0.6 oz pur e alcohol) Comments Unknown Sex and Gender Information Value Date Recorded Sex Assigned at Not on file Legal Sex Female 10:39 AM LEVEL VIAL GRINDER Gender Identity Not on file Sexual Orientation Not on file documented as of this encounter Plan of Treatment Not on file documented as of this encounter Visit Diagnoses Not on filedocumented in this encounter Care Teams Continuous Process Tanner Rotary Drum Relationship Specialty Start Date End Date Jermaine Ingram MD [address] [place] [address] PCP - General Family Medicine 09/30/18 documented as of this encounter
--- OUTSIDE RECORDS SUMMARY | 2025-03-02 11:07 | XMS_ITS | Encounter Summary ---
Author Organization [facility] Address [address] [facility] [address] Phone Care Team Providers Care Buttonhole Maker Name Role Phone Jermaine Ingram MD Primary Care Provider Reason for Visit * Reason Comments Medication Refill Encounter Details Date Type Department Care Team (Late st Contact Info) Description 01/04/2022 Refill [facility] [phone] Ino Brown MD [address]2 [place] [phone] Medication Refill Social History Tobacco Use Types Packs/Day Years Used Date Smoking Tobacco: Former Cigarettes Q uit: 11/12/2000 Smokeless Tobacco: Never Alcohol Use Standard Drinks/Week Comments Not Currently 0 (1 standard drink = 0.6 oz pur e alcohol) Comments Unknown Sex and Gender Information Value Date Recorded Sex Assigned at Not on file Legal Sex Female 10:39 AM GARMENT STEAMER Gender Identity Not on file Sexual Orientation Not on file documented as of this encounter Plan of Treatment Not on file documented as of this encounter Visit Diagnoses Not on filedocumented in this encounter Care Teams Buttonhole Maker Relationship Specialty Start Date End Date Jermaine Ingram MD [address] [place] [place] [address] PCP - General Family Medicine 09/30/18 documented as of this encounter
--- OUTSIDE RECORDS SUMMARY | 2025-03-02 11:07 | XMS_ITS | Encounter Summary ---
Author Organization [facility] Address [address] [place] [address] Phone Care Team Providers Care Beet End Supervisor Name Role Phone Jermaine Ingram MD Primary Care Provider Reason for Visit * Reason Comments Medication Refill Encounter Details Date Type Department Care Team (Late st Contact Info) Description 08/23/2021 Refill [facility] [phone] Ino Brown MD [address]2 [place] [phone] Medication Refill Social History Tobacco Use Types Packs/Day Years Used Date Smoking Tobacco: Former Cigarettes Q uit: 11/12/2000 Smokeless Tobacco: Never Alcohol Use Standard Drinks/Week Comments Not Currently 0 (1 standard drink = 0.6 oz pur e alcohol) Comments Unknown Sex and Gender Information Value Date Recorded Sex Assigned at Not on file Legal Sex Female 10:39 AM GAS TENDER Gender Identity Not on file Sexual Orientation Not on file documented as of this encounter Miscellaneous Notes * Telephone Encounter - Lizzie Tamayo RN - 08/24/2021 2:06 PM CDT Attempted to call patient, no response documented in this encounter Plan of Treatment Not on file documented as of this encounter Visit Diagnoses Not on filedocumented in this encounter Care Teams Beet End Supervisor Relationship Specialty Start Date End Date Jermaine Ingram MD [address] [place] [address] PCP - General Family Medicine 09/30/18 documented as of this encounter
--- OUTSIDE RECORDS SUMMARY | 2025-03-02 11:07 | XMS_ITS | Clinical Summary ---
Author Organization [facility] Address [address] [place] [address] Care Team Providers Care Fagot Maker Name Role Phone Jermaine Ingram MD [...] associated wi th type 2 diabetes mellitus ([facility]) 05/06/2018 Overview (02/17/2022): Last Assessment & Plan: Lab Results Component Value Date LDLCALC 51 07/15/2018 At goal. Continue rosuvastatin. Low cholesterol/low-fat diet Type 2 diabetes mellitus wit h stage 3 chronic kidney disease ([facility]) 05/06/2018 Overview (02/17/2022): Last Assessment & [...] below 80. 6. Consistent carbs diet. 7. RN ANGIOGRAPHY follow-up in 3 months. Follow-up with me in 6 months. -annual dilated eye exam Potential side effects of Trulicity include nausea, vomiting and acute pancreatitis. Advised to stop Trulicity and call if having persistent nausea and vomiting. Encounters Date Type Department Care Team Description 12/09/2024 3:13 PM AUDIOMETRIST - 12/09/2024 11:59 PM AUDIOMETRIST Hospital Encounter [facility] [address] [place] [address] Ter Pitts PA Discharge Disposition: Home or Self Care (Routine Discharge) 12/09/2024 3:11 PM AUDIOMETRIST - 12/09/2024 3:12 PM AUDIOMETRIST Hospital Encounter [facility] [address] [place] [address] Tre Pitts PA Discharge Disposition: Home or Self Care (Routine Discharge) 12/09/2024 Orders Only [facility] [address] [place] [address] Tre Pitts PA 12/09/2024 Travel from Last [...] Sex Assigned at Female 12/09/2024 3:10 PM AUDIOMETRIST Legal Sex Female 3:43 PM AUDIOMETRIST Gender Identity Not on file Sexual Orientation [...] XR CHEST PA+LAT STAT 12/09/2024 3:43 PM AUDIOMETRIST Cough CORONAVIRUS (COVID-19) ANTIGEN STAT 12/09/2024 3:21 PM AUDIOMETRIST Cough RESP SYNCYTIAL VIRUS STAT 12/09/2024 3:21 PM AUDIOMETRIST Cough INFLUENZA A & B STAT 12/09/2024 3:21 PM AUDIOMETRIST Cough from Last 3 Months Results * XR CHEST PA+LAT (12/09/2024 3:43 PM AUDIOMETRIST) Anatomical Region Laterality Modality Chest Radiographic Darcy ging 12/09/2024 3:39 PM AUDIOMETRIST Impressions 12/09/2024 3:42 PM AUDIOMETRIST IMPRESSION: 1. No acute cardiopulmonary process identified. 2. Stable borderline cardiac size. Ordered By: TRE PITTS Interpreted By: Malik Balderrama MD, 12/09/2024 3:39 PM Narrative 12/09/2024 3:42 PM AUDIOMETRIST [address] [place] [address] Examination: Two-view chest Exam time: 1516 hours. [...] Procedure Note Malik Balderrama MD - 12/09/[address] [place] [address] Examination: Two-view chest Exam time: 1516 hours. [...] * CORONAVIRUS (COVID-19) ANTIGEN (12/09/2024 3:21 PM AUDIOMETRIST) CORONAVIRUS ANTIGEN IA NEGATIVE NEGATIVE 12/09/2024 4:14 PM AUDIOMETRIST [facility] Comment: NEGATIVE RESULTS DO NOT RULE [...] LABORATORIES. SPECIMEN TYPE NASAL 12/09/2024 3:29 PM AUDIOMETRIST [facility] NASAL NASAL STRUCTURE / Unknown 12/09/2024 3:21 PM AUDIOMETRIST Tre [facility] - GENERAL ORD ERABLES Final Result [facility] [place] [address], * INFLUENZA A & B (12/09/2024 3:21 PM AUDIOMETRIST) SPECIMEN TYPE (INFLUENZA) NASOPHARYNGEAL SWAB 12/09/2024 3:29 PM AUDIOMETRIST [facility] INFLUENZA A NEGATIVE NEGATIVE 12/09/2024 4:15 PM AUDIOMETRIST [facility] INFLUENZA B NEGATIVE NEGATIVE 12/09/2024 4:15 PM AUDIOMETRIST [facility] Comment: A NEGATIVE RESULT DOES NOT EXCLUDE INFLUENZA VIRUS INFECTION. IF INFLUENZA IS CIRCULATING IN YOUR COMMUNITY, A DIAGNOSIS OF INFLUENZA SHOULD BE CONSIDERED BASED ON A PATIENT'S CLINICAL PRESENTATION AND EMPIRIC ANTIVIRAL TREATMENT SHOULD BE CONSIDERED IF INDICATED. NASOPHARYNGEAL SWAB / Unknown 12/09/2024 3:21 PM AUDIOMETRIST us Tre [facility] MICROBIOLOGY - GENERAL ORD ERABLES Final Result Performing Organization Address City/[facility]/ZIP Co de Phone Number [facility] [address] [place] [address], [place] [phone] * RESP SYNCYTIAL VIRUS (12/09/2024 3:21 PM AUDIOMETRIST) SPECIMEN TYPE NASOPHARYNGEAL SWAB 12/09/2024 3:29 PM AUDIOMETRIST [facility] RSV NEGATIVE NEGATIVE 12/09/2024 4:14 PM AUDIOMETRIST [facility] NASOPHARYNGEAL SWAB / Unknown 12/09/2024 3:21 PM AUDIOMETRIST Tre MILIAN MICROBIOLOGY - GENERAL ORD ERABLES Final Result Performing Organization Address [facility] de Phone Number [facility] [place] [address], [place] [phone] from Last 3 Months Insurance [employer] MEDICARE [facility] Care Teams Fagot Maker Relationship Specialty Start Date End Date Jermaine Ingram MD [address] [address] PCP - General FAMILY PRACTICE 05/31/19
--- OUTSIDE RECORDS SUMMARY | 2025-03-02 11:07 | XMS_ITS | Encounter Summary ---
Author Organization [facility] Address [address] [place] [address] Care Team Providers Care Hand Glass Cutter Name Role Phone Jermaine Ingram MD Primary Care Provider [phone] Ajay Mccabe MD Unavailable [phone] Lola Mendoza MD Unavailable [phone] Ajay Sears MD Unavailable [phone] Snag Morin MD Unavailable [phone] Encounter Details Date Type Department Care Team (Late st Contact Info) Description 06/10/2020 Telephone [facility] [address] [place] [address] Transcribed Order, Provider Social History [...] on file Legal Sex Female 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 Consulting Physician Nephrology 10/18/20 Ajay Sears MD [address] [place] [address] Surgeon Neurosurgery 04/18/21 Sang Morin MD [address] [place] [address] Surgeon Vascular Surgery 11/17/21 documented as of this encounter
--- OUTSIDE RECORDS SUMMARY | 2025-03-02 11:07 | XMS_ITS | Encounter Summary ---
Author Organization [facility] Address [address] [place] [address] Care Team Providers Care Paperhanger And Painter Name Role Phone Jermaine Ingram MD Primary Care Provider Encounter Details Date Type Department Care Team (Late st Contact Info) Description 04/19/2019 Abstract [facility] [address] [place] [address] , Generic Conversion, Social History Tobacco Use Types Packs/Day Years Used Date Smoking Tobacco: Never Assessed Comments Unknown Sex and Gender Information Value Date Recorded Sex Assigned at Female 12/09/2024 3:10 PM BEHAVIOR ANALYST Legal Sex Female 3:43 PM BEHAVIOR ANALYST Gender Identity Not on file Sexual Orientation Not on file documented as of this encounter Plan of Treatment Not on file documented as of this encounter Visit Diagnoses Not on filedocumented in this encounter Additional Health Concerns Infection Onset Date Last Indicated Resolved Time COVID-19 Rule Out 03/13/2022 03/13/2022 03/13/2022 3:50 PM CDT COVID-19 Rule Out 12/22/2022 12/22/2022 12/22/2022 10:47 AM BEHAVIOR ANALYST COVID-19 Confirmed 12/22/2022 12/22/2022 12:32 AM BEHAVIOR ANALYST COVID-19 Rule Out 04/11/2024 04/11/2024 04/11/2024 4:44 PM CDT COVID-19 Rule Out 10/15/2024 10/15/2024 10/15/2024 5:14 PM BEHAVIOR ANALYST COVID-19 Rule Out 12/09/2024 12/09/2024 12/09/2024 4:14 PM BEHAVIOR ANALYST documented as of this encounter Care Teams Paperhanger And Painter Relationship Specialty Start Date End Date Jermaine Ingram MD [address] [address] PCP - General FAMILY PRACTICE 05/31/19 documented as of this encounter
--- OUTSIDE RECORDS SUMMARY | 2025-03-02 11:07 | XMS_ITS | Encounter Summary ---
Author Organization [facility] Address [address] [facility] [place] [address] Phone Care Team Providers Care Receiving Lead Name Role Phone Jermaine Ingram MD Primary Care Provider Reason for Visit * Reason Comments Medication Refill Encounter Details Date Type Department Care Team (Late st Contact Info) Description 10/04/2021 Refill [facility] [phone] Ino Brown MD [address] [place] [phone] Medication Refill Social History Tobacco Use Types Packs/Day Years Used Date Smoking Tobacco: Former Cigarettes Q uit: 11/12/2000 Smokeless Tobacco: Never Alcohol Use Standard Drinks/Week Comments Not Currently 0 (1 standard drink = 0.6 oz pur e alcohol) Comments Unknown Sex and Gender Information Value Date Recorded Sex Assigned at Not on file Legal Sex Female 10:39 AM PUBLISHING AGENT Gender Identity Not on file Sexual Orientation Not on file documented as of this encounter Plan of Treatment Not on file documented as of this encounter Visit Diagnoses Not on filedocumented in this encounter Care Teams Receiving Lead Relationship Specialty Start Date End Date Jermaine Ingram MD [address] [place] [address] PCP - General Family Medicine 09/30/18 documented as of this encounter
--- OUTSIDE RECORDS SUMMARY | 2025-03-02 11:07 | XMS_ITS | Clinical Summary ---
Author Organization [facility] Address [address] [place] [address] Care Team Providers Care Academic Specialist Name Role Phone Zelalem Monahan MD Unavailable [phone] Source Comments [facility],non-owned Affiliates and Associated Physician Practices is amultiple site organization consisting of ambulatory clinics and hospital sitesin [place], [place], [place] and [place]. This disclosure is being madepursuant to the Care Everywhere program and may not contain all information available regarding this patient. Last updated 18.[facility] Allergies No known active allergies Medications * [...] on file Legal Sex Female 6:06 AM RN CORONARY CARE [facility]IT Gender Identity Not on file Sexual Orientation [...] age to complete this topic Insurance MEDICARE [facility] Care Teams Academic Specialist Relationship Specialty [place] [id number] [address] Vascular Surgery 01/12/14
--- OUTSIDE RECORDS SUMMARY | 2025-03-02 11:07 | XMS_ITS | Encounter Summary ---
Author Organization [facility] Address [address] [facility] [place] [address] Phone Care Team Providers Care Inset Cutter Name Role Phone Jermaine Ingram MD Primary Care Provider Reason for Visit * Reason Comments Medication Refill Encounter Details Date Type Department Care Team (Late st Contact Info) Description 09/17/2021 Refill [facility] [phone] Ino Brown MD [address] [place] [phone] Medication Refill Social History Tobacco Use Types Packs/Day Years Used Date Smoking Tobacco: Former Cigarettes Q uit: 11/12/2000 Smokeless Tobacco: Never Alcohol Use Standard Drinks/Week Comments Not Currently 0 (1 standard drink = 0.6 oz pur e alcohol) Comments Unknown Sex and Gender Information Value Date Recorded Sex Assigned at Not on file Legal 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
--- OUTSIDE RECORDS SUMMARY | 2025-03-02 11:07 | XMS_ITS | Clinical Summary ---
Author Organization [facility] Address [address] [facility] [place] [address] Phone Care Team Providers Care Broadcast Chief Engineer Name Role Phone Jermaine Ingram MD [...] on file Legal Sex Female 10:39 AM EDUCATIONAL FUNDRAISING DIRECTOR Gender Identity Not on file Sexual Orientation Not on file Last Filed Vital Signs Vital Sign Reading Time Taken Comments Blood Pressure 138/82 01/02/2020 10:01 AM EDUCATIONAL FUNDRAISING DIRECTOR Pulse 79 01/02/2020 10:01 AM EDUCATIONAL FUNDRAISING DIRECTOR Temperature 36.1 C (97 F) 01/02/2020 10:01 AM EDUCATIONAL FUNDRAISING DIRECTOR Respiratory Rate 17 01/02/2020 10:01 AM EDUCATIONAL FUNDRAISING DIRECTOR Oxygen Saturation 97% 01/02/2020 10:01 AM EDUCATIONAL FUNDRAISING DIRECTOR Inhaled Oxygen Concentration - - Weight 99.5 kg (219 lb 6.4 oz) 01/02/2020 10:01 AM EDUCATIONAL FUNDRAISING DIRECTOR Height 160 cm (5' 3 ) 01/02/2020 10:01 AM EDUCATIONAL FUNDRAISING DIRECTOR Body Mass Index 38.86 01/02/2020 10:01 AM EDUCATIONAL FUNDRAISING DIRECTOR Plan of Treatment Health Maintenance Due Date [...] (COMPREHENSIVE METABOLIC PANEL) Routine 10/24/2019 12:43 PM EDUCATIONAL FUNDRAISING DIRECTOR Tremor from Last 3 Months or Most Recently Relevant to Health Maintenance Results * (ABNORMAL) CMP (COMPREHENSIVE METABOLIC PANEL) (10/24/2019 12:43 PM EDUCATIONAL FUNDRAISING DIRECTOR) SODIUM 139 136 - 144 mmol/L 10/24/2019 2:47 PM EDUCATIONAL FUNDRAISING DIRECTOR [facility] POTASSIUM 4.4 3.5 - 5.1 mmol/L 10/24/2019 2:47 PM EDUCATIONAL FUNDRAISING DIRECTOR [facility] CHLORIDE 98(L) 100 - 110 mmol/L 10/24/2019 2:47 PM EDUCATIONAL FUNDRAISING DIRECTOR [facility] CO2, VENOUS 27 22 - 32 mmol/L 10/24/2019 2:47 PM EDUCATIONAL FUNDRAISING DIRECTOR [facility] ANION GAP 18.4 8.0 - 20.0 mmol/L 10/24/2019 2:47 PM EDUCATIONAL FUNDRAISING DIRECTOR [facility] GLUCOSE 244(H) 70 - 99 mg/dL 10/24/2019 2:47 PM EDUCATIONAL FUNDRAISING DIRECTOR [facility] BUN 27(H) 8 - 23 mg/dL 10/24/2019 2:47 PM [facility] CREATININE, BLOOD 1.26(H) 0.60 - 1.10 mg/dL 10/24/2019 2:47 PM EDUCATIONAL FUNDRAISING DIRECTOR [facility] BUN/CREATININE RATIO 21(H) 12 - 20 ratio 10/24/2019 2:47 PM [facility] TOTAL PROTEIN 6.6 6.0 - 8.3 g/dL 10/24/2019 2:47 PM [facility] ALBUMIN 4.3 3.5 - 5.2 g/dL 10/24/2019 2:47 PM [facility] Comment: The colormetric methods used for the determination of Albumin may lead to falsely elevated test results in patients suffering from renal failure or insufficiency due to interference with other proteins. A/G RATIO 1.9 1.0 - 2.0 10/24/2019 2:47 PM [facility] CALCIUM 9.9 8.9 - 10.3 mg/dL 10/24/2019 2:47 PM [facility] T BILI 0.4 <=1.2 mg/dL 10/24/2019 2:47 PM [facility] SGOT (AST) 21 <=32 U/L 10/24/2019 2:47 PM [facility] SGPT (ALT) 18 <=33 U/L 10/24/2019 2:47 PM [facility] ALKALINE PHOSPHATASE 72 35 - 105 U/L 10/24/2019 2:47 PM [facility] GFR, EST. NONAFRICAN 42(L) >=60 10/24/2019 2:47 PM [facility] GFR, EST. 51(L) >=60 019 2:47 PM [facility] Comment: Creatinine Clearance is the preferred criteria for selecting drug dose adjustments in renally impaired patients. The GFR is provided as additional pertinent clinical information. GFR is reported in mL/min/1.73 sq m. Blood specimen (specimen) Venipuncture / Unknown 10/24/2019 12:43 PM EDUCATIONAL FUNDRAISING DIRECTOR 10/24/2019 1:46 PM EDUCATIONAL FUNDRAISING DIRECTOR us Ino Brown MD CHEMISTRY ORDERABLES Final R esult [facility] [address] [place] [address] from Last 3 Months or Most Recently Relevant to Health Maintenance Insurance MEDICARE [facility] Care Teams Broadcast Chief Engineer Relationship Specialty Start Date End Date Jermaine Ingram MD [address] [place] [address] PCP - General Family Medicine 09/30/18
--- OUTSIDE RECORDS SUMMARY | 2025-03-02 11:07 | XMS_ITS | Encounter Summary ---
Author Organization [facility] Address [address] [facility] [place] [address] Phone Care Team Providers Care Casino Supervisor Name Role Phone Jermaine Ingram MD Primary Care Provider [phone] Reason for Visit * Reason Comments Medication Refill Encounter Details Date Type Department Care Team (Late st Contact Info) Description 01/29/2022 Refill [facility] [phone] Ino Brown MD [address] [place] [phone] Medication Refill Social History Tobacco Use Types Packs/Day Years Used Date Smoking Tobacco: Former Cigarettes Q uit: 11/12/2000 Smokeless Tobacco: Never Alcohol Use Standard Drinks/Week Comments Not Currently 0 (1 standard drink = 0.6 oz pur e alcohol) Comments Unknown Sex and Gender Information Value Date Recorded Sex Assigned at Not on file Legal Sex Female 10:39 AM 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 [place] [address] PCP - General Family Medicine 09/30/18 documented as of this encounter
--- OUTSIDE RECORDS SUMMARY | 2025-03-02 11:07 | XMS_ITS | Encounter Summary ---
Author Organization [facility] Address [address] [facility] [place] [address] Phone Care Team Providers Care Electronic Bench Technician Name Role Phone Jermaine Ingram MD Primary Care Provider Reason for Visit * Reason Comments Medication Refill Encounter Details Date Type Department Care Team (Late st Contact Info) Description 02/24/2022 Refill [facility] [phone] Ino Brown MD [address] [place] [phone] Medication Refill Social History Tobacco Use Types Packs/Day Years Used Date Smoking Tobacco: Former Cigarettes Q uit: 11/12/2000 Smokeless Tobacco: Never Alcohol Use Standard Drinks/Week Comments Not Currently 0 (1 standard drink = 0.6 oz pur e alcohol) Comments Unknown Sex and Gender Information Value Date Recorded Sex Assigned at Not on file Legal Sex Female 10:39 AM FIRE CREW SPECIALIST Gender Identity Not on file Sexual Orientation Not on file documented as of this encounter Plan of Treatment Not on file documented as of this encounter Visit Diagnoses Not on filedocumented in this encounter Care Teams Electronic Bench Technician Relationship Specialty Start Date End Date Jermaine Ingram MD [address] [place] [address] PCP - General Family Medicine 09/30/18 documented as of this encounter
--- OUTSIDE RECORDS SUMMARY | 2025-03-02 11:07 | XMS_ITS | Encounter Summary ---
Author Organization [facility] Address [address] [facility] [place] [address] Phone Care Team Providers Care Account Executive Software Sales Name Role Phone Jermaine Ingram MD Primary Care Provider Reason for Visit * Reason Comments Medication Refill Encounter Details Date Type Department Care Team (Late st Contact Info) Description 11/02/2021 Refill [facility] [phone] Ino Brown MD [address] [place] [phone] Medication Refill Social History Tobacco Use Types Packs/Day Years Used Date Smoking Tobacco: Former Cigarettes Q uit: 11/12/2000 Smokeless Tobacco: Never Alcohol Use Standard Drinks/Week Comments Not Currently 0 (1 standard drink = 0.6 oz pur e alcohol) Comments Unknown Sex and Gender Information Value Date Recorded Sex Assigned at Not on file Legal Sex Female 10:39 AM CONSOLIDATION ACCOUNTANT Gender Identity Not on file Sexual Orientation Not on file documented as of this encounter Plan of Treatment Not on file documented as of this encounter Visit Diagnoses Not on filedocumented in this encounter Care Teams Account Executive Software Sales Relationship Specialty Start Date End Date Jermaine Ingram MD [address] [place] [address] PCP - General Family Medicine 09/30/18 documented as of this encounter
--- OUTSIDE RECORDS SUMMARY | 2025-03-02 11:07 | XMS_ITS | Encounter Summary ---
Author Organization [facility] Address [address] [facility] [address] [facility] [place] [address] Phone Care Team Providers Care Evaluation Advisor Name Role Phone Jermaine Ingram MD Primary Care Provider [phone] Reason for Visit * Reason Comments Medication Refill Encounter Details Date Type Department Care Team (Late st Contact Info) Description 11/26/2021 Refill [facility] [phone] Ino Brown MD [address] [place] [phone] Medication Refill Social History Tobacco Use Types Packs/Day Years Used Date Smoking Tobacco: Former Cigarettes Q uit: 11/12/2000 Smokeless Tobacco: Never Alcohol Use Standard Drinks/Week Comments Not Currently 0 (1 standard drink = 0.6 oz pur e alcohol) Comments Unknown Sex and Gender Information Value Date Recorded Sex Assigned at Not on file Legal Sex Female 10:39 AM 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
--- OUTSIDE RECORDS SUMMARY | 2025-03-02 11:08 | XMS_ITS | Referral Summary ---
Author Organization [facility] Address [address] [place] [address] Care Team Providers Care An/Syq 13 Nav/C2 Operator Name Role Phone Jermaine Ingram MD Primary Care Provider [phone] Ajay Mccabe MD Unavailable Lola Mendoza MD Unavailable Ajay Sears MD Unavailable Sang Morin MD Unavailable [phone] Encounters Date Type Department Care Team Description 02/18/2025 Results [facility] [address] [place] [address] Bar Marquez MD 02/17/2025 9:00 AM CDT - 02/17/2025 11:59 PM CDT Hospital Encounter [facility] Cardiac Testing [address] [place] [address] Chronic hypoxemic respiratory failure (HCC); Lower extremity edema Discharge Disposition: Discharge to home or self care 2025 Results [facility] [address] [place] [address] Bar Marquez MD 2025 11:35 AM CDT Lab [place] [address] [address] Chronic hypoxemic respiratory failure (HCC); Lower extremity edema 2025 10:30 AM CDT Office [facility] [address] [place] [phone] Bar Marquez MD ILD (interstitial lung disease) (HCC) (Primary Dx); Former smoker; Chronic hypoxemic respiratory failure (HCC); Lower extremity edema; Nonrheumatic aortic valve stenosis 01/26/2025 10:00 AM CDT - 01/26/2025 11:59 PM CDT Hospital Encounter [facility] [address] [place] [phone] ILD (interstitial lung disease) (HCC) Discharge Disposition: Discharge to home or self care 01/21/2025 Telephone [facility] at [address] [phone] Peggy Mercedes LPN 01/20/2025 12:30 PM CDT Office Visit [facility] at [address] [phone] Henry Duffy, ERIBERTO Type 2 diabetes mellitus with stage 3a chronic kidney disease, with long-term current use of insulin (HCC) (Primary Dx); Hyperlipidemia associated with type 2 diabetes mellitus (HCC); Hypertension associated with diabetes (HCC) 12/24/2024 Telephone [facility] at [address] [address] Chely Mcduffie MA Test Results 12/23/2024 12:28 PM DIRECTOR ENVIRONMENTAL - 12/23/2024 11:59 PM DIRECTOR ENVIRONMENTAL Hospital Encounter [address] [phone] Discharge Disposition: Discharge to home or self care 12/23/2024 11:30 AM DIRECTOR ENVIRONMENTAL Office Visit [facility] at [facility] [address] [address] Henry Duffy, AUTOMOTIVE TEACHER Type 2 diabetes mellitus with stage 3a [...] blood-glucose meter (True Metrix Air Glucose Meter) [facility] True Metrix Glucose meter with lancing device. ICD 10-E11.22 1 each 01/07/20 20 Active lancets [facility] True metrix lancets 4 times daily. ICD [...] 25 Active blood-glucose meter,continuous (FreeStyle Kinjal 3 [place]) misc KINJAL 3 READER TO MONITOR BLOOD [...] ILD (interstitial lung disease) 07/29/2024 Atherosclerosis of knik ar jasmin of left lower extremity with [...] (04/24/2022): Added automatically from request for surgery [id number] Right knee pain 03/08/2022 Assessment & Plan [...] be done closer to home. 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 Restart CGM. Will send application for ShowKit Kinjal 3+. 7. Consistent carb diet 8. [...] Assessment & Plan (01/10/2023 12:59 PM DIRECTOR ENVIRONMENTAL): This is a 67-year-old female seen for [...] Assessment & Plan (12/01/2021 9:46 PM DIRECTOR ENVIRONMENTAL): This is a 66-year-old female seen for [...] continuous glucose monitor. Will send application for ZAPITANO Kinjal 2. Sample provided. 6. Limit carbs [...] below 80. 6. Consistent carbs diet. 7. AUTOMOTIVE TEACHER follow-up in 3 months. Follow-up with me [...] Assessment & Plan (11/15/2019 10:58 AM DIRECTOR ENVIRONMENTAL): 62 years old female with history of [...] Plan for freestyle every CGM next visit. Cl[employer] Sunglasses Assembler follow-up in 4 weeks. Follow-up with me in 3 months. Occlusion of left carotid artery 05/06/2018 Assessment & Plan (02/20/2024 12:52 PM CDT): Chronic left ICA occlusion Assessment & Plan (10/24/2021 11:54 AM DIRECTOR ENVIRONMENTAL): Minimal right ICA stenosis with chronically occluded left ICA. Repeat carotid Doppler one year. Assessment & Plan (04/18/2021 12:28 PM CDT): Due for annual carotid Doppler in six months. We'll arrange it. 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 Assessment & Plan (12/23/2024 2:23 PM DIRECTOR ENVIRONMENTAL): Continue metoprolol and lisinopril. Assessment & Plan (09/22/2024 12:18 PM DIRECTOR ENVIRONMENTAL): Chronic, stable Continue lisinopril and metoprolol Low-salt diet Assessment & Plan (06/09/2024 7:51 AM CDT): Continue metoprolol and lisinopril. Assessment & Plan (08/06/2023 8:01 AM CDT): Continue metoprolol and lisinopril. Assessment & Plan (04/30/2023 2:25 PM CDT): Chronic, stable Continue metoprolol low-salt diet Assessment & Plan (01/10/2023 1:01 PM DIRECTOR ENVIRONMENTAL): Continue lisinopril and metoprolol. Follow low-sodium diet. Assessment & Plan (09/12/2022 5:30 PM CDT): Continue lisinopril, metoprolol and Imdur. Follow low-sodium diet. Assessment & Plan (08/20/2022 9:28 PM CDT): Continue Lisinopril, Metoprolol and Imdur. Follow low sodium diet. Assessment & Plan (12/01/2021 9:46 PM DIRECTOR ENVIRONMENTAL): Continue furosemide, lisinopril and metoprolol. Assessment & Plan (09/16/2021 10:36 AM CDT): Stable on lisinopril metoprolol. Low-salt diet. Assessment & Plan (03/15/2021 11:08 AM CDT): Stable on lisinopril and metoprolol. Continue low-salt diet Assessment & Plan (02/12/2020 11:38 AM CDT): Continue lisinopril and metoprolol. Assessment & Plan (11/15/2019 10:49 AM DIRECTOR ENVIRONMENTAL): Stable on current regimen. Hyperlipidemia associated with type 2 diabetes ivan maciel 05/06/2018 Assessment & Plan (01/20/2025 2:16 PM CDT): Continue rosuvastatin and fenofibrate. Follow low-fat diet. Assessment & Plan (12/23/2024 2:23 PM DIRECTOR ENVIRONMENTAL): Continue rosuvastatin and fenofibrate. Follow low-fat diet. Assessment & Plan (09/22/2024 12:18 PM DIRECTOR ENVIRONMENTAL): Lab Results Component Value Date LDLCALC 59 [...] Assessment & Plan (01/10/2023 1:01 PM DIRECTOR ENVIRONMENTAL): Continue rosuvastatin. Follow low-fat diet Assessment & Plan (09/12/2022 5:29 PM CDT): Continue rosuvastatin and Repatha. Follow low-fat low-cholesterol diet. Assessment & Plan (08/20/2022 9:27 PM CDT): Continue Rosuvastatin and Repatha. Follow low fat and low cholesterol diet. Assessment & Plan (12/01/2021 9:47 PM DIRECTOR ENVIRONMENTAL): Continue rosuvastatin and Repatha. Assessment & Plan [...] Assessment & Plan (11/15/2019 10:49 AM DIRECTOR ENVIRONMENTAL): Continue atorvastatin. Will request previous labs from primary MD. Chronic systolic heart failure 05/06/2018 Nonrheumatic aortic valve stenosis 05/06/2018 Resolved Problems Problem Noted Date Diagnosed Date Resolved Date BMI 38.0-38.9,adult 11/15/2019 11/08/20 21 Assessment & Plan (11/15/2019 10:36 AM DIRECTOR ENVIRONMENTAL): BMI Follow-up includes: nutrition counseling and education [...] file Legal Sex Female 12:41 AM DIRECTOR ENVIRONMENTAL Gender Identity Not on file Sexual Orientation [...] on file Medical Devices Implanted Type Area Manager Transfer Device Identifier Shelf Expiration Date Model / Serial / Lot [employer]iva [employer] Inc [id number] Vascade 6/7fr Bioabsorbable Vascular System Compression Collagen - Sn/A - [id number] Implanted:Qty: 1 on 11/16/2021 by Sang Morin MD at [facility] Other - see comments Left: Other - see comments [employer] Inc 700-580 I-05U / N/A / [id number] Description:Left Groin: Vasc colten vascular closure system Choe Vascular Device Clsr Perclose Prostyle Sut-Mediatd Closure-Repair Sys 24042-43 - S0 - [id number] Implanted:Qty: 1 on 04/26/2022 by Aakash Williamson MD at [facility] Other - see comments Left: Femoral [employer]oe V[employer] 03/11/2024 48218-6 Choe Vascular Device Clsr Perclose Prostyle Sut-Mediatd Closure-Repair Sys 84355-00 - S0 - [id number] Implanted:Qty: 1 on 04/26/2022 by Aakash Williamson MD at [facility] Other - see comments Left: Femoral [employer] 03/11/2024 36230-8 Cardiva [employer] Inc Vascade 6/7fr Bioabsorbable Vascular System Compression Collagen [id number] - S0 - [id number] Implanted:Qty: 1 on 04/26/2022 by Aakash Williamson MD at [facility] Other - see comments Right: Femoral Vein [employer] Inc 02/16/2024 700-580 I-05U / 0 / [id number] [employer] Valve Heart 23mm Nile 3 Transcatheter [id number] - [id number] - [id number] Implanted:Qty: 1 on 04/26/2022 by Aakash Williamson MD at [facility] Prosthetic Valve N/A: Aortic Valve [employer] 10/20/2024 [id number] / [id number] / Medtronic Inc Everflex Entrust 6mm 60mm 120cm Self Expand Triaxial Low Profile - Sn/A - [id number] Implanted:Qty: 1 on 11/16/2021 by Sang Morin MD at [facility] Stent Right: Leg Medtronic Inc 09/18/2024 EVD35-0 6-060-1 20 / N/A / [id number] Description:Right popliteal artery Medtronic Inc Protege Everflex 5mm .079in 20mm 120cm Otw Radiopaque Delivery - Snone - [id number] Implanted:Qty: 1 on 06/14/2022 by Sang Morin MD at [facility] Stent Right: Femoral Med[employer]onic Inc 12/31/2022 PRB35-0 5-020-1 20 / NONE / [id number] Terumo Medical Jaime Angio-Seal Vip 6fr Closere Device [id number] - Snone - [id number] Implanted:Qty: 1 on 06/14/2022 by Sang Morin MD at [facility] Vascular Closure Device Left: Femoral [employer] Jaime 04/11/2023 [id number] / NONE / [id number] [employer]iva Medical Inc Vascade 6/7fr Bioabsorbable Vascular System Compression Collagen [id number] - S0 - [id number] Implanted:Qty: 1 on 04/14/2022 by Italo Galindo MD at [facility] [employer] Inc 02/23/2024 700-580 I-05U / 0 / [id number] [place] Peripheral Vascular Lifestent Proseries Crosser Lutonix 5mm 5fr 100mm 135cm Low [id number] - [id number] Implanted:Qty: 1 on 02/27/2024 by Sang Morin MD at [facility] Left: Groin Bard Peripheral Vascular [id number] 08/03/2026 [id number] / / [id number] [email or web address] Angio-Seal Vip 6fr Closere Device [id number] - Sna - [id number] Implanted:Qty: 1 on 02/27/2024 by Sang Morin MD at [facility] [email or web address] 10/15/2024 [id number] / NA / [id number] Procedures Procedure Name Priority Date/Time Associated Diagnosis Comments TRANSTHORACIC ECHO (TTE) COMPLETE W DOPPLER/CF W CONTRAST Routine 02/17/2025 10:39 AM CDT Chronic hypoxemic respiratory failure (HCC) Lower extremity edema PRO B-TYPE NATRIURETIC PEPTIDE Routine 2025 11:35 AM CDT Chronic hypoxemic respiratory failure (HCC) Lower extremity edema PULMONARY FUNCTION TEST (PFT) Routine 01/26/2025 12:06 PM CDT ILD (interstitial lung disease) ([facility]) HEMOGLOBIN A1C Routine 12/23/2024 12:12 PM DIRECTOR ENVIRONMENTAL Type 2 diabetes mellitus with stage 3a chronic kidney disease, with long-term current use of insulin ([facility]) EGFR Routine 12/23/2024 12:11 PM DIRECTOR ENVIRONMENTAL Type 2 diabetes mellitus with stage 3a chronic kidney disease, with long-term current use of insulin ([facility]) ALBUMIN CREATININE RATIO, URINE Routine 12/23/2024 12:11 PM DIRECTOR ENVIRONMENTAL Type 2 diabetes mellitus with stage 3a chronic kidney disease, with long-term current use of insulin ([facility]) BASIC METABOLIC PANEL Routine 12/23/2024 12:11 PM DIRECTOR ENVIRONMENTAL Type 2 diabetes mellitus with stage 3a chronic kidney disease, with long-term current use of insulin ([facility]) THYROID FUNCTION CASCADE Routine 12/23/2024 12:11 PM DIRECTOR ENVIRONMENTAL Type 2 diabetes mellitus with stage 3a chronic kidney disease, with long-term current use of insulin (HCC) LIPID PANEL Routine 12/23/2024 12:11 PM DIRECTOR ENVIRONMENTAL Type 2 diabetes mellitus with stage 3a [...] AM CDT Narrative 02/17/2025 6:55 PM CDT [facility] [place] [place] [address] ECHOCARDIOGRAM Patient Name: MAICOL WISE : 1955 (70y ) Gender: F Study Date: 02/17/2025 09:01:57 AM Ht(Inch): 63 Wt(Lb): 233.91 BSA: 2.17 Back Tufter: ENRIKE Location: opt Order Provider: BAR MARQUEZ [...] Procedure Note Ajay Mccabe MD - 02/17/2025 [address] [address] [place] [address] ECHOCARDIOGRAM Patient Name: MAICOL WISE : 1955 (70y ) Gender: F Study Date: 02/17/2025 09:01:57 AM Ht(Inch): 63 Wt(Lb): 233.91 BSA: 2.17 Back Tufter: ENRIKE Location: opt Order Provider: BAR MARQUEZ [...] ORDERABLES F inal Result Performing Organization Address [facility]/State/[facility] Co de Phone Number [facility] [address] [facility] [facility] Department of Laboratories [place] [phone] * Pulmonary Function Test - (01/26/2025 12:06 PM CDT) Anatomical Region Laterality Modality PFT 01/26/2025 11:3 4 AM CDT Narrative 02/17/2025 8:26 PM CDT Table formatting from the original result was not included. [facility] CERTIFIED IN PULMONARY, CRITICAL CARE, AND SLEEP MEDICINE MD Addi Rivera MD [address] [place] [address] Gregorio Wayne MD Office [phone] Zelalem Rueda MD PULMONARY FUNCTION TESTING Spirometry [...] Marquez MD Pulmonary and Critical Care Medicine [phone] Bar Marquez MD PFT ORDERABLES Final Result * (ABNORMAL) Hemoglobin A1c (12/23/2024 12:12 PM DIRECTOR ENVIRONMENTAL) [facility] Hgb A1C 8.6(H) 4.0 - 5.6 % Estimated Average Glucose 200 mg/dL [facility] Comment: The ADA recommends reporting an estimated Average Glucose (eAG) with all Hemoglobin A1c results using the equation derived from a study of 507 normal and diabetic adults. Minority populations were underrepresented and children were not included. (Diabetes Care 31:9654-7340, 2008). The eAG is not equivalent to a fasting glucose. Blood 12/23/2024 12:1 2 PM DIRECTOR ENVIRONMENTAL 12/23/2024 4:26 PM DIRECTOR ENVIRONMENTAL Henry Duffy AUTOMOTIVE TEACHER LAB BLOOD ORDERABLES Final Result Performing Organization Address City/[facility] Co de Phone Number [facility] [address] Department [employer] [place], [place] [phone] * (ABNORMAL) eGFR (12/23/2024 12:11 PM DIRECTOR ENVIRONMENTAL) eGFR 49(L) >=60 mL/min/1. 73 m2 Comment: [...] 2021. Blood 12/23/2024 12:1 1 PM DIRECTOR ENVIRONMENTAL 12/23/2024 4:25 PM DIRECTOR ENVIRONMENTAL Henry Duffy AUTOMOTIVE TEACHER LAB BLOOD ORDERABLES Final Result Performing Organization Address City/[facility]/ZIP Co de Phone Number [facility] [address] Department [place] [address] * Thyroid Function Gentry (12/23/2024 12:11 PM DIRECTOR ENVIRONMENTAL) Pathologist [facility] TSH 1.27 0.30 - 4.20 mcIUnit/mL Blood 12/23/2024 12:1 1 PM DIRECTOR ENVIRONMENTAL 12/23/2024 4:25 PM DIRECTOR ENVIRONMENTAL Henry Duffy NP LAB BLOOD ORDERABLES Final Result Performing Organization Address [facility] Co de Phone Number [facility] [address] [facility] [place] [address] * Albumin Creatinine Ratio, Urine (12/23/2024 12:11 PM DIRECTOR ENVIRONMENTAL) Albumin Ur <12.0 mg/L Comment: Interpretive Data No reference range established. Current interpretive data was last revised 2019. Creatinine Ur 46.5 mg/dL [facility] Comment: Interpretive Data No reference range established. Current interpretive data was last revised 2019. Albumin Creatinine Ratio, Ur <26 1 - 29 mg/g [facility] Urine 12/23/2024 12:1 1 PM DIRECTOR ENVIRONMENTAL 12/23/2024 12:14 PM DIRECTOR ENVIRONMENTAL Henry Duffy NP LAB URINE ORDERABLES Final Result Performing Organization Address [facility] Co de Phone Number [facility] [address] [place] [address] * (ABNORMAL) Lipid panel (12/23/2024 12:11 PM DIRECTOR ENVIRONMENTAL) Cholesterol 154 30 - 199 mg/dL Comment: [...] revised on 2018. Triglycerides 161(H) <=149 mg/dL [facility] Comment: Interpretive Data Ages < [...] revised on 2018. HDL 67 >=40 mg/dL [facility] Comment: Interpretive Data Ages < [...] on 2018. LDL, calculated 60 <=129 mg/dL [facility] Comment: Interpretive Data Ages < [...] revised on 2024. Non-HDL Cholesterol 87 mg/dL [facility] Comment: Interpretive Data Ages < [...] last revised on 2018. Chol/HDL ratio 2 [facility] Blood 12/23/2024 12:1 1 PM DIRECTOR ENVIRONMENTAL 12/23/2024 4:25 PM DIRECTOR ENVIRONMENTAL us Henry Duffy NP LAB BLOOD ORDERABLES Final Result [facility] [address] Department [place] [address] * (ABNORMAL) Basic metabolic panel (12/23/2024 12:11 PM DIRECTOR ENVIRONMENTAL) Sodium 144 135 - 145 mmol/L Potassium, pl 4.6 3.3 - 4.9 mmol/L [facility] Chloride 100 97 - 110 mmol/L [facility] CO2 28 22 - 32 mmol/L [facility] Anion gap 16(H) 2 - 15 mmol/L [facility] BUN 23 6 - 25 mg/dL [facility] Creatinine 1.18(H) 0.60 - 1.10 mg/dL [facility] Glucose 159 70 - 199 mg/dL [facility] Comment: Interpretive Data Fasting glucose >/= 126 [...] 2022. Calcium 10.2 8.5 - 10.3 mg/dL [facility] Blood 12/23/2024 12:1 1 PM DIRECTOR ENVIRONMENTAL 12/23/2024 4:25 PM DIRECTOR ENVIRONMENTAL us Henry Duffy AUTOMOTIVE TEACHER LAB BLOOD ORDERABLES Final Result Performing Organization Address [facility] Co de Phone Number [facility] [address] [place] [address] * (ABNORMAL) Diabetic Eye Exam (01/08/2024) us Historical Provider MD HEALTH MAINTENANCE Final Result * Hepatitis panel, acute (06/16/2019 8:10 AM CDT) Hep A IgM Non-Reactive Non-Reactive [facility] Hep B core IgM Non-Reactive Non-Reactive [facility] Hep C Ab Non-Reactive Non-Reactive [facility] HepBsAg Nonreactive Nonreactive [facility] Blood specimen (specimen) 06/16/2019 8:10 AM CDT 06/16/2019 9:01 AM CDT us Lola Mendoza MD LAB MICROBIOLOGY - GENE RAL ORDERABLES Final Result Performing Organization Address [facility] de Phone Number [facility] [address] [place] [address] from Last 3 Months or Most Recently Relevant to Health Maintenance Insurance MEDICARE Member Subscriber Plan / Payer (Ef fective 2018-Present) Name:Maicol Wise Member ID:[id number] Relation to Subscriber:Self Name:Maicol Wise Subscriber ID:[id number] Payer ID:[id number] Group ID:Not on file Type:MEDICARE TRADITIONAL Address: [place] [phone] AARP AARP MEDICARE AAR MEDICARE Advance Directives For more information, please contact: [phone] Documents on File Type Date Recorded 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
--- OUTSIDE RECORDS SUMMARY | 2025-03-02 11:08 | XMS_ITS | Clinical Summary ---
Author Organization [facility] D Address [address] [place] [address] Care Team Providers Care Director Of Development Name Role Phone Jermaine Ingram MD Primary Care Provider [phone] Ajay Mccabe MD Unavailable [phone] Lola Mendoza MD Unavailable [phone] Ajay Sears MD Unavailable Sang Morin MD Unavailable [phone] Allergies Active Allergy Reactions Criticality Noted [...] blood-glucose meter (True Metrix Air Glucose Meter) muscogee True Metrix Glucose meter with lancing device. [...] 25 Active blood-glucose meter,continuous (FreeStyle Kinjal 3 [place]) misRetsly KINJAL 3 READER TO MONITOR BLOOD GLUCOSE [...] ILD (interstitial lung disease) 07/29/2024 Atherosclerosis of [place] ar jasmin of left lower extremity with [...] (04/24/2022): Added automatically from request for surgery [id number] Right knee pain 03/08/2022 Assessment & Plan [...] be done closer to home. 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 Assessment & Plan (12/23/2024 2:22 PM MACHINE WELT BUTTER): This is a 69-year-old female seen for [...] weeks. Assessment & Plan (09/22/2024 12:21 PM MACHINE WELT BUTTER): 69 years old female seen in follow-up [...] . Restart CGM. Will send application for Bventsyle Kinjal 3+. 7. Consistent carb diet 8. [...] months. Assessment & Plan (01/10/2023 12:59 PM MACHINE WELT BUTTER): This is a 67-year-old female seen for [...] weeks. Assessment & Plan (12/01/2021 9:46 PM MACHINE WELT BUTTER): This is a 66-year-old female seen for [...] continuous glucose monitor. Will send application for LiveOnDemand Kinjal 2. Sample provided. 6. Limit carbs [...] below 80. 6. Consistent carbs diet. 7. LONG FILLER CIGAR ROLLER MACHINE follow-up in 3 months. Follow-up with me [...] months Assessment & Plan (11/15/2019 10:58 AM MACHINE WELT BUTTER): 62 years old female with history of [...] Plan for freestyle every CGM next visit. 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 Follow-up with me in 3 months. Occlusion of left carotid artery 05/06/2018 Assessment & Plan (02/20/2024 12:52 PM CDT): Chronic left ICA occlusion Assessment & Plan (10/24/2021 11:54 AM MACHINE WELT BUTTER): Minimal right ICA stenosis with chronically occluded left ICA. Repeat carotid Doppler one year. Assessment & Plan (04/18/2021 12:28 PM CDT): Due for annual carotid Doppler in six months. We'll arrange it. 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 Assessment & Plan (12/23/2024 2:23 PM MACHINE WELT BUTTER): Continue metoprolol and lisinopril. Assessment & Plan (09/22/2024 12:18 PM MACHINE WELT BUTTER): Chronic, stable Continue lisinopril and metoprolol Low-salt diet Assessment & Plan (06/09/2024 7:51 AM CDT): Continue metoprolol and lisinopril. Assessment & Plan (08/06/2023 8:01 AM CDT): Continue metoprolol and lisinopril. Assessment & Plan (04/30/2023 2:25 PM CDT): Chronic, stable Continue metoprolol low-salt diet Assessment & Plan (01/10/2023 1:01 PM MACHINE WELT BUTTER): Continue lisinopril and metoprolol. Follow low-sodium diet. Assessment & Plan (09/12/2022 5:30 PM CDT): Continue lisinopril, metoprolol and Imdur. Follow low-sodium diet. Assessment & Plan (08/20/2022 9:28 PM CDT): Continue Lisinopril, Metoprolol and Imdur. Follow low sodium diet. Assessment & Plan (12/01/2021 9:46 PM MACHINE WELT BUTTER): Continue furosemide, lisinopril and metoprolol. Assessment & Plan (09/16/2021 10:36 AM CDT): Stable on lisinopril metoprolol. Low-salt diet. Assessment & Plan (03/15/2021 11:08 AM CDT): Stable on lisinopril and metoprolol. Continue low-salt diet Assessment & Plan (02/12/2020 11:38 AM CDT): Continue lisinopril and metoprolol. Assessment & Plan (11/15/2019 10:49 AM MACHINE WELT BUTTER): Stable on current regimen. Hyperlipidemia associated with type 2 diabetes ivan maciel 05/06/2018 Assessment & Plan (01/20/2025 2:16 PM CDT): Continue rosuvastatin and fenofibrate. Follow low-fat diet. Assessment & Plan (12/23/2024 2:23 PM MACHINE WELT BUTTER): Continue rosuvastatin and fenofibrate. Follow low-fat diet. Assessment & Plan (09/22/2024 12:18 PM MACHINE WELT BUTTER): Lab Results Component Value Date LDLCALC 59 [...] Repatha Assessment & Plan (01/10/2023 1:01 PM MACHINE WELT BUTTER): Continue rosuvastatin. Follow low-fat diet Assessment & Plan (09/12/2022 5:29 PM CDT): Continue rosuvastatin and Repatha. Follow low-fat low-cholesterol diet. Assessment & Plan (08/20/2022 9:27 PM CDT): Continue Rosuvastatin and Repatha. Follow low fat and low cholesterol diet. Assessment & Plan (12/01/2021 9:47 PM MACHINE WELT BUTTER): Continue rosuvastatin and Repatha. Assessment & Plan [...] rosuvastatin Assessment & Plan (11/15/2019 10:49 AM MACHINE WELT BUTTER): Continue atorvastatin. Will request previous labs from primary MD. Chronic systolic heart failure 05/06/2018 Nonrheumatic aortic valve stenosis 05/06/2018 Resolved Problems Problem Noted Date Diagnosed Date Resolved Date BMI 38.0-38.9,adult 11/15/2019 11/08/20 21 Assessment & Plan (11/15/2019 10:36 AM MACHINE WELT BUTTER): BMI Follow-up includes: nutrition counseling and education provided. Encounters Date Type Department Care Team Description 02/18/2025 [facility] [address] [place] [address] Bar Marquez MD 02/17/2025 9:00 AM CDT - 02/17/2025 11:59 PM CDT Hospital Encounter [facility] [address] [place] [address] Chronic hypoxemic respiratory failure (HCC); Lower extremity edema Discharge Disposition: Discharge to home or self care 2025 11:35 AM CDT Lab [place] [address] [facility] [place] [address] Chronic hypoxemic respiratory failure (HCC); Lower extremity edema 2025 10:30 AM CDT [facility] [address] [place] [phone] Bar Marquez MD ILD (interstitial lung disease) (HCC) (Primary Dx); Former smoker; Chronic hypoxemic respiratory failure (HCC); Lower extremity edema; Nonrheumatic aortic valve stenosis 2025 Results [facility] [address] [place] [address] Bar Marquez MD 01/26/2025 10:00 AM CDT - 01/26/2025 11:59 PM CDT Hospital Encounter [facility] [address] [place] [phone] ILD (interstitial lung disease) (HCC) Discharge Disposition: Discharge to home or self care 01/21/2025 Telephone [facility] End[facility]ology at [address] [phone] Peggy Mercedes LPN 01/20/2025 12:30 PM CDT Office Visit [facility] at [address] [phone] Henry Duffy, ERIBERTO Type 2 diabetes mellitus with stage 3a chronic kidney disease, with long-term current use of insulin (HCC) (Primary Dx); Hyperlipidemia associated with type 2 diabetes mellitus (HCC); Hypertension associated with diabetes (HCC) 12/24/2024 Telephone [facility] at [address] [address] Chely Mcduffie MA Test Results 12/23/2024 12:28 PM MACHINE WELT BUTTER - 12/23/2024 11:59 PM MACHINE WELT BUTTER Hospital Encounter [facility] [address] [place] [address] Discharge Disposition: Discharge to home or self care 12/23/2024 11:30 AM MACHINE WELT BUTTER Office Visit [facility] at [facility] [address] [place] [address] Henry Duffy, LONG FILLER CIGAR ROLLER MACHINE Type 2 diabetes mellitus with stage 3a [...] on file Legal Sex Female 12:41 AM MACHINE WELT BUTTER Gender Identity Not on file Sexual Orientation [...] 05/28/2023, 11/22/2022 Medical Devices Implanted Type Area Tool Analyst Device Identifier Shelf Expiration Date Model / Serial / Lot Cardiva Medical Inc [id number] Vascade 6/7fr Bioabsorbable Vascular System Compression Collagen - Sn/A - [id number] Implanted:Qty: 1 on 11/16/2021 by Sang Morin MD at [facility] Other - see comments Left: Other - see comments [employer] Inc 700-580 I-05U / N/A / [id number] Description:Left Groin: Vasc colten vascular closure system Choe Vascular Device Clsr Perclose Prostyle Sut-Mediatd Closure-Repair Sys 49158-88 - S0 - [id number] Implanted:Qty: 1 on 04/26/2022 by Aakash Williamson MD at [facility] Other - see comments Left: Femoral [employer]oe V[employer] 03/11/2024 79861-0 Choe Vascular Device Clsr Perclose Prostyle Sut-Mediatd Closure-Repair Sys 63430-09 - S0 - [id number] Implanted:Qty: 1 on 04/26/2022 by Aakash Williamson MD at [facility] Other - see comments Left: Femoral [employer] 03/11/2024 28144-7 Cardiva Medical Inc Vascade 6/7fr Bioabsorbable Vascular System Compression Collagen [id number] - S0 - [id number] Implanted:Qty: 1 on 04/26/2022 by Aakash Williamson MD at [facility] Other - see comments Right: Femoral Vein [employer]iva Medical Inc 02/16/2024 700-580 I-05U / 0 / [id number] Valencia Lifesciences Valve Heart 23mm Nile 3 Transcatheter [id number] - [id number] - [id number] Implanted:Qty: 1 on 04/26/2022 by Aakash Williamson MD at [facility] Prosthetic Valve N/A: Aortic Valve [employer] 10/20/2024 [id number] 23A / [id number] / Medtronic Inc Everflex Entrust 6mm 60mm 120cm Self Expand Triaxial Low Profile - Sn/A - [id number] Implanted:Qty: 1 on 11/16/2021 by Sang Morin MD at [facility] Stent Right: Leg Medtronic Inc 09/18/2024 EVD35-0 6-060-1 20 / N/A / [id number] Description:Right popliteal artery Medtronic Inc Protege Everflex 5mm .079in 20mm 120cm Otw Radiopaque Delivery - Snone - [id number] Implanted:Qty: 1 on 06/14/2022 by Sang Morin MD at [facility] Stent Right: Femoral Medtronic Inc 12/31/2022 PRB35-0 5-020-1 20 / NONE / [id number] Terumo Medical Jaime Angio-Seal Vip 6fr Closere Device [id number] - Snone - [id number] Implanted:Qty: 1 on 06/14/2022 by Sang Morin MD at [facility] Vascular Closure Device Left: Femoral Ter[employer]o Medical Jaime 04/11/2023 [id number] / NONE / [id number] Cardiva Medical Inc Vascade 6/7fr Bioabsorbable Vascular System Compression Collagen [id number] - S0 - [id number] Implanted:Qty: 1 on 04/14/2022 by Italo Galindo MD at [facility] [employer] Medical Inc 02/23/2024 700-580 I-05U / 0 / [id number] Bard Peripheral Vascular Lifestent Proseries Crosser Lutonix 5mm 5fr 100mm 135cm Low [id number] - [id number] Implanted:Qty: 1 on 02/27/2024 by Snag Morin MD at [facility] Left: Groin Bard Peripheral Vascular [id number] 08/03/2026 [id number] 3CS / / [id number] Glassful Angio-Seal Vip 6fr Closere Device [id number] - Sna - [id number] Implanted:Qty: 1 on 02/27/2024 by Sang Morin MD at [facility] Glassful 10/15/2024 [id number] / NA / [id number] Procedures Procedure Name Priority Date/Time Associated Diagnosis Comments TRANSTHORACIC ECHO (TTE) COMPLETE W DOPPLER/CF W CONTRAST Routine 02/17/2025 10:39 AM CDT Chronic hypoxemic respiratory failure (HCC) Lower extremity edema PRO B-TYPE NATRIURETIC PEPTIDE Routine 2025 11:35 AM CDT Chronic hypoxemic respiratory failure (HCC) Lower extremity edema PULMONARY FUNCTION TEST (PFT) Routine 01/26/2025 12:06 PM CDT ILD (interstitial lung disease) ([facility]) HEMOGLOBIN A1C Routine 12/23/2024 12:12 PM MACHINE WELT BUTTER Type 2 diabetes mellitus with stage 3a chronic kidney disease, with long-term current use of insulin ([facility]) EGFR Routine 12/23/2024 12:11 PM MACHINE WELT BUTTER Type 2 diabetes mellitus with stage 3a chronic kidney disease, with long-term current use of insulin ([facility]) ALBUMIN CREATININE RATIO, URINE Routine 12/23/2024 12:11 PM MACHINE WELT BUTTER Type 2 diabetes mellitus with stage 3a chronic kidney disease, with long-term current use of insulin ([facility]) BASIC METABOLIC PANEL Routine 12/23/2024 12:11 PM MACHINE WELT BUTTER Type 2 diabetes mellitus with stage 3a chronic kidney disease, with long-term current use of insulin (HCC) THYROID FUNCTION CASCADE Routine 12/23/2024 12:11 PM MACHINE WELT BUTTER Type 2 diabetes mellitus with stage 3a chronic kidney disease, with long-term current use of insulin (HCC) LIPID PANEL Routine 12/23/2024 12:11 PM MACHINE WELT BUTTER Type 2 diabetes mellitus with stage 3a [...] AM CDT Narrative 02/17/2025 6:55 PM CDT [place] [id number] [place] [address] ECHOCARDIOGRAM Patient Name: MAICOL WISE : 1955 (70y ) Gender: F Study Date: 02/17/2025 09:01:57 AM Ht(Inch): 63 Wt(Lb): 233.91 BSA: 2.17 Carbon Paper Coating 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 - References: 1. Naty MAIRE et.al. Eur Heart J. 2006:27:330-337. 2. Steven RW, Justino CROW. J. AM Anmol Cardiol: Cardiovasc Imag. 2009;2: 216- 225. Interpretive Data Last Revised Date: 2018. Blood 2025 11:3 5 AM CDT 2025 2:47 PM CDT us Bar Marquez MD LAB BLOOD ORDERABLES F inal Result [facility] [address] [place] [address] * Pulmonary Function Test - (01/26/2025 12:06 PM CDT) Anatomical Region Laterality Modality PFT 01/26/2025 11:3 4 AM CDT Narrative 02/17/2025 8:26 PM CDT Table formatting from the original result was not included. [facility] BOARD CERTIFIED IN PULMONARY, CRITICAL CARE, AND SLEEP MEDICINE MD Addi Rivera MD [facility] [facility] [address] [place] [address] Gregorio Wayne MD Office [phone] Zelalem Rueda MD PULMONARY FUNCTION TESTING Spirometry [...] Marquez MD Pulmonary and Critical Care Medicine [phone] Bar Marquez MD PFT ORDERABLES Final Result * (ABNORMAL) Hemoglobin A1c (12/23/2024 12:12 PM MACHINE WELT BUTTER) [facility] Hgb A1C 8.6(H) 4.0 - 5.6 % Estimated Average Glucose 200 mg/dL [facility] Comment: The ADA recommends reporting an estimated Average Glucose (eAG) with all Hemoglobin A1c results using the equation derived from a study of 507 normal and diabetic adults. Minority populations were underrepresented and children were not included. (Diabetes Care 31:8100-2076, 2008). The eAG is not equivalent to a fasting glucose. Blood 12/23/2024 12:1 2 PM MACHINE WELT BUTTER 12/23/2024 4:26 PM MACHINE WELT BUTTER Henry Duffy NP LAB BLOOD ORDERABLES Final Result Performing Organization Address [facility] Co de Phone Number [facility] [address] [employer] [place], [place] [id number] * (ABNORMAL) eGFR (12/23/2024 12:11 PM MACHINE WELT BUTTER) eGFR 49(L) >=60 mL/min/1. 73 m2 Comment: [...] reviewed 2021. Blood 12/23/2024 12:1 1 PM MACHINE WELT BUTTER 12/23/2024 4:25 PM MACHINE WELT BUTTER Henry Duffy NP LAB BLOOD ORDERABLES Final Result Performing Organization Address [facility]/ZIP Co de Phone Number [facility] [address] Department [employer] [place], [place] [id number] * Thyroid Function Babcock (12/23/2024 12:11 PM MACHINE WELT BUTTER) TSH 1.27 0.30 - 4.20 mcIUnit/mL Blood 12/23/2024 12:1 1 PM MACHINE WELT BUTTER 12/23/2024 4:25 PM MACHINE WELT BUTTER Henry Duffy LONG FILLER CIGAR ROLLER MACHINE LAB BLOOD ORDERABLES Final Result Performing Organization Address [facility] Co de Phone Number [facility] [address] [place] [address] * Albumin Creatinine Ratio, Urine (12/23/2024 12:11 PM MACHINE WELT BUTTER) Albumin Ur <12.0 mg/L Comment: Interpretive Data No reference range established. Current interpretive data was last revised 2019. Creatinine Ur 46.5 mg/dL [facility] Comment: Interpretive Data No reference range established. Current interpretive data was last revised 2019. Albumin Creatinine Ratio, Ur <26 1 - 29 mg/g [facility] Urine 12/23/2024 12:1 1 PM MACHINE WELT BUTTER 12/23/2024 12:14 PM MACHINE WELT BUTTER Henry Duffy NP LAB URINE ORDERABLES Final Result Performing Organization Address [facility] Co de Phone Number [facility] [address] [facility] [place] [address] * (ABNORMAL) Lipid panel (12/23/2024 12:11 PM MACHINE WELT BUTTER) Cholesterol 154 30 - 199 mg/dL Comment: [...] revised on 2018. Triglycerides 161(H) <=149 mg/dL [facility] Comment: Interpretive Data Ages < [...] revised on 2018. HDL 67 >=40 mg/dL [facility] Comment: Interpretive Data Ages < [...] on 2018. LDL, calculated 60 <=129 mg/dL [facility] Comment: Interpretive Data Ages < [...] revised on 2024. Non-HDL Cholesterol 87 mg/dL [facility] Comment: Interpretive Data Ages < [...] last revised on 2018. Chol/HDL ratio 2 [facility] Blood 12/23/2024 12:1 1 PM MACHINE WELT BUTTER 12/23/2024 4:25 PM MACHINE WELT BUTTER us Henry Duffy NP LAB BLOOD ORDERABLES Final Result [facility] [address] [place] [address] * (ABNORMAL) Basic metabolic panel (12/23/2024 12:11 PM MACHINE WELT BUTTER) Sodium 144 135 - 145 mmol/L Potassium, pl 4.6 3.3 - 4.9 mmol/L [facility] Chloride 100 97 - 110 mmol/L [facility] CO2 28 22 - 32 mmol/L [facility] Anion gap 16(H) 2 - 15 mmol/L [facility] BUN 23 6 - 25 mg/dL [facility] Creatinine 1.18(H) 0.60 - 1.10 mg/dL [facility] Glucose 159 70 - 199 mg/dL [facility] Comment: Interpretive Data Fasting glucose [...] 2022. Calcium 10.2 8.5 - 10.3 mg/dL [facility] Blood 12/23/2024 12:1 1 PM MACHINE WELT BUTTER 12/23/2024 4:25 PM MACHINE WELT BUTTER Henry Duffy NP LAB BLOOD ORDERABLES Final Result Performing Organization Address [facility] de Phone Number [facility] [address] [place] [address] * (ABNORMAL) Diabetic Eye Exam (01/08/2024) us Historical Provider HEALTH MAINTENANCE Final Result * Hepatitis panel, acute (06/16/2019 8:10 AM CDT) Hep A IgM Non-Reactive Non-Reactive [facility] Hep B core IgM Non-Reactive Non-Reactive [facility] Hep C Ab Non-Reactive Non-Reactive [facility] HepBsAg Nonreactive Nonreactive [facility] Blood specimen (specimen) 06/16/2019 8:10 AM CDT 06/16/2019 9:01 AM CDT Lola Mendoza MD LAB MICROBIOLOGY - GENE RAL ORDERABLES Final Result Performing Organization Address [facility] de Phone Number [facility] [address] [place] [address] from Last 3 Months or Most Recently Relevant to Health Maintenance Insurance [facility] MEDICARE Advance Directives For more information, please contact: [phone] Documents on File Type Date Recorded Patient Plastic Frame Inserter Expl anation Power of Supervisor Endless Track Vehicle 06/14/2022 12:56 PM * Full Code (Latest [...] 5:26 PM 11/17/2021 3:57 PM Care Teams Director Of Development Relationship Specialty Start Date End [place] [address] PCP - General Family Practice 04/23/18 [place] [address] Consulting Physician Cardiology 05/06/18 Lola Mendoza MD [address] [place] [address] Consulting Physician Nephrology 10/18/20 Ajay Sears MD formerly [facility] [place] [address] Surgeon Neurosurgery 04/18/21 Sang Morin MD formerly [facility] [place] [address] Surgeon Vascular Surgery 11/17/21
--- OUTSIDE RECORDS SUMMARY | 2025-03-02 11:08 | XMS_ITS | Encounter Summary ---
Author Organization [facility] Healthcare Address [address] [place] [address] Care Team Providers Care Operations Mgr Name Role Phone Jermaine Ingram MD Primary Care Provider [phone] Ajay Mccabe MD Unavailable [phone] Lola Mendoza MD Unavailable Ajay Sears MD Unavailable Sang Morin MD Unavailable [phone] Encounter Details Date Type Department Care Team (Late Contact Info) Description 08/12/2024 Telephone [facility] [address] [facility] [address] [place] [address] Bar Amor MD [address] [facility] [address] [place] [address] Social History Tobacco Use Types [...] on file Legal Sex Female 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 Gender Identity Not on file Sexual Orientation Not on file documented as of this encounter Plan of Treatment Not on file documented as of this encounter Visit Diagnoses Not on filedocumented in this encounter Care Teams Operations Mgr Relationship Specialty Start Date End Date Jermaine Ignram MD [address] [place] [address] PCP - General Family Practice 04/23/18 Ajay Mccabe MD [facility] [place] [address] Consulting Physician Cardiology 05/06/18 [place] [address] Consulting Physician Nephrology 10/18/20 [place] [address] Surgeon Neurosurgery 04/18/21 [place] [address] Surgeon Vascular Surgery 11/17/21 documented as of this encounter
--- OUTSIDE RECORDS SUMMARY | 2025-03-02 11:08 | XMS_ITS | Encounter Summary ---
Author Organization [facility] Healthcare Address [address] [place] [address] Care Team Providers Care Hull Builder Name Role Phone Jermaine Ingram MD Primary Care Provider [phone] Ajay Mccabe MD Unavailable Lola Mendoza MD Unavailable [phone] Ajay Sears MD Unavailable Sang Morin MD Unavailable [phone] Encounter Details Date Type Department Care Team (Late st Contact Info) Description 08/06/2024 Telephone [facility] [address] [facility] [address] [place] [address] Bar Amor MD [address] [facility] [address] [place] [address] Social History Tobacco Use Types [...] on file Legal Sex 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 Gender Identity Not on file Sexual Orientation Not on file documented as of this encounter Plan of Treatment Not on file documented as of this encounter Visit Diagnoses Not on filedocumented in this encounter Care Teams Hull Builder Relationship Specialty Start Date End Date Jermaine Ingram MD [address] [place] [address] PCP - General Family Practice 04/23/18 Ajay [place]ccabe [place] [address] Consulting Physician Cardiology 05/06/[address] [place] [address] Consulting Physician Nephrology 10/18/[address] [place] [address] Surgeon Neurosurgery 04/18/[address] [place] [address] Surgeon Vascular Surgery 11/17/21 documented as of this encounter
[2025-03-02] MEDS: LACTATED RINGERS 1,000 ML 999 ML IV CONT (11:18)
--- NOTE | 2025-03-02 11:27 | ED.FEMALEGU ---
HPI - Female Genitourinary General Chief complaint: Urogenital-Female Stated complaint: dizzy, weakness Time Seen by Provider: 03/02/25 09:38 Source: patient Mode of arrival: ambulatory Limitations: no limitations History of Present Illness HPI Narrative: patient is a 70-year-old female with significant past medical history that presents today for dizziness and urinary symptoms. Patient has a history of multiple UTIs and normally when she has UTI she gets the same symptoms of some dizziness and lightheadedness, she also has dysuria and increased urinary frequency. She seems to have the symptoms also times when she has UTIs. MD elicited complaint: dysuria and UTI Pertinent past history: recurrent UTIs Onset (ago): day(s) Severity: mild Female Urogenital Radiation: Non-Radiating Severity scale (1-10): 2 Quality of pain: cramping Consistency: intermittent Vaginal discharge: white and thick/cheesy Vaginal bleeding: none Urinary symptoms: Dysuria and Urgency Exacerbating factors: none Relieving factors: none Associated symptoms: denies other symptoms Treatment prior to arrival: none Sexual activity: No Patient : No Related Data Home Medications ?Medication ?Instructions ?Recorded ?Confirmed ?Last Taken ?Type albuterol sulfate 90 mcg/actuation 1 inh inhalation QID PRN Shortness 06/08/21 04/16/24 Unknown History breath activated powder inhaler Of Breath Or Wheezing (ProAir RespiClick) aspirin 81 mg tablet 81 mg PO DAILY 06/08/21 04/16/24 06/08/21 History cholecalciferol (vitamin D3) 50 50 mcg PO DAILY 06/08/21 04/16/24 06/08/21 History mcg (2,000 unit) tablet (Vitamin D3) evolocumab 140 mg/mL subcutaneous 140 mg subcut [id number] 06/08/21 04/16/24 Unknown History syringe (Repatha Syringe) fenofibrate micronized 134 mg 134 mg PO DAILY 06/08/21 04/16/24 06/08/21 History capsule furosemide 40 mg tablet (Lasix) 80 mg PO DAILY 06/08/21 04/16/24 06/08/21 History insulin glargine 100 unit/mL 54 unit subcut HS 06/08/21 04/16/24 06/07/21 History subcutaneous solution (Lantus U-100 Insulin) insulin lispro 100 unit/mL 16 unit subcut TID 06/08/21 04/16/24 06/08/21 07:00 History subcutaneous solution (Humalog U-100 Insulin) lisinopril 2.5 mg tablet (Zestril) 2.5 mg PO DAILY 06/08/21 04/16/24 06/08/21 History metoprolol succinate 25 mg 50 mg PO DAILY 06/08/21 04/16/24 06/08/21 History tablet,extended release 24 hr (Toprol XL) multivitamin with minerals (DAILY 1 tablet PO DAILY 06/08/21 04/16/24 06/08/21 History VITAMIN FORMULA-MINERALS tablet) nitroglycerin 0.4 mg sublingual 0.4 mg sublingual Q5-15M PRN Chest 06/08/21 04/16/24 Unknown History tablet (Nitrostat) Pain rosuvastatin 40 mg tablet (Crestor) 40 mg PO DAILY 06/08/21 04/16/24 06/08/21 History dulaglutide 4.5 mg/0.5 mL 4.5 mg subcut WEEKLY 01/20/24 04/16/24 Unknown History subcutaneous pen injector (Trulicity) clopidogrel 75 mg tablet (Plavix) 75 mg PO DAILY 04/16/24 04/16/24 Unknown History docusate sodium 100 mg PO PRN PRN Constipation 04/16/24 04/16/24 Unknown History gabapentin 300 mg capsule 300 mg PO TID 04/16/24 04/16/24 Unknown History (Neurontin) Allergies Allergy/AdvReac Type Severity Reaction Status Date / Time morphine Allergy Intermediate Difficulty Verified 03/02/25 09:34 Breathing Review of Systems Review of Systems: All systems reviewed & are unremarkable except as noted in HPI and below Constitutional: Constitutional: Reports as per HPI Eyes: Eyes: Reports no additional eye complaints ENT: Reports system reviewed and no additional complaints, except as documented Cardiovascular: Cardiovascular: Reports no additional cardiovascular complaints Respiratory: Respiratory: Reports no additional respiratory complaints Gastrointestinal: Gastrointestinal: Reports no additional gastrointestinal complaints Genitourinary: Genitourinary: Reports as per HPI, Reports dysuria and Reports urinary incontinence Musculoskeletal: Musculoskeletal: Reports no additional musculoskeletal complaints Integumentary/Breasts: Skin/Breast: Reports system reviewed and no additional complaints, except as docu Neurologic: Reports system reviewed and no additional complaints, except as documented Psychiatric: Psychiatric: Reports no additional psychiatric complaints Endocrine: Endocrine: Reports no additional endocrine complaints Hematologic/Lymphatic: Hematologic/Lymphatic: Reports no additional hematologic/lymphatic complaints Allergic/Immunologic: Allergic/Immunologic: Reports no additional allergic/immunologic complaints [facility] Past Medical History Medical History Acute sinusitis, unspecified (12/24/14) Acute upper respiratory infection (12/24/14) Breast lump (05/27/15) CAD (coronary artery disease) (02/28/12) Depression (02/28/12) Hip pain (04/20/15) Knee pain (04/11/13) Lower back pain (01/30/13) Psoriasis (02/28/12) Skin tag (05/28/14) Unspecified viral infection characterized by skin and mucous membrane lesions (04/20/15) Shortness of breath on exertion Anxiety Hyperlipidemia Carotid artery disease Coronary artery disease Aortic valve disease Hypertension Cataracts, bilateral Diabetic neuropathy Diabetes Surgical History Surgical History H/O carotid endarterectomy Hx of heart artery stent Family History Family History Sibling Acute myocardial infarction Mother Cancer Social History Social History Social History: The patient lives with her sister in [facility] with 5 steps to enter [facility] B handrails at front entrance and 6 steps [facility] Left handrail at back entrance. patient uses a cane for short distances. Smoking packs per day: 2 Smoking cigarettes per day: 40.0 Years smoked: 7 Smoking pack-years: 14.00 Smoking status: Former smoker Tobacco type: cigarettes Second hand tobacco smoke exposure: Yes Smoking end date: 06/08/21 Alcohol intake: never Substance use: never Substance use type: does not use Spiritual care concerns: No Exam Const: General: healthy appearing Nutritional Appearance: well nourished Orientation/consciousness: patient oriented x3 HENMT: Head: normal to inspection Ears: external ears normal Face/Nose/Sinus: Normal external nose present Face and sinus: normal facial exam Eyes: Conjunctivae: conjunctivae normal Pupils: Equal, round and reactive pupils present EOM: EOMs intact bilaterally Neck: Neck: normal visual inspection Chest: Chest palpation & inspection: normal inspection of the chest Resp: Effort & Inspection: normal respiratory effort Auscultation: clear to auscultation bilaterally Cardio: Rate: regular rate Rhythm: regular rhythm GI: GI Palp: Yes Soft to palpation : General: Yes bladder normal to palpation Back/Spine/Pelvis: Back: no CVA tenderness Skin: General skin exam: normal color Rashes: no rashes Wounds: no wounds Neuro: General: patient oriented x3 Cranial nerves: Yes Nystagmus not present Speech: normal speech Extrem: General: normal to inspection Psych: Appearance: grossly normal Mental Status: mental status grossly normal Affect: normal affect Course Vital Signs Vital signs: Vital Signs Temperature 97.9 F 03/02/25 09:33 Pulse Rate 79 03/02/25 09:33 Respiratory Rate 20 03/02/25 09:33 Blood Pressure 185/85 H 03/02/25 09:33 Pulse Oximetry 100 03/02/25 09:33 Oxygen Delivery Room Air 03/02/25 09:33 Temperature 97.9 F 03/02/25 09:33 Pulse Rate 79 03/02/25 09:33 Respiratory Rate 20 03/02/25 09:33 Blood Pressure 185/85 H 03/02/25 09:33 Pulse Oximetry 100 03/02/25 09:33 Oxygen Delivery Room Air 03/02/25 09:33 MDM - Female Genitourinary MDM Narrative Medical decision making narrative: The patient is alert and oriented x3 and even states that she normally has symptoms when she has UTI. Will do a UA on her will also do blood work as well to ensure all her blood work is normal to. Also give her a L fluids as she is dry and very dehydrated. UA shows that she does have a UTI will treat with Macrobid and she also has yeast infection so give her Diflucan as well. Differential Diagnosis Differential diagnosis: Likely urinary tract infection Medical Records Attestation: I reviewed the patient's medical records. Lab Data Attestation: I reviewed the patient's lab results. 03/02/25 09:57 03/02/25 09:57 Labs: Lab Results 03/02/25 03/02/25 Range/Units 09:57 10:00 WBC 8.6 (4.8-10.8) K/mm3 RBC 4.55 (4.20-5.40) M/mm3 Hgb 13.0 (11.7-13.8) g/dL Hct 42.5 H (35.0-42.0) % MCV 93.4 (78.0-102.0) fL MCH 28.6 (27.0-31.0) pg MCHC 30.6 L (32-36) g/dL RDW 14.2 (11.6-14.4) % Plt Count 149 L (150-420) K/mm3 MPV 10.5 (9.2-11.8) fl Immature Gran % (Auto) 0.2 H (0.0-0.0) % Neut % (Auto) 62.6 (50.0-70.0) % Lymph % (Auto) 29.4 (18.0-42.0) % [place] % (Auto) 5.3 (2.0-11.0) % Eos % (Auto) 2.1 (1.0-6.0) % Baso % (Auto) 0.4 (0.0-1.0) % Lymph # (Auto) 2.51 (1.10-4.50) K/mm3 [place] # (Auto) 0.45 (0.10-0.90) K/mm3 Eos # (Auto) 0.18 (0.02-0.50) K/mm3 Baso # (Auto) 0.03 (0.00-0.10) K/mm3 Abs Immat Gran (auto) 0.02 H (0.00-0.00) K/mm3 Absolute Neuts (auto) 5.36 (1.70-7.20) K/mm3 Absolute Nucleated RBC 0.00 (0.00-0.00) K/mm3 Nucleated RBC % 0.0 (0-0.0) % Sodium 147 H (136-145) mmol/L Potassium 4.9 (3.5-5.1) mmol/L Chloride 110 H (98-108) mmol/L Carbon Dioxide 28 (21-32) mmol/L Anion Gap 9 (4-12) mmol/L BUN 21 H (7-18) mg/dL Creatinine 1.29 H (0.55-1.02) mg/dL Estim Creat Clear Calc 41 ml/min Estimated GFR 41 L (59 - ) Glucose 154 H (70-99) mg/dL Calculated Osmolality 310 H (285-295) mOsm/kg Lactic Acid 2.4 H (0.4-2.0) mmol/L Calcium 9.7 (8.5-10.1) mg/dL Total Bilirubin 0.5 (0.00-1.00) mg/dL AST 35 (15-37) U/L ALT 28 (14-59) U/L Alkaline Phosphatase 83 (46-116) U/L NT-Pro-B Natriuret Pep 143 H (0-125) pg/mL Total Protein 7.5 (6.4-8.2) g/dL Albumin 3.7 (3.4-5.0) g/dL Urine Color Yellow (Yellow) Urine Appearance Clear (Clear) Urine pH 6.0 (5.0-8.0) Ur Specific Sharon 1.025 H (1.010-1.020) Urine Protein Trace H (Negative) Urine Glucose (UA) 3+ H (Negative) Urine Ketones Negative (Negative) Ur Blood (Man) Trace-intact H (Negative) Urine Nitrate Negative (Negative) Urine Bilirubin Negative (Negative) Urine Urobilinogen 0.2 (0.2-1.0) mg/dL Leukocyte Esterase Rfl 1+ H (Negative) [place]/UL Urine RBC 0-2 (0-2) /hpf Urine WBC 16-20 H (0-3) /hpf Ur Squamous Epith Cells Moderate H (Few) /hpf Urine Bacteria 2+ H (None) /hpf Discharge Plan Discharge Clinical Impression: Acute UTI, Candidiasis Patient Disposition: Home Condition: Stable Instructions: Urinary Tract Infection in Women (ED) Patient Language: Danish Prescriptions: New nitrofurantoin monohyd/m-cryst [Macrobid] 100 mg capsule 100 mg PO Q12H 5 Days Qty: 10 0RF Rx Instructions: must administer with a meal/food No Action clopidogrel [Plavix] 75 mg tablet 75 mg PO DAILY gabapentin [Neurontin] 300 mg capsule 300 mg PO TID docusate sodium 100 mg PO PRN PRN (Reason: Constipation) Trulicity 4.5 mg/0.5 mL Pen Injector 4.5 mg SUBCUT WEEKLY insulin lispro [Humalog U-100 Insulin] 100 unit/mL Solution 16 unit SUBCUT TID furosemide [Lasix] 40 mg Tablet 80 mg PO DAILY insulin glargine [Lantus U-100 Insulin] 100 unit/mL Solution 54 unit SUBCUT HS fenofibrate micronized 134 mg Capsule 134 mg PO DAILY nitroglycerin [Nitrostat] 0.4 mg Tablet, Sublingual 0.4 mg SUBLINGUAL Q5-15M PRN (Reason: Chest Pain) aspirin 81 mg Tablet 81 mg PO DAILY metoprolol succinate [Toprol XL] 25 mg Tablet Extended Release 24 Hr 50 mg PO DAILY lisinopril [Zestril] 2.5 mg Tablet 2.5 mg PO DAILY rosuvastatin [Crestor] 40 mg Tablet 40 mg PO DAILY cholecalciferol (vitamin D3) [Vitamin D3] 50 mcg (2,000 unit) Tablet 50 mcg PO DAILY Repatha Syringe 140 mg/mL Syringe 140 mg SUBCUT [id number] DAILY VITAMIN FORMULA-MINERALS Tablet 1 tablet PO DAILY ProAir RespiClick 90 mcg/actuation Aerosol Powdr Breath Activated 1 inh INHALATION QID PRN (Reason: Shortness Of Breath Or Wheezing) Follow-up/Referrals: Jermaine Ingram M.D. [Primary Care Provider] - Time of Disposition: 12:14
[2025-03-02] MEDS: NITROFURANTOIN MONOHYD MACROCR 100 MG CAP PO (11:33)
[2025-03-02] MEDS: FLUCONAZOLE 150 MG TABLET PO (11:33)
[2025-03-02 11:59] LABS: Reflex Lactic Acid Yes or No Add Lactic
[2025-03-02 12:28] LABS: Lactic Acid 1.6 mmol/L (0.4-2.0)
== END 2025-03-02 12:19 | disposition home or self-care (01) ==
PROVIDERS: Emergency Provider Family Medicine; PCP Family Medicine
DX: N39.0 Urinary tract infection, site not specified (principal); I25.10 Atherosclerotic heart disease of native coronary artery without angina pectoris; E78.5 Hyperlipidemia, unspecified; I10 Essential (primary) hypertension; E11.9 Type 2 diabetes mellitus without complications; Z87.891 Personal history of nicotine dependence
CPT/HCPCS: 36415; 71045; 80053; 81001; 83605; 83880; 85025; 93005; 96360; 99283; A9270; J7120

== ENCOUNTER 2025-03-17 09:31 | Outpatient (CLI) | payer MEDICARE, SELFPAY ==
--- OUTSIDE RECORDS SUMMARY | 2025-03-17 10:09 | XMS_ITS | Encounter Summary ---
Author Organization [facility] Address [address] [facility] [place] [address] Phone Care Team Providers Care Regional Operations Manager Name Role Phone Jermaine Ingram MD Primary Care Provider Reason for Visit * Reason Comments Medication Refill Encounter Details Date Type Department Care Team (Late st Contact Info) Description 07/31/2021 [facility]ill [facility] [phone] Ino Brown MD #2 [place] [phone] Medication Refill Social History Tobacco Use Types Packs/Day Years Used Date Smoking Tobacco: Former Cigarettes Q uit: 11/12/2000 Smokeless Tobacco: Never Alcohol Use Standard Drinks/Week Comments Not Currently 0 (1 standard drink = 0.6 oz pur e alcohol) Comments Unknown Sex and Gender Information Value Date Recorded Sex Assigned at Not on file Legal 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
--- OUTSIDE RECORDS SUMMARY | 2025-03-17 10:09 | XMS_ITS | Clinical Summary ---
Author Organization [facility] [employer] Address [address] [place] [address] Care Team Providers Care Platform Man Name Role Phone Zelalem Monahan MD Unavailable [phone] Source Comments [facility] [employer],non-owned Affiliates and Associated Physician Practices is amultiple site organization consisting of ambulatory clinics and hospital sitesin [place], [place], [place] and [place]. This disclosure is being madepursuant to the Care Everywhere program and may not contain all information available regarding this patient. 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
--- OUTSIDE RECORDS SUMMARY | 2025-03-17 10:09 | XMS_ITS | Encounter Summary ---
Author Organization [facility] Address [address] [place] [address] Care Team Providers Care Strategic Planning Director Name Role Phone Zelalem Monahan MD Unavailable [phone] Encounter Details Date Type Department Care Team (Late st Contact Info) Description 12/30/2013 [facility] [address] [facility] [employer] [address] [place] [id number] Social History Tobacco Use Types Packs/Day Years Used Date Smoking Tobacco: Former Cigarettes Q uit: 11/12/2000 Smokeless Tobacco: Never Alcohol Use Standard Drinks/Week Comments Not Asked 0 (1 standard drink = 0.6 oz pur e alcohol) Comments No Sex and Gender Information Value Date Recorded Sex Assigned at Not on file Legal 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
--- OUTSIDE RECORDS SUMMARY | 2025-03-17 10:09 | XMS_ITS | Encounter Summary ---
Author Organization [facility] Address [address] [place] [address] Care Team Providers Care Academic Counselor Name Role Phone Zelalem Monahan MD Unavailable [phone] Encounter Details Date Type Department Care Team (Late st Contact Info) Description 03/02/2015 [facility] [address] [facility] [employer] [address] [place] [id number] Social History Tobacco Use Types Packs/Day Years Used Date Smoking Tobacco: Former Cigarettes 2 10 0 11/12/1990 - 11/12/2000 Smokeless Tobacco: Never Alcohol Use Standard Drinks/Week Comments No 0 (1 standard drink = 0.6 oz pur e alcohol) Comments No Sex and Gender Information Value Date Recorded Sex Assigned at Not on file Legal Sex Female 6:06 AM RN PRIOR AUTHORIZATION Gender Identity Not on file Sexual Orientation Not on file documented as of this encounter Plan of Treatment Not on file documented as of this encounter Visit Diagnoses Not on filedocumented in this encounter Care Teams Academic Counselor Relationship Specialty [place] [address] [facility] [employer] [address] [place] [address] Vascular Surgery 01/12/14 documented as of this encounter
--- OUTSIDE RECORDS SUMMARY | 2025-03-17 10:10 | XMS_ITS | Encounter Summary ---
Author Organization [facility] Address [address] [place] [address] Phone Care Team Providers Care Farm Implement Engine Mechanic Name Role Phone Jermaine Ingram MD Primary Care Provider Reason for Visit * Reason Comments Medication Refill Encounter Details Date Type Department Care Team (Late st Contact Info) Description 08/23/2021 Refill [facility] [facility] [phone] Ino Brown MD [address] [place] [phone] Medication Refill Social History Tobacco Use Types Packs/Day Years Used Date Smoking Tobacco: Former Cigarettes Q uit: 11/12/2000 Smokeless Tobacco: Never Alcohol Use Standard Drinks/Week Comments Not Currently 0 (1 standard drink = 0.6 oz pur e alcohol) Comments Unknown Sex and Gender Information Value Date Recorded Sex Assigned at Not on file 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 Gender Identity Not on file Sexual Orientation Not on file documented as of this encounter Miscellaneous Notes * Telephone Encounter - Lizzie Tamayo RN - 08/24/2021 2:06 PM CDT Attempted to call patient, no response documented in this encounter Plan of Treatment Not on file documented as of this encounter Visit Diagnoses Not on filedocumented in this encounter Care Teams Farm Implement Engine Mechanic Relationship Specialty Start Date End Date Jermaine Ingram MD [address] [place] [address] PCP - General Family Medicine 09/30/18 documented as of this encounter
--- OUTSIDE RECORDS SUMMARY | 2025-03-17 10:10 | XMS_ITS | Encounter Summary ---
Author Organization [facility] Address [address] [facility] [place] [address] Phone Care Team Providers Care Residential Sales Executive Name Role Phone Jermaine Ingram MD Primary Care Provider Reason for Visit * Reason Comments Medication Refill Encounter Details Date Type Department Care Team (Late st Contact Info) Description 01/29/2022 [facility]ill [facility] [facility] [phone] Ino Brown MD [address] [place] [phone] Medication Refill Social History Tobacco Use Types Packs/Day Years Used Date Smoking Tobacco: Former Cigarettes Q uit: 11/12/2000 Smokeless Tobacco: Never Alcohol Use Standard Drinks/Week Comments Not Currently 0 (1 standard drink = 0.6 oz pur e alcohol) Comments Unknown Sex and Gender Information Value Date Recorded Sex Assigned at Not on file Legal 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
--- OUTSIDE RECORDS SUMMARY | 2025-03-17 10:10 | XMS_ITS | Encounter Summary ---
Author Organization [facility] Address [address] [facility] [facility] [place] [address] Phone Care Team Providers Care Photographic Developer And Printer Name Role Phone Jermaine Ingram MD Primary Care Provider Reason for Visit * Reason Comments Medication Refill Encounter Details Date Type Department Care Team (Late st Contact Info) Description 09/17/2021 [facility]ill [facility] [facility] [phone] Ino Brown MD [address] [place] [phone] Medication Refill Social History Tobacco Use Types Packs/Day Years Used Date Smoking Tobacco: Former Cigarettes Q uit: 11/12/2000 Smokeless Tobacco: Never Alcohol Use Standard Drinks/Week Comments Not Currently 0 (1 standard drink = 0.6 oz pur e alcohol) Comments Unknown Sex and Gender Information Value Date Recorded Sex Assigned at Not on file Legal Sex Female 10:39 AM RECORD CHANGER Gender Identity Not on file Sexual Orientation Not on file documented as of this encounter Plan of Treatment Not on file documented as of this encounter Visit Diagnoses Not on filedocumented in this encounter Care Teams Photographic Developer And Printer Relationship Specialty Start Date End Date Jermaine Ingram MD [address] [place] [address] PCP - General Family Medicine 09/30/18 documented as of this encounter
--- OUTSIDE RECORDS SUMMARY | 2025-03-17 10:10 | XMS_ITS | Encounter Summary ---
Author Organization [facility] Address [address] [place] [address] Care Team Providers Care Pipe Foreman Name Role Phone Jermaine Ingram MD Primary Care Provider [phone] Ajay Mccabe MD Unavailable [phone] Lola Mendoza MD Unavailable [phone] Ajay Sears MD Unavailable [phone] Sang Morin MD Unavailable [phone] Encounter Details Date Type Department Care Team (Late st Contact Info) Description 06/10/2020 Telephone [facility] [address] [place] [address] Transcribed Order, Provider Social History [...] on file Legal Sex Female 12:41 AM DISABILITY BENEFITS SPECIALIST Gender Identity Not on file Sexual Orientation Not on file documented as of this encounter Plan of Treatment Not on file documented as of this encounter Visit Diagnoses Not on filedocumented in this encounter Care Teams Pipe Foreman Relationship Specialty [place] [address] [place] [address] [place] [address] PCP - General Family Practice 04/23/18 Ajay Mccabe MD [address] [place] [address] Consulting Physician Cardiology 05/06/18 Lola Mendoza MD [address] [place] [facility] Consulting Physician Nephrology 10/18/20 Ajay Sears MD [address] [place] [address] Surgeon Neurosurgery 04/18/21 Sang Morin MD [address] [place] [address] Surgeon Vascular Surgery 11/17/21 documented as of this encounter
--- OUTSIDE RECORDS SUMMARY | 2025-03-17 10:10 | XMS_ITS | Encounter Summary ---
Author Organization [facility] Address [address] [facility] [place] [address] Phone Care Team Providers Care Cloth Neutralizer Name Role Phone Jermaine Ingram MD Primary Care Provider Reason for Visit * Reason Comments Medication Refill Encounter Details Date Type Department Care Team (Late st Contact Info) Description 02/24/2022 [facility]ill [facility] [phone] Ino Brown MD [address] [place] [phone] Medication Refill Social History Tobacco Use Types Packs/Day Years Used Date Smoking Tobacco: Former Cigarettes Q uit: 11/12/2000 Smokeless Tobacco: Never Alcohol Use Standard Drinks/Week Comments Not Currently 0 (1 standard drink = 0.6 oz pur e alcohol) Comments Unknown Sex and Gender Information Value Date Recorded Sex Assigned at Not on file 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
--- OUTSIDE RECORDS SUMMARY | 2025-03-17 10:10 | XMS_ITS | Encounter Summary ---
Author Organization [facility] Address [address] [facility] [place] [address] Phone Care Team Providers Care Roll On Worker Name Role Phone Jermaine Ingram MD Primary Care Provider [phone] Reason for Visit * Reason Comments Medication Refill Encounter Details Date Type Department Care Team (Late st Contact Info) Description 06/02/2020 Refill [facility] [address]1 [place] [phone] Ino Brown MD #2 [place] [phone] Medication Refill Social History Tobacco Use Types Packs/Day Years Used Date Smoking Tobacco: Former Cigarettes Q uit: 11/12/2000 Smokeless Tobacco: Never Alcohol Use Standard Drinks/Week Comments Not Currently 0 (1 standard drink = 0.6 oz pur e alcohol) Comments Unknown Sex and Gender Information Value Date Recorded Sex Assigned at Not on file 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
--- OUTSIDE RECORDS SUMMARY | 2025-03-17 10:10 | XMS_ITS | Encounter Summary ---
Author Organization [facility] Healthcare Address [address] [place] [address] Care Team Providers Care Home Agent Name Role Phone Jermaine Ingram MD Primary Care Provider [phone] Ajay Mccabe MD Unavailable [phone] Lola Mendoza MD Unavailable Ajay Sears MD Unavailable Sang Morin MD Unavailable [phone] Encounter Details Date Type Department Care Team (Late Contact Info) Description 02/18/2025 Results Follow-Up [facility] [address] 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 Gender Identity Not on file Sexual Orientation Not on file documented as of this encounter Plan of Treatment Not on file documented as of this encounter Visit Diagnoses Not on filedocumented in this encounter Care Teams Home Agent Relationship Specialty Start Date End Date Jermaine Ingram MD [facility] [place] [id number] PCP - General Family Practice 04/23/18 Ajay Mccabe MD [place] [address] Consulting Physician Cardiology 05/06/18 Lola Mendoza MD [facility] [place] [id number] Consulting Physician Nephrology 10/18/20 Ajay Sears [place] [address] Surgeon Neurosurgery 04/18/21 Sang Morin [place] [address] Surgeon Vascular Surgery 11/17/21 documented as of this encounter
--- OUTSIDE RECORDS SUMMARY | 2025-03-17 10:10 | XMS_ITS | Clinical Summary ---
Author Organization [facility] Address [address] [place] [address] Care Team Providers Care Broomcorn Seeder Name Role Phone Jermaine Ingram MD Primary Care Provider [phone] Allergies Active Allergy Reactions Criticality Noted Date [...] associated wi th type 2 diabetes mellitus ([facility]) 05/06/2018 Overview (02/17/2022): Last Assessment & Plan: Lab Results Component Value Date LDLCALC 51 07/15/2018 At goal. Continue rosuvastatin. Low cholesterol/low-fat diet Type 2 diabetes mellitus wit h stage 3 chronic kidney disease ([facility]) 05/06/2018 Overview (02/17/2022): Last Assessment & Plan: [...] below 80. 6. Consistent carbs diet. 7. 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 Follow-up with me in 6 months. -annual dilated eye exam Potential side effects of Trulicity include nausea, vomiting and acute pancreatitis. Advised to stop Trulicity and call if having persistent nausea and vomiting. Immunizations Immunization Administration Dates Next Due Arexvy [...] Sex Assigned at Female 12/09/2024 3:10 PM PARTS COUNTER SALES PERSON Legal Sex Female 3:43 PM PARTS COUNTER SALES PERSON Gender Identity Not on file Sexual Orientation [...] Health Maintenance Due Date Last Done Comments Colorectal Cancer Screening Colonoscopy (10 Years) 1955 [...] patient's age to complete this topic Insurance [facility] Care Teams Broomcorn Seeder Relationship Specialty Start Date End Date Jermaine Ingram MD [address] [place] [phone] PCP - General FAMILY PRACTICE 05/31/19
--- OUTSIDE RECORDS SUMMARY | 2025-03-17 10:10 | XMS_ITS | Encounter Summary ---
Author Organization [facility] Address [address] [facility] [place] [address] Phone Care Team Providers Care Buying Agent Name Role Phone Jermaine Ingram MD Primary Care Provider Reason for Visit * Reason Comments Medication Refill Encounter Details Date Type Department Care Team (Late st Contact Info) Description 01/04/2022 [facility]ill [facility] [phone] Ino Brown MD [address] [place] [phone] Medication Refill Social History Tobacco Use Types Packs/Day Years Used Date Smoking Tobacco: Former Cigarettes Q uit: 11/12/2000 Smokeless Tobacco: Never Alcohol Use Standard Drinks/Week Comments Not Currently 0 (1 standard drink = 0.6 oz pur e alcohol) Comments Unknown Sex and Gender Information Value Date Recorded Sex Assigned at Not on file 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
--- OUTSIDE RECORDS SUMMARY | 2025-03-17 10:10 | XMS_ITS | Encounter Summary ---
Author Organization [facility] Address [address] [facility] [place] [address] Phone Care Team Providers Care Care Giver Name Role Phone Jermaine Ingram MD Primary Care Provider Reason for Visit * Reason Comments Medication Refill Encounter Details Date Type Department Care Team (Late st Contact Info) Description 11/02/2021 Refill [facility] [phone] Ino Brown MD [address] [place] [phone] Medication Refill Social History Tobacco Use Types Packs/Day Years Used Date Smoking Tobacco: Former Cigarettes Q uit: 11/12/2000 Smokeless Tobacco: Never Alcohol Use Standard Drinks/Week Comments Not Currently 0 (1 standard drink = 0.6 oz pur e alcohol) Comments Unknown Sex and Gender Information Value Date Recorded Sex Assigned at Not on file 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
--- OUTSIDE RECORDS SUMMARY | 2025-03-17 10:10 | XMS_ITS | Encounter Summary ---
Author Organization [facility] Address [address] [facility] [place] [address] Phone Care Team Providers Care Manager Image Name Role Phone Jermaine Ingram MD Primary Care Provider Reason for Visit * Reason Comments Medication Refill Encounter Details Date Type Department Care Team (Late st Contact Info) Description 04/04/2022 Refill [facility] [phone] Ino Brown MD [address] [place] [phone] Medication Refill Social History Tobacco Use Types Packs/Day Years Used Date Smoking Tobacco: Former Cigarettes Q uit: 11/12/2000 Smokeless Tobacco: Never Alcohol Use Standard Drinks/Week Comments Not Currently 0 (1 standard drink = 0.6 oz pur e alcohol) Comments Unknown Sex and Gender Information Value Date Recorded Sex Assigned at Not on file 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
--- OUTSIDE RECORDS SUMMARY | 2025-03-17 10:10 | XMS_ITS | Encounter Summary ---
Author Organization [facility] Healthcare Address [address] [place] [address] Care Team Providers Care Tool Pusher Name Role Phone Jermaine Ingram MD Primary Care Provider [phone] Ajay Mccabe MD Unavailable [phone] Lola Mendoza MD Unavailable Ajay Sears MD Unavailable Sang Morin MD Unavailable [phone] Encounter Details Date Type Department Care Team (Late Contact Info) Description 2025 Results Follow-Up [facility] [address] [facility] [address] [place] [address] Bar Amor MD [address] [facility] [address] [place] [address] Social History Tobacco Use Types [...] on file 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 Gender Identity Not on file Sexual Orientation Not on file documented as of this encounter Plan of Treatment Not on file documented as of this encounter Visit Diagnoses Not on filedocumented in this encounter Care Teams Tool Pusher Relationship Specialty Start Date End Date Jermaine Ingram MD [facility] [address] [phone] PCP - General Family Practice 04/23/18 Ajay Mccabe MD [facility] [address] Consulting Physician Cardiology 05/06/18 Lola Mendoza MD [facility] [place] [phone] Consulting Physician Nephrology 10/18/20 Ajay Sears MD [facility] [address] Surgeon Neurosurgery 04/18/21 Sang Morin MD [facility] [address] Surgeon Vascular Surgery 11/17/21 documented as of this encounter
--- OUTSIDE RECORDS SUMMARY | 2025-03-17 10:10 | XMS_ITS | Encounter Summary ---
Author Organization [facility] Address [address] [facility] [place] [address] Phone Care Team Providers Care Assembly Worker Name Role Phone Jermaine Ingram MD Primary Care Provider [phone] Reason for Visit * Reason Comments Medication Refill Encounter Details Date Type Department Care Team (Late st Contact Info) Description 05/08/2021 Refill [facility]rology - [place] #1 [place] [address] Ino Brown MD [address] [place] [phone] Medication Refill Social History Tobacco Use Types Packs/Day Years Used Date Smoking Tobacco: Former Cigarettes Q uit: 11/12/2000 Smokeless Tobacco: Never Alcohol Use Standard Drinks/Week Comments Not Currently 0 (1 standard drink = 0.6 oz pur e alcohol) Comments Unknown Sex and Gender Information Value Date Recorded Sex Assigned at Not on file 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
--- OUTSIDE RECORDS SUMMARY | 2025-03-17 10:10 | XMS_ITS | Clinical Summary ---
Author Organization [facility] D Address [address] [place] [address] Care Team Providers Care Wireless Technician Name Role Phone Jermaine Ingram MD Primary Care Provider [phone] Ajay Mccabe MD Unavailable [phone] Lola Mendoza MD Unavailable [phone] Ajay Sears MD Unavailable Sang Morin MD Unavailable [phone] Allergies Active Allergy Reactions Criticality Noted [...] blood-glucose meter (True Metrix Air Glucose Meter) [facility] True Metrix Glucose meter with lancing device. [...] mouth daily 90 tablet 3 04/03/20 22 2098 Active amoxicillin (AMOXIL) 500 mg tablet/capsule Take 4 caps (2000 mg) 1 hour prior to dental procedures. 4 tablet/caps ule 50 02/23/20 23 2035 Active Additional Information Patient not taking.Reported on [...] 90 tablet 3 07/31/20 23 Active lisinopriL (PRINIVIL,ZESTR IL) 2.5 mg tablet [...] DAY 90 capsule 3 10/01/20 24 Active insulin degludec (TRESIBA) 100 unit/mL (3 mL) pen for injection Inject 52 units SQ at night 45 mL 1 11/24/19 Active blood-glucose meter,continuou s (FreeStyle Kinjal 3 [place]) misc KINJAL 3 READER TO MONITOR BLOOD GLUCOSE 1 each 1 12/31/19 Active semaglutide (Ozempic) 0.25 mg or 0.5 mg(2 mg/1.5 mL) pen injector injection Inject 0.5 mg under the skin Active insulin lispro (HumaLOG) 100 unit/mL pen for injection TAKE 18 UNITS PLUS SLIDING SCALE INSULIN 3 TIMES DAILY WITH MEAL. TDD=80 UNITS. 75 mL 4 01/21/20 Active fluticasone-ume clidin-vilanter (Trelegy Ellipta) 100-62.5-25 mcg inhaler Inhale 1 puff daily 30 each 3 02/05/20 Active albuterol 2.5 mg /3 mL (0.083 %) nebulizer solution Take 3 mL (2.5 mg total) by nebulization every 6 (six) hours as needed for wheezing 360 mL 3 02/05/20 Active furosemide (LASIX) 80 mg tablet TAKE 1 TABLET BY MOUTH EVERY DAY 90 tablet 03/05/20 25 Active predniSONE (DELTASONE) 10 mg tablet Take 4 tablets (40 mg) by mouth daily for 14 days, THEN 3 tablets (30 mg) daily for 14 days, THEN 2 tablets (20 mg) daily for 14 days, THEN 1 tablet (10 mg) daily for 14 days. 140 tablet 03/11/20 25 2024 Active furosemide (LASIX) 80 mg tablet TAKE 1 TABLET BY MOUTH EVERY DAY 90 tablet 09/30/20 24 2024 Discontinued Active Problems Problem Noted Date Diagnosed Date Severe obesity 12/23/2024 ILD (interstitial lung disease) 07/29/2024 Atherosclerosis of [place] ar jasmin of left lower extremity with [...] (04/24/2022): Added automatically from request for surgery [id number] Right knee pain 03/08/2022 Assessment & Plan [...] be done closer to home. Atherosclerosis of [place] ar jasmin of right lower extremity with intermittent claudication 11/16/2021 Atheroscler of [place] artery of right leg with intermit claudication 10/28/2021 Overview (10/28/2021): Added automatically from request for surgery [id number] Assessment & Plan (08/07/2022 9:06 AM CDT): [...] 04/18/2021 Assessment & Plan (10/24/2021 11:53 AM MAJOR GIFTS MANAGER): Progressive right leg claudication with decline in [...] 05/13 Assessment & Plan (12/01/2021 9:47 PM MAJOR GIFTS MANAGER): Instructed to follow consistent carb diet specifically [...] months. Assessment & Plan (12/23/2024 2:22 PM MAJOR GIFTS MANAGER): This is a 69-year-old female seen for [...] weeks. Assessment & Plan (09/22/2024 12:21 PM MAJOR GIFTS MANAGER): 69 years old female seen in follow-up [...] . Restart CGM. Will send application for Freestyle Kinjal 3+. 7. Consistent carb diet 8. [...] months. Assessment & Plan (01/10/2023 12:59 PM MAJOR GIFTS MANAGER): This is a 67-year-old female seen for [...] weeks. Assessment & Plan (12/01/2021 9:46 PM MAJOR GIFTS MANAGER): This is a 66-year-old female seen for [...] continuous glucose monitor. Will send application for Alegro Heal[facility] 2. Sample provided. 6. Limit carbs to [...] below 80. 6. Consistent carbs diet. 7. HUMAN RESOURCES BENEFITS SPECIALIST follow-up in 3 months. Follow-up with me [...] having lows. -will check status of Freestyle Knijal. -follow-up in 3 months Assessment & Plan (11/15/2019 10:58 AM MAJOR GIFTS MANAGER): 62 years old female with history of [...] Plan for freestyle every CGM next visit. [employer] follow-up in 4 weeks. Follow-up with me in 3 months. Occlusion of left carotid artery 05/06/2018 Assessment & Plan (02/20/2024 12:52 PM CDT): Chronic left ICA occlusion Assessment & Plan (10/24/2021 11:54 AM MAJOR GIFTS MANAGER): Minimal right ICA stenosis with chronically occluded left ICA. Repeat carotid Doppler one year. Assessment & Plan (04/18/2021 12:28 PM CDT): Due for annual carotid Doppler in six months. We'll arrange it. Coronary artery disease of n ative artery of [place] heart with stable angina pectoris 05/06/2018 Hypertension associated with diabetes 05/06/2018 Assessment & Plan (01/20/2025 2:16 PM CDT): Continue lisinopril and metoprolol. Assessment & Plan (12/23/2024 2:23 PM MAJOR GIFTS MANAGER): Continue metoprolol and lisinopril. Assessment & Plan (09/22/2024 12:18 PM MAJOR GIFTS MANAGER): Chronic, stable Continue lisinopril and metoprolol Low-salt diet Assessment & Plan (06/09/2024 7:51 AM CDT): Continue metoprolol and lisinopril. Assessment & Plan (08/06/2023 8:01 AM CDT): Continue metoprolol and lisinopril. Assessment & Plan (04/30/2023 2:25 PM CDT): Chronic, stable Continue metoprolol low-salt diet Assessment & Plan (01/10/2023 1:01 PM MAJOR GIFTS MANAGER): Continue lisinopril and metoprolol. Follow low-sodium diet. Assessment & Plan (09/12/2022 5:30 PM CDT): Continue lisinopril, metoprolol and Imdur. Follow low-sodium diet. Assessment & Plan (08/20/2022 9:28 PM CDT): Continue Lisinopril, Metoprolol and Imdur. Follow low sodium diet. Assessment & Plan (12/01/2021 9:46 PM MAJOR GIFTS MANAGER): Continue furosemide, lisinopril and metoprolol. Assessment & Plan (09/16/2021 10:36 AM CDT): Stable on lisinopril metoprolol. Low-salt diet. Assessment & Plan (03/15/2021 11:08 AM CDT): Stable on lisinopril and metoprolol. Continue low-salt diet Assessment & Plan (02/12/2020 11:38 AM CDT): Continue lisinopril and metoprolol. Assessment & Plan (11/15/2019 10:49 AM MAJOR GIFTS MANAGER): Stable on current regimen. Hyperlipidemia associated with type 2 diabetes ivan maciel 05/06/2018 Assessment & Plan (01/20/2025 2:16 PM CDT): Continue rosuvastatin and fenofibrate. Follow low-fat diet. Assessment & Plan (12/23/2024 2:23 PM MAJOR GIFTS MANAGER): Continue rosuvastatin and fenofibrate. Follow low-fat diet. Assessment & Plan (09/22/2024 12:18 PM MAJOR GIFTS MANAGER): Lab Results Component Value Date LDLCALC 59 [...] Repatha Assessment & Plan (01/10/2023 1:01 PM MAJOR GIFTS MANAGER): Continue rosuvastatin. Follow low-fat diet Assessment & Plan (09/12/2022 5:29 PM CDT): Continue rosuvastatin and Repatha. Follow low-fat low-cholesterol diet. Assessment & Plan (08/20/2022 9:27 PM CDT): Continue Rosuvastatin and Repatha. Follow low fat and low cholesterol diet. Assessment & Plan (12/01/2021 9:47 PM MAJOR GIFTS MANAGER): Continue rosuvastatin and Repatha. Assessment & Plan [...] rosuvastatin Assessment & Plan (11/15/2019 10:49 AM MAJOR GIFTS MANAGER): Continue atorvastatin. Will request previous labs from primary MD. Chronic systolic heart failure 05/06/2018 Nonrheumatic aortic valve stenosis 05/06/2018 Resolved Problems Problem Noted Date Diagnosed Date Resolved Date BMI 38.0-38.9,adult 11/15/2019 11/08/20 21 Assessment & Plan (11/15/2019 10:36 AM MAJOR GIFTS MANAGER): BMI Follow-up includes: nutrition counseling and education provided. Encounters Date Type Department Care Team Description 03/11/2025 Telephone [facility] [address] [phone] Bar Marquez MD 03/10/2025 Telephone [facility] [address] [phone] Bar Marquez MD 03/10/2025 Results Follow-Up [facility] [address] [phone] Bar Marquez MD 03/06/2025 1:16 PM CDT - 03/06/2025 11:59 PM CDT Hospital Encounter [facility] - Imaging [address] [place] [address] Bar Marquez MD ILD (interstitial lung disease) (HCC) Discharge Disposition: Discharge to home or self care 02/18/2025 Results Follow-Up [facility] [address] [facility] [address] [place] [address] Bar Marquez MD 02/17/2025 9:00 AM CDT - 02/17/2025 11:59 PM CDT Hospital Encounter [facility] Cardiac Testing [address] [facility] [address] [place] [phone] Chronic hypoxemic respiratory failure (HCC); Lower extremity edema Discharge Disposition: Discharge to home or self care 2025 11:35 AM CDT Lab [facility] [address] [facility] [place] [phone] Chronic hypoxemic respiratory failure (HCC); Lower extremity edema 2025 10:30 AM CDT Office Visit [facility] [address] [facility] [address] [place] [address] Bar Marquez MD ILD (interstitial lung disease) (HCC) (Primary Dx); Former smoker; Chronic hypoxemic respiratory failure (HCC); Lower extremity edema; Nonrheumatic aortic valve stenosis 2025 Results Follow-Up [facility] [address] [phone] Bar Marquez MD 01/26/2025 10:00 AM CDT - 01/26/2025 11:59 PM CDT Hospital Encounter [facility] Res[facility] [place] [address] ILD (interstitial lung disease) (HCC) Discharge Disposition: Discharge to home or self care 01/21/2025 Telephone [facility] Endocrinology at [facility] [address] [facility] [address] [place] [phone] Peggy Mercedes LPN 01/20/2025 12:30 PM CDT Office Visit [facility] Endocrinology at [address] [place] [phone] Henry Duffy, ERIBERTO Type 2 diabetes mellitus with stage 3a chronic kidney disease, with long-term current use of insulin (HCC) (Primary Dx); Hyperlipidemia associated with type 2 diabetes mellitus (HCC); Hypertension associated with diabetes (HCC) 12/24/2024 Telephone [facility] Endocrinology at [address] [place] [phone] Chely Mcduffie, VALERIA Test Results 12/23/2024 12:28 PM MAJOR GIFTS MANAGER - 12/23/2024 11:59 PM MAJOR GIFTS MANAGER Hospital Encounter [address] [phone] Discharge Disposition: Discharge to home or self care 12/23/2024 11:30 AM MAJOR GIFTS MANAGER Office Visit [facility] Medical [facility] Endocrinology at [address] [place] [phone] Henry Duffy, ERIBERTO Type 2 diabetes mellitus [...] on file Legal Sex Female 12:41 AM MAJOR GIFTS MANAGER Gender Identity Not on file Sexual [...] 05/28/2023, 11/22/2022 Medical Devices Implanted Type Area Network Security Engineer Device Identifier Shelf Expiration Date Model / Serial / Lot [employer] Inc [id number] Vascade 6/7fr Bioabsorbable Vascular System Compression Collagen - Sn/A - [id number] Implanted:Qty: 1 on 11/16/2021 by Sang Morin MD at [facility] Other - see comments Left: Other - see comments [employer] 700-580 I-05U / N/A / [id number] Description:Left Groin: Vasc colten vascular closure system Choe V[employer] Device Clsr Perclose Prostyle Sut-Mediatd Closure-Repair Sys 26388-32 - S0 - [id number] Implanted:Qty: 1 on 04/26/2022 by Aakash Williamson MD at [facility] Other - see comments Left: Femoral [employer] 03/11/2024 30471-4 Choe V[employer] Device Clsr Perclose Prostyle Sut-Mediatd Closure-Repair Sys 20714-11 - S0 - [id number] Implanted:Qty: 1 on 04/26/2022 by Aakash Williamson MD at [facility] Other - see comments Left: Femoral [employer] 03/11/2024 93849-9 Cardiva [employer] Inc Vascade 6/7fr Bioabsorbable Vascular System Compression Collagen [id number] - S0 - [id number] Implanted:Qty: 1 on 04/26/2022 by Aakash Williamson MD at [facility] Other - see comments Right: Femoral Vein [employer] Inc 02/16/2024 700-580 I-05U / 0 / [id number] [employer] Valve Heart 23mm Nile 3 Transcatheter [id number] - [id number] - [id number] Implanted:Qty: 1 on 04/26/2022 by Aakash Williamson MD at [facility] Prosthetic Valve N/A: Aortic Valve [employer] 10/20/2024 [id number] / [id number] / Medtronic Inc Everflex Entrust 6mm 60mm 120cm Self Expand Triaxial Low Profile - Sn/A - [id number] Implanted:Qty: 1 on 11/16/2021 by Sang Morin MD at [facility] Stent Right: Leg Medtronic Inc 09/18/2024 EVD35-0 6-060-1 20 / N/A / [id number] Description:Right popliteal artery Medtronic Inc Protege Everflex 5mm .079in 20mm 120cm Otw Radiopaque Delivery - Snone - [id number] Implanted:Qty: 1 on 06/14/2022 by Sang Morin MD at [facility] Stent Right: Femoral Med[employer]onic Inc 12/31/2022 PRB35-0 5-020-1 20 / NONE / [id number] Terumo Active Storage Jaime Angio-Seal Vip 6fr Closere Device [id number] - Snone - [id number] Implanted:Qty: 1 on 06/14/2022 by Sang Morin MD at [facility] Vascular Closure Device Left: Femoral [employer] Jaime 04/11/2023 [id number] / NONE / [id number] [employer]iva Medical Inc Vascade 6/7fr Bioabsorbable Vascular System Compression Collagen [id number] - S0 - [id number] Implanted:Qty: 1 on 04/14/2022 by Italo Galindo MD at [facility] [employer] 02/23/2024 700-580 I-05U / 0 / [id number] Bard Peripheral Vascular Lifestent Proseries Crosser Lutonix 5mm 5fr 100mm 135cm Low [id number] - [id number] Implanted:Qty: 1 on 02/27/2024 by Sang Morin MD at [facility] Left: Groin Bard Peripheral Vascular [id number] 08/03/2026 [id number] / / [id number] [employer]apps Angio-Seal Vip 6fr Closere Device [id number] - Sna - [id number] Implanted:Qty: 1 on 02/27/2024 by Sang Morin MD at [facility] [employer] 10/15/2024 [id number] / NA / [id number] Procedures Procedure Name Priority Date/Time Associated Diagnosis Comments CT CHEST HIGH RESOLUTION WO CONTRAST Schedule Routine, Read Routine (OP Routine) 03/06/2025 1:41 PM CDT ILD (interstitial lung disease) (HCC) TRANSTHORACIC ECHO (TTE) COMPLETE W DOPPLER/CF W CONTRAST Routine 02/17/2025 10:39 AM CDT Chronic hypoxemic respiratory failure (HCC) Lower extremity edema PRO B-TYPE NATRIURETIC PEPTIDE Routine 2025 11:35 AM CDT Chronic hypoxemic respiratory failure (HCC) Lower extremity edema PULMONARY FUNCTION TEST (PFT) Routine 01/26/2025 12:06 PM CDT ILD (interstitial lung disease) (HCC) HEMOGLOBIN A1C Routine 12/23/2024 12:12 PM MAJOR GIFTS MANAGER Type 2 diabetes mellitus with stage 3a chronic kidney disease, with long-term current use of insulin (HCC) EGFR Routine 12/23/2024 12:11 PM MAJOR GIFTS MANAGER Type 2 diabetes mellitus with stage 3a chronic kidney disease, with long-term current use of insulin (HCC) ALBUMIN CREATININE RATIO, URINE Routine 12/23/2024 12:11 PM MAJOR GIFTS MANAGER Type 2 diabetes mellitus with stage 3a chronic kidney disease, with long-term current use of insulin (HCC) BASIC METABOLIC PANEL Routine 12/23/2024 12:11 PM MAJOR GIFTS MANAGER Type 2 diabetes mellitus with stage 3a chronic kidney disease, with long-term current use of insulin (HCC) THYROID FUNCTION CASCADE Routine 12/23/2024 12:11 PM MAJOR GIFTS MANAGER Type 2 diabetes mellitus with stage 3a chronic kidney disease, with long-term current use of insulin (HCC) LIPID PANEL Routine 12/23/2024 12:11 PM MAJOR GIFTS MANAGER Type 2 diabetes mellitus with stage 3a chronic kidney disease, with long-term current use of insulin (HCC) DIABETIC EYE EXAM Routine 01/08/2024 HEPATITIS PANEL, ACUTE Routine 06/16/2019 8:10 AM CDT from Last 3 Months or Most Recently Relevant to Health Maintenance Results * CT Chest High Resolution WO Contrast (03/06/2025 1:41 PM CDT) Anatomical Region Laterality Modality Chest N/A Computed Tomogra phy 03/06/2025 3:08 PM CDT Impressions 03/06/2025 3:26 PM CDT 1. Stable pulmonary interstitial and groundglass opacities in a pattern pattern suggesting nonspecific interstitial pneumonia or hypersensitivity pneumonitis. 2. 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 Dictated by: Sudhir Michelle M.D. The radiology attending physician has personally reviewed this study, and had reviewed and/or edited this written report and agrees with it. Electronically signed by: Wayne Rutledge M.D. Narrative 03/06/2025 3:26 PM CDT EXAMINATION: High Resolution CT of Chest without contrast HISTORY: Restriction on pulmonary function testing TECHNIQUE: Standard high resolution CT of the Chest without intravenous contrast was performed in inspiration and expiration. FINDINGS: Comparison is made to prior CT of 04/11/2022 an 06/16/2024. Patient is post median sternotomy and transcatheter aortic valve replacement. Fat necrosis is again seen in the midline. No thoracic lymphadenopathy is seen. No pleural or pericardial effusion. Coronary artery bypass changes are seen. The heart size is normal. Upper abdomen is normal other than sludge in the gall bladder. There are mild reticulations and areas of bronchiectasis noted within the lungs bilaterally, which is similar to the prior study. Previously noted groundglass opacities are similar. Mild bronchiectasis is seen in the lung bases. No honeycombing is identified. The exhalation images demonstrate areas of subsegmental air trapping with findings suggesting tracheomalacia with greater than 75% loss of area of the trachea at the level of the aorta and bronchomalacia with narrowing of both main bronchi. This has not significantly progressed from the prior examination. The bone windows do not demonstrate any osseous lesion. Procedure Note Wayne Rutledge MD - 03/06/2025 EXAMINATION: High Resolution CT of Chest without contrast HISTORY: Restriction on pulmonary function testing TECHNIQUE: Standard high resolution CT of the Chest without intravenous contrast was performed in inspiration and expiration. FINDINGS: Comparison is made to prior CT of 04/11/2022 an 06/16/2024. Patient is post median sternotomy and transcatheter aortic valve replacement. Fat necrosis is again seen in the midline. No thoracic lymphadenopathy is seen. No pleural or pericardial effusion. Coronary artery bypass changes are seen. The heart size is normal. Upper abdomen is normal other than sludge in the gall bladder. There are mild reticulations and areas of bronchiectasis noted within the lungs bilaterally, which is similar to the prior study. Previously noted groundglass opacities are similar. Mild bronchiectasis is seen in the lung bases. No honeycombing is identified. The exhalation images demonstrate areas of subsegmental air trapping with findings suggesting tracheomalacia with greater than 75% loss of area of the trachea at the level of the aorta and bronchomalacia with narrowing of both main bronchi. This has not significantly progressed from the prior examination. The bone windows do not demonstrate any osseous lesion. IMPRESSION: 1. Stable pulmonary interstitial and groundglass opacities in a pattern pattern suggesting nonspecific interstitial pneumonia or hypersensitivity pneumonitis. 2. 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 Dictated by: Sudhir Michelle M.D. The radiology attending physician has personally reviewed this study, and had reviewed and/or edited this written report and agrees with it. Electronically signed by: Wayne Rutledge M.D. Bar Marquez MD IMG CT PROCEDURES Buffy l Result * TRANSTHORACIC ECHO (TTE) COMPLETE W DOPPLER/CF W CONTRAST (02/17/2025 10:39 AM CDT) LV EF 55 % CONS SCIMAGE Anatomical Region Laterality Modality Ultrasound 02/17/2025 9:01 AM CDT Narrative 02/17/2025 6:55 PM CDT [facility] [address] [place] [address] ECHOCARDIOGRAM Patient Name: MAICOL WISE : 1955 (70y ) Gender: F Study Date: 02/17/2025 09:01:57 AM Ht(Inch): 63 Wt(Lb): 233.91 BSA: 2.17 Printing Gray Cloth Tender: ENRIKE Location: opt Order Provider: BAR MARQUEZ [...] Procedure Note Ajay Mccabe MD - 02/17/2025 [facility] [place] [address] ECHOCARDIOGRAM Patient Name: MAICOL WISE : 1955 (70y ) Gender: F Study Date: 02/17/2025 09:01:57 AM Ht(Inch): 63 Wt(Lb): 233.91 BSA: 2.17 Printing Gray Cloth Tender: ENRIKE Location: opt Order Provider: BAR MARQUEZ BMI: 41.43 BP: 125/80 Ref Provider: ALMA BAR - PROCEDURES: Echocardiographic Report: Transthoracic Echocardiogram with [...] Heart J. 2006:27:330-337. 2. Steven RW, Justino AM. J. AM Anmol Cardiol: Cardiovasc Imag. 2009;2: 216- 225. Interpretive Data Last Revised Date: 2018. Blood 2025 11:3 5 AM CDT 2025 2:47 PM CDT us Bar Marquez MD LAB BLOOD ORDERABLES F inal Result [facility] [address] Department [place] [address] * Pulmonary Function Test - (01/26/2025 12:06 PM CDT) Anatomical Region Laterality Modality PFT 01/26/2025 11:3 4 AM CDT Narrative 02/17/2025 8:26 PM CDT Table formatting from the original result was not included. [facility] BOARD CERTIFIED IN PULMONARY, CRITICAL CARE, AND SLEEP MEDICINE MD Addi Rivera MD [facility] [facility] [address] [place] [address] Gregorio Wayne MD Office [phone] Zelalem Rueda MD PULMONARY FUNCTION TESTING Spirometry [...] Marquez MD Pulmonary and Critical Care Medicine [phone] Bar Marquez MD PFT ORDERABLES Final Result * (ABNORMAL) Hemoglobin A1c (12/23/2024 12:12 PM MAJOR GIFTS MANAGER) [facility] Hgb A1C 8.6(H) 4.0 - 5.6 % Estimated Average Glucose 200 mg/dL [facility] Comment: The ADA recommends reporting an estimated Average Glucose (eAG) with all Hemoglobin A1c results using the equation derived from a study of 507 normal and diabetic adults. Minority populations were underrepresented and children were not included. (Diabetes Care 31:5586-2074, 2008). The eAG is not equivalent to a fasting glucose. Blood 12/23/2024 12:1 2 PM MAJOR GIFTS MANAGER 12/23/2024 4:26 PM MAJOR GIFTS MANAGER us Henry Duffy NP LAB BLOOD ORDERABLES Final Result [facility] [address] Department [place] [address] * (ABNORMAL) eGFR (12/23/2024 12:11 PM MAJOR GIFTS MANAGER) eGFR 49(L) >=60 mL/min/1. 73 m2 Comment: [...] reviewed 2021. Blood 12/23/2024 12:1 1 PM MAJOR GIFTS MANAGER 12/23/2024 4:25 PM MAJOR GIFTS MANAGER us Henry Duffy NP LAB BLOOD ORDERABLES Final Result [facility] [address] Department [place] [address] * Thyroid Function [place] (12/23/2024 12:11 PM MAJOR GIFTS MANAGER) Pathologist [facility] TSH 1.27 0.30 - 4.20 mcIUnit/mL Blood 12/23/2024 12:1 1 PM MAJOR GIFTS MANAGER 12/23/2024 4:25 PM MAJOR GIFTS MANAGER Henry Duffy HUMAN RESOURCES BENEFITS SPECIALIST LAB BLOOD ORDERABLES Final Result Performing Organization Address [facility] Co de Phone Number [facility] [address] [place] [address] * Albumin Creatinine Ratio, Urine (12/23/2024 12:11 PM MAJOR GIFTS MANAGER) [facility] Albumin Ur <12.0 mg/L Comment: Interpretive Data No reference range established. Current interpretive data was last revised 2019. Creatinine Ur 46.5 mg/dL [facility] Comment: Interpretive Data No reference range established. Current interpretive data was last revised 2019. Albumin Creatinine Ratio, Ur <26 1 - 29 mg/g [facility] Urine 12/23/2024 12:1 1 PM MAJOR GIFTS MANAGER 12/23/2024 12:14 PM MAJOR GIFTS MANAGER Henry Duffy HUMAN RESOURCES BENEFITS SPECIALIST LAB URINE ORDERABLES Final Result Performing Organization Address [facility]/ZIP Co de Phone Number [facility] [address] Department [place] [address] * (ABNORMAL) Lipid panel (12/23/2024 12:11 PM MAJOR GIFTS MANAGER) Pathologist [facility] Cholesterol 154 30 - 199 mg/dL Comment: [...] revised on 2018. Triglycerides 161(H) <=149 mg/dL [facility] Comment: Interpretive Data Ages < or [...] revised on 2018. HDL 67 >=40 mg/dL [facility] Comment: Interpretive Data Ages < or [...] on 2018. LDL, calculated 60 <=129 mg/dL [facility] Comment: Interpretive Data Ages < or = 19 years Acceptable: <110 mg/dL Borderline high: 110-129 mg/dL High: >or= 130 mg/dL Ages > or = 20 years Optimal: <100 mg/dL Near optimal: 100-129 mg/dL Borderline high: 130-159 mg/dL High: >160 mg/dL Calculated using the Morales LDL-C estimating equation. This equation was implemented on 2024. Prior to this date LDL-C was estimated using the Friedewald equation. Literature References: 1. Expert Panel on Integrated Guidelines for Cardiovascular Health and Risk Reduction in Children and Adolescents. Pediatrics 2010;128:S213 2. NCEP Expert Panel. Circulation 2004;110:227 3. Andrew M et al. NOAH Cardiol. 2020 March 12;5(5):540-548. doi: 10.1001/jamacardio.2020.0013 Current Interpretive Data was last revised on 2024. Non-HDL Cholesterol 87 mg/dL [facility] Comment: Interpretive Data Ages < or [...] last revised on 2018. Chol/HDL ratio 2 [facility] Blood 12/23/2024 12:1 1 PM MAJOR GIFTS MANAGER 12/23/2024 4:25 PM MAJOR GIFTS MANAGER us Henry Duffy NP LAB BLOOD ORDERABLES Final Result [facility] [address] Department [place] [address] * (ABNORMAL) Basic metabolic panel (12/23/2024 12:11 PM MAJOR GIFTS MANAGER) Sodium 144 135 - 145 mmol/L Potassium, pl 4.6 3.3 - 4.9 mmol/L [facility] Chloride 100 97 - 110 mmol/L [facility] CO2 28 22 - 32 mmol/L [facility] Anion gap 16(H) 2 - 15 mmol/L [facility] BUN 23 6 - 25 mg/dL [facility] Creatinine 1.18(H) 0.60 - 1.10 mg/dL [facility] Glucose 159 70 - 199 mg/dL [facility] Comment: Interpretive Data Fasting glucose >/= [...] 2022. Calcium 10.2 8.5 - 10.3 mg/dL [facility] Blood 12/23/2024 12:1 1 PM MAJOR GIFTS MANAGER 12/23/2024 4:25 PM MAJOR GIFTS MANAGER us Henry Duffy NP LAB BLOOD ORDERABLES Final Result Performing Organization Address [facility] Co de Phone Number [facility] [address] [place] [place] [address] * (ABNORMAL) Diabetic Eye Exam (01/08/2024) Historical Provider HEALTH MAINTENANCE Final Result * Hepatitis panel, acute (06/16/2019 8:10 AM CDT) Hep A IgM Non-Reactive Non-Reactive [facility] Hep B core IgM Non-Reactive Non-Reactive [facility] Hep C Ab Non-Reactive Non-Reactive [facility] HepBsAg Nonreactive Nonreactive [facility] Blood specimen (specimen) 06/16/2019 8:10 AM CDT 06/16/2019 9:01 AM CDT Lloa Mendoza MD LAB MICROBIOLOGY - GENE RAL ORDERABLES Final Result Performing Organization Address [facility] Co de Phone Number [facility] [address] [place] [address] from Last 3 Months or Most Recently Relevant to Health Maintenance Insurance [facility]ICARE [facility] MEDICARE [facility] MEDICARE Advance Directives For more information, please contact: [phone] Documents on File Type Date Recorded Patient Flow Specialist Expl anation Power of Artist Scientific 06/14/2022 12:56 PM * Full Code (Latest [...] 5:26 PM 11/17/2021 3:57 PM Care Teams Wireless Technician Relationship Specialty Start Date End Date Jermaine Ingram MD [address] [place] [address] PCP - General Family Practice 04/23/18 Ajay Mccabe MD [address] [place] [address] Consulting Physician Cardiology 05/06/18 Lola Mendoza MD [address] [place] [address] Consulting Physician Nephrology 10/18/20 Ajay Sears MD [address] [place] [address] Surgeon Neurosurgery 04/18/21 Sang Morin MD [address] [place] [address] Surgeon Vascular Surgery 11/17/21
--- OUTSIDE RECORDS SUMMARY | 2025-03-17 10:10 | XMS_ITS | Encounter Summary ---
Author Organization [facility] Address [address] [place] [address] Care Team Providers Care Manager University Name Role Phone Jermaine Ingram MD Primary Care Provider Encounter Details Date Type Department Care Team (Late st Contact Info) Description 04/19/2019 Abstract [facility] CON[facility] [address] [place] [address] , Generic Conversion, Social History Tobacco Use Types Packs/Day Years Used Date Smoking Tobacco: Never Assessed Comments Unknown Sex and Gender Information Value Date Recorded Sex Assigned at Female 12/09/2024 3:10 PM V BELT CURER Legal Sex Female 3:43 PM V BELT CURER Gender Identity Not on file Sexual Orientation Not on file documented as of this encounter Plan of Treatment Not on file documented as of this encounter Visit Diagnoses Not on filedocumented in this encounter Additional Health Concerns Infection Onset Date Last Indicated Resolved Time COVID-19 Rule Out 03/13/2022 03/13/2022 03/13/2022 3:50 PM CDT COVID-19 Rule Out 12/22/2022 12/22/2022 12/22/2022 10:47 AM V BELT CURER COVID-19 Confirmed 12/22/2022 12/22/2022 12:32 AM V BELT CURER COVID-19 Rule Out 04/11/2024 04/11/2024 04/11/2024 4:44 PM CDT COVID-19 Rule Out 10/15/2024 10/15/2024 10/15/2024 5:14 PM V BELT CURER COVID-19 Rule Out 12/09/2024 12/09/2024 12/09/2024 4:14 PM V BELT CURER documented as of this encounter Care Teams Manager University Relationship Specialty Start Date End Date Jermaine Ingram MD [address] [place] [address] PCP - General FAMILY PRACTICE 05/31/19 documented as of this encounter
--- OUTSIDE RECORDS SUMMARY | 2025-03-17 10:10 | XMS_ITS | Clinical Summary ---
Author Organization [facility] Address [address] [facility] [place] [address] Phone Care Team Providers Care Optoelectronics Engineer Name Role Phone Jermaine Ingram MD [...] on file Legal Sex Female 10:39 AM LAUNDRY OR DRY CLEANERS COUNTER CLERK Gender Identity Not on file Sexual Orientation Not on file Last Filed Vital Signs Vital Sign Reading Time Taken Comments Blood Pressure 138/82 01/02/2020 10:01 AM LAUNDRY OR DRY CLEANERS COUNTER CLERK Pulse 79 01/02/2020 10:01 AM LAUNDRY OR DRY CLEANERS COUNTER CLERK Temperature 36.1 C (97 F) 01/02/2020 10:01 AM LAUNDRY OR DRY CLEANERS COUNTER CLERK Respiratory Rate 17 01/02/2020 10:01 AM LAUNDRY OR DRY CLEANERS COUNTER CLERK Oxygen Saturation 97% 01/02/2020 10:01 AM LAUNDRY OR DRY CLEANERS COUNTER CLERK Inhaled Oxygen Concentration - - Weight 99.5 kg (219 lb 6.4 oz) 01/02/2020 10:01 AM LAUNDRY OR DRY CLEANERS COUNTER CLERK Height 160 cm (5' 3 ) 01/02/2020 10:01 AM LAUNDRY OR DRY CLEANERS COUNTER CLERK Body Mass Index 38.86 01/02/2020 10:01 AM LAUNDRY OR DRY CLEANERS COUNTER CLERK Plan of Treatment Health Maintenance Due Date [...] (COMPREHENSIVE METABOLIC PANEL) Routine 10/24/2019 12:43 PM LAUNDRY OR DRY CLEANERS COUNTER CLERK Tremor from Last 3 Months or Most Recently Relevant to Health Maintenance Results * (ABNORMAL) CMP (COMPREHENSIVE METABOLIC PANEL) (10/24/2019 12:43 PM LAUNDRY OR DRY CLEANERS COUNTER CLERK) SODIUM 139 136 - 144 mmol/L 10/24/2019 2:47 PM LAUNDRY OR DRY CLEANERS COUNTER CLERK [facility] POTASSIUM 4.4 3.5 - 5.1 mmol/L 10/24/2019 2:47 PM LAUNDRY OR DRY CLEANERS COUNTER CLERK [facility] CHLORIDE 98(L) 100 - 110 mmol/L 10/24/2019 2:47 PM LAUNDRY OR DRY CLEANERS COUNTER CLERK [facility] CO2, VENOUS 27 22 - 32 mmol/L 10/24/2019 2:47 PM LAUNDRY OR DRY CLEANERS COUNTER CLERK [facility] ANION GAP 18.4 8.0 - 20.0 mmol/L 10/24/2019 2:47 PM LAUNDRY OR DRY CLEANERS COUNTER CLERK [facility] GLUCOSE 244(H) 70 - 99 mg/dL 10/24/2019 2:47 PM LAUNDRY OR DRY CLEANERS COUNTER CLERK [facility] BUN 27(H) 8 - 23 mg/dL 10/24/2019 2:47 PM [facility] CREATININE, BLOOD 1.26(H) 0.60 - 1.10 mg/dL 10/24/2019 2:47 PM LAUNDRY OR DRY CLEANERS COUNTER CLERK [facility] BUN/CREATININE RATIO 21(H) 12 - 20 ratio 10/24/2019 2:47 PM [facility] TOTAL PROTEIN 6.6 6.0 - 8.3 g/dL 10/24/2019 2:47 PM [facility] ALBUMIN 4.3 3.5 - 5.2 g/dL 10/24/2019 2:47 PM [facility] Comment: The colormetric methods used for the determination of Albumin may lead to falsely elevated test results in patients suffering from renal failure or insufficiency due to interference with other proteins. A/G RATIO 1.9 1.0 - 2.0 10/24/2019 2:47 PM [facility] CALCIUM 9.9 8.9 - 10.3 mg/dL 10/24/2019 2:47 PM [facility] T BILI 0.4 <=1.2 mg/dL 10/24/2019 2:47 PM [facility] SGOT (AST) 21 <=32 U/L 10/24/2019 2:47 PM [facility] SGPT (ALT) 18 <=33 U/L 10/24/2019 2:47 PM [facility] ALKALINE PHOSPHATASE 72 35 - 105 U/L 10/24/2019 2:47 PM [facility] GFR, EST. NONAFRICAN 42(L) >=60 10/24/2019 2:47 PM [facility] GFR, EST. 51(L) >=60 019 2:47 PM [facility] Comment: Creatinine Clearance is the preferred criteria for selecting drug dose adjustments in renally impaired patients. The GFR is provided as additional pertinent clinical information. GFR is reported in mL/min/1.73 sq m. Blood specimen (specimen) Venipuncture / Unknown 10/24/2019 12:43 PM LAUNDRY OR DRY CLEANERS COUNTER CLERK 10/24/2019 1:46 PM LAUNDRY OR DRY CLEANERS COUNTER CLERK us Ino Brown MD CHEMISTRY ORDERABLES Final R esult [facility] [address] [place] [address] from Last 3 Months or Most Recently Relevant to Health Maintenance Insurance MEDICARE [facility] Care Teams Optoelectronics Engineer Relationship Specialty Start Date End Date Jermaine Ingram MD [address] [place] [address] PCP - General Family Medicine 09/30/18
--- OUTSIDE RECORDS SUMMARY | 2025-03-17 10:10 | XMS_ITS | Encounter Summary ---
Author Organization [facility] Healthcare Address [address] [place] [address] Care Team Providers Care Security Assurance Specialist Name Role Phone Jermaine Ingram MD Primary Care Provider [phone] Ajay Mccabe MD Unavailable Lola Mendoza MD Unavailable Ajay Sears MD Unavailable Sang Morin MD Unavailable Encounter Details Date Type Department Care Team (Late Contact Info) Description 08/12/2024 Telephone [facility] [address] [place] [address] Bar Amor MD [address] [facility] [address] [place] [address] Social History Tobacco Use Types [...] on file Legal Sex Female 12:41 AM DAIRY HUSBANDMAN Gender Identity Not on file Sexual Orientation Not on file documented as of this encounter Plan of Treatment Not on file documented as of this encounter Visit Diagnoses Not on filedocumented in this encounter Care Teams Security Assurance Specialist Relationship Specialty Start Date End Date Jermaine Ingram MD [address] [place] [address] PCP - General Family Practice 04/23/18 [facility] [place] [address] Consulting Physician Cardiology 05/06/18 [place] [address] Consulting Physician Nephrology 10/18/20 [place] [address] Surgeon Neurosurgery 04/18/21 [place] [address] Surgeon Vascular Surgery 11/17/21 documented as of this encounter
--- OUTSIDE RECORDS SUMMARY | 2025-03-17 10:10 | XMS_ITS | Encounter Summary ---
Author Organization [facility] Healthcare Address [address] [place] [address] Care Team Providers Care Supervisor Grinding Name Role Phone Jermaine Ingram MD Primary Care Provider [phone] Ajay Mccabe MD Unavailable [phone] Lola Mendoza MD Unavailable [phone] Ajay Sears MD Unavailable Sang Morin MD Unavailable [phone] Encounter Details Date Type Department Care Team (Late st Contact Info) Description 08/06/2024 Telephone [facility] [address] [place] [address] Bar Amor MD [address] [facility] [address] [place] [address] Social History Tobacco Use Types [...] on file Legal Sex Female 12:41 AM SALES CONSULTANT INSURANCE Gender Identity Not on file Sexual Orientation Not on file documented as of this encounter Plan of Treatment Not on file documented as of this encounter Visit Diagnoses Not on filedocumented in this encounter Care Teams Supervisor Grinding Relationship Specialty Start Date End Date Jermaine Ingram MD [address] [place] [address] PCP - General Family Practice 04/23/18 Ajay Mccabe [place] [address] Consulting Physician Cardiology 05/06/[address] [place] [address] Consulting Physician Nephrology 10/18/[address] [place] [address] Surgeon Neurosurgery 04/18/[address] [place] [address] Surgeon Vascular Surgery 11/17/21 documented as of this encounter
--- OUTSIDE RECORDS SUMMARY | 2025-03-17 10:10 | XMS_ITS | Encounter Summary ---
Author Organization [facility] Address [address] [facility] [place] [address] Phone Care Team Providers Care Supplier Quality Engineering Manager Name Role Phone Jermaine Ingram MD Primary Care Provider [phone] Reason for Visit * Reason Comments Medication Refill Encounter Details Date Type Department Care Team (Late st Contact Info) Description 11/26/2021 Refill [facility] [facility] [address] Ino Brown MD [address] [place] [phone] Medication Refill Social History Tobacco Use Types Packs/Day Years Used Date Smoking Tobacco: Former Cigarettes Q uit: 11/12/2000 Smokeless Tobacco: Never Alcohol Use Standard Drinks/Week Comments Not Currently 0 (1 standard drink = 0.6 oz pur e alcohol) Comments Unknown Sex and Gender Information Value Date Recorded Sex Assigned at Not on file Legal Sex Female 10:39 AM TRIMMER AND REINFORCER Gender Identity Not on file Sexual Orientation Not on file documented as of this encounter Plan of Treatment Not on file documented as of this encounter Visit Diagnoses Not on filedocumented in this encounter Care Teams Supplier Quality Engineering Manager Relationship Specialty Start Date End Date Jermaine Ingram MD [address] [place] [address] PCP - General Family Medicine 09/30/18 documented as of this encounter
--- OUTSIDE RECORDS SUMMARY | 2025-03-17 10:10 | XMS_ITS | Encounter Summary ---
Author Organization [facility] Address [address] [place] [address] Phone Care Team Providers Care Segmental Paving Supervisor Name Role Phone Jermaine Ingram MD Primary Care Provider Reason for Visit * Reason Comments Medication Refill Encounter Details Date Type Department Care Team (Late st Contact Info) Description 10/04/2021 Refill [facility] [phone] Ino Brown MD [address] [place] [phone] Medication Refill Social History Tobacco Use Types Packs/Day Years Used Date Smoking Tobacco: Former Cigarettes Q uit: 11/12/2000 Smokeless Tobacco: Never Alcohol Use Standard Drinks/Week Comments Not Currently 0 (1 standard drink = 0.6 oz pur e alcohol) Comments Unknown Sex and Gender Information Value Date Recorded Sex Assigned at Not on file Legal Sex Female 10:39 AM COSMETICS PRESSER Gender Identity Not on file Sexual Orientation Not on file documented as of this encounter Plan of Treatment Not on file documented as of this encounter Visit Diagnoses Not on filedocumented in this encounter Care Teams Segmental Paving Supervisor Relationship Specialty Start Date End Date Jermaine Ingram MD [address] [place] [address] PCP - General Family Medicine 09/30/18 documented as of this encounter
--- OUTSIDE RECORDS SUMMARY | 2025-03-17 10:10 | XMS_ITS | Encounter Summary ---
Author Organization [facility] Healthcare Address [address] [place] [address] Care Team Providers Care Cabinet Mounter Name Role Phone Jermaine Ingram MD Primary Care Provider [phone]- [phone] Ajay Mccabe MD Unavailable [phone] Lola Mendoza MD Unavailable [phone] Ajay Sears MD Unavailable [phone] Sang Morin MD Unavailable [phone] Encounter Details Date Type Department Care Team (Late st Contact Info) Description 05/12/2021 Telephone [facility] [address] [place] [address] Transcribed Order, Provider Social History [...] on file Legal Sex Female 12:41 AM COLLECTIONS CLERK Gender Identity Not on file Sexual Orientation Not on file documented as of this encounter Plan of Treatment Not on file documented as of this encounter Visit Diagnoses Not on filedocumented in this encounter Care Teams Cabinet Mounter Relationship Specialty Start Date End Date Jermaine Ingram MD [address] [place] [address] PCP - General Family Practice 04/23/18 Ajay Mccabe MD [address] [place] [address] Consulting Physician Cardiology 05/06/18 Lola Mendoza MD [facility] [place] [place] [address] Consulting Physician Nephrology 10/18/20 Ajay Sears MD [facility] [place] [place] [address] Surgeon Neurosurgery 04/18/21 Sang Morin MD [facility] [place] [place] [address] Surgeon Vascular Surgery 11/17/21 documented as of this encounter
--- OUTSIDE RECORDS SUMMARY | 2025-03-17 10:11 | XMS_ITS | Referral Summary ---
Author Organization [facility] D Address [address] [place] [address] Care Team Providers Care Jacker Name Role Phone Jermaine Ingram MD Primary Care Provider [phone] Ajay Mccabe MD Unavailable Lola Mendoza MD Unavailable [phone] Ajay Sears MD Unavailable Sang Morin MD Unavailable [phone] Encounters Date Type Department Care Team Description 03/11/2025 Telephone [facility] [address] [phone] Bar Marquez MD 03/10/2025 Telephone [facility] [address] [facility] [address] [place] [phone] Bar Marquez MD 03/10/2025 Results Follow-Up [facility] [address] [address] Bar Marquez MD 03/06/2025 1:16 PM CDT - 03/06/2025 11:59 PM CDT Hospital Encounter [facility] [address] [place] [address] Bar Marquez MD ILD (interstitial lung disease) (HCC) Discharge Disposition: Discharge to home or self care 02/18/2025 Results Follow-Up [facility] [address] [phone] Bar Marquez MD 02/17/2025 9:00 AM CDT - 02/17/2025 11:59 PM CDT Hospital Encounter [facility] [address] [facility] [address] [place] [address] Chronic hypoxemic respiratory failure (HCC); Lower extremity edema Discharge Disposition: Discharge to home or self care 2025 Results Follow-Up [facility] [address] [place] [phone] Bar Marquez MD 2025 11:35 AM CDT Lab [address] [place] [address] Chronic hypoxemic respiratory failure (HCC); Lower extremity edema 2025 10:30 AM CDT Office Visit [facility] [address] [place] [phone] Bar Marquez MD ILD (interstitial lung disease) (HCC) (Primary Dx); Former smoker; Chronic hypoxemic respiratory failure (HCC); Lower extremity edema; Nonrheumatic aortic valve stenosis 01/26/2025 10:00 AM CDT - 01/26/2025 11:59 PM CDT Hospital Encounter [facility] [address] [place] [phone] ILD (interstitial lung disease) (HCC) Discharge Disposition: Discharge to home or self care 01/21/[address] [facility] Endocrinology at [address], [place] [address] Peggy Mercedes LPN 01/20/2025 12:30 PM CDT Office Visit [facility] at [facility] [address] [facility] [address], [place] [phone] Henry Duffy NP Type 2 diabetes mellitus with stage 3a chronic kidney disease, with long-term current use of insulin (HCC) (Primary Dx); Hyperlipidemia associated with type 2 diabetes mellitus (HCC); Hypertension associated with diabetes (HCC) 12/24/[address] [facility] Endocrinology at [address] [place] [phone] Chely Mcduffie MA Test Results 12/23/2024 12:28 PM OPERATIONS MGR - 12/23/2024 11:59 PM OPERATIONS MGR Hospital Encounter [address] [address] Discharge Disposition: Discharge to home or self care 12/23/2024 11:30 AM OPERATIONS MGR Office Visit [facility] Endocrinology at [address] [place] [phone] Henry Duffy NP Type 2 diabetes mellitus with stage 3a [...] blood-glucose meter (True Metrix Air Glucose Meter) [facility] True Metrix Glucose meter with lancing device. ICD 10-E11.22 1 each 01/07/20 Active lancets [facility] True metrix lancets 4 times daily. ICD [...] Active pen needle, diabetic 32 gauge x needle Take with insulin 4 times daily 400 each 3 06/06/20 24 Active glucagon (Baqsimi) 3 mg/actuation spray,non-aeros olIndications:p atient with diabetes mellitus at risk of hypoglycemia Administer 1 spray into one nostril as needed (hypoglycemia) 1 each 06/06/20 24 Active gabapentin (NEURONTIN) 300 mg capsule TAKE 1 CAPSULE BY MOUTH THREE TIMES A DAY 90 capsule 3 10/01/20 Active insulin degludec (TRESIBA) 100 unit/mL (3 mL) pen for injection Inject 52 units SQ at night 45 mL 1 11/24/19 Active blood-glucose meter,continuou s (FreeStyle Kinjal 3 Thomas) misc KINJAL 3 READER TO MONITOR BLOOD [...] ILD (interstitial lung disease) 07/29/2024 Atherosclerosis of [place] ar jasmin of left lower extremity with [...] ICA stenosis Body mass index 40.0-44.9, adult (CMS/[facility]) 06/21 Morbid (severe) obesity due to excess calories 1 Assessment & Plan (08/20/2022 9:29 PM CDT): Will start Trulicity. S/P vascular surgery 06/14/2022 Aortic stenosis, severe 04/26/2022 Encounter for examination fo r normal comparison and control in clinical research program 04/24/2022 Overview (04/24/2022): Added automatically from request for surgery [id number] Right knee pain 03/08/2022 Assessment & Plan [...] be done closer to home. 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 Assessment & Plan (12/23/2024 2:22 PM OPERATIONS MGR): This is a 69-year-old female seen for [...] weeks. Assessment & Plan (09/22/2024 12:21 PM OPERATIONS MGR): 69 years old female seen in follow-up [...] . Restart CGM. Will send application for [employer] Kinjal 3+. 7. Consistent carb diet 8. [...] months. Assessment & Plan (01/10/2023 12:59 PM OPERATIONS MGR): This is a 67-year-old female seen for [...] weeks. Assessment & Plan (12/01/2021 9:46 PM OPERATIONS MGR): This is a 66-year-old female seen for [...] continuous glucose monitor. Will send application for [employer] Kinjal 2. Sample provided. 6. Limit carbs [...] below 80. 6. Consistent carbs diet. 7. STORE SALES LEADER follow-up in 3 months. Follow-up with me [...] months Assessment & Plan (11/15/2019 10:58 AM OPERATIONS MGR): 62 years old female with history of [...] Plan for freestyle every CGM next visit. It Network Architect follow-up in 4 weeks. Follow-up with me in 3 months. Occlusion of left carotid artery 05/06/2018 Assessment & Plan (02/20/2024 12:52 PM CDT): Chronic left ICA occlusion Assessment & Plan (10/24/2021 11:54 AM OPERATIONS MGR): Minimal right ICA stenosis with chronically occluded left ICA. Repeat carotid Doppler one year. Assessment & Plan (04/18/2021 12:28 PM CDT): Due for annual carotid Doppler in six months. We'll arrange it. 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 Assessment & Plan (12/23/2024 2:23 PM OPERATIONS MGR): Continue metoprolol and lisinopril. Assessment & Plan (09/22/2024 12:18 PM OPERATIONS MGR): Chronic, stable Continue lisinopril and metoprolol Low-salt diet Assessment & Plan (06/09/2024 7:51 AM CDT): Continue metoprolol and lisinopril. Assessment & Plan (08/06/2023 8:01 AM CDT): Continue metoprolol and lisinopril. Assessment & Plan (04/30/2023 2:25 PM CDT): Chronic, stable Continue metoprolol low-salt diet Assessment & Plan (01/10/2023 1:01 PM OPERATIONS MGR): Continue lisinopril and metoprolol. Follow low-sodium diet. Assessment & Plan (09/12/2022 5:30 PM CDT): Continue lisinopril, metoprolol and Imdur. Follow low-sodium diet. Assessment & Plan (08/20/2022 9:28 PM CDT): Continue Lisinopril, Metoprolol and Imdur. Follow low sodium diet. Assessment & Plan (12/01/2021 9:46 PM OPERATIONS MGR): Continue furosemide, lisinopril and metoprolol. Assessment & Plan (09/16/2021 10:36 AM CDT): Stable on lisinopril metoprolol. Low-salt diet. Assessment & Plan (03/15/2021 11:08 AM CDT): Stable on lisinopril and metoprolol. Continue low-salt diet Assessment & Plan (02/12/2020 11:38 AM CDT): Continue lisinopril and metoprolol. Assessment & Plan (11/15/2019 10:49 AM OPERATIONS MGR): Stable on current regimen. Hyperlipidemia associated with type 2 diabetes ivan maciel 05/06/2018 Assessment & Plan (01/20/2025 2:16 PM CDT): Continue rosuvastatin and fenofibrate. Follow low-fat diet. Assessment & Plan (12/23/2024 2:23 PM OPERATIONS MGR): Continue rosuvastatin and fenofibrate. Follow low-fat diet. Assessment & Plan (09/22/2024 12:18 PM OPERATIONS MGR): Lab Results Component Value Date LDLCALC 59 [...] Repatha Assessment & Plan (01/10/2023 1:01 PM OPERATIONS MGR): Continue rosuvastatin. Follow low-fat diet Assessment & Plan (09/12/2022 5:29 PM CDT): Continue rosuvastatin and Repatha. Follow low-fat low-cholesterol diet. Assessment & Plan (08/20/2022 9:27 PM CDT): Continue Rosuvastatin and Repatha. Follow low fat and low cholesterol diet. Assessment & Plan (12/01/2021 9:47 PM OPERATIONS MGR): Continue rosuvastatin and Repatha. Assessment & Plan [...] rosuvastatin Assessment & Plan (11/15/2019 10:49 AM OPERATIONS MGR): Continue atorvastatin. Will request previous labs from primary MD. Chronic systolic heart failure 05/06/2018 Nonrheumatic aortic valve stenosis 05/06/2018 Resolved Problems Problem Noted Date Diagnosed Date Resolved Date BMI 38.0-38.9,adult 11/15/2019 11/08/20 21 Assessment & Plan (11/15/2019 10:36 AM OPERATIONS MGR): BMI Follow-up includes: nutrition counseling and education [...] on file Legal Sex Female 12:41 AM OPERATIONS MGR Gender Identity Not on file Sexual Orientation [...] on file Medical Devices Implanted Type Area E Tailer Device Identifier Shelf Expiration Date Model / Serial / Lot [employer] Inc [id number] Vascade 6/7fr Bioabsorbable Vascular System Compression Collagen - Sn/A - [id number] Implanted:Qty: 1 on 11/16/2021 by Sang Morin MD at [facility] Other - see comments Left: Other - see comments [employer] 700-580 I-05U / N/A / [id number] Description:Left Groin: Vasc colten vascular closure system Choe Vascular Device Clsr Perclose Prostyle Sut-Mediatd Closure-Repair Sys 54975-71 - S0 - [id number] Implanted:Qty: 1 on 04/26/2022 by Aakash Williamson MD at [facility] Other - see comments Left: Femoral [employer] 03/11/2024 61266-7 Choe Vascular Device Clsr Perclose Prostyle Sut-Mediatd Closure-Repair Sys 29908-57 - S0 - [id number] Implanted:Qty: 1 on 04/26/2022 by Aakash Williamson MD at [facility] Other - see comments Left: Femoral [employer] 03/11/2024 [id number] [employer] Vascade 6/7fr Bioabsorbable Vascular System Compression Collagen [id number] - S0 - [id number] Implanted:Qty: 1 on 04/26/2022 by Aakash Williamson MD at [facility] Other - see comments Right: Femoral Vein [employer] 02/16/2024 700-580 I-05U / 0 / [id number] [employer] Valve Heart 23mm Nile 3 Transcatheter [id number] - [id number] - [id number] Implanted:Qty: 1 on 04/26/2022 by Aakash Williamson MD at [facility] Prosthetic Valve N/A: Aortic Valve [employer] 10/20/2024 [id number] 23A / [id number] / Medtronic Inc Everflex Entrust 6mm 60mm 120cm Self Expand Triaxial Low Profile - Sn/A - [id number] Implanted:Qty: 1 on 11/16/2021 by Sang Morin MD at [facility] Stent Right: Leg Med[employer]onic Inc 09/18/2024 EVD35-0 6-060-1 20 / N/A / [id number] Description:Right popliteal artery Med[employer] Inc Protege Everflex 5mm .079in 20mm 120cm Otw Radiopaque Delivery - Snone - [id number] Implanted:Qty: 1 on 06/14/2022 by Sang Morin MD at [facility] Stent Right: Femoral [employer] Inc 12/31/2022 PRB35-0 5-020-1 20 / NONE / [id number] Terumo [employer] Jaime Angio-Seal Vip 6fr Closere Device [id number] - Snone - [id number] Implanted:Qty: 1 on 06/14/2022 by Sang Morin MD at [facility] Vascular Closure Device Left: Femoral [employer] Jaime 04/11/2023 [id number] / NONE / [id number] [employer]iva [employer] Inc Vascade 6/7fr Bioabsorbable Vascular System Compression Collagen [id number] - S0 - [id number] Implanted:Qty: 1 on 04/14/2022 by Italo Galindo MD at [facility] [employer] 02/23/2024 700-580 I-05U / 0 / [id number] Bard Peripheral Vascular Lifestent Proseries Crosser Lutonix 5mm 5fr 100mm 135cm Low [id number] - [id number] Implanted:Qty: 1 on 02/27/2024 by Sang Morin MD at [facility] Left: Groin Bard Peripheral Vascular [id number] 08/03/2026 [id number] / / [id number] Terumo Medical Jaime Angio-Seal Vip 6fr Closere Device [id number] - Sna - [id number] Implanted:Qty: 1 on 02/27/2024 by Sang Morin MD at [facility] [employer]onne[employer]id 10/15/2024 [id number] / NA / [id number] Procedures Procedure Name Priority Date/Time Associated [...] (HCC) HEMOGLOBIN A1C Routine 12/23/2024 12:12 PM OPERATIONS MGR Type 2 diabetes mellitus with stage 3a chronic kidney disease, with long-term current use of insulin (HCC) EGFR Routine 12/23/2024 12:11 PM OPERATIONS MGR Type 2 diabetes mellitus with stage 3a chronic kidney disease, with long-term current use of insulin (HCC) ALBUMIN CREATININE RATIO, URINE Routine 12/23/2024 12:11 PM OPERATIONS MGR Type 2 diabetes mellitus with stage 3a chronic kidney disease, with long-term current use of insulin (HCC) BASIC METABOLIC PANEL Routine 12/23/2024 12:11 PM OPERATIONS MGR Type 2 diabetes mellitus with stage 3a chronic kidney disease, with long-term current use of insulin (HCC) THYROID FUNCTION CASCADE Routine 12/23/2024 12:11 PM OPERATIONS MGR Type 2 diabetes mellitus with stage 3a chronic kidney disease, with long-term current use of insulin (HCC) LIPID PANEL Routine 12/23/2024 12:11 PM OPERATIONS MGR Type 2 diabetes mellitus with stage 3a [...] demonstrate any osseous lesion. Procedure Note Wayne Rtuledge MD - 03/06/2025 EXAMINATION: High Resolution CT [...] it. Electronically signed by: Wayne Rutledge M.D. us Bar Marquez MD IMG CT PROCEDURES Buffy l Result * TRANSTHORACIC ECHO (TTE) COMPLETE W DOPPLER/CF W CONTRAST (02/17/2025 10:39 AM CDT) LV EF 55 % CONS SCIMAGE Anatomical Region Laterality Modality Ultrasound 02/17/2025 9:01 AM CDT Narrative 02/17/2025 6:55 PM CDT [facility] [address] [place] [address] ECHOCARDIOGRAM Patient Name: MAICOL WISE : 1955 (70y ) Gender: F Study Date: 02/17/2025 09:01:57 AM Ht(Inch): 63 Wt(Lb): 233.91 BSA: 2.17 Felt Hat Mellowing Machine Operator: ENRIKE Location: opt Order Provider: BAR MARQUEZ [...] Procedure Note Ajay Mccabe MD - 02/17/2025 [facility] [address] [place] [address] ECHOCARDIOGRAM Patient Name: MAICOL WISE : 1955 (70y ) Gender: F Study Date: 02/17/2025 09:01:57 AM Ht(Inch): 63 Wt(Lb): 233.91 BSA: 2.17 Felt Hat Mellowing Machine Operator: ENRIKE Location: opt Order Provider: BAR MARQUEZ [...] By: Ajay guzman 02/17/2025 6:55:22 PM CDT us Bar Marquez [...] LAB BLOOD ORDERABLES F inal Result [facility] [address] Department [place] [address] * Pulmonary Function Test - (01/26/2025 12:06 PM CDT) Anatomical Region Laterality Modality PFT 01/26/2025 11:3 4 AM CDT Narrative 02/17/2025 8:26 PM CDT Table formatting from the original result was not included. [facility] SPECIALISTS BOARD CERTIFIED IN PULMONARY, CRITICAL CARE, AND SLEEP MEDICINE MD Addi Rivera MD [address] [place] [address] [id number] Bar Marquez MD [place] [phone] Gregorio Wayne MD Office [phone] Zelalem Rueda MD PULMONARY FUNCTION TESTING Spirometry [...] Marquez MD Pulmonary and Critical Care Medicine [phone] Bar Marquez MD PFT ORDERABLES Final Result * (ABNORMAL) Hemoglobin A1c (12/23/2024 12:12 PM OPERATIONS MGR) [facility] Hgb A1C 8.6(H) 4.0 - 5.6 % Estimated Average Glucose 200 mg/dL [facility] Comment: The ADA recommends reporting an estimated Average Glucose (eAG) with all Hemoglobin A1c results using the equation derived from a study of 507 normal and diabetic adults. Minority populations were underrepresented and children were not included. (Diabetes Care 31:8837-2239, 2008). The eAG is not equivalent to a fasting glucose. Blood 12/23/2024 12:1 2 PM OPERATIONS MGR 12/23/2024 4:26 PM OPERATIONS MGR Henry Duffy NP LAB BLOOD ORDERABLES Final Result Performing Organization Address City/[facility] Co de Phone Number [facility] [address] [facility] [place], [place] [phone] * (ABNORMAL) eGFR (12/23/2024 12:11 PM OPERATIONS MGR) eGFR 49(L) >=60 mL/min/1. 73 m2 Comment: [...] of Race in Diagnosing Kidney Disease, JASN 202). The CKD-EPI equation should not be used for patients with unstable renal function and has not been validated in children and those over 70. Current interpretive data was last reviewed 2021. Blood 12/23/2024 12:1 1 PM OPERATIONS MGR 12/23/2024 4:25 PM OPERATIONS MGR Henry Duffy NP LAB BLOOD ORDERABLES Final Result Performing Organization Address [facility] Co de Phone Number [facility] [address] [place] [place], [place] [phone] * Thyroid Function Meridian (12/23/2024 12:11 PM OPERATIONS MGR) TSH 1.27 0.30 - 4.20 mcIUnit/mL Blood 12/23/2024 12:1 1 PM OPERATIONS MGR 12/23/2024 4:25 PM OPERATIONS MGR Henry Duffy STORE SALES LEADER LAB BLOOD ORDERABLES Final Result Performing Organization Address [facility] de Phone Number [facility] [address] Department [place] [address] * Albumin Creatinine Ratio, Urine (12/23/2024 12:11 PM OPERATIONS MGR) Pathologist [facility] Albumin Ur <12.0 mg/L Comment: Interpretive Data No reference range established. Current interpretive data was last revised 2019. Creatinine Ur 46.5 mg/dL [facility] Comment: Interpretive Data No reference range established. Current interpretive data was last revised 2019. Albumin Creatinine Ratio, Ur <26 1 - 29 mg/g [facility] Urine 12/23/2024 12:1 1 PM OPERATIONS MGR 12/23/2024 12:14 PM OPERATIONS MGR Henry Duffy STORE SALES LEADER LAB URINE ORDERABLES Final Result Performing Organization Address [facility] de Phone Number [facility] [address] Department [place] [address] * (ABNORMAL) Lipid panel (12/23/2024 12:11 PM OPERATIONS MGR) Pathologist [facility] Cholesterol 154 30 - 199 mg/dL Comment: [...] revised on 2018. Triglycerides 161(H) <=149 mg/dL [facility] Comment: Interpretive Data Ages < [...] revised on 2018. HDL 67 >=40 mg/dL [facility] Comment: Interpretive Data Ages < [...] on 2018. LDL, calculated 60 <=129 mg/dL [facility] Comment: Interpretive Data Ages < [...] NCEP Expert Panel. Circulation 2004;110:227 3. Andrew Rodas et al. NOAH Cardiol. 2020 March 12;5(5):540-548. doi: 10.1001/jamacardio.2020.0013 Current Interpretive Data was last revised on 2024. Non-HDL Cholesterol 87 mg/dL [facility] Comment: Interpretive Data Ages < [...] last revised on 2018. Chol/HDL ratio 2 [facility] Blood 12/23/2024 12:1 1 PM OPERATIONS MGR 12/23/2024 4:25 PM OPERATIONS MGR us Henry Duffy STORE SALES LEADER LAB BLOOD ORDERABLES Final Result [facility] [address] Department of Laboratories [place], [place] [phone] * (ABNORMAL) Basic metabolic panel (12/23/2024 12:11 PM OPERATIONS MGR) Sodium 144 135 - 145 mmol/L Potassium, pl 4.6 3.3 - 4.9 mmol/L [facility] Chloride 100 97 - 110 mmol/L [facility] CO2 28 22 - 32 mmol/L [facility] Anion gap 16(H) 2 - 15 mmol/L [facility] BUN 23 6 - 25 mg/dL [facility] Creatinine 1.18(H) 0.60 - 1.10 mg/dL [facility] Glucose 159 70 - 199 mg/dL [facility] Comment: Interpretive Data Fasting glucose [...] classification and Diagnosis of Diabetes Diabetes Care 202; 46: S19-S40. Current interpretive data was last revised 2022. Calcium 10.2 8.5 - 10.3 mg/dL [facility] Blood 12/23/2024 12:1 1 PM OPERATIONS MGR 12/23/2024 4:25 PM OPERATIONS MGR us Henry Duffy NP LAB BLOOD ORDERABLES Final Result Performing Organization Address City/[facility] Co de Phone Number [facility] [address] [place] [address] * (ABNORMAL) Diabetic Eye Exam (01/08/2024) Historical Provider HEALTH MAINTENANCE Final Result * Hepatitis panel, acute (06/16/2019 8:10 AM CDT) Hep A IgM Non-Reactive Non-Reactive [facility] Hep B core IgM Non-Reactive Non-Reactive [facility] Hep C Ab Non-Reactive Non-Reactive [facility] HepBsAg Nonreactive Nonreactive [facility] Blood specimen (specimen) 06/16/2019 8:10 AM CDT 06/16/2019 9:01 AM CDT Lola Mendoza MD LAB MICROBIOLOGY - GENE RAL ORDERABLES Final Result Performing Organization Address City/[facility]/ZIP Co de Phone Number [facility] [address] Department [employer] [place], [place] [phone] from Last 3 Months or Most Recently Relevant to Health Maintenance Insurance MEDICARE AARP Member Subscriber Plan / Payer (Ef fective 2018-Present) Name:Maicol Wise Relation to Subscriber:Self Name:Maicol Wise Payer ID:[id number] Group ID:Not on file Type:COMMERCIAL Address: [place] [id number] [facility] MEDICARE [facility] MEDICARE Advance Directives For more information, please contact: [phone] Documents on File Type Date Recorded Patient Quality Rn Expl anation Power of Dye Boarding Machine Operator 06/14/2022 12:56 PM * Full [...] 5:26 PM 11/17/2021 3:57 PM Care Teams Jacker Relationship Specialty Start Date End Date Jermaine Ingram MD [address] [place] [address] PCP - General Family Practice 04/23/18 [place] [address] [address] Consulting Physician Cardiology 05/06/18 Lola Mendoza MD [address] [place] [address] Consulting Physician Nephrology 10/18/20 Ajay Sears MD [address] [place] [address] Surgeon Neurosurgery 04/18/21 Sang Morin MD [address] [place] [address] Surgeon Vascular Surgery 11/17/21
[2025-03-17 10:14] LABS: Basophils Absolute Auto 0.05 K/mm3 (0.00-0.10); Basophils Percent Auto 0.5 % (0.0-1.0); Eosinophils Absolute Auto 0.08 K/mm3 (0.02-0.50); Eosinophils Percent Auto 0.8 % (1.0-6.0); Hematocrit 41.7 % (35.0-42.0); Hemoglobin 13.1 g/dL (11.7-13.8); Immature Granulocyte Absolute 0.04 K/mm3 (0.00-0.00); Immature Granulocyte Percent A 0.4 % (0.0-0.0); Lymphocytes Absolute Auto 2.29 K/mm3 (1.10-4.50); Lymphocytes Percent Auto 21.9 % (18.0-42.0); Mean Corpuscular HGB Conc 31.4 g/dL (32-36); Mean Corpuscular Hemoglobin 28.7 pg (27.0-31.0); Mean Corpuscular Volume 91.4 fL (78.0-102.0); Mean Platelet Volume 11.1 fl (9.2-11.8); Monocytes Absolute Auto 0.45 K/mm3 (0.10-0.90); Monocytes Percent Auto 4.3 % (2.0-11.0); Neutrophils Absolute Auto 7.53 K/mm3 (1.70-7.20); Neutrophils Percent Auto 72.1 % (50.0-70.0); Platelet Count Result 168 K/mm3 (150-420); Red Blood Count 4.56 M/mm3 (4.20-5.40); Red Cell Distribution Width 13.9 % (11.6-14.4); White Blood Count 10.4 K/mm3 (4.8-10.8)
[2025-03-17 10:15] LABS: Add Urine Microscopic? NO; Appearance Urine Clear (Clear); Bilirubin Urine Negative (Negative); Blood Urine Negative (Negative); Color Urine Light Yellow (Yellow); Glucose Urine UA Negative (Negative); Ketones Urine Negative (Negative); Leukocyte Esterase Ur Negative LEU/UL (Negative); Nitrate Urine Negative (Negative); Protein Urine Negative (Negative); Urobilinogen Urine 0.2 mg/dL (0.2-1.0)
[2025-03-17 10:41] LABS: Albumin Level 3.9 g/dL (3.4-5.0); Anion Gap 8 mmol/L (4-12); Blood Urea Nitrogen 20 mg/dL (7-18); Calcium 9.3 mg/dL (8.5-10.1); Carbon Dioxide 32 mmol/L (21-32); Chloride 104 mmol/L (98-108); Estimated Glomerular Filt Rate 43; Glucose 145 mg/dL (70-99); Magnesium 2.1 mg/dL (1.8-2.4); Osmolality Calculated 303 mOsm/kg (285-295); Phosphorus 2.9 mg/dL (2.6-4.7); Potassium 4.3 mmol/L (3.5-5.1); Sodium 144 mmol/L (136-145)
[2025-03-17 10:42] LABS: Creatinine Urine < 13.00 mg/dL (40-278); Total Protein Urine Random < 6.0 mg/dL (0.0-11.9)
[2025-03-18 14:09] LABS: Parathyroid Intact 33 pg/mL (16-77)
[2025-03-19 02:03] LABS: Vitamin D 25 Hydroxy 28 ng/mL (30-100)
== END 2025-03-17 09:32 | disposition home or self-care (01) ==
LOC: CHSLAB 09:35
PROVIDERS: PCP Family Medicine; Visit Provider Internal Medicine Nephrology
DX: N18.30 Chronic kidney disease, stage 3 unspecified (principal); R60.9 Edema, unspecified; I10 Essential (primary) hypertension
CPT/HCPCS: 36415; 80069; 81003; 82306; 82570; 83735; 83970; 84156; 85025

== ENCOUNTER 2025-08-31 14:40 | Outpatient (CLI) | payer MEDICARE, SELFPAY ==
[2025-08-31 15:30] LABS: Alanine Aminotransferase 28 U/L (6-35); Albumin Level 4.7 g/dL (3.5-5.1); Alkaline Phosphatase 79 U/L (38-126); Anion Gap 11 mmol/L (4-12); Aspartate Amino Transferase 46 U/L (14-36); Bilirubin,Total 0.6 mg/dL (0.2-1.3); Blood Urea Nitrogen 40 mg/dL (7-17); Calcium 9.9 mg/dL (8.4-10.2); Carbon Dioxide 33 mmol/L (22-30); Chloride 96 mmol/L (98-107); Estimated Glomerular Filt Rate 37; Glucose 288 mg/dL (65-110); Osmolality Calculated 310 mOsm/kg (285-295); Potassium 4.6 mmol/L (3.4-5.0); Sodium 140 mmol/L (137-145); Total Protein 7.8 g/dL (6.3-8.2)
[2025-08-31 15:42] LABS: NT Pro B Type Natriuretic Pept 84 pg/mL (19.9-100)
--- OUTSIDE RECORDS SUMMARY | 2025-08-31 17:10 | XMS_ITS | Encounter Summary ---
Author Organization [facility] Address [address] [facility] [place] [address] Phone Care Team Providers Care Machinist Bench Name Role Phone Jermaine Ingram MD Primary Care Provider Reason for Visit * Reason Comments Medication Refill Encounter Details Date Type Department Care Team (Late st Contact Info) Description 10/04/2021 [facility]ill [facility] [phone] Ino Brown MD #2 [place] [phone] Medication Refill Social History Tobacco Use Types Packs/Day Years Used Date Smoking Tobacco: Former Cigarettes Q uit: 11/12/2000 Smokeless Tobacco: Never Alcohol Use Standard Drinks/Week Comments Not Currently 0 (1 standard drink = 0.6 oz pur e alcohol) Comments Unknown Sex and Gender Information Value Date Recorded Sex Assigned at Not on file Legal Sex Female 10:39 AM BLACKENER Gender Identity Not on file Sexual Orientation Not on file documented as of this encounter Plan of Treatment Not on file documented as of this encounter Visit Diagnoses Not on filedocumented in this encounter Care Teams Machinist Bench Relationship Specialty Start Date End Date Jermaine Ingram MD [address] [place] [address] PCP - General Family Medicine 09/30/18 documented as of this encounter
--- OUTSIDE RECORDS SUMMARY | 2025-08-31 17:10 | XMS_ITS | Encounter Summary ---
Author Organization [facility] Address [address] [facility] [place] [address] Phone Care Team Providers Care Associate Brand Manager Name Role Phone Jermaine Ingram MD Primary Care Provider Reason for Visit * Reason Comments Medication Refill Encounter Details Date Type Department Care Team (Late st Contact Info) Description 11/02/2021 Refill [facility] [phone] Ino Brown MD #2 [place] [phone] Medication Refill Social History Tobacco Use Types Packs/Day Years Used Date Smoking Tobacco: Former Cigarettes Q uit: 11/12/2000 Smokeless Tobacco: Never Alcohol Use Standard Drinks/Week Comments Not Currently 0 (1 standard drink = 0.6 oz pur e alcohol) Comments Unknown Sex and Gender Information Value Date Recorded Sex Assigned at Not on file Legal Sex Female 10:39 AM COOKING CASING AND DRYING SUPERVISOR Gender Identity Not on file Sexual Orientation Not on file documented as of this encounter Plan of Treatment Not on file documented as of this encounter Visit Diagnoses Not on filedocumented in this encounter Care Teams Associate Brand Manager Relationship Specialty Start Date End Date Jermaine Ingram MD [address] [facility] [place] [address] PCP - General Family Medicine 09/30/18 documented as of this encounter
--- OUTSIDE RECORDS SUMMARY | 2025-08-31 17:10 | XMS_ITS | Clinical Summary ---
Author Organization [facility] [employer] Address [address] [place] [address] Care Team Providers Care Yarn Texture Machine Operator Name Role Phone Zelalem Monahan MD Unavailable [phone] Source Comments [facility] [employer],non-owned Affiliates and Associated Physician Practices is amultiple site organization consisting of ambulatory clinics and hospital sitesin [place], [place], [place] and [place]. This disclosure is being madepursuant to the Care Everywhere program and may not contain all information available regarding this patient. Last updated [email or web address] Allergies No known active allergies Medications * [...] on file Legal Sex Female 6:06 AM BUS ASSISTANT Gender Identity Not on file Sexual Orientation Not on file Last Filed Vital Signs Vital Sign Reading Time Taken Comments Blood Pressure - - Pulse - - Temperature - - Respiratory Rate - - Oxygen Saturation - - Inhaled Oxygen Concentration - - Weight 113.4 kg (250 lb) 03/02/2015 12:44 PM CDT Height 160 cm (5' 3) 03/02/2015 12:44 PM CDT Body Mass Index [...] - Risk 60-74 years 1-dose series) 2013 DEPRESSION SCREENING 11/12/2024 COVID-19 VACCINE (1 - 2023-2 5 season) 2025 INFLUENZA VACCINE (#1) 2025 HEPATITIS B VACCINE Aged Out No [...] age to complete this topic Insurance MEDICARE [facility] Care Teams Yarn Texture Machine Operator Relationship Specialty [place] [id number] [address] Vascular Surgery 01/12/14
--- OUTSIDE RECORDS SUMMARY | 2025-08-31 17:10 | XMS_ITS | Encounter Summary ---
Author Organization [facility] Address [address] [place] [address] Care Team Providers Care Insurance Salesman Name Role Phone Zelalem Monahan MD Unavailable [phone] Encounter Details Date Type Department Care Team (Late st Contact Info) Description 03/02/2015 [facility] [address] [facility] [employer] [address] [place] [id number] Social History Tobacco Use Types Packs/Day Years Used Date Smoking Tobacco: Former Cigarettes 2 10 0 11/12/1990 - 11/12/2000 Smokeless Tobacco: Never Alcohol Use Standard Drinks/Week Comments No 0 (1 standard drink = 0.6 oz pur e alcohol) Comments No Sex and Gender Information Value Date Recorded Sex Assigned at Not on file Legal Sex Female 6:06 AM ASSISTANT PROFESSOR OF DIETETICS Gender Identity Not on file Sexual Orientation Not on file documented as of this encounter Plan of Treatment Not on file documented as of this encounter Visit Diagnoses Not on filedocumented in this encounter Care Teams Insurance Salesman Relationship Specialty [place] [address] [facility] [employer] [address] [place] [address] Vascular Surgery 01/12/14 documented as of this encounter
--- OUTSIDE RECORDS SUMMARY | 2025-08-31 17:10 | XMS_ITS | Encounter Summary ---
Author Organization [facility] Address [address] [facility] [place] [address] Phone Care Team Providers Care Power Digger Operator Name Role Phone Jermaine Ingram MD Primary Care Provider Reason for Visit * Reason Comments Medication Refill Encounter Details Date Type Department Care Team (Late st Contact Info) Description 07/31/2021 Refill [facility] [phone] Ino Brown MD #2 [place] [phone] Medication Refill Social History Tobacco Use Types Packs/Day Years Used Date Smoking Tobacco: Former Cigarettes Q uit: 11/12/2000 Smokeless Tobacco: Never Alcohol Use Standard Drinks/Week Comments Not Currently 0 (1 standard drink = 0.6 oz pur e alcohol) Comments Unknown Sex and Gender Information Value Date Recorded Sex Assigned at Not on file Legal Sex Female 10:39 AM NUTRITION TECH Gender Identity Not on file Sexual Orientation Not on file documented as of this encounter Plan of Treatment Not on file documented as of this encounter Visit Diagnoses Not on filedocumented in this encounter Care Teams Power Digger Operator Relationship Specialty Start Date End Date Jermaine Ingram MD [address] [place] [address] PCP - General Family Medicine 09/30/18 documented as of this encounter
--- OUTSIDE RECORDS SUMMARY | 2025-08-31 17:10 | XMS_ITS | Encounter Summary ---
Author Organization [facility] Address [address] [facility] [place] [address] Phone Care Team Providers Care Dock Superintendent Name Role Phone Jermaine Ingram MD Primary Care Provider Reason for Visit * Reason Comments Medication Refill Encounter Details Date Type Department Care Team (Late st Contact Info) Description 01/04/2022 Refill [facility] [phone] Ino Brown MD #2 [place] [phone] Medication Refill Social History Tobacco Use Types Packs/Day Years Used Date Smoking Tobacco: Former Cigarettes Q uit: 11/12/2000 Smokeless Tobacco: Never Alcohol Use Standard Drinks/Week Comments Not Currently 0 (1 standard drink = 0.6 oz pur e alcohol) Comments Unknown Sex and Gender Information Value Date Recorded Sex Assigned at Not on file Legal Sex Female 10:39 AM ADULT CARE PROVIDER Gender Identity Not on file Sexual Orientation Not on file documented as of this encounter Plan of Treatment Not on file documented as of this encounter Visit Diagnoses Not on filedocumented in this encounter Care Teams Dock Superintendent Relationship Specialty Start Date End Date Jermaine Ingram MD [address] [place] [address] PCP - General Family Medicine 09/30/18 documented as of this encounter
--- OUTSIDE RECORDS SUMMARY | 2025-08-31 17:10 | XMS_ITS | Encounter Summary ---
Author Organization [facility] Address [address] [place] [address] Phone Care Team Providers Care Lime Kiln Worker Name Role Phone Jermaine Ingram MD Primary Care Provider Reason for Visit * Reason Comments Medication Refill Encounter Details Date Type Department Care Team (Late st Contact Info) Description 08/23/2021 Refill [facility] [phone] Ino Brown MD #2 [place] [phone] Medication Refill Social History Tobacco Use Types Packs/Day Years Used Date Smoking Tobacco: Former Cigarettes Q uit: 11/12/2000 Smokeless Tobacco: Never Alcohol Use Standard Drinks/Week Comments Not Currently 0 (1 standard drink = 0.6 oz pur e alcohol) Comments Unknown Sex and Gender Information Value Date Recorded Sex Assigned at Not on file Legal Sex Female 10:39 AM STYLIST ASSISTANT Gender Identity Not on file Sexual Orientation Not on file documented as of this encounter Miscellaneous Notes * Telephone Encounter - Lizzie Tamayo RN - 08/24/2021 2:06 PM CDT Attempted to call patient, no response documented in this encounter Plan of Treatment Not on file documented as of this encounter Visit Diagnoses Not on filedocumented in this encounter Care Teams Lime Kiln Worker Relationship Specialty Start Date End Date Jermaine Ingram MD [address] [place] [address] PCP - General Family Medicine 09/30/18 documented as of this encounter
--- OUTSIDE RECORDS SUMMARY | 2025-08-31 17:10 | XMS_ITS | Encounter Summary ---
Author Organization [facility] Address [address] [facility] [place] [address] Phone Care Team Providers Care Facilities Mechanical Design Engineer Name Role Phone Jermaine Ingram MD Primary Care Provider [phone] Reason for Visit * Reason Comments Medication Refill Encounter Details Date Type Department Care Team (Late st Contact Info) Description 05/08/2021 [facility]ill [facility] [place] #1 [place] [phone] Ino Brown MD #2 [place] [phone] Medication Refill Social History Tobacco Use Types Packs/Day Years Used Date Smoking Tobacco: Former Cigarettes Q uit: 11/12/2000 Smokeless Tobacco: Never Alcohol Use Standard Drinks/Week Comments Not Currently 0 (1 standard drink = 0.6 oz pur e alcohol) Comments Unknown Sex and Gender Information Value Date Recorded Sex Assigned at Not on file Legal Sex Female 10:39 AM LEAF COVERER Gender Identity Not on file Sexual Orientation Not on file documented as of this encounter Plan of Treatment Not on file documented as of this encounter Visit Diagnoses Not on filedocumented in this encounter Care Teams Facilities Mechanical Design Engineer Relationship Specialty Start Date End Date Jermaine Ingram MD [address] [place] [address] PCP - General Family Medicine 09/30/18 documented as of this encounter
--- OUTSIDE RECORDS SUMMARY | 2025-08-31 17:10 | XMS_ITS | Encounter Summary ---
Author Organization [facility] Address [address] [place] [address] Care Team Providers Care Step Finisher Name Role Phone Zelalem Monahan MD Unavailable [phone] Encounter Details Date Type Department Care Team (Late st Contact Info) Description 12/30/2013 [facility] [address] [facility] [employer] [address] [place] [address] Social History Tobacco Use Types Packs/Day Years Used Date Smoking Tobacco: Former Cigarettes Q uit: 11/12/2000 Smokeless Tobacco: Never Alcohol Use Standard Drinks/Week Comments Not Asked 0 (1 standard drink = 0.6 oz pur e alcohol) Comments No Sex and Gender Information Value Date Recorded Sex Assigned at Not on file Legal Sex Female 6:06 AM BANK CLERK Gender Identity Not on file Sexual Orientation Not on file documented as of this encounter Plan of Treatment Not on file documented as of this encounter Visit Diagnoses Not on filedocumented in this encounter Care Teams Step Finisher Relationship Specialty [place] [address] [facility] [employer] [address] [place] [address] Vascular Surgery 01/12/14 documented as of this encounter
--- OUTSIDE RECORDS SUMMARY | 2025-08-31 17:10 | XMS_ITS | Encounter Summary ---
Author Organization [facility] Address [address] [facility] [place] [address] Phone Care Team Providers Care Leather Patcher Name Role Phone Jermaine Ingram MD Primary Care Provider Reason for Visit * Reason Comments Medication Refill Encounter Details Date Type Department Care Team (Late st Contact Info) Description 09/17/2021 Refill [facility] [phone] Ino Brown MD #2 [place] [phone] Medication Refill Social History Tobacco Use Types Packs/Day Years Used Date Smoking Tobacco: Former Cigarettes Q uit: 11/12/2000 Smokeless Tobacco: Never Alcohol Use Standard Drinks/Week Comments Not Currently 0 (1 standard drink = 0.6 oz pur e alcohol) Comments Unknown Sex and Gender Information Value Date Recorded Sex Assigned at Not on file Legal Sex Female 10:39 AM INTEGRATED PROGRAM TEACHER Gender Identity Not on file Sexual Orientation Not on file documented as of this encounter Plan of Treatment Not on file documented as of this encounter Visit Diagnoses Not on filedocumented in this encounter Care Teams Leather Patcher Relationship Specialty Start Date End Date Jermaine Ingram MD [address] [place] [address] PCP - General Family Medicine 09/30/18 documented as of this encounter
--- OUTSIDE RECORDS SUMMARY | 2025-08-31 17:11 | XMS_ITS | Clinical Summary ---
Author Organization [facility] Address [address] [place] [address] Care Team Providers Care Cloth Printing Inspector Name Role Phone Jermaine Ingram MD Primary Care Provider [phone] Allergies Active Allergy Reactions Criticality Noted Date [...] Date Diagnosed Date Hypertension associated with diabetes 05/06/2018 Overview (02/17/2022): Last Assessment & Plan: Stable on lisinopril and metoprolol. Continue low-salt diet Hyperlipidemia associated with type 2 diabetes ivan maciel 05/06/2018 Overview (02/17/2022): Last Assessment & Plan: Lab Results Component Value Date LDLCALC 51 07/15/2018 At goal. Continue rosuvastatin. Low cholesterol/low-fat diet Type 2 diabetes mellitus wit h stage 3 chronic kidney disease 05/06/2018 Overview (02/17/2022): Last Assessment & Plan: [...] below 80. 6. Consistent carbs diet. 7. PIPE SMOKING MACHINE OPERATOR follow-up in 3 months. Follow-up with me [...] Sex Assigned at Female 12/09/2024 3:10 PM GROUND INSTRUCTOR ADVANCED Legal Sex Female 3:43 PM GROUND INSTRUCTOR ADVANCED Gender Identity Not on file Sexual Orientation [...] 1:29 PM CDT Height 157.5 cm (5' 2) 05/31/2019 1:29 PM CDT Body Mass Index [...] 07/13/2023 01/10/2023, 04/12, 03/15/2021, Additional history exists Lipid Panel 03/13/2025 03/13/2024, 01/10/2023 COVID-19 Vaccine ( season) 2025 09/25/2022, 09/01/2021, 02/08/2021, Additional history exists Influenza Adult (#1) 2025 09/29/2023, 08/18/2022, 08/17/2021, Additional history exists Pneumococcal Vaccine: 50+ Years Completed 07/27/2020, 10/21/2018, 10/09/2017 Zoster Vaccines Completed 05/28/2023, 11/22/2022 RSV Immunization or 60+ Years Completed 09/29/2023 Hepatitis A Vaccines Aged Out No long er eligible based on patient's age to complete this topic Meningococcal B Vaccine Aged Out No l onger eligible based on patient's age to complete this topic Meningococcal Vaccine Aged Out No betty grover eligible based on patient's age to complete this topic RSV Immunizations Under 20 Months Aged Out No longer eligible based on patient's age to complete this topic Insurance A[employer] Care Teams Cloth Printing Inspector Relationship Specialty Start Date End Date Jermaine Ingram MD [address] [place] [address] PCP - General FAMILY PRACTICE 05/31/19
--- OUTSIDE RECORDS SUMMARY | 2025-08-31 17:11 | XMS_ITS | Encounter Summary ---
Author Organization [facility] Address [address] [facility] [place] [address] Phone Care Team Providers Care Frog Farmer Name Role Phone Jermaine Ingram MD Primary Care Provider Reason for Visit * Reason Comments Medication Refill Encounter Details Date Type Department Care Team (Late st Contact Info) Description 01/29/2022 Refill [facility] [phone] Ino Brown MD #2 [place] [phone] Medication Refill Social History Tobacco Use Types Packs/Day Years Used Date Smoking Tobacco: Former Cigarettes Q uit: 11/12/2000 Smokeless Tobacco: Never Alcohol Use Standard Drinks/Week Comments Not Currently 0 (1 standard drink = 0.6 oz pur e alcohol) Comments Unknown Sex and Gender Information Value Date Recorded Sex Assigned at Not on file Legal Sex Female 10:39 AM SOLAR PHOTOVOLTAIC DESIGNER Gender Identity Not on file Sexual Orientation Not on file documented as of this encounter Plan of Treatment Not on file documented as of this encounter Visit Diagnoses Not on filedocumented in this encounter Care Teams Frog Farmer Relationship Specialty Start Date End Date Jermaine Ingram MD [address] [place] [address] PCP - General Family Medicine 09/30/18 documented as of this encounter
--- OUTSIDE RECORDS SUMMARY | 2025-08-31 17:11 | XMS_ITS | Encounter Summary ---
Author Organization [facility] Address [address] [facility] [place] [address] Phone Care Team Providers Care Acquisition Consultant Name Role Phone Jermaine Ingram MD Primary Care Provider Reason for Visit * Reason Comments Medication Refill Encounter Details Date Type Department Care Team (Late st Contact Info) Description 11/26/2021 Refill [facility] [phone] Ino Brown MD #2 [place] [phone] Medication Refill Social History Tobacco Use Types Packs/Day Years Used Date Smoking Tobacco: Former Cigarettes Q uit: 11/12/2000 Smokeless Tobacco: Never Alcohol Use Standard Drinks/Week Comments Not Currently 0 (1 standard drink = 0.6 oz pur e alcohol) Comments Unknown Sex and Gender Information Value Date Recorded Sex Assigned at Not on file Legal Sex Female 10:39 AM SWEDISH MASSEUSE Gender Identity Not on file Sexual Orientation Not on file documented as of this encounter Plan of Treatment Not on file documented as of this encounter Visit Diagnoses Not on filedocumented in this encounter Care Teams Acquisition Consultant Relationship Specialty Start Date End Date Jermaine Ingram MD [address] [place] [address] PCP - General Family Medicine 09/30/18 documented as of this encounter
--- OUTSIDE RECORDS SUMMARY | 2025-08-31 17:11 | XMS_ITS | Encounter Summary ---
Author Organization [facility] Address [address] [place] [address] Care Team Providers Care Chief Strategy Officer Name Role Phone Jermaine Ingram MD Primary Care Provider Encounter Details Date Type Department Care Team (Late st Contact Info) Description 04/19/2019 Abstract [facility] [address] [place] [address] , Generic Conversion, Social History Tobacco Use Types Packs/Day Years Used Date Smoking Tobacco: Never Assessed Comments Unknown Sex and Gender Information Value Date Recorded Sex Assigned at Female 12/09/2024 3:10 PM BINDERY TECHNICIAN Legal Sex Female 3:43 PM BINDERY TECHNICIAN Gender Identity Not on file Sexual Orientation Not on file documented as of this encounter Plan of Treatment Not on file documented as of this encounter Visit Diagnoses Not on filedocumented in this encounter Additional Health Concerns Infection Onset Date Last Indicated Resolved Time COVID-19 Rule Out 03/13/2022 03/13/2022 03/13/2022 3:50 PM CDT COVID-19 Rule Out 12/22/2022 12/22/2022 12/22/2022 10:47 AM BINDERY TECHNICIAN COVID-19 Confirmed 12/22/2022 12/22/2022 12:32 AM BINDERY TECHNICIAN COVID-19 Rule Out 04/11/2024 04/11/2024 04/11/2024 4:44 PM CDT COVID-19 Rule Out 10/15/2024 10/15/2024 10/15/2024 5:14 PM BINDERY TECHNICIAN COVID-19 Rule Out 12/09/2024 12/09/2024 12/09/2024 4:14 PM BINDERY TECHNICIAN documented as of this encounter Care Teams Chief Strategy Officer Relationship Specialty Start Date End Date Jermaine Ingram MD [address] [facility] [place] [address] PCP - General FAMILY PRACTICE 05/31/19 documented as of this encounter
--- OUTSIDE RECORDS SUMMARY | 2025-08-31 17:11 | XMS_ITS | Encounter Summary ---
Author Organization [facility] Address [address] [facility] [place] [address] Phone Care Team Providers Care Jar Filler Name Role Phone Jermaine Ingram MD Primary Care Provider Reason for Visit * Reason Comments Medication Refill Encounter Details Date Type Department Care Team (Late st Contact Info) Description 02/24/2022 Refill [facility] [phone] Ino Brown MD #2 [place] [phone] Medication Refill Social History Tobacco Use Types Packs/Day Years Used Date Smoking Tobacco: Former Cigarettes Q uit: 11/12/2000 Smokeless Tobacco: Never Alcohol Use Standard Drinks/Week Comments Not Currently 0 (1 standard drink = 0.6 oz pur e alcohol) Comments Unknown Sex and Gender Information Value Date Recorded Sex Assigned at Not on file Legal Sex Female 10:39 AM [facility] Gender Identity Not on file Sexual Orientation Not on file documented as of this encounter Plan of Treatment Not on file documented as of this encounter Visit Diagnoses Not on filedocumented in this encounter Care Teams Jar Filler Relationship Specialty Start Date End Date Jermaine Ingram MD [address] [place] [address] PCP - General Family Medicine 09/30/18 documented as of this encounter
--- OUTSIDE RECORDS SUMMARY | 2025-08-31 17:11 | XMS_ITS | Clinical Summary ---
Author Organization [facility] Address [address] [facility], [place] [address] Phone Care Team Providers Care Occupational Therapy Specialist Name Role Phone Jermaine Ingram MD [...] on file Legal Sex Female 10:39 AM BOOKMOBILE DRIVER Gender Identity Not on file Sexual Orientation Not on file Last Filed Vital Signs Vital Sign Reading Time Taken Comments Blood Pressure 138/82 01/02/2020 10:01 AM BOOKMOBILE DRIVER Pulse 79 01/02/2020 10:01 AM BOOKMOBILE DRIVER Temperature 36.1 C (97 F) 01/02/2020 10:01 AM BOOKMOBILE DRIVER Respiratory Rate 17 01/02/2020 10:01 AM BOOKMOBILE DRIVER Oxygen Saturation 97% 01/02/2020 10:01 AM BOOKMOBILE DRIVER Inhaled Oxygen Concentration - - Weight 99.5 kg (219 lb 6.4 oz) 01/02/2020 10:01 AM BOOKMOBILE DRIVER Height 160 cm (5' 3) 01/02/2020 10:01 AM BOOKMOBILE DRIVER Body Mass Index 38.86 01/02/2020 10:01 AM BOOKMOBILE DRIVER Plan of Treatment Health Maintenance Due Date Last Done Comments Diabetes: Eye Exam 1955 Diabetes: Foot Exam 1955 Hepatitis C Virus (HCV) Screening 1955 TdaP Immunization 1955 Cologuard 1998 Colonoscopy 1998 Colorectal Cancer Screening 1998 Immunochemical Fecal Occult Blood 1998 Zoster Immunization (1 of 2) 2003 Respiratory Syncytial Virus (RSV) Immunization (Adult) (1 - Risk 60-74 years 1-dose series) 2013 Diabetes: Hemoglobin A1c 05/14/2020 11/14/2019 Diabetes: Nephropathy Screening 10/24/2020 10/24/2019 Influenza Immunization (#1) 2025 10/0 04/2021, 07/27/2020, 12/09/2019, Additional history exists SARS-COV-2 Immunization ( season) 2025 09/01/2021, 02/08/2021, 01/18/2021 Pneumococcal Immunization (50+ years) Completed 07/27/2020, 10/21/2018, 10/09/2017 Pneumococcal Immunization Combined Discontinued 07/27/2020, 10/21/2018, 10/09/2017 Hepatitis B Immunization Aged Out No longer eligible based on patient's age to complete this topic Human Papillomavirus (HPV) Immunization Aged Out No longer eligible based on patient's age to complete this topic Meningococcal Immunization (ACWY) Aged Out No longer eligible based on patient's age to complete this topic Rotavirus Immunization Aged Out No lo nger eligible based on patient's age to complete this topic Procedures Procedure Name Priority Date/Time Associated Diagnosis Comments CMP (COMPREHENSIVE METABOLIC PANEL) Routine 10/24/2019 12:43 PM BOOKMOBILE DRIVER Tremor from Last 3 Months or Most Recently Relevant to Health Maintenance Results * (ABNORMAL) CMP (COMPREHENSIVE METABOLIC PANEL) (10/24/2019 12:43 PM BOOKMOBILE DRIVER) SODIUM 139 136 - 144 mmol/L 10/24/2019 2:47 PM [facility] POTASSIUM 4.4 3.5 - 5.1 mmol/L 10/24/2019 2:47 PM [facility] CHLORIDE 98(L) 100 - 110 mmol/L 10/24/2019 2:47 PM [facility] CO2, VENOUS 27 22 - 32 mmol/L 10/24/2019 2:47 PM [facility] ANION GAP 18.4 8.0 - 20.0 mmol/L 10/24/2019 2:47 PM [facility] GLUCOSE 244(H) 70 - 99 mg/dL 10/24/2019 2:47 PM [facility] BUN 27(H) 8 - 23 mg/dL 10/24/2019 2:47 PM [facility] CREATININE, BLOOD 1.26(H) 0.60 - 1.10 mg/dL 10/24/2019 2:47 PM [facility] BUN/CREATININE RATIO 21(H) 12 - 20 ratio 10/24/2019 2:47 PM [facility] TOTAL PROTEIN 6.6 6.0 - 8.3 g/dL 10/24/2019 2:47 PM [facility] ALBUMIN 4.3 3.5 - 5.2 g/dL 10/24/2019 2:47 PM [facility] Comment: The colormetric methods used for the determination of Albumin may lead to falsely elevated test results in patients suffering from renal failure or insufficiency due to interference with other proteins. A/G RATIO 1.9 1.0 - 2.0 10/24/2019 2:47 PM [facility] CALCIUM 9.9 8.9 - 10.3 mg/dL 10/24/2019 2:47 PM [facility] T BILI 0.4 <=1.2 mg/dL 10/24/2019 2:47 PM [facility] SGOT (AST) 21 <=32 U/L 10/24/2019 2:47 PM [facility] SGPT (ALT) 18 <=33 U/L 10/24/2019 2:47 PM [facility] ALKALINE PHOSPHATASE 72 35 - 105 U/L 10/24/2019 2:47 PM [facility] GFR, EST. NONAFRICAN 42(L) >=60 10/24/2019 2:47 PM [facility] GFR, EST. 51(L) >=60 019 2:47 PM [facility] Comment: Creatinine Clearance is the preferred criteria for selecting drug dose adjustments in renally impaired patients. The GFR is provided as additional pertinent clinical information. GFR is reported in mL/min/1.73 sq m. Blood specimen (specimen) Venipuncture / Unknown 10/24/2019 12:43 PM BOOKMOBILE DRIVER 10/24/2019 1:46 PM BOOKMOBILE DRIVER us Ino Brown MD CHEMISTRY ORDERABLES Final R esult [facility] [address] [place] [address] from Last 3 Months or Most Recently Relevant to Health Maintenance Insurance [facility]ICARE [facility] Care Teams Occupational Therapy Specialist Relationship Specialty Start Date End Date Jermaine Ingram MD [address] [place] [address] PCP - General Family Medicine 09/30/18
--- OUTSIDE RECORDS SUMMARY | 2025-08-31 17:11 | XMS_ITS | Encounter Summary ---
Author Organization [facility] Address [address] [facility] [place] [address] Phone Care Team Providers Care Supplier Quality Name Role Phone Jermaine Ingram MD Primary Care Provider Reason for Visit * Reason Comments Medication Refill Encounter Details Date Type Department Care Team (Late st Contact Info) Description 04/04/2022 Refill [facility] [address] [facility] [id number] Ino Brown MD [address] [place] [id number] Medication Refill Social History Tobacco Use Types Packs/Day Years Used Date Smoking Tobacco: Former Cigarettes Q uit: 11/12/2000 Smokeless Tobacco: Never Alcohol Use Standard Drinks/Week Comments Not Currently 0 (1 standard drink = 0.6 oz pur e alcohol) Comments Unknown Sex and Gender Information Value Date Recorded Sex Assigned at Not on file Legal Sex Female 10:39 AM EXECUTIVE ASSOCIATE Gender Identity Not on file Sexual Orientation Not on file documented as of this encounter Plan of Treatment Not on file documented as of this encounter Visit Diagnoses Not on filedocumented in this encounter Care Teams Supplier Quality Relationship Specialty Start Date End Date Jermaine Ingram MD [address] [place] [address] PCP - General Family Medicine 09/30/18 documented as of this encounter
== END 2025-08-31 14:41 | disposition home or self-care (01) ==
LOC: CHSLAB 14:42
PROVIDERS: Internal Medicine; PCP Family Medicine
DX: R06.00 Dyspnea, unspecified (principal)
CPT/HCPCS: 36415; 80053; 83880